=== PATIENT | male | born 1935 | race Caucasian/White ===

== ENCOUNTER 2020-04-15 11:34 | Outpatient (CLI) | payer MEDICARE, SELFPAY ==
--- NOTE | 2020-04-15 11:41 | USCV_ITS ---
Eugene Samayoa Age: 84 Gender: M : 1935 Exam Date: 04/15/2020 11:33 Ordering Phys: Sam hCaudhari MD Technologist: Exam Location: [facility] [place]_ Indication: POOR PULSES RIGHT LEFT Brachial 143.00 mmHg Brachial 146.00 mmHg Pressure (mmHg) Waveform Pressure (mmHg) Waveform 153.00 AEROPLANE PILOT 165.00 156.00 DPA 152.00 1.07 Ankle/Brachial Index 1.10 90.00 Pre-Exercise Toe Pressure 112.00 0.62 Pre-Exercise Toe/Brachial Index 0.77 FINDINGS Normal resting ABIs bilaterally Normal resting TBI on the left side Slightly diminished resting TBI on the right side CONCLUSIONS Features suggestive of mild peripheral artery disease on the right side No significant arterial obstruction on the left side Dr Bailee Newton MD [facility] (Electronically Signed) Final Date: 15 April 2020 18:05 S
== END 2020-04-15 11:35 | disposition home or self-care (01) ==
PROVIDERS: PCP Family Medicine; Visit Provider Family Medicine
DX: R07.9 Chest pain, unspecified (principal); I73.9 Peripheral vascular disease, unspecified
CPT/HCPCS: 93922

== ENCOUNTER 2020-07-08 08:44 | Outpatient (CLI) | payer MEDICARE, SELFPAY ==
--- NOTE | 2020-07-08 09:16 | NMCV_ITS ---
NM lola perf SPECT r/s* [id number] Eugene Samayoa Age: 84 Gender: M : 1935 Exam Date: 07/08/2020 09:16 Ordering Phys: Bailee Newton MD ([email or web address]) Technologist: ROEL Maldonado Exam Location: [facility] Indications: shortness of breath STRESS TEST Please see separate stress test report in Ephiphany for full findings IMAGE PROTOCOL Rest/Stress 1 Radiopharmaceutical Dose (mCi) Administration Site Administered by Rest: Tc-99m 10.6 IV ROEL Fragoso Sestamibi Stress:Tc-99m 32.9 IV ROEL Fragoso Sestamibi Rest: 08-Jul-2020 60 Discovery 630 Stress: 08-Jul-2020 30 Discovery 630 SPECT RESULTS Technical Quality: Excellent Raw Data Analysis: Normal Image Corrections: No attenuation or motion correction applied Summed Stress Score: 2 Summed Rest Score: 8 Summed Difference Score: 0 PERFUSION FINDINGS Small to moderate decreases uptake in the basal mid and apical inferior and apical lateral regions, with no significant reversibility. FUNCTIONAL RESULTS (calculated via Gated SPECT) Stress Image LV EF (%): 56 Stress EDV (mL):108 TID: 0.87 Stress ESV (mL):48 FUNCTIONAL FINDINGS: Segmental wall motion analysis revealing mild hypokinesia of the LV apex and diffuse hypokinesia of the septum. IMPRESSIONS 1. Myocardial perfusion may revealing small to moderate area of fixed defect in the inferior and apical regions, suggestive of myocardial scarring distribution of the right coronary artery/circumflex artery. 2. Normal LV ejection fraction 56%. 3. Wall motion normalities as mentioned above. 4. LV volume, upper limit of normal. No significant coronary ischemia, based on the above findings Dr Bailee Newton MD [facility] (Electronically Signed) Final Date: 08 July 2020 15:46 S
--- NOTE | 2020-07-08 09:16 | ECG_ITS ---
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 Interpretive Statements NAME OF STUDY: LEXISCAN SESTAMIBI STRESS TEST INDICATION: Chest Pain PROCEDURE: At the baseline, the EKG revealed atrial fibrillation with a controlled ventricular response rate. Poor R wave progression. Possible old anteroseptal HI. Left axis deviation. The baseline blood pressure was 145/106 mm Hg with a heart rate of 82 beats/min. Lexiscan was infused over a period of 20 seconds. A total of 0.4 milligrams of Lexiscan was infused. The stress phase was continued for a total of 5 minutes. Heart rate at the end of the stress phase was 105 with a blood pressure 139/92. The EKG at the peak infusion revealed no significant changes. Sestamibi was injected 20 seconds after the Lexiscan infusion. Blood pressure at the end of the recovery phase was 151/93 with a heart rate of 97 per minute. CONCLUSION: 1. No significant EKG changes with the LexiScan infusion 2. No LexiScan induced chest pain or cardiac arrhythmia 3. Normal blood pressure and heart rate response 4. Sestamibi/sestamibi perfusion scan pending; see separate report. Electronically Signed On 07-12-2020 17:29:24 CDT by Bailee Newton M.D. [id number]
[2020-07-08 09:17] VITALS: BMI 27.1
[2020-07-08 10:36] VITALS: BP 145/92; PULSE 89
[2020-07-08] MEDS: regadenoson 0.4 Mg/5 ml Syringe IVP (10:36)
== END 2020-07-08 08:45 | disposition home or self-care (01) ==
LOC: CDL 08:51
PROVIDERS: PCP Family Medicine; Visit Provider Internal Medicine Cardiovascular Disease
DX: R06.02 Shortness of breath (principal); R07.9 Chest pain, unspecified
CPT/HCPCS: 78452; 93017; A9500; J2785

== ENCOUNTER → 2020-08-09 10:06 | Outpatient (BNVA) | payer MEDICARE, SELFPAY | PROVIDERS: PCP Family Medicine; Visit Provider Surgery | DX: Z01.812 Encounter for preprocedural laboratory examination (principal); Z20.822 Contact with and (suspected) exposure to COVID-19 | CPT/HCPCS: 87635 ==

== ENCOUNTER 2020-08-15 05:56 | Day surgery (SDC) | payer MEDICARE, SELFPAY ==
[2020-08-13 09:43] VITALS: BMI 27.8
[2020-08-15 06:20] VITALS: BP 99/82; PULSE 74; RESP 18; TEMP 36.2; O2SAT 98
--- NOTE | 2020-08-15 06:32 | W.PM.OPSUD ---
Surgery/Procedure H&P Update DATE OF PROCEDURE: August 15, 2020 DATE H&P PERFORMED: 07/30/20 H&P UPDATE INFORMATION: No changes to prior documentation PLANNED PROCEDURE: Operation Date: 08/15/20 07:00 Proposed Procedures p Colonoscopy 38654 K92.1(Not Applicable) - Dustin Treadwell MD s EGD(Not Applicable) - Dustin Treadwell MD
[2020-08-15] MEDS: sodium chloride 0.9% 1,000 ML 30 ML IV (06:34)
--- NOTE | 2020-08-15 06:41 | ANES.PREANE2 ---
Pre-Anesthetic Assessment Pre-Anesthetic Assessment: Height/Weight: Height 1.83 m Weight 92.986 kg Temp Pulse Resp BP Pulse Ox 97.2 F L 74 18 99/82 98 08/15/20 06:20 08/15/20 06:20 08/15/20 06:20 08/15/20 06:20 08/15/20 06:20 Proposed Procedure: Operation Date: 08/15/20 07:00 Proposed Procedures p Colonoscopy 69102 K92.1(Not Applicable) - Dustin Treadwell MD s EGD(Not Applicable) - Dustin Treadwell MD Was Beta Ricardo taken within 24 hours: Yes Was Clonidine taken within 24 hours: N/A Last intake: Intake Last Liquid Date 08/14/20 Last Liquid Time 20:30 Last Solid Date 08/13/20 Last Solid Time 18:30 Social: Social History: No alcohol and No tobacco Exam: Pre-Anes Outpt Exam: alert, oriented x 3 and clear to auscultation bilaterally Additional Exam Findings (including area of procedure): Irr Airway: Submandibular: WNL Cervical ROM: WNL MP: 2 Dentition: Partials CV/HEM: CV/HEM: Afib, Arrythmia, CAD (CABG) and HTN Metabolic: Metabolic: Hyperlipidemia Neuropsych: Neuropsych: TIA Anesthetic Plan: ASA status: 3 Anesthesia: MAC Risk of > 500 ml blood loss (7ml/kg in children): No Meds/Allergies Current Medications: Current Medications Generic Name Dose Route Start Last Admin Trade Name Freq PRN Reason Stop Dose Admin Sodium Chloride 1,000 mls @ 30 ml s/hr 08/15/20 06:15 08/15/20 06:34 Sodium Chloride 0.9% IV 08/16/20 06:14 30 mls/hr .Q24H FRIEDA Administration PFSH Anesthesia PFSH: Medical History Atherosclerotic heart disease of [place] coronary artery without angina pectoris Atrial fibrillation Benign essential HTN BPH (benign prostatic hyperplasia) CAD (coronary artery disease) Dilated aortic root Mixed hyperlipidemia TIA (transient ischemic attack) Surgical History History of hernia repair Hx of CABG Family History Father CAD (coronary artery disease) Brother CAD (coronary artery disease) Sister CAD (coronary artery disease) Cancer Other Hyperlipidemia Denies family history of Diabetes Clotting disorder Dementia Chronic kidney disease (CKD) Suicide Anesthesia complication Bleeding disorder Lung disease Stroke Social History Smoking and tobacco status: former smoker Alcohol intake: never Data Anesthesia Cardiac Studies: No Data to Display
[2020-08-15 07:12] VITALS: BP 86/61; PULSE 75; RESP 16; TEMP 36.1; O2SAT 98
[2020-08-15 07:30] VITALS: BP 105/70; PULSE 73; RESP 16; O2SAT 96
--- NOTE | 2020-08-15 08:53 | ANE.PACU2 ---
Inpatient post-anesthesia follow up: Airway intact: Yes Vital signs: Temperature 97 F Pulse Rate 73 Respiratory Rate 16 Blood Pressure 105/70 Pulse Oximetry 96 Oxygen Delivery Me thod Room Air Oxygen Flow Rate Fraction of Inspir ed Oxygen Hydration adequate: Yes Nausea and vomiting: No Pain level: 1 Mental status: Baseline
== END 2020-08-15 07:45 | disposition home or self-care (01) ==
PROVIDERS: PCP Family Medicine; Visit Provider Surgery
PROC: 0DJD8ZZ Inspection of Lower Intestinal Tract, Via Natural or Artificial Opening Endoscopic (ICD-10-PCS; CPT 45378; principal; 2020-08-15 07:00)
PROC: 0DJ08ZZ Inspection of Upper Intestinal Tract, Via Natural or Artificial Opening Endoscopic (ICD-10-PCS; CPT 43235; 2020-08-15 07:00)
DX: K92.1 Melena (principal); I25.10 Atherosclerotic heart disease of native coronary artery without angina pectoris; I50.9 Heart failure, unspecified; I25.2 Old myocardial infarction; I48.91 Unspecified atrial fibrillation; Z79.01 Long term (current) use of anticoagulants; Z95.5 Presence of coronary angioplasty implant and graft; Z95.1 Presence of aortocoronary bypass graft; K64.8 Other hemorrhoids; K44.9 Diaphragmatic hernia without obstruction or gangrene; Z86.73 Personal history of transient ischemic attack (TIA), and cerebral infarction without residual deficits; E78.2 Mixed hyperlipidemia
CPT/HCPCS: 12345; 43235; 45378; 96360; J2704; J7030

== ENCOUNTER 2020-10-08 08:58 | Emergency (ER) | payer MEDICARE, SELFPAY ==
[2020-10-08] VITALS (7 sets, daily range): BP systolic 129–151; BP diastolic 70–90; PULSE 66–90; RESP 9–26; TEMP 36.5–36.7; O2SAT 93–98; BMI 26.4
--- NOTE | 2020-10-08 09:15 | ECG_ITS ---
[facility] Test Date: 2020-10-08 Pat Name: Eugene Samayoa Department: Room: Gender: Male [employer] Presser: : 1935 Requested By: Oleg Castro Order Number: [id number] Arely MD: Bailee Newton M.D. Measurements Intervals Sylvester Rate: 84 P: MS: QRS: -89 QRSD: 93 T: 7 QT: 368 QTc: 436 Interpretive Statements ATRIAL FIBRILLATION INDETERMINATE AXIS POSSIBLE INFERIOR MYOCARDIAL INFARCTION [30 ms Q WAVE IN II/aVF], PROBABLY OLD Compared to ECG 10/04/2018 05:59:06 Indeterminate axis now present Sinus rhythm no longer present Incomplete right bundle-branch block no longer present Myocardial infarct finding still present Electronically Signed On 10-09-2020 0:23:29 CDT by Bailee Newton M.D. [id number]
--- NOTE | 2020-10-08 09:16 | ED_ITS ---
HPI - Abdominal Pain General: Chief Complaint: Abdominal Pain Stated Complaint: abdominal pain Time Seen by Provider: 10/08/20 09:09 History of Present Illness: HPI narrative: 84-year-old male presents emergency room with abdominal pain for last 3 days denies nausea vomiting or diarrhea. He had been on Dexilant and was having diarrhea he thought that might have been a side effect so he stopped it. When he stopped the Dexilant the diarrhea stopped has been constipated for last 5 days so he took some laxatives last night he has had abdominal cramping. He has not had any fever sweats or chills. No dysuria urgency or frequency. Patient has significant reflux to the point where he gets chronic cough and hoarseness from it. MD elicited complaint: abdominal pain Pertinent past history: none Onset (ago): day(s) (3) Location: Diffuse Severity: moderate Quality: cramping Radiation: none Migration to: no migration Exacerbating factors: nothing Relieving factors: nothing Associated Symptoms: Reports bloating, change in bowel habits, GI cramping, dyspepsia and poor appetite; Denies anorexia, belching, change in stool character, chills, coffee ground emesis, constipation, diarrhea, dysuria, excessive flatus, fever(s), heartburn, hematochezia, hematuria, hematemesis, fecal incontinence, loose stools, melena, nausea, syncope and vomiting Review of Systems Const: Denies: fever(s) or chills ENMT: Denies: throat pain, ear or mastoid pain, nasal discharge or nasal congestion Card: Denies: syncope Resp: Denies: dyspnea, productive cough or non-productive cough GI: Reports: bloating, GI cramping and change in bowel habits; Denies: nausea, vomiting, hematemesis, coffee ground emesis, heartburn, diarrhea, constipation, belching, excessive flatus, fecal incontinence, change in stool character, hematochezia or melena : Denies: dysuria or hematuria Skin/Breast: Denies: rash or pruritus PFSH ED PFSH: Medical History (Updated 10/17/20 @ 18:30 by Saran Sherman MD) Atherosclerotic heart disease of [place] coronary artery without angina pectoris Atrial fibrillation Benign essential HTN BPH (benign prostatic hyperplasia) CAD (coronary artery disease) Mixed hyperlipidemia TIA (transient ischemic attack) Surgical History (Updated 10/17/20 @ 16:06 by Saran Sherman MD) H/O esophagogastroduodenoscopy History of coronary artery stent placement Hx of CABG Status post colonoscopy (10/17/20) Status post right inguinal hernia repair Family History Father CAD (coronary artery disease) Brother CAD (coronary artery disease) Sister CAD (coronary artery disease) Cancer Other Hyperlipidemia Denies family history of Diabetes Clotting disorder Dementia Chronic kidney disease (CKD) Suicide Anesthesia complication Bleeding disorder Lung disease Stroke Social History Smoking and tobacco status: former smoker Alcohol intake: never Physical Exam Const: COMMON NORMALS: no acute distress GENERAL APPEARANCE: cooperative and comfortable ORIENTATION/CONSCIOUSNESS: Yes awake, Yes oriented to person, Yes oriented to place and Yes oriented to time HENMT: COMMON NORMALS: normocephalic, atraumatic, hearing grossly normal bilaterally, external ears normal, EAC's normal, TM's normal bilaterally, Normal nasal mucous membranes and turbinates present, moist oral mucous membranes and oropharynx normal HEAD & SCALP: normocephalic and atraumatic NOSE: Normal nasal mucous membranes and turbinates present EXTERNAL EAR: Yes external ears normal EXTERNAL AUDITORY CANAL: EAC's normal TYMPANIC MEMBRANE: TM's normal bilaterally Eye: COMMON NORMALS: Equal, round and reactive pupils present, EOMs intact bilaterally, conjunctivae normal and no scleral icterus CONJUNCTIVA: Yes conjunctivae normal PUPIL: Yes Equal, round and reactive pupils present Neck/C-Spine: COMMON NORMALS: full ROM, no lymphadenopathy, supple and no JVD Lymph: LYMPHATIC: no lymphadenopathy noted and no lymphedema noted Resp: COMMON NORMALS: normal respiratory effort, No retractions, No use of accessory muscles and clear to auscultation bilaterally AUSCULTATION: clear to auscultation bilaterally Cardio: COMMON NORMALS: no JVD, regular rate, regular rhythm and No murmurs present (Cardio) RATE: regular rate RHYTHM: regular rhythm GI: COMMON NORMALS: Soft to palpation and No hepatosplenomegaly present AUSCULTATION: Yes normoactive bowel sounds PALPATION: Yes Soft to palpation, No Tenderness to palpation present (GI), No Guarding due to palpation present (GI) and Yes No hepatosplenomegaly present Extremity: COMMON NORMALS: normal to inspection, capillary refill normal, no clubbing, cyanosis or edema, no calf tenderness and no pedal edema Neuro: SENSORIUM/ORIENTATION: Yes oriented to person, Yes oriented to place and Yes oriented to time Skin: COMMON NORMALS: no rashes or lesions noted GENERAL SKIN EXAM: no rashes or lesions noted Course Vital Signs: Vital signs: Vital Signs Temperature 97.7 F 10/08/20 10:53 Pulse Rate 75 10/08/20 12:50 Respiratory Rate 19 H 10/08/20 12:50 Blood Pressure 150/90 10/08/20 12:50 Pulse Oximetry 97 10/08/20 12:50 MDM - Abdominal Pain MDM Narrative: Medical decision making narrative: Discharge home have him use mag citrate if her symptoms worsen return would recommend he continue on his Pepcid also recommended to do it twice a day. He also started on Inés-Colace and/or male MiraLAX prevention of for long-term constipation. Lab Data: Labs: Lab Results 10/08/20 10/08/20 10/08/20 Range/Units 09:44 09:44 11:19 WBC 9.7 (4.0-10.0) 10^3/ uL RBC 4.86 (4.1-5.3) 10^6/u L Hgb 15.5 (11.7-16.6) g/dL Hct 45.1 (42.0-52.0) % MCV 92.8 (80-94) fL MCH 31.9 (28.0-34.0) pg MCHC 34.4 (30.0-36.0) g/dL RDW 12.4 (12.1-15.1) % Plt Count 261 (130-400) 10^3/c mm MPV 8.5 (7.4-10.4) fL Neut % (Auto) 65.5 % Lymph % (Auto) 21.2 % [place] % (Auto) 12.1 % Eos % (Auto) 0.8 % Baso % (Auto) 0.1 % Neut # (Auto) 6.32 (1.8-7.7) 10^3/u L Lymph # (Auto) 2.1 (0.8-4.8) 10^3/u L [place] # (Auto) 1.2 H (0.2-0.9) 10^3/u L Eos # (Auto) 0.1 (0.0-0.8) 10^3/u L Baso # (Auto) 0.0 (0.0-0.1) 10^3/u L Nucleated RBC % (a uto) 0 % Nucleated RBCs # 0.0 /100WBC Sodium 126 L (136-145) mmol/L Potassium 4.7 (3.5-5.1) mmol/L Chloride 90 L (98-107) mmol/L Carbon Dioxide 26 (22-29) mmol/L Anion Gap 14.7 (5-19) BUN 17 (8-23) mg/dL Creatinine 1.2 (0.7-1.2) mg/dL GFR Calculation Not Reportable Glucose 109 (65-115) mg/dL Calculated Osmolal ity 264 L (285-295) mOsm/k g Calcium 9.3 (8.5-10.5) mg/dL Total Bilirubin 0.6 (0.15-1.2) mg/dL AST 23 (0-40) U/L ALT 14 (0-41) U/L Alkaline Phosphata se 98 (40-130) IU/L Total Protein 7.1 (6.6-8.7) g/dL Albumin 4.0 (3.5-5.2) g/dL Globulin 3.1 (1.3-4.6) g/dL Lipase 16 (13-60) U/L Urine Color Yellow (Yellow) Urine Appearance Clear (CLEAR) Urine pH 7 (5-7) Ur Specific Gravit y 1.010 (1.005-1.030) Urine Protein Neg (Negative) Urine Glucose (UA) Norm (Normal) Urine Ketones Negative (Negative) Urine Blood 2+ H (Negative) Urine Nitrate Negative (Negative) Urine Bilirubin Neg (Negative) Urine Urobilinogen Norm (Negative) mg/dL Ur Leukocyte Trudi ase Negative (Negative) Urine RBC 0-4 H (0-2) /hpf Urine WBC None (0-5) /hpf Ur Squamous Epith Cells None (0-5) /hpf Amorphous Sediment Not Reportable Urine Bacteria Trace (NONE) /hpf Discharge Plan Discharge Patient Disposition: Home Clinical Impression: Abdominal pain, Constipation, Drug side effects, Chronic GERD Condition: Stable Prescriptions: No Action tamsulosin 0.4 mg capsule 0.4 mg PO BEDTIME RF: 0 Xarelto 20 mg tablet 20 mg PO QPM RF: 0 Hold Instructions: Resume on 10/20/20. nitroglycerin [Nitrostat] 0.4 mg tablet, sublingual 0.4 mg SUBLINGUAL Q5M PRN (Reason: Chest Pain) RF: 0 metoprolol succinate 50 mg tablet extended release 24 hr 50 mg PO BEDTIME Qty: 90 RF: 3 Pepcid 20 mg Tablet 20 mg PO BID RF: 0 Colace 100 mg Capsule 100 mg PO PRN RF: 0 Miralax 17 gram/dose Powder 17 g PO DAILY PRN (Reason: Constipation) RF: 0 Vitamin D3 50 mcg (2,000 unit) Tablet 50 mcg PO DAILY RF: 0 Discharge Orders: Discharge ED (Routine); Ordered 10/08/20 Ordered By: Oleg Feng Referrals: Sam Chaudhari MD [Primary Care Provider] - Patient Instructions: Abdominal Pain (ED), Opioid Safety Activity Restrictions/Additional Instructions: Follow-up with your primary care doctor within the next 1 to 2 weeks Coding Level of Care Code ED Data Analytics Specialist for Chg Fwd Exam Comprehensive
--- NOTE | 2020-10-08 09:43 | XRR_ITS ---
PROCEDURE INFORMATION: Exam: XR Abdomen Exam date and time: 10/08/2020 9:43 AM Age: 84 years old Clinical indication: Abdominal pain; Generalized; Additional info: Abd pain TECHNIQUE: Imaging protocol: XR of the abdomen. Views: Frontal supine view of the abdomen. 1 View. COMPARISON: CR XR chest 2V* [id number] 09/18/2020 11:40 AM FINDINGS: Gastrointestinal tract: There is diffuse gaseous distention of the small bowel and colon. Gas is present in the rectum. These findings may be due to a diffuse reflex ileus. Bones/joints: Chronic degenerative changes are present in the spine with sclerosis and osteophytes. XR/XR KUB [id number] IMPRESSION: Diffuse gaseous distention of the small bowel and colon most likely due to a diffuse reflex ileus.
[2020-10-08 09:52] LABS: Basophils % 0.1 %; Eosinophils # 0.1 10^3/uL (0.0-0.8); Eosinophils % 0.8 %; Hematocrit 45.1 % (42.0-52.0); Hemoglobin 15.5 g/dL (11.7-16.6); Lymphocytes # 2.1 10^3/uL (0.8-4.8); Lymphocytes % 21.2 %; Mean Corpuscular HGB Conc 34.4 g/dL (30.0-36.0); Mean Corpuscular Hemoglobin 31.9 pg (28.0-34.0); Mean Corpuscular Volume 92.8 fL (80-94); Mean Platelet Volume 8.5 fL (7.4-10.4); Monocytes # 1.2 10^3/uL (0.2-0.9); Monocytes % 12.1 %; Neutrophils # 6.32 10^3/uL (1.8-7.7); Neutrophils % 65.5 %; Nucleated Red Blood Cells % 0 %; Platelet Count 261 10^3/cmm (130-400); Red Blood Count 4.86 10^6/uL (4.1-5.3); Red Cell Distribution Width 12.4 % (12.1-15.1); White Blood Count 9.7 10^3/uL (4.0-10.0)
[2020-10-08 10:12] LABS: Alanine Aminotransferase 14 U/L (0-41); Alkaline Phosphatase 98 IU/L (40-130); Anion Gap 14.7 (5-19); Aspartate Amino Transferase 23 U/L (0-40); Blood Urea Nitrogen 17 mg/dL (8-23); Calcium 9.3 mg/dL (8.5-10.5); Carbon Dioxide 26 mmol/L (22-29); Chloride 90 mmol/L (98-107); Globulin 3.1 g/dL (1.3-4.6); Glucose 109 mg/dL (65-115); Lipase 16 U/L (13-60); Osmolality Calculated 264 mOsm/kg (285-295); Potassium 4.7 mmol/L (3.5-5.1); Sodium 126 mmol/L (136-145); Total Bilirubin 0.6 mg/dL (0.15-1.2); Total Protein 7.1 g/dL (6.6-8.7)
[2020-10-08 11:35] LABS: Add Urine Microscopic? YES; Bilirubin Urine Neg (Negative); Blood Urine 2+ (Negative); Glucose Urine UA Norm (Normal); Ketones Urine Negative (Negative); Leukocyte Esterase Urine Negative (Negative); Nitrate Urine Negative (Negative); Protein Urine Neg (Negative); Urine Appearance Clear (CLEAR); Urine Color Yellow (Yellow); Urobilinogen Urine Norm (Negative); pH Urine 7 (5-7)
[2020-10-08 11:48] LABS: Bacteria Urine TRACE /hpf; RBC Urine 0-4 /hpf (0-2)
== END 2020-10-08 12:51 | disposition home or self-care (01) ==
PROVIDERS: Emergency Provider Family Medicine; PCP Family Medicine
DX: K59.00 Constipation, unspecified (principal); T88.7XXA Unspecified adverse effect of drug or medicament, initial encounter; T50.905A Adverse effect of unspecified drugs, medicaments and biological substances, initial encounter; K21.9 Gastro-esophageal reflux disease without esophagitis; I25.10 Atherosclerotic heart disease of native coronary artery without angina pectoris; I10 Essential (primary) hypertension; E78.2 Mixed hyperlipidemia; Z86.73 Personal history of transient ischemic attack (TIA), and cerebral infarction without residual deficits; Z95.1 Presence of aortocoronary bypass graft; Z87.891 Personal history of nicotine dependence
CPT/HCPCS: 74018; 80053; 81001; 83690; 85025; 93005; 99284

== ENCOUNTER 2020-10-15 06:00 | Outpatient (CLI) | payer MEDICARE, SELFPAY ==
[2020-10-15 11:56] LABS: Lipase 15 U/L (13-60)
== END 2020-10-15 06:01 | disposition home or self-care (01) ==
LOC: LAB 08-21 14:44
PROVIDERS: PCP Family Medicine; Visit Provider Family Medicine
DX: R10.9 Unspecified abdominal pain (principal)
CPT/HCPCS: 83690

== ENCOUNTER 2020-10-15 11:07 | Outpatient (CLI) | payer MEDICARE, SELFPAY ==
--- NOTE | 2020-10-15 11:13 | CT_ITS ---
WS: [id number] CT ABDOMEN PELVIS TECHNIQUE: Contrast-enhanced CT of the abdomen and pelvis with coronal and sagittal reformatted image s. CLINICAL INFORMATION: OBSTRUCTION, ILEUS COMPARISON: None. DLP: 957.[address] scans at [facility] use at least one of these dose optimization techniques: automat ed exposure control; mA and/or kV adjustment per patient size (includes targeted exams where dose is matched to clinical indication); or iterative reconstruction. FINDINGS: Colonic distention with right colon and cecal constipation. Tortuous hepatic and splenic fl exures with tortuous and decompressed distal sigmoid colon. Transition point in the left lower quadra nt image 42 series 2 image 46 series 2 suspicious for sigmoid volvulus. No evidence of pneumatosis or bowel ischemia. Small bowel is relatively decompressed. Fluid-filled small bowel loops in the pelvis . No free fluid in the abdomen or pelvis. Diffuse fatty infiltration liver. Multiple peripheral enhancing low-attenuation lesion suspicious for metastatic disease largest lesions in the right hepatic lobe measuring 2.7 x 2.1 CM. Liver lesions a re new since the prior CTA in 2014. Normal portal vein and splenic vein. Normal spleen. Adrenal gland s are normal. Normal renal parenchymal enhancement. No hydronephrosis. Right renal cyst measuring 2.1 CM. Small esophageal hiatal hernia. Fatty atrophy of the pancreas. Tiny right pleural effusion. Slight interstitial thickening in the right lower lobe. Cardiomegaly. Urine distended bladder. Heterogeneously enhancing enlarged prostate measuring 4.1 CCM. Normal caliber abdominal aorta. Aortic calcification. No free fluid in the pelvis. No inguinal lympha denopathy. No periaortic or retroperitoneal lymphadenopathy. CT/CT abdomen pelvis w con* [id number] IMPRESSION: 1. Several low-attenuation lesions in the liver with peripheral enhancement nguyen spicious for metastatic disease. Largest lesion right hepatic lobe measures 2.7 x 2.1 cm. This can be further evaluated with ultrasound. These are new since 2 015 2. Large bowel distention with swirling in the mid mesentery and tortuous tape ring sigmoid colon suspicious for sigmoid volvulus. Area of interest in the lef t lower quadrant indicated with markers. 3. Small bowel is relatively decompressed. Fluid-filled small bowel loops in t he pelvis. 4. Urine distended bladder. 5. Heterogeneously enhancing enlarged prostate measuring 4.1 cm. Recommend cor relation PSA. 6. Tiny right pleural effusion with slight interstitial thickening in the righ t lower lobe. 7. Small esophageal hiatal hernia. 8. No abdominal or pelvic lymphadenopathy. Notified Sam Chaudhari MD at 10/15/2020 1:09 PM.
--- NOTE | 2020-10-15 11:13 | XR_ITS ---
WS: [id number] PROCEDURE: XR chest 2V* [id number] CLINICAL INFORMATION: WHEEZING COMPARISON: September 18, 2020 FINDINGS: Heart: Cardiomegaly. Sternotomy. CABG. Lungs: Moderate chronic emphysematous changes. Patchy right perihilar and infrahilar infiltrates new from previous. Recommend correlation for pneumonitis. Mild interstitial thickening right lower lobe. Bones: Normal visualized bony structures. XR/XR chest 2V* [id number] IMPRESSION: 1. Patchy right hilar and infrahilar interstitial infiltrates new from previou s. Recommend correlation for pneumonitis. 2. Stable cardiomegaly. 3. Chronic emphysematous changes.
[2020-10-15] MEDS: iodixanol 320 mg/mL 100mL Btl IV (11:55)
== END 2020-10-15 11:08 | disposition home or self-care (01) ==
LOC: RADWPI 11:09
PROVIDERS: PCP Family Medicine; Visit Provider Family Medicine
DX: K59.00 Constipation, unspecified (principal); K56.7 Ileus, unspecified; K44.9 Diaphragmatic hernia without obstruction or gangrene; J90 Pleural effusion, not elsewhere classified; N32.89 Other specified disorders of bladder; R06.2 Wheezing; I51.7 Cardiomegaly; R91.8 Other nonspecific abnormal finding of lung field
CPT/HCPCS: 71046; 74177; Q9967

== ENCOUNTER 2020-10-15 15:47 | Inpatient (IN) | payer MEDICARE, SELFPAY ==
[2020-10-15] VITALS (8 sets, daily range): BP systolic 122–158; BP diastolic 62–103; PULSE 53–111; RESP 16–18; TEMP 36.1–36.5; O2SAT 94–99; BMI 26.4
--- NOTE | 2020-10-15 17:48 | PC.PHAR ---
PT STATES SHE TAKES CARE OF HIS OWN MEDICATIONS-PT STATES HE WAS TAKING DEXILANT 60MG BUT HASNT TAKEN FOR 2 WEEKS-RX WRITTEN IN 10/08/20 FOR PEPCID 40MG BID-PT STATES HE JUST BUYS OTC 20MG AND TAKES BID-METOPROLOL ER 50MG WAS PRESCRIBED 50MG IN THE MORNING/ 25 MG QPM EXT MED HISTORY SHOWS LAST FILLED ON 08/05/20 90D/S-PT STATES HE IS ONLY TAKING THE 50MG DAILY
--- NOTE | 2020-10-15 18:11 | XRR_ITS ---
PROCEDURE INFORMATION: Exam: XR Abdomen Exam date and time: 10/15/2020 6:11 PM Age: 84 years old Clinical indication: Abdominal pain; Generalized; Prior surgery; Additional info: Concern for volvulous, feeling better presently, no bm x 2d TECHNIQUE: Imaging protocol: XR of the abdomen. Views: Frontal supine view of the abdomen. 1 View. COMPARISON: CT abdomen pelvis w con* [id number] 10/15/2020 11:50 AM FINDINGS: Gastrointestinal tract: Distended air-filled loops throughout the majority of the colon with paucity of intraluminal air in the distal sigmoid colon and rectum. Stool within the right hemicolon again noted. The colon measures up to 9 cm in transverse dimension in the region of the sigmoid colon. No evidence of pneumoperitoneum. Organs: Contrast noted within the bladder. Bones/joints: Partially visualized sternotomy wires noted which are intact. DJD at L5-S1 noted. XR/XR KUB [id number] IMPRESSION: Persistent distended air-filled loops throughout the majority of the colon with paucity of air within the distal sigmoid and rectum again suspicious for sigmoid volvulus given imaging findings on same day CT abdomen/pelvis.
--- NOTE | 2020-10-15 18:12 | ED_ITS ---
HPI - Abdominal Pain General: Chief Complaint: Abdominal Pain Stated Complaint: SENT BY DR STEPHENS/SAVANNA BOWEL OBSTRUCTION Time Seen by Provider: 10/15/20 18:03 Source: patient History of Present Illness: HPI narrative: Patient is a well-appearing 84-year-old male from home seen for abdominal pain. He states that 2 nights ago he had a sudden onset of sharp abdominal pain, 8 of 10, with mild associated nausea, but no vomiting. Since onset of pain, he has had no bowel movement and no passage of flatus. He denies fever, chest pain, shortness of breath, dysuria, or antecedent fever. He has never had any abdominal surgeries. Jimmy ier in the day, CT abdomen pelvis was obtained showing possible volvulus. For this reason, he presents to the emergency department. At this time, he rates his pain as 4 of 10, and considers it an annoyance. He has a history of open heart surgery and paroxysmal atrial fibrillation and currently takes Xarelto for anticoagulation. He took Tylenol last night with some relief. He has no other acute complaints. Review of Systems General: Reports: 10 or more systems reviewed and unremarkable except in HPI and below PFSH ED PFSH: Medical History Atherosclerotic heart disease of [place] coronary artery without angina pectoris Atrial fibrillation Benign essential HTN BPH (benign prostatic hyperplasia) CAD (coronary artery disease) Mixed hyperlipidemia TIA (transient ischemic attack) Surgical History H/O esophagogastroduodenoscopy History of coronary artery stent placement Hx of CABG Status post colonoscopy Status post right inguinal hernia repair Family History Father CAD (coronary artery disease) Brother CAD (coronary artery disease) Sister CAD (coronary artery disease) Cancer Other Hyperlipidemia Denies family history of Diabetes Clotting disorder Dementia Chronic kidney disease (CKD) Suicide Anesthesia complication Bleeding disorder Lung disease Stroke Social History Smoking and tobacco status: former smoker Alcohol intake: never Physical Exam Const: COMMON NORMALS: no acute distress, patient oriented x3 and alert HENMT: COMMON NORMALS: normocephalic and atraumatic HEAD & SCALP: normocephalic and atraumatic Eye: COMMON NORMALS: Equal, round and reactive pupils present, EOMs intact bilaterally and no scleral icterus PUPIL: Yes Equal, round and reactive pupils present Resp: COMMON NORMALS: normal respiratory effort and No retractions Cardio: COMMON NORMALS: No murmurs present (Cardio) RATE: tachycardic R HYTHM: abnormal rhythm irregularly irregular GI: COMMON NORMALS: Normal to inspection, nondistended, normoactive bowel sounds present and Soft to palpation AUSCULTATION: Yes Hypoactive bowel sounds present PALPATION: Yes Soft to palpation and Yes Tenderness to palpation present (GI) Details: LLQ and other (Periumbilic) OTHER: Abdomen is soft and nondistended. He states that the belly was more distended last night. Here very faint bowel sounds and he has mild periumbilical and left-sided abdominal pain. Neuro: COMMON NORMALS: patient oriented x3 SENSORIUM/ORIENTATION: Yes alert Skin: COMMON NORMALS: no rashes or lesions noted GENERAL SKIN EXAM: no rashes or lesions noted Course Vital Signs: Vital signs: Vital Signs Temperature 97.5 F L 10/15/20 20:45 Pulse Rate 80 10/15/20 20:45 Respiratory Rate 18 10/15/20 20:45 Blood Pressure 158/79 10/15/20 20:45 Pulse Oximetry 99 10/15/20 20:45 MDM - Abdominal Pain MDM Narrative: Medical decision making narrative: Patient remained hemodynamically stable throughout ED course. Given the concerning nature of the CT earlier in the day, lactic acid was ordered to assess for bowel necrosis secondary to volvulus. Repeat imaging was performed with KUB to look for progression or possible spontaneous resolution of suspected volvulus. He is in no acute distress. Prior to labs resulting or x-ray being shot, the general surgeon came and evaluated the patient and deemed him fit for endoscopy. As such, he will be taken to the endoscopy suite and then admitted to the surgical service. Lab Data: Labs: Lab Results 10/15/20 10/15/20 10/15/20 Range/Units 18:15 18:15 18:15 WBC (4.0-10.0) 10^3/ uL RBC (4.1-5.3) 10^6/u L Hgb (11.7-16.6) g/dL Hct (42.0-52.0) % MCV (80-94) fL MCH (28.0-34.0) pg MCHC (30.0-36.0) g/dL RDW (12.1-15.1) % Plt Count (130-400) 10^3/c mm MPV (7.4-10.4) fL Neut % (Auto) % Lymph % (Auto) % [place] % (Auto) % Eos % (Auto) % Baso % (Auto) % Neut # (Auto) (1.8-7.7) 10^3/u L Lymph # (Auto) (0.8-4.8) 10^3/u L [place] # (Auto) (0.2-0.9) 10^3/u L Eos # (Auto) (0.0-0.8) 10^3/u L Baso # (Auto) (0.0-0.1) 10^3/u L Nucleated RBC % (a uto) % Nucleated RBCs # /100WBC PT (12.1-14.9) SECO NDS INR (0.8-1.2) APTT (23.9-36.7) SECO NDS Sodium 130 L (136-145) mmol/L Potassium 4.9 (3.5-5.1) mmol/L Chloride 93 L (98-107) mmol/L Carbon Dioxide 20 L (22-29) mmol/L Anion Gap 21.9 H (5-19) BUN 23 (8-23) mg/dL Creatinine 1.3 H (0.7-1.2) mg/dL GFR Calculation Not Reportable Glucose 124 H (65-115) mg/dL Calculated Osmolal ity 275 L (285-295) mOsm/k g Calcium 9.8 (8.5-10.5) mg/dL Total Bilirubin 0.6 (0.15-1.2) mg/dL AST 29 (0-40) U/L ALT 17 (0-41) U/L Alkaline Phosphata se 105 (40-130) IU/L Lactate Dehydrogen ase 255 H (135-225) U/L Total Protein 7.5 (6.6-8.7) g/dL Albumin 4.0 (3.5-5.2) g/dL Globulin 3.5 (1.3-4.6) g/dL Lipase 13 (13-60) U/L Carcinoembryonic A g (0.0-4.7) ng/mL CA 125 Antigen 14.7 (0-35) U/mL Urine Color Yellow (Yellow) Urine Appearance Clear (CLEAR) Urine pH 6.5 (5-7) Ur Specific Gravit y 1.010 (1.005-1.030) Urine Protein Trace (Negative) Urine Glucose (UA) Norm (Normal) Urine Ketones Negative (Negative) Urine Blood 2+ H (Negative) Urine Nitrate Negative (Negative) Urine Bilirubin Neg (Negative) Urine Urobilinogen Norm (Negative) mg/dL Ur Leukocyte Trudi ase Negative (Negative) Urine RBC 5-10 H (0-2) /hpf Urine WBC None (0-5) /hpf Ur Squamous Epith Cells None (0-5) /hpf Amorphous Sediment Not Reportable Urine Bacteria None (NONE) /hpf 10/15/20 10/15/20 10/15/20 Range/Units 18:59 18:59 18:59 WBC 7.9 (4.0-10.0) 10^3/ uL RBC 4.62 (4.1-5.3) 10^6/u L Hgb 14.7 (11.7-16.6) g/dL Hct 44.0 (42.0-52.0) % MCV 95.2 H (80-94) fL MCH 31.8 (28.0-34.0) pg MCHC 33.4 (30.0-36.0) g/dL RDW 12.7 (12.1-15.1) % Plt Count 274 (130-400) 10^3/c mm MPV 9.4 (7.4-10.4) fL Neut % (Auto) 85.3 % Lymph % (Auto) 9.5 % [place] % (Auto) 4.3 % Eos % (Auto) 0.0 % Baso % (Auto) 0.3 % Neut # (Auto) 6.74 (1.8-7.7) 10^3/u L Lymph # (Auto) 0.8 (0.8-4.8) 10^3/u L [place] # (Auto) 0.3 (0.2-0.9) 10^3/u L Eos # (Auto) 0.0 (0.0-0.8) 10^3/u L Baso # (Auto) 0.0 (0.0-0.1) 10^3/u L Nucleated RBC % (a uto) 0 % Nucleated RBCs # 0.0 /100WBC PT 20.40 H (12.1-14.9) SECO NDS INR 1.70 H (0.8-1.2) APTT 36.5 (23.9-36.7) SECO NDS Sodium (136-145) mmol/L Potassium (3.5-5.1) mmol/L Chloride (98-107) mmol/L Carbon Dioxide (22-29) mmol/L Anion Gap (5-19) BUN (8-23) mg/dL Creatinine (0.7-1.2) mg/dL GFR Calculation Glucose (65-115) mg/dL Calculated Osmolal ity (285-295) mOsm/k g Calcium (8.5-10.5) mg/dL Total Bilirubin (0.15-1.2) mg/dL AST (0-40) U/L ALT (0-41) U/L Alkaline Phosphata se (40-130) IU/L Lactate Dehydrogen ase (135-225) U/L Total Protein (6.6-8.7) g/dL Albumin (3.5-5.2) g/dL Globulin (1.3-4.6) g/dL Lipase (13-60) U/L Carcinoembryonic A g 87.0 H (0.0-4.7) ng/mL CA 125 Antigen (0-35) U/mL Urine Color (Yellow) Urine Appearance (CLEAR) Urine pH (5-7) Ur Specific Gravit y (1.005-1.030) Urine Protein (Negative) Urine Glucose (UA) (Normal) Urine Ketones (Negative) Urine Blood (Negative) Urine Nitrate (Negative) Urine Bilirubin (Negative) Urine Urobilinogen (Negative) mg/dL Ur Leukocyte Trudi ase (Negative) Urine RBC (0-2) /hpf Urine WBC (0-5) /hpf Ur Squamous Epith Cells (0-5) /hpf Amorphous Sediment Urine Bacteria (NONE) /hpf Discharge Plan Discharge Patient Disposition: Admitted As Inpatient Admit Provider: Saran Sherman Condition: Stable Coding Level of Care Code ED Singer Back Tender for Chg Fwd Exam Detailed
--- NOTE | 2020-10-15 18:39 | P.HP_ITS ---
Providers/Chief Complaint Primary Care Provider: Sam Stephens MD Chief Complaint: SENT BY DR STEPHENS/SAVANNA BOWEL OBSTRUCTION History of Present Illness Eugene Samayoa is a 84 year old male who presented to the ER from his PCPs office. Patient was seen in the ER on 10/08/2020 and at that point it was felt that the diarrhea was secondary to Protonix and he was transition to Pepcid. Since then his diarrhea stopped but he developed severe constipation. His last bowel movement was 2 days ago where he had small bowel movements and he is not sure when he last passed flatus. 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 At present he rates his pain 3-4, denies any nausea, vomiting. No bleeding per rectum. His EGD and colonoscopy was performed last month by Dr. Treadwell which showed a hiatal hernia. Review of Systems General: Reports: 10 or more systems reviewed and unremarkable except in HPI and below Medications/Allergies Home Medications Medication Instructions Recorded Confirmed Last Taken Type nitroglycerin 0.4 mg sublingual 0.4 mg SUBLINGUAL Q5M PRN 08/10/19 10/15/20 Unknown History tablet rivaroxaban 20 mg tablet 20 mg PO QPM 08/10/19 10/15/20 10/14/20 History tamsulosin 0.4 mg capsule 0.4 mg PO BEDTIME 08/10/19 10/15/20 10/14/20 History cholecalciferol (vitamin D3) 50 mcg PO DAILY 10/15/20 10/15/20 Unknown History [Vitamin D3] docusate sodium [Colace] 100 mg PO PRN 10/15/20 10/15/20 Unknown History famotidine [Pepcid] 20 mg PO BID 10/15/20 10/15/20 10/15/20 History metoprolol succinate 50 mg PO BEDTIME 10/15/20 10/15/20 10/14/20 History polyethylene glycol 3350 [Miralax] 17 g PO DAILY PRN 10/15/20 10/15/20 10/14/20 History Allergies Allergy/AdvReac Type Severity Reaction Status Date / Time atorvastatin [From Lipitor] Allergy Unknown unknown Verified 10/15/20 17:47 rosuvastatin Allergy Unknown unknown Verified 10/15/20 17:47 PFSH Acute PFSH: Medical History Atherosclerotic heart disease of [place] coronary artery without angina pectoris Atrial fibrillation Benign essential HTN BPH (benign prostatic hyperplasia) CAD (coronary artery disease) Mixed hyperlipidemia TIA (transient ischemic attack) Surgical History H/O esophagogastroduodenoscopy History of coronary artery stent placement Hx of CABG Status post colonoscopy Status post right inguinal hernia repair Family History Father CAD (coronary artery disease) Brother CAD (coronary artery disease) Sister CAD (coronary artery disease) Cancer Other Hyperlipidemia Denies family history of Diabetes Clotting disorder Dementia Chronic kidney disease (CKD) Suicide Anesthesia complication Bleeding disorder Lung disease Stroke Social History Smoking and tobacco status: former smoker Alcohol intake: never Vitals/I&O/Wt Last Vital Signs Temp 97.7 F 10/15/20 16:22 Pulse 111 H 10/15/20 17:29 Resp 18 10/15/20 17:29 BP 122/62 10/15/20 17:29 Pulse Ox 94 10/15/20 17:29 Weight last 48 hrs Weight 195 lb Physical Exam Narrative: EXAM NARRATIVE: HEENT: Normocephalic Eye: Sclera /conjunctiva normal Abdomen: Soft to palpation, non tender, non distended Neurological: Oriented to place person and time Skin: Intact, no lesions appreciated on gross exam A&P Assessment and plan (1) Chronic anticoagulation: Patient took Xarelto yesterday but has not taken it today. He takes it for atrial fibrillation. Status: Acute (2) Constipation: 84-year-old male who used to have loose stools but now has 1 week history of constipation associated severe abdominal pain and nausea. No evidence of peritonitis on physical exam. Labs pending. CT abdomen pelvis performed earlier today showed sigmoid volvulus with significant constipation of the right colon. No small bowel dilation was noted. No free air or pneumatosis. We will therefore plan for colonoscopy with goal of detorsion of the volvulus. I have explained to them the risk of bleeding and perforation with the procedure and the 50% chance of recurrent volvulus. Status: Acute Attestations Medical Necessity Statement*: Volvulus Coding Level of Care Code Acute Warp Tying Machine Knotter for Chg Fwd Diagnoses Chronic anticoagulation Z79.01 Constipation K59.00
--- NOTE | 2020-10-15 18:45 | PC.NURSE ---
patient is difficult stick. 2 other nurses attempted without success. I attempted and was successful on 2nd stick for IV access it only allowed for one tube blood draw and then IV being patient with NS flush however will not draw blood. surgical crew is here for patient. I attempted x 2 for labs without success and surgery crew is aware
[2020-10-15] MEDS: sodium chloride 0.9% 1,000 ML 30 ML IV (18:50)
[2020-10-15 18:57] LABS: Add Urine Microscopic? YES; Bilirubin Urine Neg (Negative); Blood Urine 2+ (Negative); Glucose Urine UA Norm (Normal); Ketones Urine Negative (Negative); Leukocyte Esterase Urine Negative (Negative); Nitrate Urine Negative (Negative); Protein Urine Trace (Negative); Urine Appearance Clear (CLEAR); Urine Color Yellow (Yellow); Urobilinogen Urine Norm (Negative); pH Urine 6.5 (5-7)
[2020-10-15 19:02] LABS: Add Urine Culture? No
--- NOTE | 2020-10-15 19:02 | P.ANESASSM_ITS ---
Pre-Anesthetic Assessment Pre-Anesthetic Assessment: Height/Weight: Height 1.83 m Weight 88.451 kg Temp Pulse Resp BP Pulse Ox 97.7 F 78 18 143/102 98 10/15/20 16:22 10/15/20 18:40 10/15/20 18:40 10/15/20 18:40 10/15/20 18:40 Preop Diagnosis: volvulus Proposed Procedure: Operation Date: 10/15/20 18:00 Proposed Procedures p Colonoscopy(Not Applicable) - Saran Sherman MD Was Beta Ricardo taken within 24 hours: N/A Was Clonidine taken within 24 hours: N/A Social: Social History: No alcohol and No tobacco Exam: Pre-Anes Outpt Exam: alert, oriented x 3 and clear to auscultation bilaterally Additional Exam Findings (including area of procedure): Irregular/rapid rate Airway: Submandibular: WNL Cervical ROM: WNL MP: 2 Pulmonary: Pulmonary: None reported CV/HEM: CV/HEM: Afib, CAD and HTN : Comments: Renal Calculus Hepatic: Hepatic: None reported GI: GI: GERD Musc/skel: Musc/skel: None reported Neuropsych: Neuropsych: None reported Anesthetic Plan: ASA status: 3E Anesthesia: MAC PFSH Anesthesia PFSH: Medical History Atherosclerotic heart disease of [place] coronary artery without angina pectoris Atrial fibrillation Benign essential HTN BPH (benign prostatic hyperplasia) CAD (coronary artery disease) Mixed hyperlipidemia TIA (transient ischemic attack) Surgical History H/O esophagogastroduodenoscopy History of coronary artery stent placement Hx of CABG Status post colonoscopy Status post right inguinal hernia repair Family History Father CAD (coronary artery disease) Brother CAD (coronary artery disease) Sister CAD (coronary artery disease) Cancer Other Hyperlipidemia Denies family history of Diabetes Clotting disorder Dementia Chronic kidney disease (CKD) Suicide Anesthesia complication Bleeding disorder Lung disease Stroke Social History Smoking and tobacco status: former smoker Alcohol intake: never Data Anesthesia Other Labs: Laboratory Results - last 48 hr 10/15/20 18:15 Urine Color Yellow Urine Appearance Clear Urine pH 6.5 Ur Specific [place] 1.010 Urine Protein Trace Urine Glucose (UA) Norm Urine Ketones Negative Urine Blood 2+ H Urine Nitrate Negative Urine Bilirubin Neg Urine Urobilinogen Norm Ur Leukocyte Esterase Negative Amorphous Sediment Not Reportable Cardiac Studies: No Data to Display
[2020-10-15 20:38] LABS: Basophils % 0.3 %; Hemoglobin 14.7 g/dL (11.7-16.6); Lymphocytes # 0.8 10^3/uL (0.8-4.8); Lymphocytes % 9.5 %; Mean Corpuscular HGB Conc 33.4 g/dL (30.0-36.0); Mean Corpuscular Hemoglobin 31.8 pg (28.0-34.0); Mean Corpuscular Volume 95.2 fL (80-94); Mean Platelet Volume 9.4 fL (7.4-10.4); Monocytes # 0.3 10^3/uL (0.2-0.9); Monocytes % 4.3 %; Neutrophils # 6.74 10^3/uL (1.8-7.7); Neutrophils % 85.3 %; Nucleated Red Blood Cells % 0 %; Platelet Count 274 10^3/cmm (130-400); Red Blood Count 4.62 10^6/uL (4.1-5.3); Red Cell Distribution Width 12.7 % (12.1-15.1); White Blood Count 7.9 10^3/uL (4.0-10.0)
[2020-10-15 20:42] LABS: Alanine Aminotransferase 17 U/L (0-41); Alkaline Phosphatase 105 IU/L (40-130); Anion Gap 21.9 (5-19); Aspartate Amino Transferase 29 U/L (0-40); Blood Urea Nitrogen 23 mg/dL (8-23); Calcium 9.8 mg/dL (8.5-10.5); Carbon Dioxide 20 mmol/L (22-29); Chloride 93 mmol/L (98-107); Globulin 3.5 g/dL (1.3-4.6); Glucose 124 mg/dL (65-115); Lactate Dehydrogenase 255 U/L (135-225); Lipase 13 U/L (13-60); Osmolality Calculated 275 mOsm/kg (285-295); Potassium 4.9 mmol/L (3.5-5.1); Sodium 130 mmol/L (136-145); Total Bilirubin 0.6 mg/dL (0.15-1.2); Total Protein 7.5 g/dL (6.6-8.7)
[2020-10-15 20:44] LABS: CA 125 14.7 U/mL (0-35)
[2020-10-15 20:58] LABS: Partial Thromboplastin Time 36.5 SECONDS (23.9-36.7)
--- NOTE | 2020-10-15 22:07 | XRR_ITS ---
PROCEDURE INFORMATION: Exam: XR Abdomen Exam date and time: 10/15/2020 10:07 PM Age: 84 years old Clinical indication: Abdominal pain; Generalized; Additional info: Sbo TECHNIQUE: Imaging protocol: XR of the abdomen. Views: 2 Views. Upright and supine views. COMPARISON: CR (ABDOMEN, ) 10/15/2020 6:09 PM FINDINGS: Gastrointestinal tract: Similar air-filled dilated loops of colon throughout the majority of the colon with relative paucity of air within the distal sigmoid and rectum, similar to recent same day radiographs. There appears to be interval progression of dilated loops of central small bowel which were not as apparent on previous examination measuring up to 2.9 cm in transverse dimension. Intraperitoneal space: Normal. No free air. Organs: Contrast noted within the bladder. Bones/joints: Similar to prior. XR/XR abdomen min 2V [id number] IMPRESSION: Persistent dilated air-filled loops of colon, similar to previous exam. Interval development of borderline dilated loops of central small bowel which again is suggestive of colonic obstruction and volvulus seen on same day CT.
[2020-10-15] MEDS: metoprolol succinate ER (24 HR) 50 mg Tablet PO (22:48)
[2020-10-15] MEDS: magnesium citrate Btl 296 mL PO (22:48)
[2020-10-15] MEDS: tamsulosin 0.4 mg Capsule PO (22:48)
[2020-10-15] MEDS: D5-NS 0.45% + KCL 20 mEq 20 MEQ/1,000 ML BAG 100 MEQ IV (22:48)
[2020-10-15] MEDS: famotidine 20 mg/2 mL INJ IVP (23:07)
[2020-10-16] VITALS (8 sets, daily range): BP systolic 116–144; BP diastolic 65–83; PULSE 71–83; RESP 16–20; TEMP 36.4–36.9; O2SAT 95–98
[2020-10-16] MEDS: magnesium citrate Btl 296 mL PO ×2 (02:16→21:44)
--- NOTE | 2020-10-16 06:00 | XR_ITS ---
WS: [id number] Abdomen series, Flat and upright 10/16/2020 Clinical Data: Volvulus Comparison: Flat and upright abdomen, 10/15/2020 Findings: There are dilated loops of colon unchanged. No free air is seen. There are clips and small wires in the left upper quadrant and midline sternotomy sutures. There are small bowel loops which co ntain air but they are not significantly dilated. There is contrast material in the bladder from a re cent CT abdomen and pelvis. XR/XR abdomen min 2V [id number] Impression: 1. Dilated loops of colon with air-fluid levels unchanged. 2. Air in the distal small bowel with modest dilatation.
[2020-10-16] MEDS: enoxaparin 40 mg/0.4 mL Syringe SUBCUT (06:22)
[2020-10-16 06:42] LABS: Basophils % 0.2 %; Hematocrit 44.1 % (42.0-52.0); Lymphocytes # 1.8 10^3/uL (0.8-4.8); Lymphocytes % 13.6 %; Mean Corpuscular Hemoglobin 31.9 pg (28.0-34.0); Mean Corpuscular Volume 93.8 fL (80-94); Monocytes % 7.3 %; Neutrophils # 10.38 10^3/uL (1.8-7.7); Neutrophils % 78.6 %; Nucleated Red Blood Cells % 0 %; Platelet Count 351 10^3/cmm (130-400); Red Cell Distribution Width 12.4 % (12.1-15.1); White Blood Count 13.2 10^3/uL (4.0-10.0)
[2020-10-16 07:20] LABS: Anion Gap 15.9 (5-19); Blood Urea Nitrogen 20 mg/dL (8-23); Carbon Dioxide 20 mmol/L (22-29); Chloride 99 mmol/L (98-107); Glucose 142 mg/dL (65-115); Osmolality Calculated 275 mOsm/kg (285-295); Potassium 4.9 mmol/L (3.5-5.1); Sodium 130 mmol/L (136-145)
[2020-10-16] MEDS: famotidine 20 mg/2 mL INJ IVP ×2 (08:47→22:11)
[2020-10-16] MEDS: D5-NS 0.45% + KCL 20 mEq 20 MEQ/1,000 ML BAG 100 MEQ IV (08:50)
--- NOTE | 2020-10-16 10:27 | FL_ITS ---
WS: [id number] Gastrografin enema, 10/16/2020 Clinical Data: volvulus, elevated CEA with liver mets Comparison: KUB, are described today. Fluoroscopy time: 4.1 minutes. Findings: The Gastrografin was introduced in a retrograde fashion to fill the entire colon. The cecum was well outlined. The appendix was visualized. There is no bowel obstruction. No bowel masses are seen. There were no polyps. The postevacuation film was not remarkable. Is still a large amount of dilated bowel in the central abdomen is probably in the small bowel. FL/FL enema w gastrografin [id number] Impression: 1. Negative Gastrografin enema. 2. Dilated small bowel in the central abdomen.
--- NOTE | 2020-10-16 10:44 | PC.CHAP ---
Pastoral Care Encounter/Spiritual Assessment Type of Contact [] Declined child care giver visit [] Patient/Family/Request visit [] Outpatient visit [] Follow-up visit [] Physician referral [] Code/Alert [x] Routine visit [] Staff referral [] Actively dying [] Patient sleeping [] Family support [] [] Out of room [] Palliative care [] [] Receiving care in room [] Pre-surgical visit [] Trauma [] Long length of stay [] ICU visit [] Other: Relational/Emotional Strength [x] Patient feels connected with others/family/visitors/staff [] Distress [] Loneliness/isolation [] Abandonment Spirituality of Patient [x] Person of Deepthi [x] Attends Sabianism of their Deepthi [x] Believes in Prayer [x] Reads Bible or Roman Catholic materials [] There are Spiritual issues to be addressed Machine Tack Puller Interventions [x] Prayer [x] Active listening [x] Non-anxious presence [x] Spiritual/emotional support [] Crisis/trauma care [] Spiritual counseling [] Bereavement support [] Provided bereavement packet [] Provided Bible/devotional materials [] Provided toy/stuffed animal, coloring book to patient or family member [] Provided Communion [] Anointing/[place]on [] Salvation [x] Completed spiritual assessment [] Other: Impact on Illness or Injury [] Angry [] Fearful [] Anxious [] Often cries [] Exhaustion [] Unable to work [] Unable to attend episcopalian [] Unable to walk/stand [] Unable to read [] Unable to drive [] Unable to eat/drink [] Unable to sleep [] Unable to be with family [] Patient intubated [] Other: Summary Time spent with patient 20 minj
[2020-10-16] MEDS: diatrizoate meglumine 120 mL Sol PR ×7 (12:25)
--- NOTE | 2020-10-16 14:51 | US_ITS ---
WS: [id number] Limited abdomen ultrasound. HISTORY: liver mass COMPARISON: CT 10/15/2020 Evaluation of the liver for possible biopsy. Hypoechoic masses are noted in the posterior RIGHT lobe of the liver. These liver lesions may not be accessible for biopsy due to their position. Patient was also unable to hold his breath. We will attempt to biopsy the liver lesions by ultrasound in the [facility]. US/US liver [id number] IMPRESSION: Hepatic liver lesions most consistent with metastatic disease. These lesions wi ll be very difficult to biopsy by ultrasound. We will attempt biopsy in the a.m .
--- NOTE | 2020-10-16 16:39 | PM.PN ---
Subjective Subjective: Interval history: Patient denies any abdominal pain, nausea, vomiting, had multiple bowel movements today after bowel prep overnight. Vitals/I&O/Wt Last Vital Signs Temp 97.6 F 10/16/20 15:48 Pulse 72 10/16/20 15:48 Resp 18 10/16/20 15:48 BP 122/71 10/16/20 15:48 Pulse Ox 96 10/16/20 15:48 10/16/20 10/16/20 10/16/20 06:59 14:59 22:59 Intake Total 1000 / 1000 Output Total 1100 / 1100 Balance -1100 / -700 1000 / 1000 Weight last 48 hrs Weight 195 lb Physical Exam Narrative: EXAM NARRATIVE: Abdomen: Soft, nontender, nondistended Data : 10/16/20 06:09 10/16/20 06:09 A&P Assessment and plan (1) Chronic anticoagulation: We will hold off on Xarelto for now Status: Acute (2) Constipation: Status post colonoscopy with decompression of partial volvulus. I reviewed the CT findings with Dr. Kowalski today who is not 100% convinced that patient has true volvulus that he could have partial volvulus or significant kink since he has severe abdominal pain the night before admission. His CEA is elevated and he has new liver mets. We will therefore plan to repeat the bowel prep today with the goal of performing a colonoscopy tomorrow to assess the right colon since yesterday's colonoscopy was incomplete due to significant amount of stool in the right colon I explained to the patient and his that I am currently not significantly concerned about the volvulus since I am not 100% sure if he had a true volvulus but we need to focus on the liver metastasis. We will therefore hold off on any surgical intervention to address this potential volvulus for now Status: Inactive (3) Liver mass: Patient has a new diagnosed liver mass concerning for metastasis with a CEA of 87. Discussed with Dr. Kowalski and will plan for ultrasound-guided biopsy of the liver mass tomorrow. Status: Acute Attestations Medical Necessity Statement*: Liver metastasis, abdominal pain with decompression of volvulus, requiring 1 more night of inpatient stay for follow-up colonoscopy and liver biopsy tomorrow Coding Level of Care Code Acute Progressive Care Nurse for Teagan Fwmarybeth Diagnoses Chronic anticoagulation Z79.01 Constipation K59.00 Liver mass R16.0
[2020-10-16] MEDS: bisacodyl 5 mg Tablet 40 MG PO (18:47)
[2020-10-16] MEDS: metoprolol succinate ER (24 HR) 50 mg Tablet PO (21:44)
[2020-10-16] MEDS: tamsulosin 0.4 mg Capsule PO (21:44)
[2020-10-17] VITALS (16 sets, daily range): BP systolic 103–167; BP diastolic 67–117; PULSE 73–145; RESP 11–28; TEMP 36.1–36.9; O2SAT 95–99
[2020-10-17 02:49] LABS: Basophils % 0.2 %; Hematocrit 44.6 % (42.0-52.0); Hemoglobin 14.7 g/dL (11.7-16.6); Lymphocytes % 12.4 %; Mean Corpuscular Hemoglobin 31.5 pg (28.0-34.0); Mean Corpuscular Volume 95.5 fL (80-94); Mean Platelet Volume 8.7 fL (7.4-10.4); Monocytes # 1.5 10^3/uL (0.2-0.9); Monocytes % 8.9 %; Neutrophils # 12.66 10^3/uL (1.8-7.7); Neutrophils % 78.1 %; Nucleated Red Blood Cells % 0 %; Platelet Count 346 10^3/cmm (130-400); Red Blood Count 4.67 10^6/uL (4.1-5.3); White Blood Count 16.2 10^3/uL (4.0-10.0)
[2020-10-17 03:13] LABS: Anion Gap 15.4 (5-19); Blood Urea Nitrogen 22 mg/dL (8-23); Calcium 9.6 mg/dL (8.5-10.5); Carbon Dioxide 21 mmol/L (22-29); Chloride 101 mmol/L (98-107); Glucose 121 mg/dL (65-115); Osmolality Calculated 281 mOsm/kg (285-295); Potassium 4.4 mmol/L (3.5-5.1); Sodium 133 mmol/L (136-145)
[2020-10-17] MEDS: famotidine 20 mg/2 mL INJ IVP (08:46)
[2020-10-17 10:00] LABS: INR 1.18 (0.8-1.2)
--- NOTE | 2020-10-17 10:47 | P.ANESUD_ITS ---
Pre-Anesthetic Update Pre-Anesthetic Assessment: Date of Surgery/Procedure: 10/17/20 Preop Odalis gnosis: volvulus Proposed Procedure: Operation Date: 10/15/20 18:00 Proposed Procedures p Colonoscopy(Not Applicable) - Saran Sherman MD Operation Date: 10/15/20 18:00 Proposed Procedures p Colonoscopy(Not Applicable) - Saran Sherman MD Operation Date: 10/17/20 12:00 Proposed Procedures p Ultrasound Biopsy liver(Not Applicable) - DO ana lilia Colón Colonoscopy(Not Applicable) - Saran Sherman MD Operation Date: 10/17/20 12:30 Proposed Procedures p Colonoscopy(Not Applicable) - Saran Sherman MD Labs Last 48hrs: Laboratory Results - last 48 hr 10/15/20 10/15/20 10/15/20 18:15 18:15 18:15 WBC RBC Hgb Hct MCV MCH MCHC RDW Plt Count MPV Neut % (Auto) Lymph % (Auto) [place] % (Auto) Eos % (Auto) Baso % (Auto) Neut # (Auto) Lymph # (Auto) [place] # (Auto) Eos # (Auto) Baso # (Auto) Nucleated RBC % (a uto) Nucleated RBCs # PT INR APTT Sodium 130 L Potassium 4.9 Chloride 93 L Carbon Dioxide 20 L Anion Gap 21.9 H BUN 23 Creatinine 1.3 H GFR Calculation Not Reportable Glucose 124 H Calculated Osmolal ity 275 L Calcium 9.8 Total Bilirubin 0.6 AST 29 ALT 17 Alkaline Phosphata se 105 Lactate Dehydrogen ase 255 H Total Protein 7.5 Albumin 4.0 Globulin 3.5 Lipase 13 Carcinoembryonic A g CA 125 Antigen 14.7 Urine Color Yellow Urine Appearance Clear Urine pH 6.5 Ur Specific Gravit y 1.010 Urine Protein Trace Urine Glucose (UA) Norm Urine Ketones Negative Urine Blood 2+ H Urine Nitrate Negative Urine Bilirubin Neg Urine Urobilinogen Norm Ur Leukocyte Trudi ase Negative Urine RBC 5-10 H Urine WBC None Ur Squamous Epith Cells None Amorphous Sediment Not Reportable Urine Bacteria None 10/15/20 10/15/20 10/15/20 18:59 18:59 18:59 WBC 7.9 RBC 4.62 Hgb 14.7 Hct 44.0 MCV 95.2 H MCH 31.8 MCHC 33.4 RDW 12.7 Plt Count 274 MPV 9.4 Neut % (Auto) 85.3 Lymph % (Auto) 9.5 [place] % (Auto) 4.3 Eos % (Auto) 0.0 Baso % (Auto) 0.3 Neut # (Auto) 6.74 Lymph # (Auto) 0.8 [place] # (Auto) 0.3 Eos # (Auto) 0.0 Baso # (Auto) 0.0 Nucleated RBC % (a uto) 0 Nucleated RBCs # 0.0 PT 20.40 H INR 1.70 H APTT 36.5 Sodium Potassium Chloride Carbon Dioxide Anion Gap BUN Creatinine GFR Calculation Glucose Calculated Osmolal ity Calcium Total Bilirubin AST ALT Alkaline Phosphata se Lactate Dehydrogen ase Total Protein Albumin Globulin Lipase Carcinoembryonic A g 87.0 H CA 125 Antigen Urine Color Urine Appearance Urine pH Ur Specific Gravit y Urine Protein Urine Glucose (UA) Urine Ketones Urine Blood Urine Nitrate Urine Bilirubin Urine Urobilinogen Ur Leukocyte Trudi ase Urine RBC Urine WBC Ur Squamous Epith Cells Amorphous Sediment Urine Bacteria 10/16/20 10/16/20 10/17/20 06:09 06:09 02:30 WBC 13.2 H 16.2 H RBC 4.70 4.67 Hgb 15.0 14.7 Hct 44.1 44.6 MCV 93.8 95.5 H MCH 31.9 31.5 MCHC 34.0 33.0 RDW 12.4 13.0 Plt Count 351 346 MPV 9.0 8.7 Neut % (Auto) 78.6 78.1 Lymph % (Auto) 13.6 12.4 [place] % (Auto) 7.3 8.9 Eos % (Auto) 0.0 0.0 Baso % (Auto) 0.2 0.2 Neut # (Auto) 10.38 H 12.66 H Lymph # (Auto) 1.8 2.0 [place] # (Auto) 1.0 H 1.5 H Eos # (Auto) 0.0 0.0 Baso # (Auto) 0.0 0.0 Nucleated RBC % (a uto) 0 0 Nucleated RBCs # 0.0 0.0 PT INR APTT Sodium 130 L Potassium 4.9 Chloride 99 Carbon Dioxide 20 L Anion Gap 15.9 BUN 20 Creatinine 1.1 GFR Calculation Not Reportable Glucose 142 H Calculated Osmolal ity 275 L Calcium 10.0 Total Bilirubin AST ALT Alkaline Phosphata se Lactate Dehydrogen ase Total Protein Albumin Globulin Lipase Carcinoembryonic A g CA 125 Antigen Urine Color Urine Appearance Urine pH Ur Specific Gravit y Urine Protein Urine Glucose (UA) Urine Ketones Urine Blood Urine Nitrate Urine Bilirubin Urine Urobilinogen Ur Leukocyte Trudi ase Urine RBC Urine WBC Ur Squamous Epith Cells Amorphous Sediment Urine Bacteria 10/17/20 10/17/20 02:30 09:26 WBC RBC Hgb Hct MCV MCH MCHC RDW Plt Count MPV Neut % (Auto) Lymph % (Auto) [place] % (Auto) Eos % (Auto) Baso % (Auto) Neut # (Auto) Lymph # (Auto) [place] # (Auto) Eos # (Auto) Baso # (Auto) Nucleated RBC % (a uto) Nucleated RBCs # PT 15.30 H INR 1.18 APTT Sodium 133 L Potassium 4.4 Chloride 101 Carbon Dioxide 21 L Anion Gap 15.4 BUN 22 Creatinine 1.3 H GFR Calculation Not Reportable Glucose 121 H Calculated Osmolal ity 281 L Calcium 9.6 Total Bilirubin AST ALT Alkaline Phosphata se Lactate Dehydrogen ase Total Protein Albumin Globulin Lipase Carcinoembryonic A g CA 125 Antigen Urine Color Urine Appearance Urine pH Ur Specific Gravit y Urine Protein Urine Glucose (UA) Urine Ketones Urine Blood Urine Nitrate Urine Bilirubin Urine Urobilinogen Ur Leukocyte Trudi ase Urine RBC Urine WBC Ur Squamous Epith Cells Amorphous Sediment Urine Bacteria Vitals: Temperature 98.0 F 10/17/20 07:56 Temperature Source Oral 10/17/20 03:25 Pulse Rate 77 10/17/20 07:56 Pulse Rhythm 10/16/20 20:00 Pulse Strength 3+ Normal 10/16/20 20:00 Respiratory Rate 18 10/17/20 07:56 Respiratory Effort Non-Labored 10/16/20 20:00 Respiratory Depth Normal 10/16/20 20:00 Respiratory Patter n 10/16/20 20:00 Blood Pressure 111/73 10/17/20 07:56 Blood Pressure Juany n 85 10/17/20 07:56 Blood Pressure Pos ition Semi Fowlers 10/17/20 03:25 Pulse Oximetry 95 10/17/20 07:56 Oxygen Delivery Me thod 10/17/20 03:25 Oxygen Flow Rate 3 10/15/20 20:10 Sepsis Recent Feve r Within 48 Hours No 10/15/20 16:22 Sepsis New/Unexpla ined Change in Men perez Status No 10/15/20 16:22 Exam: Pre-Anes Outpt Exam: alert, oriented x 3 and clear to auscultation bilaterally Additional Exam Findings (including area of procedure): Irregular heart rate Cardiac Studies: No Data to Display
--- NOTE | 2020-10-17 10:49 | US_ITS ---
WS: [id number] ULTRASOUND-GUIDED LIVER BIOPSY HISTORY: METS TO THE LIVER Procedure, risks, and complications have been explained to the patient. Consent is obtained. Explained to the patient then difficulty biopsying these lesions due to their position. Closed at the lung and also the colon. Taking into consideration the risk for pneumothorax or bowel perforation pa tient is requested to continue. Every effort is made to avoid the lung and colon. Skin is cleansed with ChloraPrep and then anesthetized with 1% buffered lidocaine. Core biopsy is per formed with a 20 gauge Achieve needle. Specimen is placed within formalin. No complications encounter ed. After several attempts we were able to biopsy lesion in the liver twice. US/US biopsy liver [id number] IMPRESSION: Biopsy performed of possible metastatic lesions in the RIGHT lobe of the liver. No complications were evident at this time. Patient will be watched closely af ter biopsy for any complications.
[2020-10-17] MEDS: sodium chloride 0.9% 1,000 ML 30 ML IV (11:57)
--- NOTE | 2020-10-17 14:48 | P.PN_ITS ---
Subjective Subjective: Interval history: patient had some pain, no nausea or vomiting Vitals/I&O/Wt Last Vital Signs Temp 97.2 F L 10/17/20 13:50 Pulse 87 10/17/20 13:50 Resp 20 H 10/17/20 13:50 BP 139/67 10/17/20 13:50 Pulse Ox 95 10/17/20 13:50 10/16/20 10/17/20 10/17/20 22:59 06:59 14:59 Intake Total 999 / 1999 Balance 1000 / 1999 Weight last 48 hrs Weight 195 lb Physical Exam Narrative: EXAM NARRATIVE: Abdomen: Soft Data : 10/17/20 02:30 10/17/20 02:30 A&P Assessment and plan (1) Chronic anticoagulation: We will hold off on Xarelto for now Status: Acute (2) Constipation: Patient had liver biopsy today, plan for colonoscopy under MAC today Status: Inactive (3) Liver mass: s/p liver biopsy Status: Acute Attestations Medical Necessity Statement*: volvulus Coding Level of Care Code Acute [place] Bleacher for Chg Fwd Diagnoses Chronic anticoagulation Z79.01 Constipation K59.00 Liver mass R16.0
--- NOTE | 2020-10-17 16:54 | ANE.PACU2 ---
Inpatient post-anesthesia follow up: Airway intact: Yes Vital signs: Temperature 97 F Pulse Rate [Right Radial] 101 Pulse Rate 73 Respiratory Rate 20 Blood Pressure [Le ft Arm] 127/74 Blood Pressure 123/78 Pulse Oximetry 95 Oxygen Delivery Me thod [ Room Air Current Rate & Del josé] Oxygen Delivery Me thod Room Air Oxygen Flow Rate 3 Fraction of Inspir ed Oxygen Hydration adequate: Yes Nausea and vomiting: No Pain level: 1 Mental status: Baseline
--- NOTE | 2020-10-17 18:30 | P.DS_ITS ---
Discharge Providers Date of Admission: 10/15/20 20:49 Date of Discharge: October 17, 2020 Attending Provider at Admission: Saran Sherman MD Attending Provider at Discharge: Saran Sherman MD Primary Care Provider: Sam Stephens MD Diagnoses at Discharge Discharge Diagnosis (1) Chronic anticoagulation: Status: Acute (2) Constipation: Status: Inactive (3) Liver mass: Status: Acute Reason for Visit Reason for Visit: SENT BY DR STEPHENS/[facility] [employer] Hospital Course Hospital Course Eugene Samayoa is a 84 year old male who presented to the ER from his PCPs office. Patient was seen in the ER on 10/08/2020 and at that point it was felt that the diarrhea was secondary to Protonix and he was transition to Pepcid. Since then his diarrhea stopped but he developed severe constipation. His last bowel movement was 2 days ago where he had small bowel movements and he is not sure when he last passed flatus. 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 At present he rates his pain 3-4, denies any nausea, vomiting. No bleeding per rectum. His EGD and colonoscopy was performed last month by Dr. Treadwell which showed a hiatal hernia. Patient underwent decompression of suspected volvulus on 10/15/2020. Patient underwent bowel prep that night and subsequently had a Gastrografin enema yesterday which was normal with no evidence of volvulus or obstruction. He underwent liver biopsy of the liver lesions by Dr. Kowalski today and I subsequently followed up with a completion colonoscopy. The colonoscopy was normal. His CEA was 87 and his CA 19-9 was normal. At this point I have updated the patient and his about the plan. We will discharge him today on a GI soft diet. Advised to maintain aggressive bowel regimen with MiraLAX twice daily. Start Xarelto after 3 days due to liver biops y. Patient will follow up with Dr. Munroe in 1 week when the biopsy results from the liver lesion should be back which would help decide on further course. Discharge Data Data Completed and Pending: Completed Studies During Hospitalization Category Date Time Status FL enema w gastro grafin [id number] Routi ne Exams 10/16/20 10:27 Completed XR KUB [id number] Stat Exams 10/15/20 18:11 Completed XR abdomen min 2V [id number] Routine Exams 10/15/20 22:07 Completed XR abdomen min 2V [id number] Routine Exams 10/16/20 06:00 Completed US biopsy liver 4 7000 Routine Ultrasound 10/17/20 10:49 Completed US liver [id number] Ro utine Ultrasound 10/16/20 14:51 Completed Pending at discharge Category Date Time Status Pathology: Surgic al [PTH] Routine Pth 10/17/20 13:44 Received Labs from last 24 hours 10/17/20 10/17/20 10/17/20 09:26 02:30 02:30 WBC 16.2 H RBC 4.67 Hgb 14.7 Hct 44.6 MCV 95.5 H MCH 31.5 MCHC 33.0 RDW 13.0 Plt Count 346 MPV 8.7 Neut % (Auto) 78.1 Lymph % (Auto) 12.4 [place] % (Auto) 8.9 Eos % (Auto) 0.0 Baso % (Auto) 0.2 Neut # (Auto) 12.66 H Lymph # (Auto) 2.0 [place] # (Auto) 1.5 H Eos # (Auto) 0.0 Baso # (Auto) 0.0 Nucleated RBC % (a uto) 0 Nucleated RBCs # 0.0 PT 15.30 H INR 1.18 Sodium 133 L Potassium 4.4 Chloride 101 Carbon Dioxide 21 L Anion Gap 15.4 BUN 22 Creatinine 1.3 H GFR Calculation Not Reportable Glucose 121 H Calculated Osmolal ity 281 L Calcium 9.6 Vitals: Last Vital Signs Temp 97 F L 10/17/20 15:44 Pulse 73 10/17/20 15:58 Resp 20 H 10/17/20 15:58 BP 123/78 10/17/20 15:58 Pulse Ox 95 10/17/20 15:58 Discharge Plan Discharge Patient Disposition: Home Condition: Stable Prescriptions: Continued tamsulosin 0.4 mg capsule 0.4 mg PO BEDTIME RF: 0 nitroglycerin [Nitrostat] 0.4 mg tablet, sublingual 0.4 mg SUBLINGUAL Q5M PRN (Reason: Chest Pain) RF: 0 Pepcid 20 mg Tablet 20 mg PO BID RF: 0 Colace 100 mg Capsule 100 mg PO PRN RF: 0 Miralax 17 gram/dose Powder 17 g PO DAILY PRN (Reason: Constipation) RF: 0 Vitamin D3 50 mcg (2,000 unit) Tablet 50 mcg PO DAILY RF: 0 metoprolol succinate 50 mg tablet extended release 24 hr 50 mg PO BEDTIME RF: 0 Held Xarelto 20 mg tablet 20 mg PO QPM RF: 0 Hold Instructions: Resume on 10/20/20. Discharge Orders: Discharge Order (Routine); Ordered 10/17/20 Ordered By: Saran Sherman Referrals: Saran Sherman MD [Physician] - 1 month Catalina Munroe MD [Staff Physician] - (Liver mass status post biopsy 10/17/2020. Normal EGD and colonoscopy, CEA of 87) Discharge Diet: Usual diet Discharge Activity: Resume usual activity Patient Instructions: GI Discharge Instructions Discharge Attestations Time Spent in Discharge Care*: less than 30 min Quality Metrics Clinical Quality Measures During this hospital stay, did patient experience: None Coding Level of Care Code Acute Chg FW DC note Diagnoses Chronic anticoagulation Z79.01 Constipation K59.00 Liver mass R16.0
[2020-11-27 08:34] LABS: EGFR Block Specimen ID See Report; EGFR Comment See Report; EGFR Result See Report; EGFR Specimen Source See Report; Lung Cancer ALK Client Access See Report; Lung Cancer ALK Client Phone # See Report; Lung Cancer ALK Clinical Indic See Report; Lung Cancer ALK Patient ID: See Report; Lung Cancer ALK Ref. Phy # See Report; Lung Cancer ALK Referring Phy See Report; Lung Cancer ALK Specimen Src See Report
[2020-11-27 08:35] LABS: BRAF Mutation Analysis See Report; BRAF Paraffin Block Number See Report; BRAF Source See Report; ROS1 Client Accession # See Report; ROS1 Client Phone # See Report; ROS1 Clinical Indication See Report; ROS1 Patient ID See Report; ROS1 Referring Physician See Report; ROS1 Referring Physician Phone See Report; ROS1 Specimen Type See Report
[2020-11-27 08:39] LABS: Miscellaneous Test See Scanned Lab Rpt
== END 2020-10-17 18:52 | disposition home or self-care (01) | DRG 346 ==
LOC: ER 18:03 → GILAB 18:27 → MEDSURG 21:00
PROVIDERS: Emergency Medicine; Radiology Diagnostic Radiology; Admitting Provider Surgery; Emergency Provider Student in an Organized Health Care Education/Training Program; PCP Family Medicine; Visit Provider Surgery
PROC: 0DJD8ZZ Inspection of Lower Intestinal Tract, Via Natural or Artificial Opening Endoscopic (ICD-10-PCS; CPT 45378; principal; 2020-10-15 18:00)
PROC: 0FB14ZX Excision of Right Lobe Liver, Percutaneous Endoscopic Approach, Diagnostic (ICD-10-PCS; principal; 2020-10-17 12:00)
DX: K56.2 Volvulus (principal); K59.00 Constipation, unspecified; K44.9 Diaphragmatic hernia without obstruction or gangrene; I25.10 Atherosclerotic heart disease of native coronary artery without angina pectoris; Z95.1 Presence of aortocoronary bypass graft; Z95.5 Presence of coronary angioplasty implant and graft; I48.91 Unspecified atrial fibrillation; I10 Essential (primary) hypertension; N40.0 Benign prostatic hyperplasia without lower urinary tract symptoms; E78.2 Mixed hyperlipidemia; Z86.73 Personal history of transient ischemic attack (TIA), and cerebral infarction without residual deficits; Z87.891 Personal history of nicotine dependence; Z79.01 Long term (current) use of anticoagulants; K76.9 Liver disease, unspecified; R97.0 Elevated carcinoembryonic antigen [CEA]
CPT/HCPCS: 36415; 45378; 45393; 47000; 71046; 74018; 74019; 74177; 74270; 76705; 76942; 80048; 80053; 81001; 81210; 82378; 83615; 83690; 85025; 85610; 85730; 86304; 88271; 88275; 88307; 88368; 94664; 96360; 96372; 99285; J1650; J2704; J3490; J7030; Q9963; Q9967

== ENCOUNTER 2020-10-28 05:31 | Emergency (ER) | payer MEDICARE, SELFPAY ==
[2020-10-28 05:37] VITALS: BP 105/64; PULSE 78; RESP 19; TEMP 36.7; O2SAT 96; BMI 25.4
[2020-10-28 05:44] VITALS: BP 106/70; PULSE 81; RESP 19; TEMP 36.7; O2SAT 96
--- NOTE | 2020-10-28 06:03 | CT_ITS ---
WS: [id number] CTA CHEST WITH CT ABDOMEN AND PELVIS. HISTORY: Abdominal pain. Prior liver biopsy. TECHNIQUE: CT angiogram is performed through the chest. Additional imaging is performed through the a bdomen and pelvis with IV contrast. Sagittal and coronal reformats have been submitted. MIP imaging also reviewed. All CT scans at [facility] use at least one of these dose optimization tech niques: automated exposure control; mA and/or kV adjustment per patient size (includes targeted exams where dose is matched to clinical indication); or iterative reconstruction. Contrast: Visipaque 95 cc IV. DLP: 1670.31 mGy.cm COMPARISON: 10/15/2020. Chest CTA: Opacification of the pulmonary arteries. No pulmonary embolism is identified. Comment artery size is normal. Moderate atherosclerotic plaque within the thoracic aorta with ectasia. Prior CABG. Extensive coronary artery calcifications. Heart is enlarged. No definite RIGHT heart strain although the RIGHT heart is enlarged. No pericardial or pleural effusion. There is significant paraseptal emphysematous changes. Long-term stability 6 mm slightly spiculated n odule RIGHT upper lobe. Bilateral peripheral septal reticulations. There are a few scattered granulom lynn. No definite mass or nodule. There is significant mediastinal and hilar lymphadenopathy. Confluent adenopathy noted beginning yazan g the RIGHT paratracheal region filling the RIGHT paratracheal fat. Increased lymph nodes at the AP w indow and extending subcarinal and perihilar. Large confluent cluster of lymph nodes centered at the RIGHT hilum extending into the subcarina measures 3.9 x 6.2 cm. There is encasement and narrowing of the RIGHT mainstem bronchus and the RIGHT lower lobe and bronchus intermedius. Only partial encasemen t without narrowing of the RIGHT upper lobe bronchus. There is partial encasement of the distal SVC. Encasement of the RIGHT lower lobe pulmonary artery. Abdomen CT: None metastatic disease to the liver. Numerous scattered hypodensities have progressed in size since 10/15/2020. The largest in the inferior RIGHT lobe of the liver measures 3.5 x 2.8 cm. Enlarging lymph nodes. Portal vein is patent. Gallbladder well distended. Spleen is negative. No adre nal mass. Pancreas is atrophied. No pancreatic mass appreciated. Mild cortical thinning. LEFT renal c yst measures 1.5 cm. There are additional cortical hypodensities which are too small to characterize. No renal obstruction. Moderate atherosclerotic plaque within the aorta and common iliac arteries. There is extensive fecal material and increased air within the colon. Moderate dilatation of the colo n but no focal area of obstruction is identified. Moderate size hiatal hernia. No mesenteric or retroperitoneal lymph nodes. There is a loop of small bowel or colon at the LEFT ing uinal canal with no obstruction. Inguinal canals are patent bilaterally containing fat only. Pelvic CT: No free fluid in the pelvis. Prostate gland is slightly enlarged and contains calcificatio ns. Bilateral SI joint narrowing. Mild increased density within the T11 vertebral body. There is also babak ency within the inferior endplate of T11. CT/CT angio chest w abd pel w con IMPRESSION: 1. No pulmonary embolism. 2. Extensive mediastinal and hilar lymphadenopathy. Confluent cluster of lymph nodes is causing moderate narrowing and encasement of the RIGHT hilar bronchov ascular structures although no complete occlusion at this time. 3. Enlarged heart. 4. Prior CABG. 5. Known metastatic lesions within the liver have increased in size and number since 10/15/2020. 6. Moderate diffuse constipation and increased air within the colon but no obs tructive pattern appreciated. 7. No abdominal or pelvic adenopathy or ascites. 8. Increased density within the T11 vertebral body and an associated lucency a long the inferior endplate. Bone scan imaging may be helpful. 9. Severe emphysema. No new nodules. Notified Dr. Feng at 10/28/2020 8:46 AM.
--- NOTE | 2020-10-28 06:24 | XRR_ITS ---
PROCEDURE INFORMATION: Exam: XR Chest Exam date and time: 10/28/2020 6:24 AM Age: 84 years old Clinical indication: Cough and shortness of breath; Prior surgery; Surgery date: 6+ months; Surgery type: Open heart; Patient HX: Cough for months; SOB; Abd pain since last week; Additional info: Dyspnea/cough/pneumonia TECHNIQUE: Imaging protocol: XR of the chest. Views: 1 view. COMPARISON: CR XR chest 2V* [id number] 10/15/2020 11:19 AM FINDINGS: Lungs: There is scattered interstitial fibrotic densities in the lungs. No acute pneumonia is seen. Pleural spaces: Unremarkable. No pleural effusion. No pneumothorax. Heart/Mediastinum: The patient has undergone coronary bypass surgery. The heart is not enlarged. There is calcification of the aortic arch. Bones/joints: Unremarkable. XR/XR chest 1V portable [id number] IMPRESSION: 1. No acute abnormality. 2. Interstitial pulmonary fibrosis.
[2020-10-28] MEDS: sodium chloride 0.9% 1,000 ML 999 ML IV (06:30)
[2020-10-28 06:39] LABS: Urine Appearance Clear (CLEAR); Urine Color Yellow (Yellow); pH Urine 6 (5-7)
[2020-10-28 06:40] LABS: Add Urine Microscopic? YES; Bilirubin Urine Neg (Negative); Blood Urine 2+ (Negative); Glucose Urine UA Norm (Normal); Ketones Urine Negative (Negative); Leukocyte Esterase Urine Negative (Negative); Nitrate Urine Negative (Negative); Protein Urine Neg (Negative); Specific Gravity, Urine 1.015 (1.005-1.030); Urobilinogen Urine Norm (Negative)
[2020-10-28 06:49] LABS: Add Urine Culture? No; Bacteria Urine TRACE /hpf; Squamous Epithelial Cell Urine 0-4 /hpf (0-5)
[2020-10-28 06:56] LABS: Basophils % 0.2 %; Eosinophils # 0.1 10^3/uL (0.0-0.8); Eosinophils % 0.5 %; Hematocrit 41.7 % (42.0-52.0); Hemoglobin 14.2 g/dL (11.7-16.6); Lymphocytes # 1.5 10^3/uL (0.8-4.8); Lymphocytes % 14.9 %; Mean Corpuscular HGB Conc 34.1 g/dL (30.0-36.0); Mean Corpuscular Hemoglobin 32.1 pg (28.0-34.0); Mean Corpuscular Volume 94.3 fL (80-94); Mean Platelet Volume 9.1 fL (7.4-10.4); Monocytes # 1.2 10^3/uL (0.2-0.9); Monocytes % 11.7 %; Neutrophils % 72.2 %; Nucleated Red Blood Cells % 0 %; Platelet Count 276 10^3/cmm (130-400); Red Blood Count 4.42 10^6/uL (4.1-5.3); Red Cell Distribution Width 12.8 % (12.1-15.1); White Blood Count 9.8 10^3/uL (4.0-10.0)
--- NOTE | 2020-10-28 07:15 | ED_ITS ---
HPI - Abdominal Pain General: Chief Complaint: Abdominal Pain Stated Complaint: Stomach Pain Time Seen by Provider: 10/28/20 06:11 History of Present Illness: HPI narrative: 84-year-old male complaining of abdominal pain radiating to his back. Seen a couple weeks ago had been on Protonix had diarrhea was switched to Pepcid then he had problems with constipation. Thought he had a sigmoid volvulus he was admitted had a colonoscopy and an EGD was found to have a liver lesion at that time. That was subsequently biopsied. He is not aware of the results yet. Colonoscopy according to the documentation of the chart was negative. The liver biopsy according to documentation in the lab section of the chart shows that the lesion is metastatic lesion most likely from lung. MD elicited complaint: abdominal pain Pertinent past history: other (Recent liver biopsy) Onset (ago): week(s) Pain Consistency: constant Location: RUQ and RLQ Quality: cramping Radiation: none Migration to: no migration Exacerbating factors: eating Relieving factors: rest Associated Symptoms: Reports bloating, GI cramping and poor appetite; Denies anorexia, belching, change in bowel habits, change in stool character, chills, coffee ground emesis, constipation, diarrhea, dyspepsia, dysuria, excessive flatus, fever(s), heartburn, hematochezia, hematuria, hematemesis, fecal incontinence, loose stools, melena, nausea, syncope and vomiting Review of Systems Const: Denies: fever(s) or chills ENMT: Denies: throat pain, ear or mastoid pain, nasal discharge or nasal congestion Card: Denies: syncope Resp: Denies: dyspnea, productive cough or non-productive cough GI: Reports: bloating and GI cramping; Denies: nausea, vomiting, hematemesis, coffee ground emesis, heartburn, diarrhea , constipation, belching, excessive flatus, fecal incontinence, change in bowel habits, change in stool character, hematochezia or melena : Denies: dysuria or hematuria Skin/Breast: Denies: rash or pruritus PFSH ED PFSH: Medical History Atherosclerotic heart disease of [place] coronary artery without angina pectoris Atrial fibrillation Benign essential HTN BPH (benign prostatic hyperplasia) CAD (coronary artery disease) Mixed hyperlipidemia TIA (transient ischemic attack) Surgical History H/O esophagogastroduodenoscopy History of coronary artery stent placement Hx of CABG Status post colonoscopy (10/17/20) Status post right inguinal hernia repair Family History Father CAD (coronary artery disease) Brother CAD (coronary artery disease) Sister CAD (coronary artery disease) Cancer Other Hyperlipidemia Denies family history of Diabetes Clotting disorder Dementia Chronic kidney disease (CKD) Suicide Anesthesia complication Bleeding disorder Lung disease Stroke Social History Smoking and tobacco status: former smoker Alcohol intake: never Physical Exam Const: COMMON NORMALS: no acute distress GENERAL APPEARANCE: cooperative and comfortable ORIENTATION/CONSCIOUSNESS: Yes awake, Yes oriented to person, Yes oriented to place and Yes oriented to time HENMT: COMMON NORMALS: normocephalic, atraumatic and hearing grossly normal bilaterally HEAD & SCALP: normocephalic and atraumatic Neck/C-Spine: COMMON NORMALS: no JVD Resp: COMMON NORMALS: normal respiratory effort, No retractions, No use of accessory muscles and clear to auscultation bilaterally AUSCULTATION: clear to auscultation bilaterally Cardio: COMMON NORMALS: no JVD, regular rate, regular rhythm and No murmurs present (Cardio) RATE: regular rate RHYTHM: regular rhythm GI: COMMON NORMALS: Soft to palpation and No hepatosplenomegaly present AUSCULTATION: Yes normoactive bowel sounds PALPATION: Yes Soft to palpation, No Tenderness to palpation present (GI), No Guarding due to palpation present (GI) and Yes No hepatosplenomegaly present Extremity: COMMON NORMALS: normal to inspection, capillary refill normal, no clubbing, cyanosis or edema, no calf tenderness and no pedal edema Neuro: SENSORIUM/ORIENTATION: Yes oriented to person, Yes oriented to place and Yes oriented to time Skin: COMMON NORMALS: no rashes or lesions noted GENERAL SKIN EXAM: no rashes or lesions noted Course Vital Signs: Vital signs: Vital Signs Temperature 98.0 F 10/28/20 05:44 Pulse Rate 77 10/28/20 08:38 Respiratory Rate 16 10/28/20 09:04 Blood Pressure 145/87 10/28/20 08:38 Pulse Oximetry 95 10/28/20 08:38 MDM - Abdominal Pain MDM Narrative: Medical decision making narrative: Reviewed CT findings on the chart and reviewed them with the patient as well the lesions in the liver seem to have already expanded and there is a finding of mediastinal lymphadenopathy and mass reviewed this with the patient. He does have a remote history of smoking quit some 30 years ago consistent with the pathology report on the liver he has a lung mass which is most likely the primary reviewed different options with the patient he would prefer to go home we will discharge home with pain medications and nausea meds will get him follow-up with oncology this week. Lab Data: Labs: Lab Results 10/28/20 10/28/20 10/28/20 Range/Units 06:21 06:50 06:50 WBC 9.8 (4.0-10.0) 10^3/ uL RBC 4.42 (4.1-5.3) 10^6/u L Hgb 14.2 (11.7-16.6) g/dL Hct 41.7 L (42.0-52.0) % MCV 94.3 H (80-94) fL MCH 32.1 (28.0-34.0) pg MCHC 34.1 (30.0-36.0) g/dL RDW 12.8 (12.1-15.1) % Plt Count 276 (130-400) 10^3/c mm MPV 9.1 (7.4-10.4) fL Neut % (Auto) 72.2 % Lymph % (Auto) 14.9 % [place] % (Auto) 11.7 % Eos % (Auto) 0.5 % Baso % (Auto) 0.2 % Neut # (Auto) 7.10 (1.8-7.7) 10^3/u L Lymph # (Auto) 1.5 (0.8-4.8) 10^3/u L [place] # (Auto) 1.2 H (0.2-0.9) 10^3/u L Eos # (Auto) 0.1 (0.0-0.8) 10^3/u L Baso # (Auto) 0.0 (0.0-0.1) 10^3/u L Nucleated RBC % (a uto) 0 % Nucleated RBCs # 0.0 /100WBC Sodium 132 L (136-145) mmol/L Potassium 4.6 (3.5-5.1) mmol/L Chloride 98 (98-107) mmol/L Carbon Dioxide 24 (22-29) mmol/L Anion Gap 14.6 (5-19) BUN 23 (8-23) mg/dL Creatinine 1.3 H (0.7-1.2) mg/dL GFR Calculation Not Reportable Glucose 105 (65-115) mg/dL Calculated Osmolal ity 278 L (285-295) mOsm/k g Lactate (0.5-2.2) mmol/L Calcium 9.3 (8.5-10.5) mg/dL Total Bilirubin 0.5 (0.15-1.2) mg/dL AST 24 (0-40) U/L ALT 17 (0-41) U/L Alkaline Phosphata se 95 (40-130) IU/L C-Reactive Protein 8.3 H (0.0-4.9) mg/L Total Protein 6.6 (6.6-8.7) g/dL Albumin 3.5 (3.5-5.2) g/dL Globulin 3.1 (1.3-4.6) g/dL Lipase 11 L (13-60) U/L Urine Color Yellow (Yellow) Urine Appearance Clear (CLEAR) Urine pH 6 (5-7) Ur Specific Gravit y 1.015 (1.005-1.030) Urine Protein Neg (Negative) Urine Glucose (UA) Norm (Normal) Urine Ketones Negative (Negative) Urine Blood 2+ H (Negative) Urine Nitrate Negative (Negative) Urine Bilirubin Neg (Negative) Urine Urobilinogen Norm (Negative) mg/dL Ur Leukocyte Trudi ase Negative (Negative) Urine RBC 5-10 H (0-2) /hpf Urine WBC None (0-5) /hpf Ur Squamous Epith Cells 0-4 H (0-5) /hpf Amorphous Sediment Not Reportable Urine Bacteria Trace (NONE) /hpf 10/28/20 Range/Units 07:00 WBC (4.0-10.0) 10^3/ uL RBC (4.1-5.3) 10^6/u L Hgb (11.7-16.6) g/dL Hct (42.0-52.0) % MCV (80-94) fL MCH (28.0-34.0) pg MCHC (30.0-36.0) g/dL RDW (12.1-15.1) % Plt Count (130-400) 10^3/c mm MPV (7.4-10.4) fL Neut % (Auto) % Lymph % (Auto) % [place] % (Auto) % Eos % (Auto) % Baso % (Auto) % Neut # (Auto) (1.8-7.7) 10^3/u L Lymph # (Auto) (0.8-4.8) 10^3/u L [place] # (Auto) (0.2-0.9) 10^3/u L Eos # (Auto) (0.0-0.8) 10^3/u L Baso # (Auto) (0.0-0.1) 10^3/u L Nucleated RBC % (a uto) % Nucleated RBCs # /100WBC Sodium (136-145) mmol/L Potassium (3.5-5.1) mmol/L Chloride (98-107) mmol/L Carbon Dioxide (22-29) mmol/L Anion Gap (5-19) BUN (8-23) mg/dL Creatinine (0.7-1.2) mg/dL GFR Calculation Glucose (65-115) mg/dL Calculated Osmolal ity (285-295) mOsm/k g Lactate 1.0 (0.5-2.2) mmol/L Calcium (8.5-10.5) mg/dL Total Bilirubin (0.15-1.2) mg/dL AST (0-40) U/L ALT (0-41) U/L Alkaline Phosphata se (40-130) IU/L C-Reactive Protein (0.0-4.9) mg/L Total Protein (6.6-8.7) g/dL Albumin (3.5-5.2) g/dL Globulin (1.3-4.6) g/dL Lipase (13-60) U/L Urine Color (Yellow) Urine Appearance (CLEAR) Urine pH (5-7) Ur Specific Gravit y (1.005-1.030) Urine Protein (Negative) Urine Glucose (UA) (Normal) Urine Ketones (Negative) Urine Blood (Negative) Urine Nitrate (Negative) Urine Bilirubin (Negative) Urine Urobilinogen (Negative) mg/dL Ur Leukocyte Trudi ase (Negative) Urine RBC (0-2) /hpf Urine WBC (0-5) /hpf Ur Squamous Epith Cells (0-5) /hpf Amorphous Sediment Urine Bacteria (NONE) /hpf Discharge Plan Discharge Patient Disposition: Home Clinical Impression: Metastatic lung carcinoma Condition: Stable Prescriptions: New hydrocodone-acetaminophen 5-325 mg tablet 1 tab PO Q6H PRN (Reason: pain) Qty: 30 RF: 0 Zofran 4 mg tablet 4 mg PO Q6H PRN (Reason: nausea and vomiting) Qty: 20 RF: 0 No Action tamsulosin 0.4 mg capsule 0.4 mg PO BEDTIME RF: 0 Xarelto 20 mg tablet 20 mg PO QPM RF: 0 Hold Instructions: Resume on 10/20/20. nitroglycerin [Nitrostat] 0.4 mg tablet, sublingual 0.4 mg SUBLINGUAL Q5M PRN (Reason: Chest Pain) RF: 0 metoprolol succinate 50 mg tablet extended release 24 hr 50 mg PO BEDTIME Qty: 90 RF: 3 Pepcid 20 mg Tablet 20 mg PO BID RF: 0 Colace 100 mg Capsule 100 mg PO PRN RF: 0 Miralax 17 gram/dose Powder 17 g PO DAILY PRN (Reason: Constipation) RF: 0 Vitamin D3 50 mcg (2,000 unit) Tablet 50 mcg PO DAILY RF: 0 Discharge Orders: Discharge ED (Routine); Ordered 10/28/20 Ordered By: Oleg Feng Referrals: Sam Chaudhari MD [Primary Care Provider] - Discharge Diet: Usual diet Discharge Activity: Increase activity as tolerated Patient Instructions: Opioid Safety Activity Restrictions/Additional Instructions: Case management will make an appointment with oncology. Coding Level of Care Code ED Print Shop Stenographer for Teagan Lubin
[2020-10-28 07:38] VITALS: BP 133/78; PULSE 73; RESP 15; O2SAT 96
[2020-10-28 07:39] LABS: Alanine Aminotransferase 17 U/L (0-41); Albumin Level 3.5 g/dL (3.5-5.2); Alkaline Phosphatase 95 IU/L (40-130); Anion Gap 14.6 (5-19); Aspartate Amino Transferase 24 U/L (0-40); Blood Urea Nitrogen 23 mg/dL (8-23); C Reactive Protein 8.3 mg/L (0.0-4.9); Calcium 9.3 mg/dL (8.5-10.5); Carbon Dioxide 24 mmol/L (22-29); Chloride 98 mmol/L (98-107); Globulin 3.1 g/dL (1.3-4.6); Glucose 105 mg/dL (65-115); Lipase 11 U/L (13-60); Osmolality Calculated 278 mOsm/kg (285-295); Potassium 4.6 mmol/L (3.5-5.1); Sodium 132 mmol/L (136-145); Total Bilirubin 0.5 mg/dL (0.15-1.2); Total Protein 6.6 g/dL (6.6-8.7)
[2020-10-28] MEDS: iodixanol 320 mg/mL 100mL Btl IV (08:19)
[2020-10-28 08:38] VITALS: BP 145/87; PULSE 77; RESP 16; O2SAT 95
[2020-10-28] MEDS: ondansetron 2 mg/ML SDV 2 mL 4 MG IVP (08:59)
[2020-10-28 09:04] VITALS: RESP 16
[2020-10-28] MEDS: morphine 4 mg/mL SDV 1 mL IVP (09:04)
--- NOTE | 2020-10-28 09:39 | DCPLANNER ---
manager in home was asked to schedule a follow up appointment for patient with the cancer treatment center. manager in home called the [facility], spoke with [place], gave clinic patients information. A follow up appointment was scheduled for Thursday, October 29, 2020 at 2:[address] Munroe. manager in home informed ER physician, and patient of the scheduled appointment.
[2020-10-28 09:46] VITALS: BP 138/82; PULSE 104; O2SAT 96
--- NOTE | 2020-11-07 08:38 | DCPLANNER ---
Patient had a follow up appointment scheduled with [facility] - patient did attend.
== END 2020-10-28 09:49 | disposition home or self-care (01) ==
PROVIDERS: Emergency Medicine; Emergency Provider Family Medicine; PCP Family Medicine
DX: C34.90 Malignant neoplasm of unspecified part of unspecified bronchus or lung (principal); I25.10 Atherosclerotic heart disease of native coronary artery without angina pectoris; I10 Essential (primary) hypertension; E78.2 Mixed hyperlipidemia; Z86.73 Personal history of transient ischemic attack (TIA), and cerebral infarction without residual deficits; Z95.1 Presence of aortocoronary bypass graft; Z87.891 Personal history of nicotine dependence
CPT/HCPCS: 71045; 71275; 74177; 80053; 81001; 83605; 83690; 85025; 86140; 96361; 96374; 96375; 99284; J2270; J2405; J7030; Q9967

== ENCOUNTER 2020-10-29 13:50 | Outpatient (CLI) | payer MEDICARE, SELFPAY ==
--- NOTE | 2020-10-29 16:50 | ONC CON_ITS ---
Dr. Munroe New Patient Note Patient: Eugene Samayoa Unit #: [id number]: 1935 Dicatated By: Catalina Munroe M.D.Date of Visit: Oct 29, 2020 Onc MED New Patient/Consult Referring Physician: Dr. Oleg Feng M.D. History of Present Illness: Mr. Eugene Samayoa, is a 84-year-old gentleman with history of acute abdominal pain for which he went to [facility] on October 15, [address] scan of abdomen pelvis on October 15, 2020 which showed large bowel distention with swirling in the mid mesentery and tortuous tapering sigmoid colon suspicious for sigmoid volvulus. Heterogeneously enhancing enlarged prostate. Tiny right pleural effusion with slight interstitial thickening in the right lower lobe. Several low attenuation lesions in the liver with peripheral enhancement suspicious for metastatic disease. Largest lesion right hepatic lobe measuring 2.7 x 2.1 cm compared to scan done in 2015 this was new ultrasound liver done on October 15, 2020 confirmed hepatic lesions varying. As per patient prior to his visit to [facility] he went to see his PMD with diarrhea and worsening of abdominal pain, subsequently developed severe constipation and for which he went to [facility] as mentioned above. Patient was referred to Dr. Sherman who did colonoscopy on October 17, 2020 and his impression was there was no abnormality seen but patient had tortuous colon raising possibility of volvulus seen on prior CT scan but not noted on colonoscopy. Because of extensive lesion seen in the liver, patient underwent sonogram guided liver biopsy on October 17, 2020 and as per pathology it was metastatic adenocarcinoma and immunohistochemistry was positive TTF-1, CK7, CK 8/18 but negative for CK20, as per pathology was suggestive of lung being primary with metastatic disease to the liver On October 28, 2020 patient went back to [facility] with progressive abdominal pain radiating to his back and patient underwent CTA chest on October 28, 2020 which showed significant mediastinal and hilar lymphadenopathy. Confluent adenopathy noted beginning along the right paratracheal region within the right paratracheal fat. Increased lymph nodes at AP window and extending into the subcarinal measuring 3.9 x 6.2 cm. There is encasement and narrowing of right main stem bronchus and the right lower lobe and bronchus intermedius. Only partial encasement without narrowing of right upper lobe bronchus. There is a partial encasement of distal SVC. Encasement of right lower lobe pulmonary artery.. Mild increased density within T11 vertebral body there is also lucency within the inferior endplate of T11 Metastatic disease to the liver have increased in size and number since October 15, 2020 Patient is a former smoker, smoked for 30 years prior to quit smoking about 30 years ago. Occasional alcohol use. Patient is complaining of progressive shortness of breath and wheezing especially on the right side occasionally blood mixed in this phlegm. He denies any fever chills denies any headaches or blurred vision or double vision denies any new bony pains except for chronic lower extremity pain. Past Medical History: Mr. Samayoa's medical history consists of atherosclerotic heart disease, atrial fibrillation, benign prostatic hyperplasia, coronary artery disease, hyperlipidemia, hypertension, and transient ischemic attack. Past Surgical History: Mr. Samayoa's surgical/procedural history consists of coronary artery stent placement, covid vaccine #2 moderna, hernia repair, covid vaccine #1 moderna in 2020, colonoscopy in 2020, and coronary artery bypass in 2019. Medications: Acid Control Maximum Strength (20 mg) Tablet Oral b.i.d., Cholecalciferol (50 mcg ) Tablet Oral daily, Colace (100 mg) Capsule Oral daily PRN, HYDROcodone-Acetaminophen Tablet Oral PRN, Metoprolol Succinate ER (50 mg) Tablet SR 24 HR Oral at bedtime, Nitroglycerin Tablet, sublingual Sublingual PRN, Ondansetron HCl Tablet Oral PRN, Polyethylene Glycol 3350 (17 ) Powder Oral daily PRN, Rivaroxaban (20 mg) Tablet Oral at bedtime, Tamsulosin HCl (0.4 mg) Capsule Oral at bedtime Allergies: Atorvastatin Calcium and Rosuvastatin Calcium. Social History: Mr. Samayoa is . Mr. Samayoa no longer smokes. He has no history of drinking. Family History: Mr. Samayoa's mother at age 92. Mr. Samayoa's father at age 65: coronary artery disease. Mr. Samayoa has 1 brother who is . He has 1 sister who is . Review Of Symptoms: Review of Systems is not available for this patient. Vital Signs: Performed on Oct 29, 2020 15:01: 9, 7, 25.99, 2.09 sq.m, 72 in, 97 %, 97 /min, 18 /min, 117/80 mm(hg), 98.4 F, and 191.6 lbs (HIGH). Performance Status: 0 - Fully active, able to carry on all predisease activities without restrictions. (ECOG) Physical Examination: ENMT - No mouth sores, no thrush, no jaundice, Respiratory - Poor air entry, mild wheezing on the right side otherwise clear, Cardiovascular - Irregular rate and rhythm, Abdomen - Soft, bowel sounds present, Extremities - No visible edema or rash. Lab/Imaging: Most recent lab results are not available for this patient. Impression: Metastatic adenocarcinoma to the liver per sonogram guided liver biopsy done on October 17, 2020 immunohistochemistry positive for TTF-1, CK7, CK 8/18 and negative for CK20, consistent with lung being primary CTA chest done on October 28, 2020 shows extensive mediastinal and hilar lymphadenopathy. Confluent cluster of lymph node is causing moderate narrowing and encasement of right hilar bronchoalveolar structures although no complete occlusion at this time. Metastatic lesion in the liver have increased in size and number since October 15, 2020. Increased density within T10-11 vertebral body and an associated lucency along the inferior endplate. History of coronary artery disease status post CABG Emphysema Recent history of acute abdominal pain due to sigmoid volvulus, diagnosed on October 15, 2020, colonoscopy done on October 17, 2020 shows resolution of volvulus on its own Plan: Discussed with patient regarding his disease status and further planning, at this point, will consider CT PET scan MRI scan of the head to complete staging work-up as CT scan of abdomen and CTA chest shows possible T11 involvement moreover CT PET scan will be used in future to assess disease response to the treatment., We will also request pathology to consider molecular profiling and PD-L1 on the liver biopsy sample and also consider guardant 360 to identify targetable therapeutic mutations Lab work-up done on October 28, 2020 shows CMP within normal limit except creatinine 1.3 and CBC shows white blood count 9.8 hemoglobin 14.2 hematocrit 41.7 platelets 276,000 We will also refer him to pulmonology for evaluation for impending right bronchial obstruction as patient is developing progressive cough and now wheezing and shortness of breath. Bronchoscopy may prove valuable to decide about need for palliative radiation therapy to keep right bronchus patent and to avoid postobstructive pneumonia. As far as abdominal pain is concerned, patient was advised to stay in touch with surgeon Dr. Sherman as patient has recent history of sigmoid volvulus and there is a possibility he may have recurrence Patient will return to clinic after MRI scan of the head and CT PET scan done for further discussion Signed By: Catalina Munroe M.D. <<Signature on File>>
== END 2020-10-29 13:51 | disposition home or self-care (01) ==
PROVIDERS: PCP Family Medicine; Visit Provider Internal Medicine Hematology & Oncology
DX: C34.90 Malignant neoplasm of unspecified part of unspecified bronchus or lung (principal); C78.7 Secondary malignant neoplasm of liver and intrahepatic bile duct; R59.1 Generalized enlarged lymph nodes; I25.810 Atherosclerosis of coronary artery bypass graft(s) without angina pectoris; J43.9 Emphysema, unspecified; Z87.891 Personal history of nicotine dependence
CPT/HCPCS: 99204

== ENCOUNTER 2020-10-30 12:40 | Outpatient (CLI) | payer MEDICARE, SELFPAY ==
--- NOTE | 2020-10-30 12:45 | CT_ITS ---
WS: [id number] CT scan of the abdomen and pelvis with Oral and IV contrast. Additional two-dimensional coronal and s agittal reconstruction was performed. 10/30/2020 Clinical Data: SIGMOID VOLVULUS, OBSTIPATION Comparison: CT chest, abdomen and pelvis, 10/28/2020. DLP: 1281.[address] scans at [facility] use at least one of these dose optimization techniques: automat ed exposure control; mA and/or kV adjustment per patient size (includes targeted exams where dose is matched to clinical indication); or iterative reconstruction. Findings: The lower lungs show a small right effusion. The heart is enlarged. There are coronary artery calcifi cations. There is a small hiatal hernia. Midline sternotomy sutures are present. The gallbladder, sp garth, adrenal glands and pancreas are normal. There are metastatic lesions throughout the liver uncha nged from 2 days ago. The kidneys show equal bilateral contrast excretion with several cysts especially on the right. No re nal mass, hydronephrosis or calculi are seen. The abdominal aorta is normal in size with calcification in the wall.. No appendicitis is seen. The proximal colon is dilated with a large amount of fecal material. The asc ending colon, transverse colon and proximal descending colon are dilated. This does not have the typi donn appearance of a sigmoid volvulus. The colon from the mid descending colon to the sigmoid colon is not dilated. No abscess, adenopathy, ascites, mass or free air is seen. The bladder is unremarkable. No inguinal hernia is seen. The bones of the lower thorax, lumbar spine, pelvis, and hips show osteoarthritis and slight sclerosi s of the T11 vertebral body. CT/CT abdomen pelvis w con* [id number] Impression: 1. Dilated proximal colon involving the descending colon, transverse colon and proximal descending colon but a typical sigmoid volvulus is not seen. 2. Metastatic lesions to the liver. 3. Small right pleural effusion.
[2020-10-30] MEDS: iodixanol 320 mg/mL 100mL Btl IV (13:12)
[2020-11-07 07:57] LABS: PD-L1 (Clone 22C3) by IHC BBPL See Report
== END 2020-10-30 12:41 | disposition home or self-care (01) ==
PROVIDERS: PCP Family Medicine; Visit Provider Family Medicine
DX: K56.2 Volvulus (principal); K59.00 Constipation, unspecified; J90 Pleural effusion, not elsewhere classified; K76.9 Liver disease, unspecified
CPT/HCPCS: 74177; 88342; Q9967

== ENCOUNTER 2020-11-03 06:57 | Emergency (ER) | payer MEDICARE, SELFPAY ==
[2020-11-03 07:04] VITALS: BP 146/66; PULSE 94; RESP 18; TEMP 36.7; O2SAT 94; BMI 25.4
--- NOTE | 2020-11-03 07:04 | CTR_ITS ---
PROCEDURE INFORMATION: Exam: CTA Chest With Contrast Exam date and time: 11/03/2020 7:04 AM Age: 84 years old Clinical indication: Other: Hemoptysis; Prior surgery; Additional info: Hemoptysis, cancer TECHNIQUE: Imaging protocol: Computed tomographic angiography of the chest with contrast. 3D rendering (Not supervised by radiologist): MIP and/or 3D reconstructed images were created by the technologist. Radiation optimization: All CT scans at this facility use at least one of these dose optimization techniques: automated exposure control; mA and/or kV adjustment per patient size (includes targeted exams where dose is matched to clinical indication); or iterative reconstruction. Contrast material: VISIPAQUE 320; Contrast volume: 78 ml; Contrast route: INTRAVENOUS (IV); COMPARISON: CT angio chest w abd pel w con 10/28/2020 8:07 AM RADIATION DOSE METRICS: Total DLP (mGy-cm): 615.07 FINDINGS: Pulmonary arteries: Malignancy narrows the pulmonary artery branches to the right upper, middle and lower lobes. No intraluminal filling defects to indicate acute pulmonary embolism. Aorta: The thoracic aorta is atherosclerotic. No thoracic aortic dissection. Lungs: There is bilateral paraseptal emphysema. Prior pulmonary granulomatous disease. Right lower lobe dependent atelectasis. Pleural spaces: Bilateral pleural effusions, larger on the right. No pneumothorax. Heart: The heart is borderline enlarged. No pericardial effusion. There is coronary artery disease. Prior CABG. Mediastinal space: There is confluent soft tissue mass involving the right hilum, azygoesophageal recess, subcarinal space, and paratracheal space compatible with malignancy. This encircles and narrows the distal right mainstem bronchus, right upper lobe bronchus, bronchus intermedius, and the proximal right middle and lower lobe bronchi. Lymph nodes: Enlarged separate lymph nodes in the aorticopulmonary window Liver: Hepatic metastatic disease is redemonstrated. Bones/joints: Prior median sternotomy. Sclerotic T11 vertebral body is redemonstrated. Metastatic disease is of concern. There is diffuse idiopathic skeletal hyperostosis. Soft tissues: No acute soft tissue abnormality. CT/CT angio chest PE protcl [id number] IMPRESSION: Malignancy involving the right hilum and mediastinum within narrowing of the bronchi and pulmonary arteries to the right lung. No sign of acute pulmonary embolism. Radiation Dose CTDIVOL = (mGy): DLP = 615.07 (mGy-cm)
--- NOTE | 2020-11-03 07:06 | ECG_ITS ---
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 Measurements Intervals [place] Rate: 102 P: MT: QRS: -3 QRSD: 83 T: 170 QT: 358 QTc: 468 Interpretive Statements ATRIAL FIBRILLATION WITH RAPID VENTRICULAR RESPONSE LOW QRS VOLTAGE IN EXTREMITY LEADS [QRS DEFLECTION < 0.5 mV IN LIMB LEADS] PROBABLE LATERAL MYOCARDIAL INFARCTION [35 ms Q WAVE IN I/aVL/V5/V6], OF INDETERMINATE AGE Compared to ECG 10/08/2020 10:12:34 Low QRS voltage now present Indeterminate axis no longer present Myocardial infarct finding still present Electronically Signed On 11-03-2020 18:13:15 CDT by Valentina Mock M.D. [id number]
[2020-11-03 07:11] VITALS: BP 146/66; PULSE 85; RESP 18; O2SAT 94
[2020-11-03 08:02] VITALS: BP 124/82; PULSE 82; RESP 18; O2SAT 95
[2020-11-03 08:14] LABS: Basophils % 0.1 %; Eosinophils % 0.3 %; Hematocrit 44.4 % (42.0-52.0); Hemoglobin 14.9 g/dL (11.7-16.6); Lymphocytes # 1.2 10^3/uL (0.8-4.8); Lymphocytes % 14.6 %; Mean Corpuscular HGB Conc 33.6 g/dL (30.0-36.0); Mean Corpuscular Hemoglobin 31.6 pg (28.0-34.0); Mean Corpuscular Volume 94.3 fL (80-94); Mean Platelet Volume 8.8 fL (7.4-10.4); Monocytes # 0.8 10^3/uL (0.2-0.9); Neutrophils # 5.89 10^3/uL (1.8-7.7); Neutrophils % 74.5 %; Nucleated Red Blood Cells % 0 %; Platelet Count 305 10^3/cmm (130-400); Red Blood Count 4.71 10^6/uL (4.1-5.3); Red Cell Distribution Width 12.6 % (12.1-15.1); White Blood Count 7.9 10^3/uL (4.0-10.0)
[2020-11-03] MEDS: iodixanol 320 mg/mL 100mL Btl IV (08:17)
[2020-11-03 08:31] LABS: Alanine Aminotransferase 17 U/L (0-41); Albumin Level 3.5 g/dL (3.5-5.2); Alkaline Phosphatase 126 IU/L (40-130); Anion Gap 16.3 (5-19); Aspartate Amino Transferase 30 U/L (0-40); Blood Urea Nitrogen 15 mg/dL (8-23); Calcium 9.2 mg/dL (8.5-10.5); Carbon Dioxide 25 mmol/L (22-29); Chloride 91 mmol/L (98-107); Globulin 3.3 g/dL (1.3-4.6); Glucose 96 mg/dL (65-115); Osmolality Calculated 267 mOsm/kg (285-295); Potassium 4.3 mmol/L (3.5-5.1); Sodium 128 mmol/L (136-145); Total Bilirubin 0.6 mg/dL (0.15-1.2); Total Protein 6.8 g/dL (6.6-8.7)
[2020-11-03 08:34] VITALS: BP 151/85; PULSE 96; RESP 18; O2SAT 93
[2020-11-03 08:37] LABS: INR 1.86 (0.8-1.2)
[2020-11-03 08:38] LABS: Partial Thromboplastin Time 34.6 SECONDS (23.9-36.7)
--- NOTE | 2020-11-03 08:52 | ED_ITS ---
HPI - General Adult General: Chief complaint: General Medical Stated complaint: COUGHING UP BLOOD, CANCER PT Time Seen by Provider: 11/03/20 07:02 Source: patient, family and old records reviewed Limitations: no limitations History of Present Illness: HPI narrative: 84 yo m recently found to have metastatic lung carcinoma, stage 4, who presents with low volume hemoptysis this morning x3. He has just been diagnosed with metastatic adenocarcinoma of the lung this October. He has cancer encasing the right primary bronchus. Patient has chronic afib and is on xarelto, last dose last night. He had mix of clear sputum and bright red blood amounting to a teaspoon three times this morning. He has no pain, no increase in cough/fever, no syncope, no fever. Associated symptoms: Deny chest pain, dyspnea, nausea, palpitations, syncope or vomiting Review of Systems General: Reports: 10 or more systems reviewed and unremarkable except in HPI and below Card: Denies: chest pain, palpitations, lightheadedness, syncope, pre-syncope or dyspnea on exertion (no change) Resp: Reports: wheezing and hemoptysis; Denies: dyspnea or stridor GI: Denies: abdominal pain, nausea, vomiting, hematemesis or hematochezia Kevin/Lymph: Reports: easy bruising and easy bleeding PFSH ED PFSH: Medical History Atherosclerotic heart disease of [place] coronary artery without angina pectoris Atrial fibrillation Benign essential HTN BPH (benign prostatic hyperplasia) CAD (coronary artery disease) Mixed hyperlipidemia TIA (transient ischemic attack) Surgical History H/O esophagogastroduodenoscopy History of coronary artery stent placement Hx of CABG Status post colonoscopy (10/17/20) Status post right inguinal hernia repair Family History Father CAD (coronary artery disease) Brother CAD (coronary artery disease) Sister CAD (coronary artery disease) Cancer Other Hyperlipidemia Denies family history of Diabetes Clotting disorder Dementia Chronic kidney disease (CKD) Suicide Anesthesia complication Bleeding disorder Lung disease Stroke Social History Smoking and tobacco status: former smoker Alcohol intake: never Physical Exam 2 Const: COMMON NORMALS: no limitations, alert and well nourished EXAM LIMITATIONS: no altered mental status GENERAL APPEARANCE: cooperative and well developed ORIENTATION/CONSCIOUSNESS: Yes awake; not confused HENMT: COMMON NORMALS: normocephalic, atraumatic, external ears normal and Normal external nose present HEAD & SCALP: normal to inspection, normocephalic and atraumatic FACE & SINUS: face symmetric NOSE: Normal external nose present EXTERNAL EAR: Yes external ears normal MOUTH: lip normal; no muffled voice Eye: COMMON NORMALS: EOMs intact bilaterally and conjunctivae normal GENERAL EYE: appearance normal, both eyes and all related structures CONJ UNCTIVA: Yes conjunctivae normal Neck/C-Spine: COMMON NORMALS: no JVD GENERAL: Yes normal visual inspection and Yes trachea midline Resp: COMMON NORMALS: normal respiratory effort and No use of accessory muscles EFFORT & INSPECTION: Yes able to speak in complete sentences, Yes symmetric chest movement, No tachypneic, No respiratory distress, No labored and No uses accessory muscles AUSCULTATION: wheezes Cardio: COMMON NORMALS: no JVD, regular rate and regular rhythm RATE: regular rate RHYTHM: regular rhythm PERIPHERAL PULSES: radial pulses present GI: COMMON NORMALS: Soft to palpation INSPECTION: Yes normal to inspection PALPATION: Yes Soft to palpation, No Tenderness to palpation present (GI) and No Guarding due to palpation present (GI) Back/Pelvis: COMMON NORMALS: thoraco-lumbar ROM normal Extremity: COMMON NORMALS: normal to inspection GENERAL: Yes normal exam except as noted Neuro: COMMON NORMALS: moves all extremities, no focal motor deficits and no sensory deficits noted SENSORIUM/ORIENTATION: Yes alert Psych: COMMON NORMALS: mental status grossly normal, Normal thought process present, cooperative, normal affect and speech normal SPEECH: Yes normal speech THOUGHT PROCESS: Normal thought process present Skin: COMMON NORMALS: turgor normal and no jaundice GENERAL SKIN EXAM: turgor normal OTHER: superficial dilated arterioles on cheeks; no pallor Course Vital Signs: Vital signs: Vital Signs Temperature 98.1 F 11/03/20 07:04 Pulse Rate 83 11/03/20 09:01 Respiratory Rate 16 11/03/20 09:01 Blood Pressure 146/79 11/03/20 09:01 Pulse Oximetry 94 11/03/20 09:01 MDM - General Adult MDM Narrative: Medical decision making narrative: CTA chest performed and there is no blush/ative extravasation or PE noted. There are b/l pleural effusions and the cancer as noted on previous imaging. The patient is hemodynamically stable. Give afib and xarelto use with minor hemoptysis, I consulted Dr Coleman, his oncologist. He recommended admission for bronchoscopy [facility] to evaluate for endobronchial lesions and to hold xarelto. Dr Jo was consulted and did not recommend hospital admission due to risk/benefit profile. Patient hemodynamically stable and can have outpatient bronchoscopy without being at unecessary risk in hospital due to COVID crisis. Dr Gordon is not transportation maintenance supervisor today, so the logistics of getting urgent outpatient bronchoscopy are difficult. I have discussed with patient/ who are in agreement with urgent outpatient bronchoscopy. He will hold Xarelto; but I've informed him of risks of DVT/PE and CVA stopping blood thinner. I placed consult to case management to help facilitate urgent bronchoscopy and given patient/ number for Dr Gordon and instructions to call tomorrow morning. Lab Data: Labs: Lab Results 11/03/20 11/03/20 11/03/20 Range/Units 07:58 07:58 07:58 WBC 7.9 (4.0-10.0) 10^3/ uL RBC 4.71 (4.1-5.3) 10^6/u L Hgb 14.9 (11.7-16.6) g/dL Hct 44.4 (42.0-52.0) % MCV 94.3 H (80-94) fL MCH 31.6 (28.0-34.0) pg MCHC 33.6 (30.0-36.0) g/dL RDW 12.6 (12.1-15.1) % Plt Count 305 (130-400) 10^3/c mm MPV 8.8 (7.4-10.4) fL Neut % (Auto) 74.5 % Lymph % (Auto) 14.6 % [place] % (Auto) 10.0 % Eos % (Auto) 0.3 % Baso % (Auto) 0.1 % Neut # (Auto) 5.89 (1.8-7.7) 10^3/u L Lymph # (Auto) 1.2 (0.8-4.8) 10^3/u L [place] # (Auto) 0.8 (0.2-0.9) 10^3/u L Eos # (Auto) 0.0 (0.0-0.8) 10^3/u L Baso # (Auto) 0.0 (0.0-0.1) 10^3/u L Nucleated RBC % (a uto) 0 % Nucleated RBCs # 0.0 /100WBC PT 21.80 H (12.1-14.9) SECO NDS INR 1.86 H (0.8-1.2) APTT 34.6 (23.9-36.7) SECO NDS Sodium 128 L (136-145) mmol/L Potassium 4.3 (3.5-5.1) mmol/L Chloride 91 L (98-107) mmol/L Carbon Dioxide 25 (22-29) mmol/L Anion Gap 16.3 (5-19) BUN 15 (8-23) mg/dL Creatinine 1.2 (0.7-1.2) mg/dL GFR Calculation Not Reportable Glucose 96 (65-115) mg/dL Calculated Osmolal ity 267 L (285-295) mOsm/k g Calcium 9.2 (8.5-10.5) mg/dL Total Bilirubin 0.6 (0.15-1.2) mg/dL AST 30 (0-40) U/L ALT 17 (0-41) U/L Alkaline Phosphata se 126 (40-130) IU/L Total Protein 6.8 (6.6-8.7) g/dL Albumin 3.5 (3.5-5.2) g/dL Globulin 3.3 (1.3-4.6) g/dL EKG Data^: EKG 1: Attestation: I personally reviewed and interpreted this EKG as follows: EKG interpretation date: 11/03/20 Interpretation: afib, ventricular rate 102 bpm, t wave inversion 1,2, aVL, few nonspecific st changes, qrs 83 bpm Computer generated interpretation: Chest CTA 11/03/20 07:04 IMPRESSION: Malignancy involving the right hilum and mediastinum within narrowing of the bronchi and pulmonary arteries to the right lung. No sign of acute pulmonary embolism. Radiation Dose CTDIVOL = (mGy): DLP = 615.07 (mGy-cm) Discharge Plan Discharge Patient Disposition: Home Clinical Impression: Cough with hemoptysis, Adenocarcinoma of lung, Anticoagulated, Atrial fibrillation Condition: Stable Prescriptions: New albuterol sulfate 90 mcg/actuation HFA aerosol inhaler 2 inh inhalation Q6H PRN (Reason: shortness of breath or wheezing) 30 Days Qty: 8.5 RF: 0 Held Xarelto 20 mg tablet 20 mg PO QPM RF: 0 Hold Instructions: Resume on 10/20/20. No Action tamsulosin 0.4 mg capsule 0.4 mg PO BEDTIME RF: 0 nitroglycerin [Nitrostat] 0.4 mg tablet, sublingual 0.4 mg SUBLINGUAL Q5M PRN (Reason: Chest Pain) RF: 0 metoprolol succinate 50 mg tablet extended release 24 hr 50 mg PO BEDTIME Qty: 90 RF: 3 Pepcid 20 mg Tablet 20 mg PO BID RF: 0 Colace 100 mg Capsule 100 mg PO PRN RF: 0 Miralax 17 gram/dose Powder 17 g PO DAILY PRN (Reason: Constipation) RF: 0 Vitamin D3 50 mcg (2,000 unit) Tablet 50 mcg PO DAILY RF: 0 hydrocodone-acetaminophen 5-325 mg tablet 1 tab PO Q6H PRN (Reason: pain) Qty: 30 RF: 0 Zofran 4 mg tablet 4 mg PO Q6H PRN (Reason: nausea and vomiting) Qty: 20 RF: 0 Discharge Orders: Discharge ED (Routine); Ordered 11/03/20 Ordered By: Pipe Sanchez Referrals: Shoshana Gordon MD [Physician] - 1-3 days (Need to have urgent outpatient bronchoscopy) Discharge Diet: Advance as tolerated Discharge Activity: Resume usual activity Patient Instructions: Acute Hemoptysis (ED) Activity Restrictions/Additional Instructions: Hold Xarelto until you have Bronchoscopy. Return to ER for increased blood in your sputum, dizziness, passing out, pale skin, low blood pressure, or worsening condition. Coding Level of Care Code ED Engine Buildup Mechanic for Teagan Lubin
[2020-11-03 09:01] VITALS: BP 146/79; PULSE 83; RESP 16; O2SAT 94
[2020-11-03 09:42] VITALS: BP 141/81; PULSE 89; RESP 18; O2SAT 94
--- NOTE | 2020-11-04 09:32 | DCPLANNER ---
welfare manager had message to schedule a follow up appointment for patient with Dr. Gordon at [facility]. Patients called case sealer asking about the referral. welfare manager informed patients that case sealer was working on it and that clinic would call patient with appointment information. welfare manager called [facility], patient has an appointment at the end of this week on 11.08.20, Italia sent an email to Dr. Gordon and his nurse to check to see if the appointment could be moved up due to patient being seen in the ER. When case sealer called [facility], and spoke with Riri, she was asked to check to check to see if patients appointment could be moved up.
--- NOTE | 2020-11-05 08:24 | DCPLANNER ---
Patient has an appointment scheduled for Thursday, November 05, 2020 at 1:[address] Gordon at [facility]. Clinic will call patient with appointment information.
--- NOTE | 2020-11-14 11:54 | DCPLANNER ---
Patient had a follow up appointment scheduled for 11.05.[address] Gordon at [facility] - patient did attend appointment.
== END 2020-11-03 09:42 | disposition home or self-care (01) ==
PROVIDERS: Emergency Provider Emergency Medicine; PCP Family Medicine
DX: R04.2 Hemoptysis (principal); C34.91 Malignant neoplasm of unspecified part of right bronchus or lung; I48.20 Chronic atrial fibrillation, unspecified; I25.10 Atherosclerotic heart disease of native coronary artery without angina pectoris; I10 Essential (primary) hypertension; E78.2 Mixed hyperlipidemia; Z79.01 Long term (current) use of anticoagulants; Z86.73 Personal history of transient ischemic attack (TIA), and cerebral infarction without residual deficits; Z87.891 Personal history of nicotine dependence; Z95.1 Presence of aortocoronary bypass graft; Z95.5 Presence of coronary angioplasty implant and graft
CPT/HCPCS: 71275; 80053; 85025; 85610; 85730; 93005; 99283; Q9967

== ENCOUNTER 2020-11-04 22:28 | Emergency (ER) | payer MEDICARE, SELFPAY ==
[2020-11-04 22:47] VITALS: BP 128/89; PULSE 73; RESP 18; TEMP 36.8; O2SAT 96; BMI 25.4
--- NOTE | 2020-11-04 23:47 | XRR_ITS ---
PROCEDURE INFORMATION: Exam: XR Chest Exam date and time: 11/04/2020 11:47 PM Age: 84 years old Clinical indication: Dyspnea; Prior surgery; Surgery date: 6+ months; Surgery type: Cabg; Additional info: Dyspnea/cough TECHNIQUE: Imaging protocol: XR of the chest. Views: 1 view. COMPARISON: CR XR chest 1V portable [id number] 10/28/2020 7:09 AM FINDINGS: Lungs: Unremarkable. No consolidation. Pleural spaces: Unremarkable. No pleural effusion. No pneumothorax. Heart/Mediastinum: Unremarkable. No cardiomegaly. Bones/joints: Stable sternotomy. XR/XR chest 1V portable [id number] IMPRESSION: No acute findings.
--- NOTE | 2020-11-04 23:51 | W.ED.SOB ---
HPI - SOB/Dyspnea General: Chief Complaint: Shortness of Breath/Dyspnea Stated Complaint: SOB Time Seen by Provider: 11/04/20 23:39 History of Present Illness: HPI Narrative: 84-year-old male presents emergency room with complaints of shortness of breath he has been having some hemoptysis. He is on Xarelto for A. fib. He was seen yesterday with some minor hemoptysis and discharged home after consultation with Dr. Munroe and Dr. Sherman is expected to get an outpatient bronchoscopy. He had recently been found of a mass in the chest bronchi highly suspicious for cancer but is not yet been biopsied or confirmed. He is not having any further hemoptysis but he is having more difficult time breathing. On arrival here his oxygen sats are normal on room air MD elicited complaint: shortness of breath and cough Pertinent past history: COPD and other (Lung mass) Onset (ago): week(s) Context: recent illness Timing: constant Severity: moderate Exacerbating factors: exertion and coughing Relieving factors: rest Known history of: other (Lung mass) Associated symptoms: Reports chest congestion, cough and hemoptysis; Deny abdominal pain, chest pain, diaphoresis, dizziness, extremity pain, fever(s), lightheadedness, myalgias, nausea, orthopnea, palpitations, paresthesias, polydipsia, polyuria, rash, sense of impending doom, syncope or vomiting Treatment prior to arrival: none Review of Systems Const: Denies: fever(s) or diaphoresis ENMT: Denies: throat pain, ear or mastoid pain, nasal discharge or nasal congestion Card: Denies: chest pain, palpitations, lightheadedness, syncope or orthopnea Resp: Reports: hemoptysis and chest congestion GI: Denies: abdominal pain, nausea or vomiting : Denies: flank pain, dysuria, urinary frequency or urinary urgency Musc: Denies: extremity pain Skin/Breast: Denies: rash or pruritus Neuro: Denies: dizziness Endo: Denies: polyuria or polydipsia PFSH ED PFSH: Medical History Atherosclerotic heart disease of [place] coronary artery without angina pectoris Atrial fibrillation Benign essential HTN BPH (benign prostatic hyperplasia) CAD (coronary artery disease) Mixed hyperlipidemia TIA (transient ischemic attack) Surgical History H/O esophagogastroduodenoscopy History of coronary artery stent placement Hx of CABG Status post colonoscopy (10/17/20) Status post right inguinal hernia repair Family History Father CAD (coronary artery disease) Brother CAD (coronary artery disease) Sister CAD (coronary artery disease) Cancer Other Hyperlipidemia Denies family history of Diabetes Clotting disorder Dementia Chronic kidney disease (CKD) Suicide Anesthesia complication Bleeding disorder Lung disease Stroke Social History Smoking and tobacco status: former smoker Quit status (tobacco): has quit using tobacco Year quit tobacco: 1989 Former quit date comment: Hx of 1 PPD x 30 Years Second hand smoke exposure: No Smoking risk assessment/counseling performed?: No Alcohol intake: never Counseling given: No Counseling given: No Lives independently: Yes Household members: spouse Marital status: Current occupational status: retired History of recent travel: No Current gender identity: Male Physical Exam Const: COMMON NORMALS: no acute distress GENERAL APPEARANCE: cooperative and comfortable ORIENTATION/CONSCIOUSNESS: Yes awake, Yes oriented to person, Yes oriented to place and Yes oriented to time HENMT: COMMON NORMALS: normocephalic, atraumatic and hearing grossly normal bilaterally HEAD & SCALP: normocephalic and atraumatic Neck/C-Spine: COMMON NORMALS: no JVD Resp: COMMON NORMALS: normal respiratory effort, No retractions, No use of accessory muscles and clear to auscultation bilaterally AUSCULTATION: clear to auscultation bilaterally Cardio: COMMON NORMALS: no JVD, regular rate, regular rhythm and No murmurs present (Cardio) RATE: regular rate RHYTHM: regular rhythm GI: COMMON NORMALS: Soft to palpation and No hepatosplenomegaly present AUSCULTATION: Yes normoactive bowel sounds PALPATION: Yes Soft to palpation, No Tenderness to palpation present (GI), No Guarding due to palpation present (GI) and Yes No hepatosplenomegaly present Extremity: COMMON NORMALS: normal to inspection, capillary refill normal, no clubbing, cyanosis or edema, no calf tenderness and no pedal edema Neuro: SENSORIUM/ORIENTATION: Yes oriented to person, Yes oriented to place and Yes oriented to time Skin: COMMON NORMALS: no rashes or lesions noted GENERAL SKIN EXAM: no rashes or lesions noted Course Vital Signs: Vital signs: Vital Signs Temperature 98.2 F 11/05/20 01:51 Pulse Rate 79 11/05/20 01:51 Respiratory Rate 17 11/05/20 01:51 Blood Pressure 121/78 11/05/20 01:51 Pulse Oximetry 96 11/05/20 01:51 MDM - SOB/Dyspnea MDM Narrative: Medical decision making narrative: Patient has a lung mass which is known to be seen for previously x-ray and the rest of his labs are otherwise unremarkable. His sats are good he does not need oxygen on evaluation. His hemoglobin is stable he is not having any hemoptysis here now. Continues to be off anticoagulant in preparation for bronchoscopy. Discharge Plan Discharge Patient Disposition: Home Clinical Impression: Lung mass Condition: Stable Prescriptions: No Action tamsulosin 0.4 mg capsule 0.4 mg PO BEDTIME RF: 0 Xarelto 20 mg tablet 20 mg PO QPM RF: 0 Hold Instructions: Resume on 10/20/20. nitroglycerin [Nitrostat] 0.4 mg tablet, sublingual 0.4 mg SUBLINGUAL Q5M PRN (Reason: Chest Pain) RF: 0 metoprolol succinate 50 mg tablet extended release 24 hr 50 mg PO BEDTIME Qty: 90 RF: 3 Pepcid 20 mg Tablet 20 mg PO BID RF: 0 Colace 100 mg Capsule 100 mg PO PRN RF: 0 Miralax 17 gram/dose Powder 17 g PO DAILY PRN (Reason: Constipation) RF: 0 Vitamin D3 50 mcg (2,000 unit) Tablet 50 mcg PO DAILY RF: 0 hydrocodone-acetaminophen 5-325 mg tablet 1 tab PO Q6H PRN (Reason: pain) Qty: 30 RF: 0 Zofran 4 mg tablet 4 mg PO Q6H PRN (Reason: nausea and vomiting) Qty: 20 RF: 0 albuterol sulfate 90 mcg/actuation HFA aerosol inhaler 2 inh inhalation Q6H PRN (Reason: shortness of breath or wheezing) 30 Days Qty: 8.5 RF: 0 Discharge Orders: Discharge ED (Routine); Ordered 11/05/20 Ordered By: Oleg Feng Referrals: Sam Chaudhari MD [Primary Care Provider] - Discharge Diet: Usual diet Discharge Activity: Limit activity as instructed Patient Instructions: Opioid Safety Coding Level of Care Code ED Kitchen Supervisor for Teagan Fwd Exam Comprehensive
[2020-11-05 00:26] VITALS: BP 146/93; PULSE 92; RESP 17; O2SAT 96
[2020-11-05 01:00] VITALS: BP 121/78; PULSE 93; RESP 16; O2SAT 98
[2020-11-05 01:20] VITALS: O2SAT 94; O2SAT 96
[2020-11-05 01:30] VITALS: BP 121/78; PULSE 77; RESP 17; O2SAT 98
[2020-11-05 01:51] VITALS: BP 121/78; PULSE 79; RESP 17; TEMP 36.8; O2SAT 96
== END 2020-11-05 01:53 | disposition home or self-care (01) ==
PROVIDERS: Emergency Provider Family Medicine; PCP Family Medicine
DX: R91.8 Other nonspecific abnormal finding of lung field (principal); I48.91 Unspecified atrial fibrillation; J44.9 Chronic obstructive pulmonary disease, unspecified; I25.10 Atherosclerotic heart disease of native coronary artery without angina pectoris; I10 Essential (primary) hypertension; E78.2 Mixed hyperlipidemia; Z79.01 Long term (current) use of anticoagulants; Z87.891 Personal history of nicotine dependence; Z86.73 Personal history of transient ischemic attack (TIA), and cerebral infarction without residual deficits
CPT/HCPCS: 71045; 99283

== ENCOUNTER 2020-11-05 14:37 | Outpatient (CLI) | payer MEDICARE, SELFPAY ==
--- NOTE | 2020-11-05 14:30 | MR_ITS ---
WS: [id number] MRI HEAD WITH CONTRAST TECHNIQUE: Sagittal T1, T2 axial, T2 axial FLAIR, axial susceptibility weighted imaging, axial diffus ion weighted images, and coronal T2 images were obtained. Pre and post-T1 axial and post T1 coronal i mages. ADC and FSPGR images. CLINICAL INFORMATION: LUNG ADENOCARCINOMA, INITIAL STAGING, HX OF CA COMPARISON: CT 2018 and MRI March 2014 FINDINGS: No evidence of restricted diffusion to suggest acute ischemia. Ventricular system and basal cisterns are patent. Moderate to advanced small vessel changes with moderate parenchymal volume loss. Small ve ssel changes in the chato. Small vessel changes slightly progressed compared to 2014. Progressed paren chymal volume loss. Small vessel changes in the chato. Tiny chronic lacunar infarct right cerebellum. Normal vascular flow voids at the skull base. No extra axial fluid collections. No evidence of mass o r mass effect. Mucosal thickening right mastoid air cells. Mild mucosal thickening in the paranasal s inuses. No hemosiderin on the susceptibility weighted images. Normal optic chiasm and pituitary infundibulum. Mild symmetric atrophy temporal lobes and hippocampal formations. No evidence of enhancing intracranial metastatic disease. Normal optic chiasm and pituitary infundibu lum. Normal cavernous sinuses and Meckel's cave. Normal dural venous sinuses. Incidental tiny pars in termedia cyst measuring 2 mm. MR/MR head wo/w con [id number] IMPRESSION: 1. No evidence of restricted diffusion to suggest acute ischemia. 2. Moderate to advanced small vessel changes moderate parenchymal volume loss. Small vessel changes in the chato. This has slightly progressed since 2013. 3. Tiny chronic lacunar infarct right cerebellum. 4. No evidence of enhancing intracranial metastatic disease. 5. No hemosiderin on susceptibly weighted images. 6. Mild mucosal thickening right mastoid air cells.
[2020-11-05] MEDS: gadobenate dimeglumine 20 mL vial IV (15:43)
== END 2020-11-05 14:38 | disposition home or self-care (01) ==
PROVIDERS: PCP Family Medicine; Visit Provider Internal Medicine Hematology & Oncology
DX: C78.7 Secondary malignant neoplasm of liver and intrahepatic bile duct (principal); I63.9 Cerebral infarction, unspecified
CPT/HCPCS: 70553; A9577

== ENCOUNTER 2020-11-07 06:01 | Outpatient (RCR) | payer MEDICARE, SELFPAY ==
--- NOTE | 2020-11-07 | CT_ITS ---
Radiation Therapy Planning CT images; total exam DLP: 459.11 mGy-cm MTDD
--- NOTE | 2020-11-07 12:01 | N.ONRAD NP_ITS ---
Radiation Oncology New Patient Visit Patient: Eugene Samayoa MR#: [id number] : 1935 Age: 84 Sex: Male> Dictated by: Dr. Nam Giron Date of Service: 11/07/2020 Referring Physician(s) : Catalina Munroe Diagnosis: C78.7 - secondary malignant neoplasm of liver and intrahepatic bile duct, Diagnosed 10/29/2020 (active). Radiotherapy to date: Summary > No prior radiation therapy. Chief Complaint / History of Present Illness: Mr. Omalley is an 84-year-old man who presented with abdominal pain and altered bowel habits. Imaging for this problem revealed multiple liver lesions consistent with metastatic disease. He underwent a liver biopsy 10/17/2020 which showed metastatic adenocarcinoma, probably of lung origin. Further imaging revealed a pulmonary right hilar mass with mediastinal lymphadenopathy. Significant narrowing of the right mainstem bronchus was noted. The patient has had recent worsening dyspnea with exertion, cough, a few episodes of hemoptysis, and audible wheezing. Mr. Samayoa was referred to Dr. Munroe. He is contemplating systemic therapy. Because of the patient's hemoptysis and airway obstruction, he referred him to Dr. Gordon for possible bronchoscopy and ablation of any sites of bleeding. Dr. Gordon decided against bronchoscopy and referred the patient, recommending the prompt initiation of treatment. Mr. Woodard comes in today for evaluation and possible simulation with treatment planning. His symptoms are stable. He indicates that he has had about a 20 pound weight loss over recent months, though some of the weight loss was intended due to a new diet he went on because of a hiatal hernia. Although he can still carry out most of his normal activities, his performance status has declined somewhat due to dyspnea with exertion and fatigue. He has maintained his appetite. His only other complaint is a few week history of left hip pain. Current Medications: Acid Control Maximum Strength, cholecalciferol, colace, hYDROcodone-Acetaminophen, metoprolol Succinate ER, nitroglycerin, ondansetron HCl, polyethylene Glycol 3350, rivaroxaban, tamsulosin HCl. Allergies: Atorvastatin Calcium and Rosuvastatin Calcium. Medical History: - Atherosclerotic heart disease, - atrial fibrillation, - benign prostatic hyperplasia, - coronary artery disease, - hyperlipidemia, - hypertension, - transient ischemic attack. No history of collagen vascular disease. No previous radiation therapy. Surgical History: Colonoscopy in 2020, coronary artery bypass in 2019, coronary artery stent placement, covid vaccine #1 moderna in 05/2020, covid vaccine #2 moderna and hernia repair. Family History: Father is at age 65 having experienced coronary artery disease. Mother is at age 92. Brother is at age 65. Sister is at age 72. Social History: Last screened on 10/29/2020 - Yes - but has quit. Last screened on 10/29/2020 - Never drank. Current Complaints / Review of Systems: . General: Increased fatigue, 20pound weight loss (some planned), stable appetite. Neurologic: No headaches, falls, instability of gait, or blackouts. Cardiac: no chest pain, chest pressure, palpitations. Pulmonary: He has had increased cough, episodes of hemoptysis, audible wheezing, and shortness of breath with exertion. Gastrointestinal: He has a hiatal hernia which seems to produce minimal symptoms. He altered his diet because of this problem. He has recently presented to the emergency room with abdominal pain. He underwent a negative colonoscopy. He was thought to possibly have a sigmoid volvulus. His bowel habits still remain altered. Genitourinary: No complaints regarding emptying the bladder, hematuria, dysuria, or pyuria. Musculoskeletal: He denies back pain or pelvic discomfort. He has noticed some pain in the left hip area and just below it. The pain has been present for a few weeks. He notices it when he stands. There is no radicular nature to the pain. Vital Signs: Performed on 11/07/2020 9:10 AM Height - 72.00 in, Weight - 185.4 lbs (low), BSA - 2.06 sq.m, BMI - 25.14, Temperature - 97.0 f (low), Pulse - 89 /min, Respiration - 18 /min, O2 Sat - 95 % (low), Pain - 2 and BP - 94/ 52 mm(hg)(/low). Physical Exam: Alert, oriented, no acute distress. He appears fit and well nourished for his age. He has no cervical or supraclavicular lymphadenopathy. Lungs: are clear to percussion. On auscultation he has harsh inspiratory and expiratory rhonchi bilaterally, greater on the right. No rales or wheezes heard. Heart: Rhythm regular. No murmur gallop or rub. Abdomen: : no distention. No organomegaly, mass, or tenderness. Musculoskeletal: normal gait. I could not produce any tenderness at any site in bone with aggressive percussion and palpation. I particularly gave attention to the lower lumbar spine and the left hip area. Both hips had a free range of motion without discomfort. Straight leg raise was negative. 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 Lab: Imaging: The patient's original CT of the abdomen showed multiple liver lesions consistent with metastatic disease. Subsequent imaging has revealed progression of the disease in the liver. CT of the chest revealed a right lower lobe mass invading the mediastinum with right hilar, subcarinal, and bilateral mediastinal lymphadenopathy. There is significant compression of the right mainstem bronchus, which is surrounded by tumor. PET performed 11/02/2020 showed the right lower lobe hilar mass to measure 3.9 x 6.1 cm with an SUV of 12.4. A small right pleural effusion was noted. PET positive nodes were present throughout the mediastinum. Osseous metastatic disease was noted bilaterally involving the posterior iliac crests and the left pedicle of L4. Some activity was noted at T11, probably a benign compression fracture but pathologic fracture not excluded. One right cervical level 4 lymph node had an SUV of 5.4 consistent with metastatic disease. Impression: Widely metastatic adenocarcinoma of the lung with significant right mainstem bronchus compression and associated symptoms. Mr. Samayoa is a candidate for palliative radiation to the thorax. I discussed that with him and his . I told him the goal of treatment would be to open the right mainstem bronchus, which should result in improvement in his dyspnea with exertion cough, wheezing, and hemoptysis. I discussed the goal of treatment is to relieve symptoms and not to control the cancer. and Mrs. Samayoa are aware that the cancer is metastatic. It is possible that the disease involving the left pedicle of L4 is producing the pain in Mr. Samayoa's left hip. He had a completely negative exam and therefore I did not recommend proceeding with palliative radiation to L4. However, I discussed this issue with the patient and his . I told him he should speak up promptly if the pain progresses or he develops a radicular component to the pain. I discussed a palliative course of radiation delivered over 2 weeks. I reviewed the acute side effects such as fatigue, esophagitis, temporarily worsening cough and hemoptysis, and mild skin reaction. Long-term problems from a 2-week course of radiation oare not anticipated. Plan: Simulation performed today with the intent to begin treatment early next week. I discussed the patient's left hip pain with the treatment staff and asked them to be alert to any change in that problem. I discussed Mr. Samayoa's case with Dr. Munroe. He will get the patient in to discuss systemic treatment options. Signed by: 11/07/2020 12:00:25 PM <<Signature on File>> Time spent with patient: CPT Code: CPT Code:
== END 2020-11-09 23:59 | disposition home or self-care (01) ==
LOC: ONCMED 06:01
PROVIDERS: PCP Family Medicine; Visit Provider Specialist
DX: Z51.0 Encounter for antineoplastic radiation therapy (principal); C78.7 Secondary malignant neoplasm of liver and intrahepatic bile duct; Z79.899 Other long term (current) drug therapy
CPT/HCPCS: 77295; 77300; 77332; 77334

== ENCOUNTER 2020-11-08 13:42 | Outpatient (CLI) | payer MEDICARE, SELFPAY ==
--- NOTE | 2020-11-08 | XR_ITS ---
WS: [id number] Left hip, AP and frog leg views, 11/08/2020. Clinical Data: LEFT HIP PAIN Comparison: None. Findings: No fractures or dislocations are seen. The hip joint is intact. The soft tissues are not remarkable. The adjacent pelvis is normal. There is a small acetabular lip. XR/XR hip LT 2-3V wo/w pel* [id number] Impression: Negative left hip. Tonnis classification: grade 1: sclerosis of femoral head and acetabulum or sli ght joint space narrowing or slight lipping at joint margins
== END 2020-11-08 13:43 | disposition home or self-care (01) ==
PROVIDERS: PCP Family Medicine; Visit Provider Family Medicine
DX: Z53.9 Procedure and treatment not carried out, unspecified reason (principal)

== ENCOUNTER 2020-11-25 05:37 | Outpatient (RCR) | payer MEDICARE, SELFPAY ==
--- NOTE | 2020-11-12 14:09 | ONCRAD TMN_ITS ---
Radiation Oncology Treatment Management Note Patient Name: Eugene Samayoa Date of : 1935 Date of Service: 11/12/2020 Attending Physician: Cameron Valverde M.D. Eugene Samayoa is an 85 year-old white male diagnosed with stage IV non-small cell lung cancer with an obstructing right bronchial mass. The patient has received 3 Gy of a prescribed 30 Gy with a 3D conformal radiotherapy plan utilizing a multi-field treatment technique. Upon review of systems, he described dyspnea. On physical examination, the patient weighed 184 lbs. His temperature was 97.3 ???F with a blood pressure of 111/66 mmHg. The pulse was 86 bpm and his respiratory rate was 20. Oxygen saturation while breathing room air was 98%. Auscultation of the posterior lung momin identified inspiratory and expiratory wheezes. Continue palliative thoracic radiotherapy as prescribed. Signed by: Dr. Cameron Valverde 11/12/2020 2:07:39 PM
--- NOTE | 2020-11-15 11:40 | ONC FU_ITS ---
Dr. Munroe follow up note Patient: Eugene Samayoa Unit #: [id number]: 1935 Dicatated By: Catalina Munroe M.D.Date of Visit:Nov 14, 2020 Onc Med Follow-up/Prog Note History of Present Illness: Mr. Eugene Samayoa, is a 84-year-old gentleman with history of acute abdominal pain for which he went to [facility] on October 15, [address] scan of abdomen pelvis on October 15, 2020 which showed large bowel distention with swirling in the mid mesentery and tortuous tapering sigmoid colon suspicious for sigmoid volvulus. Heterogeneously enhancing enlarged prostate. Tiny right pleural effusion with slight interstitial thickening in the right lower lobe. Several low attenuation lesions in the liver with peripheral enhancement suspicious for metastatic disease. Largest lesion right hepatic lobe measuring 2.7 x 2.1 cm compared to scan done in 2015 this was new ultrasound liver done on October 15, 2020 confirmed hepatic lesions varying. As per patient prior to his visit to [facility] he went to see his PMD with diarrhea and worsening of abdominal pain, subsequently developed severe constipation and for which he went to [facility] as mentioned above. Patient was referred to Dr. Sherman who did colonoscopy on October 17, 2020 and his impression was there was no abnormality seen but patient had tortuous colon raising possibility of volvulus seen on prior CT scan but not noted on colonoscopy. Because of extensive lesion seen in the liver, patient underwent sonogram guided liver biopsy on October 17, 2020 and as per pathology it was metastatic adenocarcinoma and immunohistochemistry was positive TTF-1, CK7, CK 8/18 but negative for CK20, as per pathology was suggestive of lung being primary with metastatic disease to the liver On October 28, 2020 patient went back to [facility] with progressive abdominal pain radiating to his back and patient underwent CTA chest on October 28, 2020 which showed significant mediastinal and hilar lymphadenopathy. Confluent adenopathy noted beginning along the right paratracheal region within the right paratracheal fat. Increased lymph nodes at AP window and extending into the subcarinal measuring 3.9 x 6.2 cm. There is encasement and narrowing of right main stem bronchus and the right lower lobe and bronchus intermedius. Only partial encasement without narrowing of right upper lobe bronchus. There is a partial encasement of distal SVC. Encasement of right lower lobe pulmonary artery.. Mild increased density within T11 vertebral body there is also lucency within the inferior endplate of T11 Metastatic disease to the liver have increased in size and number since October 15, 2020 CT PET scan done on November 02, 2020 shows a 3.9 x 6.1 cm right lower lobe mass invades into mediastinum with SUV of 12.4, consistent with described adenocarcinoma. A small right pleural effusion is present. Multiple FDG positive mediastinal lymph nodes in the right paratracheal, anterior mediastinal, subcarinal, left paratracheal territories. The index right paratracheal lymph node measured 2.3 cm with SUV of 10.6. A posterior right hepatic lobe mass measuring 4.1 x 5.0 cm with SUV of 8.8 consistent with biopsied lesion. No additional hepatic lesion present. Multifocal osseous metastatic disease is present in the bilateral posterior iliacs, and left pedicle of L4, activity at T11 is likely inflammatory from the compression fracture but pathological fracture from osseous metastatic disease is not excluded. Right cervical level 4 lymph node with SUV of 5.4 is metastatic. MRI scan of the head done on November 05, 2020 showed no evidence of brain mets. Patient is a former smoker, smoked for 30 years prior to quit smoking about 30 years ago. Occasional alcohol use. Patient is complaining of progressive shortness of breath and wheezing especially on the right side occasionally blood mixed in this phlegm. He denies any fever chills denies any headaches or blurred vision or double vision denies any new bony pains except for chronic lower extremity pain. Came for follow-up, since his last visit patient developed recurrent hemoptysis while on anticoagulation so patient went to [facility], patient was treated symptomatically, inpatient care was recommended but because hospital was full with patients with Covid infection, patient was referred to pulmonology as outpatient and was seen on November 05, 2020, as per patient by that time his hemoptysis improved so no bronchoscopy was recommended rather was referred to radiation oncology and, now being treated with radiation therapy to the right bronchial mass and he is tolerating well with no more episode of hemoptysis Medications: Acid Control Maximum Strength (20 mg) Tablet Oral b.i.d., Cholecalciferol (50 mcg ) Tablet Oral daily, Colace (100 mg) Capsule Oral daily PRN, HYDROcodone-Acetaminophen Tablet Oral PRN, Metoprolol Succinate ER (50 mg) Tablet SR 24 HR Oral at bedtime, Nitroglycerin Tablet, sublingual Sublingual PRN, Ondansetron HCl Tablet Oral PRN, Polyethylene Glycol 3350 (17 ) Powder Oral daily PRN, Rivaroxaban (20 mg) Tablet Oral at bedtime, Tamsulosin HCl (0.4 mg) Capsule Oral at bedtime Allergies: Atorvastatin Calcium and Rosuvastatin Calcium. Review of Systems: Review of Systems is not available for this patient. Vital Signs: Performed on Nov 14, 2020 08:38 Height - 72.00 in Weight - 183.8 lbs (LOW) BSA - 2.06 sq.m BMI - 24.93 Temperature - 97.3 F (LOW) Pulse - 109 /min (HIGH) Respiration - 18 /min BP - 110/64 mm(hg) O2 Sat - 98 % Pain - 1 Fatigue - 9 Performance Status: 0 - Fully active, able to carry on all predisease activities without restrictions. (ECOG) Physical Examination: ENMT - No mouth sores, no thrush, no jaundice, Respiratory - Mild wheezing on the right side otherwise clear, Cardiovascular - Irregular rhythm And rate Abdomen - Soft, bowel sounds present, Extremities - No visible edema. Lab/Imaging: Most recent lab results are not available for this patient. Impression: Metastatic adenocarcinoma to the liver per sonogram guided liver biopsy done on October 17, 2020 immunohistochemistry positive for TTF-1, CK7, CK 8/18 and negative for CK20, consistent with lung being primary CTA chest done on October 28, 2020 shows extensive mediastinal and hilar lymphadenopathy. Confluent cluster of lymph node is causing moderate narrowing and encasement of right hilar bronchoalveolar structures although no complete occlusion at this time. Metastatic lesion in the liver have increased in size and number since October 15, 2020. Increased density within T10-11 vertebral body and an associated lucency along the inferior endplate. CT PET scan done on November 02, 2020 showed FDG positive right lower lobe mass invading into mediastinum, malignant mediastinal lymph nodes and right cervical lymph node, hepatic metastatic disease. Multifocal osseous metastatic disease, T11 compression fracture with a possible inflammatory FDG uptake. Pathological fracture from osseous mass disease is not excluded. MRI scan of the head done on November 05, 2020 shows no brain mets PD-L1 less than 1% Guardant 360 showed TMB less than 10, MSI high, not detected, Atrial fibrillation, on anticoagulation History of coronary artery disease status post CABG Emphysema Recent history of acute abdominal pain due to sigmoid volvulus, diagnosed on October 15, 2020, colonoscopy done on October 17, 2020 shows resolution of volvulus on its own Plan: Discussed with patient regarding his CT PET scan finding/MRI scan head finding which shows no brain mets but PET scan shows extensive mediastinal lymph node involvement as well as bone mets, guardant 360 showed TMB less than 10, and MSI high not detected no other therapeutic mutation observed, his tumor tissue was sent for EGFR, ALK, ROS1, BRAF, ROS1, RET, MET, NTRK and report is pending. Currently patient is undergoing radiation therapy to right lung mass because of recurrent hemoptysis which is resolved and he is tolerating radiation therapy well. We are awaiting his molecular profiling on the tumor tissue and and make further recommendation on the other hand if it comes back negative then will consider palliative chemotherapy/immunotherapy with carboplatin/Alimta plus Keytruda or weekly carboplatin/Taxol/Keytruda or chemotherapy alone Patient return to clinic in 2 weeks with CBC CMP. Patient wanted to go to [facility] for second opinion, has already sent some of his information to the [facility], we will make formal referral to [facility] for evaluation and recommendation., In that case we will see him 1 week after his visit to [facility] for further discussion Signed By: Catalina Munroe M.D. <<Signature on File>>
--- NOTE | 2020-11-19 13:45 | ONCRAD TMN_ITS ---
Radiation Oncology Treatment Management Note Patient Name: Eugene Samayoa Date of : 1935 Date of Service: 11/19/2020 Attending Physician: Cameron Valverde M.D. Eugene Samayoa is an 85 year-old white male diagnosed with stage IV non-small cell lung cancer and an obstructing right bronchial mass. The patient has received 18 Gy of a prescribed 30 Gy with a 3D conformal radiotherapy plan utilizing a multi-field treatment technique. Upon review of systems, he reported improvement in his breathing. On physical examination, the patient weighed 184 lbs. His temperature was 97.4 ???F with a blood pressure of 106/63 mmHg. The pulse was 60 bpm and his respiratory rate was 20. Oxygen saturation while breathing room air was 97%. Auscultation of the posterior lung momin identified bronchial breath sounds. Continue palliative thoracic radiotherapy as planned. Signed by: Dr. Cameron Valverde 11/19/2020 1:44:44 PM
[2020-11-20] MEDS: cyanocobalamin 1,000 mcg/mL SDV 1000 MCG SUBCUT (13:14)
--- NOTE | 2020-11-25 13:11 | N.ONRD TS_ITS ---
Radiation OncologyTreatment Summary Patient Name: Eugene Samayoa Date of : 1935 Date of Service: 11/25/2020 Attending Physician: Cameron Valverde M.D. Eugene Samayoa has completed palliative radiotherapy for the management of a stage IV non-small cell lung cancer with an obstructing right bronchial mass. Daily radiotherapy was administered between the dates of November 12, 2020 through November 25, 2020. A prescribed dose of 30 Gy was delivered in 10 fractions encompassing 14 elapsed days. The right bronchial mass was treated utilizing a 3-dimensional conformal radiotherapy plan with an multiple portal momin. Gantry angles of 30???, 150???, 210???, 330???, and 340??? were designed with corresponding collimator angles 27???, 80???, 328???, 274???, and 270???. The field sizes were between 13.4 cm x 15.4 cm to 16.3 cm x 15.9 cm. The SSD measured a minimum of 84.9 cm to a maximum of 90 cm. The momin delivered 45 MU, 31 MU, 148 MU, 112 MU, and 28 MU, respectively. A table angle of 85??? was incorporated with the 340??? gantry angle. All treatments were performed with the [place] linear accelerator and an isocentric technique. The dose was calculated by Anisotropic Analytic Algorithm. A Photon energy of 15 MV was prescribed with the plan normalized to deliver 100% of the prescription dose to 95% of the planning target volume. The plan was approved by the [facility] physician. Signed by: Dr. Cameron Valverde 11/25/2020 1:10:40 PM
== END 2020-12-02 08:15 | disposition home or self-care (01) ==
LOC: ONCMED 05:37
PROVIDERS: Absent Provider Radiology Radiation Oncology; PCP Family Medicine; Visit Provider Radiology Radiation Oncology
DX: Z51.0 Encounter for antineoplastic radiation therapy (principal); C34.90 Malignant neoplasm of unspecified part of unspecified bronchus or lung; C78.7 Secondary malignant neoplasm of liver and intrahepatic bile duct; R73.9 Hyperglycemia, unspecified; I48.91 Unspecified atrial fibrillation; Z79.01 Long term (current) use of anticoagulants; I25.10 Atherosclerotic heart disease of native coronary artery without angina pectoris; Z95.5 Presence of coronary angioplasty implant and graft; J43.9 Emphysema, unspecified; Z79.899 Other long term (current) drug therapy
CPT/HCPCS: 77336; 77387; 77412; 96372; 99214; J3420

== ENCOUNTER 2020-12-05 09:30 | Outpatient (CLI) | payer MEDICARE, SELFPAY | END 2020-12-05 09:31 | disposition home or self-care (01) | LOC: SPT 01-10 13:25 | PROVIDERS: PCP Family Medicine; Visit Provider Family Medicine | DX: Z46.89 Encounter for fitting and adjustment of other specified devices (principal); S22.080D Wedge compression fracture of T11-T12 vertebra, subsequent encounter for fracture with routine healing; X58.XXXD Exposure to other specified factors, subsequent encounter | CPT/HCPCS: 97760; L0456 ==

== ENCOUNTER 2020-12-06 10:47 | Outpatient (CLI) | payer MEDICARE, SELFPAY ==
--- NOTE | 2020-12-06 10:59 | MR_ITS ---
WS: [id number] MRI LUMBAR SPINE WITH AND WITHOUT CONTRAST. HISTORY: LUMBAR RADICULOPATHY/METASTATIC LUNG CANCER COMPARISON: Head CT 11/02/2020. TECHNIQUE: Sagittal and axial multisequence imaging is submitted. Sagittal and axial T1 fat sat seque nces post-MultiHance 19 cc IV. Decreased T1 signal C5-T3, T4, T7, T8, T9, T10, T11 and T12. Mild straightening of the normal lumbar lordosis. Abnormal signal in L1, L2, L3, L4 and L5 and also w ithin several of the sacral vertebral bodies consistent with metastatic disease. Most significant inv olvement is at L4 and L5. There is enhancement noted from the inferior endplate of T10 through severa l of the sacral vertebral bodies. Mild disc desiccation throughout the lumbar spine, most significant at L5-S1. Conus terminates normally at L1-2 disc level. Metastatic lesion within the T11 vertebral body extends into the posterior elements bilaterally. Ther e is soft tissue tumor extension into the epidural space with soft tissue tumor encasing the thoracic cord and extending into the posterior elements. Abnormal enhancement into the foramina bilaterally w ith encasement of the T10 XI nerve roots. No cord compression. Additional enhancement throughout the L4 vertebral body extends into the anterior epidural space. There is soft tissue tumor enhancement al mary the ventral epidural space and extending greatest into the LEFT lateral recess. There is mild def ormity the ventral thecal sac. Metastatic disease extends over length of 2.6 cm along the posterior L 4 vertebral body enhancement extends into the LEFT foramen at L4-5. Enhancing metastatic lesions bilaterally within the iliac and also within the RIGHT sacrum in the far lateral LEFT ilium. There is an enhancing lesion measuring 4.7 cm in the inferior RIGHT lobe of the liver. MR/MR lumbar spine wo/w con [id number] IMPRESSION: 1. Patient has extensive metastatic disease throughout the thoracic and lumbar spines. 2. Most significant tumor encasement involves T11 and L4 and L5 as described a alyce. There is soft tissue tumor extension into the epidural space at T11 and L 4 with partial encasement of the thecal sac and extension into the foramen on t he LEFT. 3. No cord compression centrally. There has been a progression of the metastat ic bone disease since the PET/CT of 11/02/2020. 4. Extensive metastatic lesions also noted within the visualized pelvis and sa luigi.
[2020-12-06] MEDS: gadobenate dimeglumine 20 mL vial IV (11:45)
== END 2020-12-06 10:48 | disposition home or self-care (01) ==
LOC: RADWPI 10:55
PROVIDERS: PCP Family Medicine; Visit Provider Family Medicine
DX: M54.12 Radiculopathy, cervical region (principal); S22.080A Wedge compression fracture of T11-T12 vertebra, initial encounter for closed fracture; C34.90 Malignant neoplasm of unspecified part of unspecified bronchus or lung; X58.XXXA Exposure to other specified factors, initial encounter
CPT/HCPCS: 72158; A9577

== ENCOUNTER 2020-12-09 05:28 | Outpatient (RCR) | payer MEDICARE, SELFPAY ==
[2020-12-06 09:24] LABS: Eosinophils % 0.3 %; Hematocrit 40.8 % (42.0-52.0); Lymphocytes # 1.3 10^3/uL (0.8-4.8); Lymphocytes % 19.1 %; Mean Corpuscular HGB Conc 34.3 g/dL (30.0-36.0); Mean Corpuscular Hemoglobin 32.2 pg (28.0-34.0); Mean Corpuscular Volume 93.8 fl (80-94); Mean Platelet Volume 8.6 fL (7.4-10.4); Monocytes # 0.8 10^3/uL (0.2-0.9); Monocytes % 12.8 %; Neutrophils # 4.41 10^3/uL (1.8-7.7); Neutrophils % 67.5 %; Nucleated Red Blood Cells % 0 %; Platelet Count 209 10^3/cmm (130-400); Red Blood Count 4.35 10^6/uL (4.1-5.3); Red Cell Distribution Width 13.4 % (12.1-15.1); White Blood Count 6.5 10^3/uL (4.0-10.0)
[2020-12-06 09:53] LABS: Alanine Aminotransferase 38 U/L (0-41); Albumin Level 3.6 g/dL (3.5-5.2); Alkaline Phosphatase 154 IU/L (40-130); Anion Gap 15.5 (5-19); Aspartate Amino Transferase 52 U/L (0-40); Blood Urea Nitrogen 17 mg/dL (8-23); Calcium 8.9 mg/dL (8.5-10.5); Carbon Dioxide 23 mmol/L (22-29); Chloride 91 mmol/L (98-107); Glucose 167 mg/dL (65-115); Osmolality Calculated 265 mOsm/kg (285-295); Potassium 4.5 mmol/L (3.5-5.1); Sodium 125 mmol/L (136-145); Total Bilirubin 0.4 mg/dL (0.15-1.2); Total Protein 6.6 g/dL (6.6-8.7)
--- NOTE | 2020-12-09 | CT_ITS ---
Radiation Therapy Planning CT images; total exam DLP: 1426.95 mGy-cm MTDD
--- NOTE | 2020-12-09 13:27 | ONCRAD EPV_ITS ---
Radiation Oncology Established Patient Visit Patient: Danita Knight [id number] : 1935> Age: 85> Sex: Male> Dictated by: Dr. Nam Giron Date of Service: 12/09/2020 Referring Physician(s) : Catalina Munroe Diagnosis: C78.7 - Secondary malignant neoplasm of liver and intrahepatic bile duct, Diagnosed 10/29/2020 (Active) Metastatic adenocarcinoma per liver biopsy Mr. Eugene Samayoa, is a 84-year-old gentleman with history of acute abdominal pain for which he went to [facility] on October 15, [address] scan of abdomen pelvis on October 15, 2020 which showed large bowel distention with swirling in the mid mesentery and tortuous tapering sigmoid colon suspicious for sigmoid volvulus. Heterogeneously enhancing enlarged prostate. Tiny right pleural effusion with slight interstitial thickening in the right lower lobe. Several low attenuation lesions in the liver with peripheral enhancement suspicious for metastatic disease. Largest lesion right hepatic lobe measuring 2.7 x 2.1 cm compared to scan done in 2015 this was new ultrasound liver done on October 15, 2020 confirmed hepatic lesions varying. As per patient prior to his visit to [facility] he went to see his PMD with diarrhea and worsening of abdominal pain, subsequently developed severe constipation and for which he went to [facility] as mentioned above. Patient was referred to Dr. Sherman who did colonoscopy on October 17, 2020 and his impression was there was no abnormality seen but patient had tortuous colon raising possibility of volvulus seen on prior CT scan but not noted on colonoscopy. Because of extensive lesion seen in the liver, patient underwent sonogram guided liver biopsy on October 17, 2020 and as per pathology it was metastatic adenocarcinoma and immunohistochemistry was positive TTF-1, CK7, CK 8/18 but negative for CK20, as per pathology was suggestive of lung being primary with metastatic disease to the liver On October 28, 2020 patient went back to [facility] with progressive abdominal pain radiating to his back and patient underwent CTA chest on October 28, 2020 which showed significant mediastinal and hilar lymphadenopathy. Confluent adenopathy noted beginning along the right paratracheal region within the right paratracheal fat. Increased lymph nodes at AP window and extending into the subcarinal measuring 3.9 x 6.2 cm. There is encasement and narrowing of right main stem bronchus and the right lower lobe and bronchus intermedius. Only partial encasement without narrowing of right upper lobe bronchus. There is a partial encasement of distal SVC. Encasement of right lower lobe pulmonary artery.. Mild increased density within T11 vertebral body there is also lucency within the inferior endplate of T11 Metastatic disease to the liver have increased in size and number since October 15, 2020 CT PET scan done on November 02, 2020 shows a 3.9 x 6.1 cm right lower lobe mass invades into mediastinum with SUV of 12.4, consistent with described adenocarcinoma. A small right pleural effusion is present. Multiple FDG positive mediastinal lymph nodes in the right paratracheal, anterior mediastinal, subcarinal, left paratracheal territories. The index right paratracheal lymph node measured 2.3 cm with SUV of 10.6. A posterior right hepatic lobe mass measuring 4.1 x 5.0 cm with SUV of 8.8 consistent with biopsied lesion. No additional hepatic lesion present. Multifocal osseous metastatic disease is present in the bilateral posterior iliacs, and left pedicle of L4, activity at T11 is likely inflammatory from the compression fracture but pathological fracture from osseous metastatic disease is not excluded. Right cervical level 4 lymph node with SUV of 5.4 is metastatic. MRI scan of the head done on November 05, 2020 showed no evidence of brain mets. Patient is a former smoker, smoked for 30 years prior to quit smoking about 30 years ago. Occasional alcohol use. Patient is complaining of progressive shortness of breath and wheezing especially on the right side occasionally blood mixed in this phlegm. He denies any fever chills denies any headaches or blurred vision or double vision denies any new bony pains except for chronic lower extremity pain. Came for follow-up, since his last visit patient developed recurrent hemoptysis while on anticoagulation so patient went to [facility], patient was treated symptomatically, inpatient care was recommended but because hospital was full with patients with Covid infection, patient was referred to pulmonology as outpatient and was seen on November 05, 2020, as per patient by that time his hemoptysis improved so no bronchoscopy was recommended rather was referred to radiation oncology and, now being treated with radiation therapy to the right bronchial mass and he is tolerating well with no more episode of hemoptysis Radiotherapy to Date: Course: Lung 2020, Treatment Site: Lung 30Gy, Ref. ID: [id number], Energy: 15X, Dose/Fx (cGy): 300, #Fx: , Dose Correction (cGy): 0, Total Dose (cGy): 3,000, Start Date: 11/12/2020, End Date: 11/25/2020, Elapsed Days: 13 Current History: Mr. Samayoa is an 85-year-old man who presented in early October 2020 with abdominal complaints and was subsequently found to have locally advanced and widely metastatic lung cancer. Because of extensive mediastinal lymphadenopathy, bronchial obstruction, and hemoptysis he underwent a palliative course of radiation to the thorax. His hemoptysis resolved and his breathing improved. At the time he presented, he had left hip pain. On physical examination he had no bone tenderness, neurologic findings, or radicular symptoms to suggest that the pain was originating in the spine. On imaging, however, he was noted to have a compression fracture at T11 that was thought to be benign and evidence of a metastasis at L4. In the last few weeks, Mr. Samayoa has developed radicular pain extending from the lower lumbar spine area through the left buttock and down the left lower extremity. He underwent reimaging on 12/06/2020. An MRI of the lumbar spine shows a metastatic lesion in the T11 vertebral body that extends into the posterior elements bilaterally with associated soft tissue tumor extending into the epidural space encasing the thoracic cord. At L4 there is evidence of progression of the metastasis with extension into the anterior epidural space. Metastases are seen throughout the lower thoracic spine and the entire lumbar spine. is referred for palliative radiation Current Medications: Acid Control Maximum Strength, cholecalciferol, colace, cyanocobalamin, dexamethasone, folic Acid, hYDROcodone-Acetaminophen, metoprolol Succinate ER, nitroglycerin, novoLOG FlexPen, ondansetron HCl, polyethylene Glycol 3350, rivaroxaban, tamsulosin HCl. Allergies: Atorvastatin Calcium and Rosuvastatin Calcium. Current Complaints / Review of Systems: . Vital Signs: Performed on 12/09/2020 11:03 AM Height - 72.00 in, Weight - 181.4 lbs (low), BSA - 2.04 sq.m, BMI - 24.60, Temperature - 97.8 f (low), Pulse - 85 /min, Respiration - 18 /min, O2 Sat - 99 %, Pain - 8, Fatigue - 10 and BP - 125/ 73 mm(hg). Physical Exam: General: Alert and oriented x 3. No acute distress. He appears chronically ill. HEENT: Normocephalic, atraumatic. NECK: Supple without supraclavicular or jugular lymphadenopathy. LUNGS: Clear to percussion. On auscultation bilaterally lungs are clear without rales, rhonchi or wheeze. HEART: Regular rate and rhythm, normal S1 and S2 without murmur, gallop or rub. MUSCULOSKELETAL: No tenderness or percussion pain over the axial skeleton, scapulae or pelvis. There continues to be no tenderness of the spine with either palpation or percussion. ABDOMEN: Soft, nontender, nondistended without masses or organomegaly. EXTREMITIES: No peripheral edema is identified. Limited motor and sensory examination are grossly intact and symmetric bilaterally. No hip tenderness. Both hips have a free range of motion without pain. Straight leg raise negative. NEUROLOGIC: Cranial nerves II ???XII are grossly intact. Normal sensation, strength 5/5 in all extremities, normal gait, no ataxia. Performance Status: Karnofsky 60 Lab: None pending. Test performed on 11/19/2020 3:54 PM Cr Clearance (Est) - 55.97 ml/min (low). Pathology: Primary, c78.7 - secondary malignant neoplasm of liver and intrahepatic bile duct, Diagnosed 10/29/2020 (active). 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 There is tumor in the spinal canal at T11 and L4. There is compression of the thecal sac though no true cord compression. Steroids have been given. Mr. Samayoa is a candidate for the prompt initiation of radiation in an attempt to prevent loss of bowel, bladder, and lower extremity function.. I discussed the need for palliative radiation with him and his . I discussed side effects such as fatigue, decreased appetite, and nausea. He wishes to proceed. Simulation performed today. Signed by: 12/09/2020 1:26:36 PM <<Signature on File>> Time spent with patient: CPT Code: CPT Code:
--- NOTE | 2020-12-09 15:59 | ONC FU_ITS ---
Dr. Munroe follow up note Patient: Eugene Samayoa Unit #: [id number]: 1935 Dicatated By: Catalina Munroe M.D.Date of Visit:Dec 09, 2020 Onc Med Follow-up/Prog Note History of Present Illness: Mr. Eugene Samayoa, is a 85-year-old gentleman with history of acute abdominal pain for which he went to [facility] on October 15, [address] scan of abdomen pelvis on October 15, 2020 which showed large bowel distention with swirling in the mid mesentery and tortuous tapering sigmoid colon suspicious for sigmoid volvulus. Heterogeneously enhancing enlarged prostate. Tiny right pleural effusion with slight interstitial thickening in the right lower lobe. Several low attenuation lesions in the liver with peripheral enhancement suspicious for metastatic disease. Largest lesion right hepatic lobe measuring 2.7 x 2.1 cm compared to scan done in 2015 this was new ultrasound liver done on October 15, 2020 confirmed hepatic lesions varying. As per patient prior to his visit to [facility] he went to see his PMD with diarrhea and worsening of abdominal pain, subsequently developed severe constipation and for which he went to [facility] as mentioned above. Patient was referred to Dr. Sherman who did colonoscopy on October 17, 2020 and his impression was there was no abnormality seen but patient had tortuous colon raising possibility of volvulus seen on prior CT scan but not noted on colonoscopy. Because of extensive lesion seen in the liver, patient underwent sonogram guided liver biopsy on October 17, 2020 and as per pathology it was metastatic adenocarcinoma and immunohistochemistry was positive TTF-1, CK7, CK 8/18 but negative for CK20, as per pathology was suggestive of lung being primary with metastatic disease to the liver Molecular profiling on liver biopsy showed positive for ALK rearrangement but negative for c-Met bereket-oncogene amplification, ROS1, EGFR, On October 28, 2020 patient went back to [facility] with progressive abdominal pain radiating to his back and patient underwent CTA chest on October 28, 2020 which showed significant mediastinal and hilar lymphadenopathy. Confluent adenopathy noted beginning along the right paratracheal region within the right paratracheal fat. Increased lymph nodes at AP window and extending into the subcarinal measuring 3.9 x 6.2 cm. There is encasement and narrowing of right main stem bronchus and the right lower lobe and bronchus intermedius. Only partial encasement without narrowing of right upper lobe bronchus. There is a partial encasement of distal SVC. Encasement of right lower lobe pulmonary artery.. Mild increased density within T11 vertebral body there is also lucency within the inferior endplate of T11 Metastatic disease to the liver have increased in size and number since October 15, 2020 CT PET scan done on November 02, 2020 shows a 3.9 x 6.1 cm right lower lobe mass invades into mediastinum with SUV of 12.4, consistent with described adenocarcinoma. A small right pleural effusion is present. Multiple FDG positive mediastinal lymph nodes in the right paratracheal, anterior mediastinal, subcarinal, left paratracheal territories. The index right paratracheal lymph node measured 2.3 cm with SUV of 10.6. A posterior right hepatic lobe mass measuring 4.1 x 5.0 cm with SUV of 8.8 consistent with biopsied lesion. No additional hepatic lesion present. Multifocal osseous metastatic disease is present in the bilateral posterior iliacs, and left pedicle of L4, activity at T11 is likely inflammatory from the compression fracture but pathological fracture from osseous metastatic disease is not excluded. Right cervical level 4 lymph node with SUV of 5.4 is metastatic. MRI scan of the head done on November 05, 2020 showed no evidence of brain mets. Patient is a former smoker, smoked for 30 years prior to quit smoking about 30 years ago. Occasional alcohol use. Patient is complaining of progressive shortness of breath and wheezing especially on the right side occasionally blood mixed in this phlegm. He denies any fever chills denies any headaches or blurred vision or double vision denies any new bony pains except for chronic lower extremity pain.Follow-up MRI scan of the lumbar spine area done on December 06, 2020 showed extensive disease throughout the thoracic and lumbar spines, most significant tumor encasement involve T11 and L4 and L5. There is a soft tissue tumor extension into epidural space at T11 and L4 with partial encasement of the thecal sac and extension into 4 mm on the left. No cord compression centrally. There has been progression of metastatic bone disease since CT PET scan done on November 02, 2020. Extensive metastatic lesion also noted within visualized pelvis and sacrum Came for follow-up, patient is complaining of progressive mid/lower back pain now radiating to left leg, at a time pain can be 8 on the scale of 1-10 usually respond to excess and Tylenol, patient take hydrocodone at night only but recently is not helping him much, denies any urine or stool incontinence, denies any focal weakness denies any headaches or blurred vision or double vision denies any hemoptysis or hematemesis, earlier systemic chemotherapy with carboplatin/Alimta was under consideration but his molecular profiling confirmed ALK rearrangement thus it was decided not to consider chemo rather go with ALK inhibitor, the studies and patient is here to discuss. Medications: Acid Control Maximum Strength (20 mg) Tablet Oral b.i.d., Cholecalciferol (50 mcg ) Tablet Oral daily, Colace (100 mg) Capsule Oral daily PRN, HYDROcodone-Acetaminophen Tablet Oral PRN, Metoprolol Succinate ER (50 mg) Tablet SR 24 HR Oral at bedtime, Nitroglycerin Tablet, sublingual Sublingual PRN, Ondansetron HCl Tablet Oral PRN, Polyethylene Glycol 3350 (17 ) Powder Oral daily PRN, Rivaroxaban (20 mg) Tablet Oral at bedtime, Tamsulosin HCl (0.4 mg) Capsule Oral at bedtime Allergies: Atorvastatin Calcium and Rosuvastatin Calcium. Review of Systems: Review of Systems is not available for this patient. Vital Signs: Performed on Dec 09, 2020 11:58 Height - 72.00 in Weight - 181.4 lbs Temperature - 97.8 F Pulse - 85 /min Respiration - 18 /min BP - 125/73 mm(hg) O2 Sat - 99 % Pain - 8 Performed on Dec 09, 2020 11:58 BMI - 24.602 kg/m2 (HIGH) Performed on Dec 09, 2020 11:03 Height - 72.00 in Weight - 181.4 lbs (LOW) BSA - 2.04 sq.m BMI - 24.60 Temperature - 97.8 F (LOW) Pulse - 85 /min Respiration - 18 /min BP - 125/73 mm(hg) O2 Sat - 99 % Pain - 8 Fatigue - 10 Performance Status: 0 - Fully active, able to carry on all predisease activities without restrictions. (ECOG) Physical Examination: ENMT - No mouth sores, no thrush, no jaundice, Respiratory - Lungs are clear to auscultation, Cardiovascular - Regular rate and rhythm of heart, Abdomen - Soft, bowel sounds present, Extremities - No visible edema or focal weakness. 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 Confluent cluster of lymph node is causing moderate narrowing and encasement of right hilar bronchoalveolar structures although no complete occlusion at this time. Metastatic lesion in the liver have increased in size and number since October 15, 2020. Increased density within T10-11 vertebral body and an associated lucency along the inferior endplate. CT PET scan done on November 02, 2020 showed FDG positive right lower lobe mass invading into mediastinum, malignant mediastinal lymph nodes and right cervical lymph node, hepatic metastatic disease. Multifocal osseous metastatic disease, T11 compression fracture with a possible inflammatory FDG uptake. Pathological fracture from osseous mass disease is not excluded. MRI scan of the head done on November 05, 2020 shows no brain mets PD-L1 less than 1% Guardant 360 showed TMB less than 10, MSI high, not detected, History of coronary artery disease status post CABG Emphysema Recent history of acute abdominal pain due to sigmoid volvulus, diagnosed on October 15, 2020, colonoscopy done on October 17, 2020 shows resolution of volvulus on its own Follow-up MRI scan of thoracic and lumbar spine done on December 06, 2020 showed extensive metastatic disease throughout the thoracic and lumbar spine, most significant tumoral encasement involving T11 and L4 on L5, there is soft tissue tumor extension into epidural space at T11 and L4 with partial encasement of thecal sac and extension into forearm and on the left. No cord compression centrally. There has been progression of metastatic bone disease since CT PET scan done on November 02, 2020, extensive metastatic lesion also noted within visualized pelvis and sacrum, patient was started on crizotinib 250 mg p.o. twice a day on December 09, 2020 as his molecular profile showed ALK rearrangement Patient was referred to radiation oncology for palliative radiation therapy Plan: Discussed with patient regarding his labs white blood count 6.5 hemoglobin 14 hematocrit 40.8 platelets 209,000 CMP within normal limit except sodium 125 glucose 167 alk phos 154 and AST 52 and MRI scan of the thoracic lumbar spine which shows persistent rather progressive mets to the spine and pelvis Clinically, patient is doing reasonably well but in mild to moderate distress due to progressive mid/lower back pain and now radiating to left leg and MRI scan of the spine done recently confirmed disease progression with soft tissue tumor extension into epidural space at T11 and L4 with partial encasement of the thecal sac and extension into foramen on the left, because of progressive pain, we will start him on dexamethasone 10 mg IV loading dose then 4 mg every 6 hours for 48 hours then reduce dose to 4 mg every 8 hourly for another 2 days then taper off further and we will also refer him to radiation therapy as soon as possible, discussed with radiation oncology they will see him today. As far as metastatic non-small cell lung cancer is concerned, patient was approved for systemic therapy with carboplatin/Alimta as his molecular profile on liver biopsy was not available which came back positive for ALK rearrangement thus planning to do systemic chemotherapy was aborted and decided to proceed with ALK inhibitors like crizotinib 250 mg p.o. twice daily, all the side effect possible benefits associated with ALK inhibitor including but not limited to bone marrow suppression, nausea vomiting, bradycardia, increased QTc interval, increased risk for pneumonitis, jaundice, further teaching will be done by chemotherapy nurse, will obtain baseline EKG and patient is on metoprolol, will monitor his heart rate may consider dose reduction and beta-vanita in case there is evidence of progressive bradycardia. We will also consider monthly Xgeva to prevent skeletal related complication. His CMP shows mild hyperglycemia patient has no history of diabetes as patient will be taken steroid for progressive back pain due to metastatic disease and his risk of cord compression due to radiation therapy at least in the beginning so he will be covered with steroids which can cause worsening of hyperglycemia so we will consider sliding scale., Will also check hemoglobin A1c, Patient will return to clinic 1 week after initiation of ALK inhibitor crizotinib with CBC CMP. Patient was advised in case there is a worsening of his back pain or any evidence of urine or stool incontinence or any lower extremity focal weakness he need to go to hospital immediately otherwise return to clinic 1 week after starting crizotinib with CBC CMP. Signed By: Catalina Munroe M.D. <<Signature on File>>
== END 2020-12-10 23:59 | disposition home or self-care (01) ==
LOC: ONCMED 05:28
PROVIDERS: Absent Provider Radiology Radiation Oncology; PCP Family Medicine; Visit Provider Internal Medicine Hematology & Oncology
DX: Z51.0 Encounter for antineoplastic radiation therapy (principal); C34.01 Malignant neoplasm of right main bronchus; C78.7 Secondary malignant neoplasm of liver and intrahepatic bile duct; C79.51 Secondary malignant neoplasm of bone; Z79.899 Other long term (current) drug therapy
CPT/HCPCS: 36415; 77332; 77334; 80053; 85025; 96365; 99215; J1100

== ENCOUNTER 2021-01-09 06:25 | Outpatient (RCR) | payer MEDICARE, SELFPAY ==
--- NOTE | 2020-12-17 13:58 | ONCRAD TMN_ITS ---
Radiation Oncology Treatment Management Note Patient Name: Eugene Samayoa Date of : 1935 Date of Service: 12/17/2020 Attending Physician: Cameron Valverde M.D. 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 The patient has received 12 Gy of a prescribed 30 Gy with a 3D conformal radiotherapy plan utilizing a multi-field treatment technique. Upon review of systems, he reported left lower extremity weakness. On physical examination, the patient weighed 178 lbs. His temperature was 97.9 ???F with a blood pressure of 106/62 mmHg. The pulse was 60 bpm and his respiratory rate was 18. Continue palliative thoracic radiotherapy as prescribed. Signed by: Dr. Cameron Valverde 12/17/2020 1:56:43 PM
--- NOTE | 2020-12-24 14:14 | ONCRAD TMN_ITS ---
Radiation Oncology Treatment Management Note Patient Name: Eugene Samayoa Date of : 1935 Date of Service: 12/24/2020 Attending Physician: Cameron Valverde M.D. 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 The patient has received 27 Gy of a prescribed 30 Gy with a 3D conformal radiotherapy plan utilizing a multi-field treatment technique. Upon review of systems, he continues to describe left lower extremity pain and weakness. On physical examination, the patient weighed 184 lbs. His temperature was 96.8 ???F with a blood pressure of 106/66 mmHg. The pulse was 75 bpm and his respiratory rate was 18. Continue palliative thoracic radiotherapy as planned. Signed by: Dr. Cameron Valverde 12/24/2020 2:13:16 PM
[2020-12-25 14:05] LABS: Basophils % 0.3 %; Eosinophils % 0.3 %; Hematocrit 38.7 % (42.0-52.0); Lymphocytes # 0.6 10^3/uL (0.8-4.8); Lymphocytes % 15.6 %; Mean Corpuscular HGB Conc 33.6 g/dL (30.0-36.0); Mean Corpuscular Hemoglobin 32.5 pg (28.0-34.0); Mean Corpuscular Volume 96.8 fl (80-94); Mean Platelet Volume 8.9 fL (7.4-10.4); Monocytes # 0.5 10^3/uL (0.2-0.9); Monocytes % 13.1 %; Neutrophils # 2.74 10^3/uL (1.8-7.7); Neutrophils % 70.2 %; Nucleated Red Blood Cells % 0 %; Platelet Count 125 10^3/cmm (130-400); Red Cell Distribution Width 14.3 % (12.1-15.1); White Blood Count 3.9 10^3/uL (4.0-10.0)
[2020-12-25 14:48] LABS: Alanine Aminotransferase 19 U/L (0-41); Albumin Level 3.2 g/dL (3.5-5.2); Alkaline Phosphatase 148 IU/L (40-130); Aspartate Amino Transferase 31 U/L (0-40); Blood Urea Nitrogen 14 mg/dL (8-23); Calcium 8.5 mg/dL (8.5-10.5); Carbon Dioxide 20 mmol/L (22-29); Globulin 2.8 g/dL (1.3-4.6); Glucose 115 mg/dL (65-115); Total Bilirubin 0.6 mg/dL (0.15-1.2)
--- NOTE | 2020-12-25 14:49 | N.ONRD TS_ITS ---
Radiation OncologyTreatment Summary Patient Name: Eugene Samayoa Date of : 1935 Date of Service: 12/25/2020 Attending Physician: Cameron Valverde M.D. 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 Daily radiotherapy was administered between the dates of December 11, 2020 through December 25, 2020. A prescribed dose of 30 Gy was delivered in 10 fractions encompassing 15 elapsed days. T11 through L5 were treated utilizing a 3-dimensional conformal radiotherapy plan with an AP field and a LPO/RPO wedge pair. The AP field utilized a 0??? gantry angle with a collimator angle of 0???. The field size measured 6.3 cm x 5.6 cm within the X-direction and 14.2 cm x 15.2 cm within the Y-direction. The SSD measured 81 cm with the field delivering 44 monitor units. The LPO port employed a gantry angle of 145??? and a collimator angle of 90???. The field size was 14 cm x 15.8 cm within X-direction and 6.7 cm x 6.2 cm within the Y-direction. The SSD was 91.9 cm with the field allocating 214 monitor units. An enhanced dynamic wedge 60??? was employed. The RPO field was designed with a gantry angle of 215??? with a collimator angle of 90???. The measured field size was 14.1 cm x 15.7 cm within the X direction and 6.2 cm x 6.7 cm within the Y direction. The measured SSD was 91.9 cm with the field apportioning 207 monitor units. A 60??? enhanced dynamic wedge was incorporated. All treatments were performed with the Odilo linear accelerator and an isocentric technique. The dose was calculated by Anisotropic Analytic Algorithm. A photon energy of 15 MV was prescribed with the plan normalized to deliver 100% of the prescription dose to 95% of the planning target volume. The plan was approved by the [facility] physician. Signed by: Dr. Cameron Valverde 12/25/2020 2:48:38 PM
--- NOTE | 2020-12-25 15:02 | CT_ITS ---
WS: [id number] CT CERVICAL SPINE TECHNIQUE: Noncontrast CT of the cervical spine with coronal and sagittal reformatted images. CLINICAL INFORMATION: INCREASED MID TO UPPER BACK PAIN COMPARISON: PET/CT November 02, 2020 and prior MRI lumbar December 06, 2020 DLP: 1881.[address] scans at [facility] use at least one of these dose optimization techniques: automated e xposure control; mA and/or kV adjustment per patient size (includes targeted exams where dose is matc hed to clinical indication); or iterative reconstruction. FINDINGS: Mild spondylitic changes. Mild cervical curve. No evidence of bony metastatic disease in the cervical spine. No destructive lesions. C2-C3: No significant disc bulging. Mild facet arthropathy. Spinal canal and foramen are patent. C3-C4: Mild right bony foraminal narrowing. Spinal canal is patent. Mild facet arthropathy. Minimal d isc bulging. C4-C5: Mild left bony foraminal narrowing. Spinal canal is patent. Mild to moderate facet arthropathy . C5-C6: Disc osteophyte complex with endplate ridging. Mild central canal stenosis. Moderate left and mild right bony foraminal narrowing. Moderate facet arthropathy. C6-C7: Moderate left and no significant right bony foraminal narrowing. Disc osteophytic ridging with mild central canal stenosis. C7-T1: Spinal canal and foramen are patent. Emphysematous changes in the lung apices. Fibrosis in the lung apices. CT/CT cervical spin wo con* [id number] IMPRESSION: 1. No evidence of osseous metastatic disease in the cervical spine. No destruc tive lesions. 2. No high-grade central canal stenosis. 3. Mild to moderate bony foraminal narrowing described above worse at right C3 -C4, left C4-5, left C5-C6 and left C6-7. 4. Mild central canal stenosis C5-C6 and C6-C7.
--- NOTE | 2020-12-25 15:02 | CT_ITS ---
WS: [id number] CT THORACIC SPINE TECHNIQUE: Noncontrast CT of the thoracic spine with coronal and sagittal reformatted images. CLINICAL INFORMATION: INCREASED MID TO UPPER BACK PAIN COMPARISON: None. DLP: 1353.[address] scans at [facility] use at least one of these dose optimization techniques: automated e xposure control; mA and/or kV adjustment per patient size (includes targeted exams where dose is matc hed to clinical indication); or iterative reconstruction. FINDINGS: Mild thoracic curve. Mild thoracic kyphosis. Hypertrophic changes thoracic spine. Diffuse osseous met astatic disease throughout the visualized thoracic and upper lumbar spine. No acute appearing jorge shira fractures. No high-grade central canal stenosis. Thoracic metastatic disease similar to the chief deputy coroner imaging on the recent lumbar spine MRI. Metastatic l esions worse at T5-T7 and T10, T11. Mild disc space narrowing T11-T12 with vacuum disc phenomenon. Bi lateral involvement of the pedicles at T11 with sclerotic metastasis. Moderate chronic emphysematous changes in the partially visualized lungs. Bulla formation left upper lobe. Fibrosis lung apices. Small right pleural effusion. Adrenal glands are normal. Small esophageal hiatal hernia. Partially visualized large suspected metastatic lesion inferior right hepatic lobe measuring 5.1 cm p artially visualized.This appears progressed since the prior CT abdomen pelvis October 30, 2020 and prior PET/CT November 02, 2020. CT/CT thoracic spin wo con* [id number] IMPRESSION: 1. Diffuse osseous metastatic disease throughout the thoracic spine similar in appearance to the recent lumbar spine MRI, thoracic spine seen on chief deputy coroner imagin g. 2. No acute appearing compression fractures. 3. Sclerotic metastasis worse at T5-T7 and T10,T11. Involvement of the pedicle s bilaterally at T11. 4. Spinal canal appears patent. 5. Small right pleural effusion. 6. Thoracic spine can be further evaluated with MRI if persistent pain. 7. Partially visualized large metastatic lesion inferior right hepatic lobe me asuring 5.1 cm partially visualized. This can be further evaluated with contras t-enhanced CT abdomen pelvis. This appears progressed since the prior CT abdome n pelvis October 30, 2020 and prior PET/CT November 02, 2020.
[2020-12-25 16:38] LABS: Chloride 91 mmol/L (98-107); Osmolality Calculated 259 mOsm/kg (285-295); Sodium 124 mmol/L (136-145)
--- NOTE | 2020-12-26 15:07 | ONC FU_ITS ---
Dr. Munroe follow up note Patient: Eugene Samayoa Unit #: [id number]: 1935 Dicatated By: Catalina Munroe M.D.Date of Visit:Dec 26, 2020 Onc Med Follow-up/Prog Note History of Present Illness: Mr. Eugene Samayoa, is a 85-year-old gentleman with history of acute abdominal pain for which he went to [facility] on October 15, [address] scan of abdomen pelvis on October 15, 2020 which showed large bowel distention with swirling in the mid mesentery and tortuous tapering sigmoid colon suspicious for sigmoid volvulus. Heterogeneously enhancing enlarged prostate. Tiny right pleural effusion with slight interstitial thickening in the right lower lobe. Several low attenuation lesions in the liver with peripheral enhancement suspicious for metastatic disease. Largest lesion right hepatic lobe measuring 2.7 x 2.1 cm compared to scan done in 2015 this was new ultrasound liver done on October 15, 2020 confirmed hepatic lesions varying. As per patient prior to his visit to [facility] he went to see his PMD with diarrhea and worsening of abdominal pain, subsequently developed severe constipation and for which he went to [facility] as mentioned above. Patient was referred to Dr. Sherman who did colonoscopy on October 17, 2020 and his impression was there was no abnormality seen but patient had tortuous colon raising possibility of volvulus seen on prior CT scan but not noted on colonoscopy. Because of extensive lesion seen in the liver, patient underwent sonogram guided liver biopsy on October 17, 2020 and as per pathology it was metastatic adenocarcinoma and immunohistochemistry was positive TTF-1, CK7, CK 8/18 but negative for CK20, as per pathology was suggestive of lung being primary with metastatic disease to the liver Molecular profiling on liver biopsy showed positive for ALK rearrangement but negative for c-Met bereket-oncogene amplification, ROS1, EGFR, On October 28, 2020 patient went back to [facility] with progressive abdominal pain radiating to his back and patient underwent CTA chest on October 28, 2020 which showed significant mediastinal and hilar lymphadenopathy. Confluent adenopathy noted beginning along the right paratracheal region within the right paratracheal fat. Increased lymph nodes at AP window and extending into the subcarinal measuring 3.9 x 6.2 cm. There is encasement and narrowing of right main stem bronchus and the right lower lobe and bronchus intermedius. Only partial encasement without narrowing of right upper lobe bronchus. There is a partial encasement of distal SVC. Encasement of right lower lobe pulmonary artery.. Mild increased density within T11 vertebral body there is also lucency within the inferior endplate of T11 Metastatic disease to the liver have increased in size and number since October 15, 2020 CT PET scan done on November 02, 2020 shows a 3.9 x 6.1 cm right lower lobe mass invades into mediastinum with SUV of 12.4, consistent with described adenocarcinoma. A small right pleural effusion is present. Multiple FDG positive mediastinal lymph nodes in the right paratracheal, anterior mediastinal, subcarinal, left paratracheal territories. The index right paratracheal lymph node measured 2.3 cm with SUV of 10.6. A posterior right hepatic lobe mass measuring 4.1 x 5.0 cm with SUV of 8.8 consistent with biopsied lesion. No additional hepatic lesion present. Multifocal osseous metastatic disease is present in the bilateral posterior iliacs, and left pedicle of L4, activity at T11 is likely inflammatory from the compression fracture but pathological fracture from osseous metastatic disease is not excluded. Right cervical level 4 lymph node with SUV of 5.4 is metastatic. MRI scan of the head done on November 05, 2020 showed no evidence of brain mets. Patient is a former smoker, smoked for 30 years prior to quit smoking about 30 years ago. Occasional alcohol use. .Follow-up MRI scan of the lumbar spine area done on December 06, 2020 showed extensive disease throughout the thoracic and lumbar spines, most significant tumor encasement involve T11 and L4 and L5. There is a soft tissue tumor extension into epidural space at T11 and L4 with partial encasement of the thecal sac and extension into 4 mm on the left. No cord compression centrally. There has been progression of metastatic bone disease since CT PET scan done on November 02, 2020. Extensive metastatic lesion also noted within visualized pelvis and sacrum CT scan of C-spine done on 12/25/2020 shows no evidence of osseous metastatic disease in cervical spine. No high-grade central canal stenosis. Mild to moderate bony foraminal narrowing at right C3-4, left 4 5, left 5 6 and left 6 7. Mild central canal stenosis at C5-7. CT scan of thoracic spine done on 12/25/2020 shows diffuse osseous metastatic disease throughout the thoracic spine similar to appearance and recent lumbar spine MRI. No acute appearing compression fractures. Sclerotic metastatic worse at T5 and 7, T10-11 and involvement of the pedicles bilaterally at T11. Spinal canal appears patent. Came for follow-up, denies any specific complaint except persistent left leg pain radiating to left thigh, before it used to radiate all the way to ankle. Also complaining of numbness but with change to certain position., His MRI scan of lumbar spine was evaluated with Dr. Valverde, radiation oncologist which shows tumor involvement left of L3 and 4. Patient denies any fever chills denies any nausea or vomiting denies any diarrhea constipation patient has completed radiation therapy to his lumbar thoracic area. With significant pain control Medications: Acid Control Maximum Strength (20 mg) Tablet Oral b.i.d., Cholecalciferol (50 mcg ) Tablet Oral daily, Colace (100 mg) Capsule Oral daily PRN, Metoprolol Succinate ER (50 mg) Tablet SR 24 HR Oral at bedtime, Nitroglycerin Tablet, sublingual Sublingual PRN, Ondansetron 1 Tablet (of 8 mg) Tablet Dispersable Oral q 8 hours, Ondansetron HCl 1 (4 mg) Tablet Oral PRN, Polyethylene Glycol 3350 (17 ) Powder Oral daily PRN, Rivaroxaban (20 mg) Tablet Oral at bedtime, Tamsulosin HCl (0.4 mg) Capsule Oral at bedtime Allergies: Atorvastatin Calcium and Rosuvastatin Calcium. Review of Systems: Review of Systems is not available for this patient. Vital Signs: Performed on Dec 26, 2020 09:10 Height - 72.00 in Weight - 183.0 lbs (LOW) BSA - 2.05 sq.m BMI - 24.82 Temperature - 97.6 F (LOW) Pulse - 61 /min Respiration - 17 /min BP - 108/69 mm(hg) O2 Sat - 99 % Pain - 0 Performance Status: 0 - Fully active, able to carry on all predisease activities without restrictions. (ECOG) Physical Examination: ENMT - No mouth sores, no thrush, no jaundice, Respiratory - Lungs are clear to auscultation, Cardiovascular - Regular rate and rhythm of heart, Abdomen - Soft, bowel sounds present, Extremities - Soft, bowel sounds present. 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 Confluent cluster of lymph node is causing moderate narrowing and encasement of right hilar bronchoalveolar structures although no complete occlusion at this time. Metastatic lesion in the liver have increased in size and number since October 15, 2020. Increased density within T10-11 vertebral body and an associated lucency along the inferior endplate. CT PET scan done on November 02, 2020 showed FDG positive right lower lobe mass invading into mediastinum, malignant mediastinal lymph nodes and right cervical lymph node, hepatic metastatic disease. Multifocal osseous metastatic disease, T11 compression fracture with a possible inflammatory FDG uptake. Pathological fracture from osseous mass disease is not excluded. MRI scan of the head done on November 05, 2020 shows no brain mets PD-L1 less than 1% Guardant 360 showed TMB less than 10, MSI high, not detected, History of coronary artery disease status post CABG Emphysema Recent history of acute abdominal pain due to sigmoid volvulus, diagnosed on October 15, 2020, colonoscopy done on October 17, 2020 shows resolution of volvulus on its own Follow-up MRI scan of thoracic and lumbar spine done on December 06, 2020 showed extensive metastatic disease throughout the thoracic and lumbar spine, most significant tumoral encasement involving T11 and L4 on L5, there is soft tissue tumor extension into epidural space at T11 and L4 with partial encasement of thecal sac and extension into forearm and on the left. No cord compression centrally. There has been progression of metastatic bone disease since CT PET scan done on November 02, 2020, extensive metastatic lesion also noted within visualized pelvis and sacrum, patient was started on crizotinib 250 mg p.o. twice a day on December 09, 2020 as his molecular profile showed ALK rearrangement Patient was referred to radiation oncology for palliative radiation therapy Plan: Discussed with patient regarding labs white blood count 3.9 hemoglobin 13 hematocrit 38.7 platelets 125,000 partial CMP results shows normal liver function test and creatinine Clinically, patient is doing well with no new signs symptom except persistent left leg pain which is most likely due to left L3-L4 compression due to tumor involvement, no significant improvement due to radiation, may be is too early to observe on the scan, because of persistent symptoms, we will start him on dexamethasone in a tapering dose, 4 mg p.o. twice daily x3 days followed by 2 mg twice a day for 4 days followed by 1 mg p.o. twice daily for 1 week in the meantime we will refer him to Dr. dorsey, orthopedics for evaluation to see if laminectomy would be helpful although concern is recent radiation therapy. Moreover patient is also being started on crizotinib 250 mg p.o. 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 All the side effect possible benefits associated with ALK inhibitor including but not limited to bone marrow suppression, hepatic toxicity, diarrhea, cardiac event like bradycardia or prolonged QT interval were mentioned, patient has history of A. fib and on metoprolol 50 mg p.o. daily, will monitor his heart rate and if there is a significant drop in his heart rate, may consider decreasing metoprolol dose. Patient return to clinic in 1 week with CBC CMP Signed By: Catalina Munroe M.D. <<Signature on File>>
[2020-12-30 11:43] LABS: Basophils % 0.2 %; Hematocrit 38.4 % (42.0-52.0); Hemoglobin 13.5 g/dL (11.7-16.6); Lymphocytes # 0.3 10^3/uL (0.8-4.8); Lymphocytes % 3.5 %; Mean Corpuscular HGB Conc 35.2 g/dL (30.0-36.0); Mean Corpuscular Hemoglobin 33.3 pg (28.0-34.0); Mean Corpuscular Volume 94.8 fl (80-94); Mean Platelet Volume 8.8 fL (7.4-10.4); Monocytes % 10.4 %; Neutrophils % 85.1 %; Nucleated Red Blood Cells % 0 %; Platelet Count 152 10^3/cmm (130-400); Red Blood Count 4.05 10^6/uL (4.1-5.3); Red Cell Distribution Width 14.4 % (12.1-15.1); White Blood Count 9.8 10^3/uL (4.0-10.0)
[2020-12-30 12:10] LABS: Alanine Aminotransferase 47 U/L (0-41); Albumin Level 3.2 g/dL (3.5-5.2); Alkaline Phosphatase 157 IU/L (40-130); Anion Gap 12.3 (5-19); Aspartate Amino Transferase 37 U/L (0-40); Blood Urea Nitrogen 18 mg/dL (8-23); Calcium 9.2 mg/dL (8.5-10.5); Carbon Dioxide 23 mmol/L (22-29); Chloride 91 mmol/L (98-107); Globulin 2.7 g/dL (1.3-4.6); Glucose 117 mg/dL (65-115); Osmolality Calculated 257 mOsm/kg (285-295); Potassium 4.3 mmol/L (3.5-5.1); Sodium 122 mmol/L (136-145); Total Bilirubin 0.5 mg/dL (0.15-1.2); Total Protein 5.9 g/dL (6.6-8.7)
--- NOTE | 2020-12-31 13:47 | ONC FU_ITS ---
Dr. Munroe follow up note Patient: Eugene Samayoa Unit #: [id number]: 1935 Dicatated By: Catalina Munroe M.D.Date of Visit:Dec 31, 2020 Onc Med Follow-up/Prog Note History of Present Illness: Mr. Eugene Samayoa, is a 85-year-old gentleman with history of acute abdominal pain for which he went to [facility] on October 15, [address] scan of abdomen pelvis on October 15, 2020 which showed large bowel distention with swirling in the mid mesentery and tortuous tapering sigmoid colon suspicious for sigmoid volvulus. Heterogeneously enhancing enlarged prostate. Tiny right pleural effusion with slight interstitial thickening in the right lower lobe. Several low attenuation lesions in the liver with peripheral enhancement suspicious for metastatic disease. Largest lesion right hepatic lobe measuring 2.7 x 2.1 cm compared to scan done in 2015 this was new ultrasound liver done on October 15, 2020 confirmed hepatic lesions varying. As per patient prior to his visit to [facility] he went to see his PMD with diarrhea and worsening of abdominal pain, subsequently developed severe constipation and for which he went to [facility] as mentioned above. Patient was referred to Dr. Sherman who did colonoscopy on October 17, 2020 and his impression was there was no abnormality seen but patient had tortuous colon raising possibility of volvulus seen on prior CT scan but not noted on colonoscopy. Because of extensive lesion seen in the liver, patient underwent sonogram guided liver biopsy on October 17, 2020 and as per pathology it was metastatic adenocarcinoma and immunohistochemistry was positive TTF-1, CK7, CK 8/18 but negative for CK20, as per pathology was suggestive of lung being primary with metastatic disease to the liver Molecular profiling on liver biopsy showed positive for ALK rearrangement but negative for c-Met bereket-oncogene amplification, ROS1, EGFR, On October 28, 2020 patient went back to [facility] with progressive abdominal pain radiating to his back and patient underwent CTA chest on October 28, 2020 which showed significant mediastinal and hilar lymphadenopathy. Confluent adenopathy noted beginning along the right paratracheal region within the right paratracheal fat. Increased lymph nodes at AP window and extending into the subcarinal measuring 3.9 x 6.2 cm. There is encasement and narrowing of right main stem bronchus and the right lower lobe and bronchus intermedius. Only partial encasement without narrowing of right upper lobe bronchus. There is a partial encasement of distal SVC. Encasement of right lower lobe pulmonary artery.. Mild increased density within T11 vertebral body there is also lucency within the inferior endplate of T11 Metastatic disease to the liver have increased in size and number since October 15, 2020 CT PET scan done on November 02, 2020 shows a 3.9 x 6.1 cm right lower lobe mass invades into mediastinum with SUV of 12.4, consistent with described adenocarcinoma. A small right pleural effusion is present. Multiple FDG positive mediastinal lymph nodes in the right paratracheal, anterior mediastinal, subcarinal, left paratracheal territories. The index right paratracheal lymph node measured 2.3 cm with SUV of 10.6. A posterior right hepatic lobe mass measuring 4.1 x 5.0 cm with SUV of 8.8 consistent with biopsied lesion. No additional hepatic lesion present. Multifocal osseous metastatic disease is present in the bilateral posterior iliacs, and left pedicle of L4, activity at T11 is likely inflammatory from the compression fracture but pathological fracture from osseous metastatic disease is not excluded. Right cervical level 4 lymph node with SUV of 5.4 is metastatic. MRI scan of the head done on November 05, 2020 showed no evidence of brain mets. Patient is a former smoker, smoked for 30 years prior to quit smoking about 30 years ago. Occasional alcohol use. .Follow-up MRI scan of the lumbar spine area done on December 06, 2020 showed extensive disease throughout the thoracic and lumbar spines, most significant tumor encasement involve T11 and L4 and L5. There is a soft tissue tumor extension into epidural space at T11 and L4 with partial encasement of the thecal sac and extension into 4 mm on the left. No cord compression centrally. There has been progression of metastatic bone disease since CT PET scan done on November 02, 2020. Extensive metastatic lesion also noted within visualized pelvis and sacrum CT scan of C-spine done on 12/25/2020 shows no evidence of osseous metastatic disease in cervical spine. No high-grade central canal stenosis. Mild to moderate bony foraminal narrowing at right C3-4, left 4 5, left 5 6 and left 6 7. Mild central canal stenosis at C5-7. CT scan of thoracic spine done on 12/25/2020 shows diffuse osseous metastatic disease throughout the thoracic spine similar to appearance and recent lumbar spine MRI. No acute appearing compression fractures. Sclerotic metastatic worse at T5 and 7, T10-11 and involvement of the pedicles bilaterally at T11. Spinal canal appears patent. Started on crizotinib 250 mg p.o. twice daily on December 25, 2020 Came for follow-up, denies any specific complaints except persistent but improving left thigh pain/numbness since on tapering dose of dexamethasone now on 2 mg p.o. daily. Also complaining of generalized weakness and fatigue but no melena hematochezia, no hemoptysis hematemesis, patient is scheduled see Dr. devlin on March 16, 2021 as he is out of town. Patient denies any fever chills denies any nausea or vomiting but off and on 'wobbly head no blurred vision or double vision. Medications: Acid Control Maximum Strength (20 mg) Tablet Oral b.i.d., Cholecalciferol (50 mcg ) Tablet Oral daily, Colace (100 mg) Capsule Oral daily PRN, Metoprolol Succinate ER (50 mg) Tablet SR 24 HR Oral at bedtime, Nitroglycerin Tablet, sublingual Sublingual PRN, Ondansetron 1 Tablet (of 8 mg) Tablet Dispersable Oral q 8 hours, Ondansetron HCl 1 (4 mg) Tablet Oral PRN, Polyethylene Glycol 3350 (17 ) Powder Oral daily PRN, Rivaroxaban (20 mg) Tablet Oral at bedtime, Tamsulosin HCl (0.4 mg) Capsule Oral at bedtime Allergies: Atorvastatin Calcium and Rosuvastatin Calcium. Review of Systems: Review of Systems is not available for this patient. Vital Signs: Performed on Dec 31, 2020 08:25 Height - 72.00 in Weight - 179.8 lbs (LOW) BSA - 2.04 sq.m BMI - 24.39 Temperature - 97.3 F (LOW) Pulse - 81 /min Respiration - 18 /min BP - 94/59 mm(hg) O2 Sat - 98 % Pain - 0 Fatigue - 8 Performance Status: 1 - No physically strenuous activity, but ambulatory and able to carry out light or sedentary work (e.g. office work, light house work). (ECOG) Physical Examination: ENMT - No mouth sores, no thrush, no jaundice, Respiratory - Lungs are clear to auscultation, Cardiovascular - Regular rate and rhythm of heart, Abdomen - Soft, bowel sounds present, Extremities - No visible edema. 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 Confluent cluster of lymph node is causing moderate narrowing and encasement of right hilar bronchoalveolar structures although no complete occlusion at this time. Metastatic lesion in the liver have increased in size and number since October 15, 2020. Increased density within T10-11 vertebral body and an associated lucency along the inferior endplate. CT PET scan done on November 02, 2020 showed FDG positive right lower lobe mass invading into mediastinum, malignant mediastinal lymph nodes and right cervical lymph node, hepatic metastatic disease. Multifocal osseous metastatic disease, T11 compression fracture with a possible inflammatory FDG uptake. Pathological fracture from osseous mass disease is not excluded. MRI scan of the head done on November 05, 2020 shows no brain mets PD-L1 less than 1% Guardant 360 showed TMB less than 10, MSI high, not detected, History of coronary artery disease status post CABG Emphysema Recent history of acute abdominal pain due to sigmoid volvulus, diagnosed on October 15, 2020, colonoscopy done on October 17, 2020 shows resolution of volvulus on its own Follow-up MRI scan of thoracic and lumbar spine done on December 06, 2020 showed extensive metastatic disease throughout the thoracic and lumbar spine, most significant tumoral encasement involving T11 and L4 on L5, there is soft tissue tumor extension into epidural space at T11 and L4 with partial encasement of thecal sac and extension into forearm and on the left. No cord compression centrally. There has been progression of metastatic bone disease since CT PET scan done on November 02, 2020, extensive metastatic lesion also noted within visualized pelvis and sacrum, patient was started on crizotinib 250 mg p.o. twice a day on December 25, 2020, 2020 as his molecular profile showed ALK rearrangement Patient was referred to radiation oncology for palliative radiation therapy, Which he completed with significant improvement in his mid back and lower back Plan: Discussed with patient regarding his labs white blood count 9.8 hemoglobin 13.5 medical 38.4 platelets 152,000 CMP within normal limit except sodium 122 and ALT 47 Clinically, patient is doing reasonably well, now tolerating crizotinib 250 mg p.o. twice daily well, his follow-up lab work-up, CBC is within normal range but CMP shows hyponatremia, patient was advised to use Gatorade and minimize free water intake, will monitor his sodium level, mildly elevated ALT, etiology unclear we will monitor Left thigh pain/numbness, due to L3/L4 radiculopathy due to nerve compression due to either metastatic disease or bone damage lumbar MRI scan was reviewed with radiation oncology. Patient has recently undergone radiation therapy to lumbar spine area and T11 vertebra. With improvement in symptoms with tapering dose of dexamethasone is an encouraging sign, as if disease is causing it then with crizotinib it might improve or if due to bone damage and then surgical intervention to decompress L3-L4 area might improve his symptoms, patient is awaiting evaluation. As per patient his symptoms in left thigh did improve with steroids but now is on tapering dose he can feel somewhat worsening of left leg pain/numbness, patient was also advised to take pain medication on as-needed basis, if there is a further worsening of symptom, may continue with the dexamethasone till spine evaluation. Patient was also advised in case there is a worsening of 'wobbly head' feeling, may consider MRI scan of the brain to rule out brain mets other possibility could be due to hyponatremia, he was advised to minimize free water intake and rely on Gatorade. Or cardiac etiology, patient is on beta-vanita and crizotinib can also cause bradycardia so he was advised to check pulse twice a day or if and when symptomatic., He will return to clinic in 1 week with CBC CMP and continue with crizotinib as prescribed. Signed By: Catalina Munroe M.D. <<Signature on File>>
[2021-01-07] MEDS: sodium chloride 0.9% 500 ML 999 ML IV (15:15)
[2021-01-07 15:21] LABS: Basophils % 0.1 %; Eosinophils % 0.1 %; Hematocrit 41.7 % (42.0-52.0); Hemoglobin 14.2 g/dL (11.7-16.6); Lymphocytes # 0.3 10^3/uL (0.8-4.8); Lymphocytes % 3.6 %; Mean Corpuscular HGB Conc 34.1 g/dL (30.0-36.0); Mean Corpuscular Hemoglobin 32.9 pg (28.0-34.0); Mean Corpuscular Volume 96.5 fl (80-94); Mean Platelet Volume 9.1 fL (7.4-10.4); Monocytes # 0.7 10^3/uL (0.2-0.9); Monocytes % 8.2 %; Neutrophils # 7.55 10^3/uL (1.8-7.7); Neutrophils % 87.1 %; Nucleated Red Blood Cells % 0 %; Platelet Count 173 10^3/cmm (130-400); Red Blood Count 4.32 10^6/uL (4.1-5.3); Red Cell Distribution Width 15.6 % (12.1-15.1); White Blood Count 8.7 10^3/uL (4.0-10.0)
[2021-01-07 15:52] LABS: Alanine Aminotransferase 63 U/L (0-41); Alkaline Phosphatase 128 IU/L (40-130); Anion Gap 14.1 (5-19); Aspartate Amino Transferase 65 U/L (0-40); Blood Urea Nitrogen 42 mg/dL (8-23); Calcium 8.7 mg/dL (8.5-10.5); Carbon Dioxide 25 mmol/L (22-29); Chloride 95 mmol/L (98-107); Globulin 2.5 g/dL (1.3-4.6); Glucose 138 mg/dL (65-115); Osmolality Calculated 281 mOsm/kg (285-295); Potassium 5.1 mmol/L (3.5-5.1); Sodium 129 mmol/L (136-145); Total Bilirubin 0.3 mg/dL (0.15-1.2); Total Protein 5.5 g/dL (6.6-8.7)
--- NOTE | 2021-01-08 13:35 | ONC FU_ITS ---
Dr. Munroe follow up note Patient: Eugene Samayoa Unit #: [id number]: [id number] Dicatated By: Catalina Munroe M.D.Date of Visit:Jan 08, 2021 Onc Med Follow-up/Prog Note History of Present Illness: Mr. Eugene Samayoa, is a 85-year-old gentleman with history of acute abdominal pain for which he went to [facility] on October 15, [address] scan of abdomen pelvis on October 15, 2020 which showed large bowel distention with swirling in the mid mesentery and tortuous tapering sigmoid colon suspicious for sigmoid volvulus. Heterogeneously enhancing enlarged prostate. Tiny right pleural effusion with slight interstitial thickening in the right lower lobe. Several low attenuation lesions in the liver with peripheral enhancement suspicious for metastatic disease. Largest lesion right hepatic lobe measuring 2.7 x 2.1 cm compared to scan done in 2015 this was new ultrasound liver done on October 15, 2020 confirmed hepatic lesions varying. As per patient prior to his visit to [facility] he went to see his PMD with diarrhea and worsening of abdominal pain, subsequently developed severe constipation and for which he went to [facility] as mentioned above. Patient was referred to Dr. Sherman who did colonoscopy on October 17, 2020 and his impression was there was no abnormality seen but patient had tortuous colon raising possibility of volvulus seen on prior CT scan but not noted on colonoscopy. Because of extensive lesion seen in the liver, patient underwent sonogram guided liver biopsy on October 17, 2020 and as per pathology it was metastatic adenocarcinoma and immunohistochemistry was positive TTF-1, CK7, CK 8/18 but negative for CK20, as per pathology was suggestive of lung being primary with metastatic disease to the liver Molecular profiling on liver biopsy showed positive for ALK rearrangement but negative for c-Met bereket-oncogene amplification, ROS1, EGFR, On October 28, 2020 patient went back to [facility] with progressive abdominal pain radiating to his back and patient underwent CTA chest on October 28, 2020 which showed significant mediastinal and hilar lymphadenopathy. Confluent adenopathy noted beginning along the right paratracheal region within the right paratracheal fat. Increased lymph nodes at AP window and extending into the subcarinal measuring 3.9 x 6.2 cm. There is encasement and narrowing of right main stem bronchus and the right lower lobe and bronchus intermedius. Only partial encasement without narrowing of right upper lobe bronchus. There is a partial encasement of distal SVC. Encasement of right lower lobe pulmonary artery.. Mild increased density within T11 vertebral body there is also lucency within the inferior endplate of T11 Metastatic disease to the liver have increased in size and number since October 15, 2020 CT PET scan done on November 02, 2020 shows a 3.9 x 6.1 cm right lower lobe mass invades into mediastinum with SUV of 12.4, consistent with described adenocarcinoma. A small right pleural effusion is present. Multiple FDG positive mediastinal lymph nodes in the right paratracheal, anterior mediastinal, subcarinal, left paratracheal territories. The index right paratracheal lymph node measured 2.3 cm with SUV of 10.6. A posterior right hepatic lobe mass measuring 4.1 x 5.0 cm with SUV of 8.8 consistent with biopsied lesion. No additional hepatic lesion present. Multifocal osseous metastatic disease is present in the bilateral posterior iliacs, and left pedicle of L4, activity at T11 is likely inflammatory from the compression fracture but pathological fracture from osseous metastatic disease is not excluded. Right cervical level 4 lymph node with SUV of 5.4 is metastatic. MRI scan of the head done on November 05, 2020 showed no evidence of brain mets. Patient is a former smoker, smoked for 30 years prior to quit smoking about 30 years ago. Occasional alcohol use. .Follow-up MRI scan of the lumbar spine area done on December 06, 2020 showed extensive disease throughout the thoracic and lumbar spines, most significant tumor encasement involve T11 and L4 and L5. There is a soft tissue tumor extension into epidural space at T11 and L4 with partial encasement of the thecal sac and extension into 4 mm on the left. No cord compression centrally. There has been progression of metastatic bone disease since CT PET scan done on November 02, 2020. Extensive metastatic lesion also noted within visualized pelvis and sacrum CT scan of C-spine done on 12/25/2020 shows no evidence of osseous metastatic disease in cervical spine. No high-grade central canal stenosis. Mild to moderate bony foraminal narrowing at right C3-4, left 4 5, left 5 6 and left 6 7. Mild central canal stenosis at C5-7. CT scan of thoracic spine done on 12/25/2020 shows diffuse osseous metastatic disease throughout the thoracic spine similar to appearance and recent lumbar spine MRI. No acute appearing compression fractures. Sclerotic metastatic worse at T5 and 7, T10-11 and involvement of the pedicles bilaterally at T11. Spinal canal appears patent. Started on crizotinib 250 mg p.o. twice daily on December 25, 2020 Came for follow-up, complaining of epigastric pain/indigestion/heartburn with certain foods, including water, no feeling weak and tired due to dehydration denies any vomiting but nausea not responding well to Zofran. Denies any hemoptysis or hematemesis denies any melena or hematochezia denies any jaundice denies any headaches blurred vision or double vision, complaining of persistent pain/discomfort and numbness in the left leg, now awaiting orthopedic evaluation which is scheduled for January 14, 2021 denies any mouth sores denies any fever or chills. Denies any palpitation. Tolerating crizotinib well otherwise Medications: Acid Control Maximum Strength (20 mg) Tablet Oral b.i.d., Cholecalciferol (50 mcg ) Tablet Oral daily, Colace (100 mg) Capsule Oral daily PRN, Metoprolol Succinate ER (50 mg) Tablet SR 24 HR Oral at bedtime, Nitroglycerin Tablet, sublingual Sublingual PRN, Ondansetron 1 Tablet (of 8 mg) Tablet Dispersable Oral q 8 hours, Ondansetron HCl 1 (4 mg) Tablet Oral PRN, Polyethylene Glycol 3350 (17 ) Powder Oral daily PRN, Rivaroxaban (20 mg) Tablet Oral at bedtime, Tamsulosin HCl (0.4 mg) Capsule Oral at bedtime Allergies: Atorvastatin Calcium and Rosuvastatin Calcium. Review of Systems: Review of Systems is not available for this patient. Vital Signs: Vitals are not available for this patient. Performance Status: 2 - Ambulatory/capable of all self-care, unable to perform any work activities. Up and about more than 50% of waking hours. (ECOG) Physical Examination: ENMT - No mouth sores but dry oral mucosa no thrush, no jaundice, Respiratory - Lungs are clear to auscultation, Cardiovascular - Regular rate and rhythm of heart, Abdomen - Soft, bowel sounds present, Extremities - No visible edema. 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 Confluent cluster of lymph node is causing moderate narrowing and encasement of right hilar bronchoalveolar structures although no complete occlusion at this time. Metastatic lesion in the liver have increased in size and number since October 15, 2020. Increased density within T10-11 vertebral body and an associated lucency along the inferior endplate. CT PET scan done on November 02, 2020 showed FDG positive right lower lobe mass invading into mediastinum, malignant mediastinal lymph nodes and right cervical lymph node, hepatic metastatic disease. Multifocal osseous metastatic disease, T11 compression fracture with a possible inflammatory FDG uptake. Pathological fracture from osseous mass disease is not excluded. MRI scan of the head done on November 05, 2020 shows no brain mets PD-L1 less than 1% Guardant 360 showed TMB less than 10, MSI high, not detected, History of coronary artery disease status post CABG Emphysema Recent history of acute abdominal pain due to sigmoid volvulus, diagnosed on October 15, 2020, colonoscopy done on October 17, 2020 shows resolution of volvulus on its own Follow-up MRI scan of thoracic and lumbar spine done on December 06, 2020 showed extensive metastatic disease throughout the thoracic and lumbar spine, most significant tumoral encasement involving T11 and L4 on L5, there is soft tissue tumor extension into epidural space at T11 and L4 with partial encasement of thecal sac and extension into forearm and on the left. No cord compression centrally. There has been progression of metastatic bone disease since CT PET scan done on November 02, 2020, extensive metastatic lesion also noted within visualized pelvis and sacrum, patient was started on crizotinib 250 mg p.o. twice a day on December 25, 2020, 2020 as his molecular profile showed ALK rearrangement Patient was referred to radiation oncology for palliative radiation therapy, Which he completed with significant improvement in his mid back and lower back Plan: Discussed with patient regarding his labs white blood count 8.7 hemoglobin 14.2 hematocrit 41.7 platelets 173,000 ANC 7550 CMP within normal limit except sodium 129, compared to 222 on January 07, 2021, ALT/AST 63/65 compared to 47/37 on January 07, 2021 on December 25, 2020 when he was started on crizotinib Clinically, patient is in mild to moderate distress due to dehydration due to upper GI symptoms like indigestion heartburn and epigastric pain to certain food even with water, etiology unclear could be peptic ulcer disease or reflux esophagitis or radiation-induced esophagitis or gastritis may have superimposed fungal infection. We will consider hydration with normal saline 500 cc and patient was advised to maintain hydration if cannot then will consider intravenous hydration on as-needed basis and also start him on Diflucan 150 mg p.o. daily for 3 days, if there is no improvement in his symptoms, will refer him to Dr. Sherman for EGD, case was discussed with Dr. Sherman today and he agreed. As far as abnormal transaminases is concerned, probably due to crizotinib as on December 25, 2020 when crizotinib was started his transaminases were within normal range but since then they are progressive so we will hold his crizotinib till his next visit on Wednesday with CBC CMP if his transaminases improve then we will start him on crizotinib 250 mg daily and start up twice a day while monitoring his transaminases level. As far as left leg pain/discomfort/numbness is concerned probably due to lumbar radiculopathy and is awaiting orthopedic evaluation. As far as hyponatremia is concerned, his sodium is improving probably due to dehydration but will monitor Return to clinic on Wednesday with CBC CMP. Patient was advised in case there is a worsening of symptoms he need to call us or go to hospital for evaluation Signed By: Catalina Munroe M.D. <<Signature on File>>
[2021-01-09] MEDS: sodium chloride 0.9% 500 ML 999 ML IV ×3 (10:00→13:45)
== END 2021-01-09 23:59 | disposition home or self-care (01) ==
LOC: ONCMED 06:25
PROVIDERS: Absent Provider Radiology Radiation Oncology; PCP Family Medicine; Visit Provider Internal Medicine Hematology & Oncology
DX: Z51.0 Encounter for antineoplastic radiation therapy (principal); C34.31 Malignant neoplasm of lower lobe, right bronchus or lung; C78.7 Secondary malignant neoplasm of liver and intrahepatic bile duct; C77.8 Secondary and unspecified malignant neoplasm of lymph nodes of multiple regions; C79.51 Secondary malignant neoplasm of bone; I25.10 Atherosclerotic heart disease of native coronary artery without angina pectoris; Z95.5 Presence of coronary angioplasty implant and graft; J43.9 Emphysema, unspecified; Z92.21 Personal history of antineoplastic chemotherapy; Z79.899 Other long term (current) drug therapy
CPT/HCPCS: 36415; 72125; 72128; 77014; 77295; 77300; 77334; 77336; 77387; 77412; 80053; 85025; 96360; 99214; G6002; J7040

== ENCOUNTER 2021-01-12 00:29 | Inpatient (IN) | payer MEDICARE, SELFPAY ==
[2021-01-12] VITALS (11 sets, daily range): BP systolic 79–110; BP diastolic 51–69; PULSE 64–105; RESP 16–18; TEMP 36.4–38.8; O2SAT 90–95; BMI 25.0; BMI 25.9
--- NOTE | 2021-01-12 00:53 | XRR_ITS ---
PROCEDURE INFORMATION: Exam: XR Chest Exam date and time: 01/12/2021 12:53 AM Age: 85 years old Clinical indication: Fever TECHNIQUE: Imaging protocol: XR of the chest. Views: 1 view. COMPARISON: CR (CHEST, ) 11/05/2020 12:12 AM FINDINGS: Lungs: Poorly defined infiltrates at the left lung base consistent with pneumonia. The right lung is clear. Pleural spaces: Unremarkable. No pleural effusion. No pneumothorax. Heart/Mediastinum: Stable surgical changes throughout the mediastinum. Bones/joints: Unremarkable. XR/XR chest 1V portable [id number] IMPRESSION: Left lung base pneumonia infiltrates.
[2021-01-12 01:18] LABS: Basophils % 0.3 %; Eosinophils % 0.2 %; Hematocrit 39.1 % (42.0-52.0); Hemoglobin 13.5 g/dL (11.7-16.6); Lymphocytes # 0.4 10^3/uL (0.8-4.8); Lymphocytes % 5.6 %; Mean Corpuscular HGB Conc 34.5 g/dL (30.0-36.0); Mean Corpuscular Hemoglobin 32.8 pg (28.0-34.0); Mean Corpuscular Volume 95.1 fl (80-94); Mean Platelet Volume 9.4 fL (7.4-10.4); Monocytes # 0.3 10^3/uL (0.2-0.9); Monocytes % 5.5 %; Neutrophils # 5.46 10^3/uL (1.8-7.7); Neutrophils % 87.6 %; Nucleated Red Blood Cells % 0 %; Platelet Count 150 10^3/cmm (130-400); Red Blood Count 4.11 10^6/uL (4.1-5.3); Red Cell Distribution Width 15.5 % (12.1-15.1); White Blood Count 6.2 10^3/uL (4.0-10.0)
[2021-01-12] MEDS: sodium chloride 0.9% 1,000 ML 999 ML IV (01:30)
[2021-01-12 01:33] LABS: Alanine Aminotransferase 64 U/L (0-41); Albumin Level 2.7 g/dL (3.5-5.2); Alkaline Phosphatase 133 IU/L (40-130); Anion Gap 12.7 (5-19); Aspartate Amino Transferase 67 U/L (0-40); Blood Urea Nitrogen 26 mg/dL (8-23); C Reactive Protein 62.3 mg/L (0.0-4.9); Carbon Dioxide 24 mmol/L (22-29); Chloride 95 mmol/L (98-107); Creatinine Clr Calc Pharmacy 70.4812; Globulin 2.6 g/dL (1.3-4.6); Glucose 118 mg/dL (65-115); Osmolality Calculated 270 mOsm/kg (285-295); Potassium 4.7 mmol/L (3.5-5.1); Sodium 127 mmol/L (136-145); Total Bilirubin 0.6 mg/dL (0.15-1.2); Total Protein 5.3 g/dL (6.6-8.7)
[2021-01-12 01:34] LABS: Lactate (Lactic Acid level) 1.2 mmol/L (0.5-2.2)
[2021-01-12 01:40] LABS: Procalcitonin 4.17 ng/mL (0-0.5)
[2021-01-12 01:56] LABS: SARS Covid-2 Antigen Negative (Negative)
[2021-01-12 02:32] LABS: Urine Color Yellow (Yellow)
[2021-01-12 02:33] LABS: Add Urine Microscopic? YES; Bilirubin Urine Neg (Negative); Blood Urine 2+ (Negative); Glucose Urine UA Norm (Normal); Ketones Urine Negative (Negative); Leukocyte Esterase Urine Negative (Negative); Nitrate Urine Negative (Negative); Protein Urine Neg (Negative); Urobilinogen Urine Norm (Negative); pH Urine 8 (5-7)
[2021-01-12 02:34] LABS: Add Urine Culture? No; Amorphous Sediment Urine 2+ /hpf; Bacteria Urine TRACE /hpf; RBC Urine 0-4 /hpf (0-2); Squamous Epithelial Cell Urine 0-4 /hpf (0-5); WBC Urine 0-4 /hpf (0-5)
--- NOTE | 2021-01-12 03:10 | W.ED.FEVER ---
HPI - Fever General: Chief Complaint: Fever Stated Complaint: FEVER,WEAKNESS Time Seen by Provider: 01/12/21 00:40 History of Present Illness: HPI Narrative: 85-year-old gentleman undergoing oral chemotherapy treatment for lung cancer. He presents with a significant temperature this started last night. He states that he took Tylenol and slept well, but his fever today has come back, especially tonight. It was 102 at home. He had not had any Tylenol tonight. He denies significant shortness of breath or cough. He has diarrhea, but has this chronically. No vomiting. No exposure to COVID-19 that he knows of. Nobody else is ill around him. MD elicited complaint: fever Exacerbating factors: nothing Relieving factors: acetaminophen Associated symptoms: Reports chills and diarrhea (Chronic); Deny abdominal pain, flank pain, chest pain, cough, headache(s), nasal congestion, nausea, rhinorrhea or sore throat Treatments prior to arrival fever: acetaminophen (Yesterday) Review of Systems Const: Reports: fever(s), chills and body aches Eyes: Denies: change in vision ENMT: Denies: throat pain, odynophagia or nasal congestion Card: Denies: chest pain GI: Reports: diarrhea (Chronic); Denies: abdominal pain or nausea : Denies: flank pain Neuro: Denies: headache(s) PFS ED PFSH: Medical History Atherosclerotic heart disease of [place] coronary artery without angina pectoris Atrial fibrillation Benign essential HTN BPH (benign prostatic hyperplasia) CAD (coronary artery disease) Mixed hyperlipidemia TIA (transient ischemic attack) Surgical History H/O esophagogastroduodenoscopy History of coronary artery stent placement Hx of CABG Status post colonoscopy (10/17/20) Status post right inguinal hernia repair Family History Father CAD (coronary artery disease) Brother CAD (coronary artery disease) Sister CAD (coronary artery disease) Cancer Other Hyperlipidemia Denies family history of Diabetes Clotting disorder Dementia Chronic kidney disease (CKD) Suicide Anesthesia complication Bleeding disorder Lung disease Stroke Social History Smoking and tobacco status: former smoker Quit status (tobacco): has quit using tobacco Year quit tobacco: 1989 Former quit date comment: Hx of 1 PPD x 30 Years Second hand smoke exposure: No Smoking risk assessment/counseling performed?: No Alcohol intake: never Counseling given: No Counseling given: No Lives independently: Yes Household members: spouse Marital status: Current occupational status: retired History of recent travel: No Current gender identity: Male Physical Exam Const: GENERAL APPEARANCE: well developed ORIENTATION/CONSCIOUSNESS: Yes oriented to person, Yes oriented to place and Yes oriented to time HENMT: COMMON NORMALS: normocephalic, external ears normal and Normal external nose present HEAD & SCALP: normocephalic FACE & SINUS: normal facial exam NOSE: Normal external nose present and No nasal discharge present EXTERNAL EAR: Yes external ears normal MOUTH: tongue normal TEETH & GINGIVA: no abnormal tooth and associated gingiva THROAT: posterior oropharynx normal; no peritonsillar mass Eye: COMMON NORMALS: Equal, round and reactive pupils present, EOMs intact bilaterally and conjunctivae normal EYELID: eyelids normal CONJUNCTIVA: Yes conjunctivae normal PUPIL: Yes Equal, round and reactive pupils present Neck/C-Spine: GENERAL: No tracheal deviation Chest: COMMONS NORMALS: normal inspection of the chest CHEST: No tenderness Resp: COMMON NORMALS: clear to auscultation bilaterally EFFORT & INSPECTION: No tachypneic, No respiratory distress, No retractions, No uses accessory muscles and No tracheal deviation AUSCULTATION: clear to auscultation bilaterally, no rhonchi, no wheezes and lung sounds not diminished Cardio: COMMON NORMALS: regular rhythm RATE: tachycardic RHYTHM: regular rhythm HEART SOUNDS: no murmurs PERIPHERAL PULSES: radial pulses present GI: COMMON NORMALS: Soft to palpation INSPECTION: No abdominal distension AUSCULTATION: No Hyperactive bowel sounds present and No Hypoactive bowel sounds present PALPATION: Yes Soft to palpation, Yes Tenderness to palpation present (GI) (Minimal diffuse), No Guarding due to palpation present (GI) and No Rigid due to palpation PERCUSSION: no dullness to percussion and no tympanic to percussion Neuro: SENSORIUM/ORIENTATION: Yes oriented to person, Yes oriented to place and Yes oriented to time Psych: COMMON NORMALS: mental status grossly normal Skin: COMMON NORMALS: no rashes or lesions noted GENERAL SKIN EXAM: no rashes or lesions noted Course Consultations: Consultation #1: dayanna Vital Signs: Vital signs: Vital Signs Temperature 98.1 F 01/12/21 03:06 Pulse Rate 92 01/12/21 03:06 Respiratory Rate 18 01/12/21 03:06 Blood Pressure 110/65 01/12/21 03:06 Pulse Oximetry 91 01/12/21 03:06 MDM - Fever MDM Narrative: Medical decision making narrative: 85-year-old gentleman with a fever. Unknown origin at this point. White blood cell count is 6.2. He is not neutropenic. His sodium is 127, which is near baseline. He has gotten a liter of fluid here. He is feeling better. Temperature down to 98 1. His heart rate is down below 100. Blood pressure has been around 100 systolic. He feels improved. Rapid Covid is negative. PCR is pending. With no definite source of fever, and a chemotherapy patient, he will be covered with Levaquin as an outpatient. He has a follow-up in 2 days with his oncologist. Lab Data: Labs: Lab Results 01/12/21 01/12/21 01/12/21 00:55 00:55 00:55 WBC 6.2 10^3/uL 10^3/ uL (4.0-10.0) RBC 4.11 10^6/uL 10^6 /uL (4.1-5.3) Hgb 13.5 g/dL g/dL (11.7-16.6) Hct 39.1 % L % (42.0-52.0) MCV 95.1 fl H fl (80-94) MCH 32.8 pg pg (28.0-34.0) MCHC 34.5 g/dL g/dL (30.0-36.0) RDW 15.5 % H % (12.1-15.1) Plt Count 150 10^3/cmm 10^3 /cmm (130-400) MPV 9.4 fL fL (7.4-10.4) Neut % (Auto) 87.6 % % Lymph % (Auto) 5.6 % % [place] % (Auto) 5.5 % % Eos % (Auto) 0.2 % % Baso % (Auto) 0.3 % % Neut # (Auto) 5.46 10^3/uL 10^3 /uL (1.8-7.7) Lymph # (Auto) 0.4 10^3/uL L 10^ 3/uL (0.8-4.8) [place] # (Auto) 0.3 10^3/uL 10^3/ uL (0.2-0.9) Eos # (Auto) 0.0 10^3/uL 10^3/ uL (0.0-0.8) Baso # (Auto) 0.0 10^3/uL 10^3/ uL (0.0-0.1) Nucleated RBC % (a uto) 0 % % Nucleated RBCs # 0.0 /100WBC /100W BC Sodium 127 mmol/L L mmol /L (136-145) Potassium 4.7 mmol/L mmol/L (3.5-5.1) Chloride 95 mmol/L L mmol/ L (98-107) Carbon Dioxide 24 mmol/L mmol/L (22-29) Anion Gap 12.7 (5-19) BUN 26 mg/dL H mg/dL (8-23) Creatinine 0.9 mg/dL mg/dL (0.7-1.2) GFR Calculation Not Reportable Glucose 118 mg/dL H mg/dL (65-115) Calculated Osmolal ity 270 mOsm/kg L mOs m/kg (285-295) Lactate 1.2 mmol/L mmol/L (0.5-2.2) Calcium 8.0 mg/dL L mg/dL (8.5-10.5) Total Bilirubin 0.6 mg/dL mg/dL (0.15-1.2) AST 67 U/L H U/L (0-40) ALT 64 U/L H U/L (0-41) Alkaline Phosphata se 133 IU/L H IU/L (40-130) C-Reactive Protein 62.3 mg/L H mg/L (0.0-4.9) Total Protein 5.3 g/dL L g/dL (6.6-8.7) Albumin 2.7 g/dL L g/dL (3.5-5.2) Globulin 2.6 g/dL g/dL (1.3-4.6) Procalcitonin 4.17 ng/mL H ng/m L (0-0.5) Urine Color Urine Appearance Urine pH Ur Specific Gravit y Urine Protein Urine Glucose (UA) Urine Ketones Urine Blood Urine Nitrate Urine Bilirubin Urine Urobilinogen Ur Leukocyte Trudi ase Urine RBC Urine WBC Ur Squamous Epith Cells Amorphous Sediment Urine Bacteria SARS-CoV-2 Ag (Rap id) 01/12/21 01/12/21 01:20 01:58 WBC RBC Hgb Hct MCV MCH MCHC RDW Plt Count MPV Neut % (Auto) Lymph % (Auto) [place] % (Auto) Eos % (Auto) Baso % (Auto) Neut # (Auto) Lymph # (Auto) [place] # (Auto) Eos # (Auto) Baso # (Auto) Nucleated RBC % (a uto) Nucleated RBCs # Sodium Potassium Chloride Carbon Dioxide Anion Gap BUN Creatinine GFR Calculation Glucose Calculated Osmolal ity Lactate Calcium Total Bilirubin AST ALT Alkaline Phosphata se C-Reactive Protein Total Protein Albumin Globulin Procalcitonin Urine Color Yellow (Yellow) Urine Appearance Sl cloudy A (CLEAR) Urine pH 8 H (5-7) Ur Specific Gravit y 1.010 (1.005-1.030) Urine Protein Neg (Negative) Urine Glucose (UA) Norm (Normal) Urine Ketones Negative (Negative) Urine Blood 2+ H (Negative) Urine Nitrate Negative (Negative) Urine Bilirubin Neg (Negative) Urine Urobilinogen Norm mg/dL mg/dL (Negative) Ur Leukocyte Trudi ase Negative (Negative) Urine RBC 0-4 /hpf H /hpf (0-2) Urine WBC 0-4 /hpf H /hpf (0-5) Ur Squamous Epith Cells 0-4 /hpf H /hpf (0-5) Amorphous Sediment 2+ /hpf /hpf Urine Bacteria Trace /hpf /hpf (NONE) SARS-CoV-2 Ag (Rap id) Negative (Negative) Discharge Plan Discharge Patient Disposition: Home Clinical Impression: Fever of unknown origin Condition: Stable Prescriptions: New levofloxacin 500 mg tablet 500 mg PO DAILY 7 Days Qty: 7 RF: 0 fluconazole 100 mg tablet 100 mg PO BID Qty: 6 RF: 0 No Action tamsulosin 0.4 mg capsule 0.4 mg PO BEDTIME RF: 0 Xarelto 20 mg tablet 20 mg PO QPM RF: 0 Hold Instructions: Resume on 11/05/20. Hold until you are told to resume by Dr Coleman or Pulmonology nitroglycerin [Nitrostat] 0.4 mg tablet, sublingual 0.4 mg SUBLINGUAL Q5M PRN (Reason: Chest Pain) RF: 0 metoprolol succinate 50 mg tablet extended release 24 hr 50 mg PO BEDTIME Qty: 90 RF: 3 Pepcid 20 mg Tablet 20 mg PO BID RF: 0 Colace 100 mg Capsule 100 mg PO PRN RF: 0 Miralax 17 gram/dose Powder 17 g PO DAILY PRN (Reason: Constipation) RF: 0 Vitamin D3 50 mcg (2,000 unit) Tablet 50 mcg PO DAILY RF: 0 hydrocodone-acetaminophen 5-325 mg tablet 1 tab PO Q6H PRN (Reason: pain) Qty: 30 RF: 0 Zofran 4 mg tablet 4 mg PO Q6H PRN (Reason: nausea and vomiting) Qty: 20 RF: 0 Discharge Orders: Discharge ED (Routine); Ordered 01/12/21 Ordered By: Tez Mayer Referrals: Sam Chaudhari MD [Primary Care Provider] - Catalina Munroe MD [Staff Physician] - 1-3 days Discharge Diet: Advance as tolerated Patient Instructions: Fever in Adults (ED) Activity Restrictions/Additional Instructions: Antibiotics as directed. Return for fever greater than 100 despite 2-3 doses of antibiotics at home, worsening mental status, worsening lethargy or weakness, shortness of breath, any other concerning symptoms. Follow-up with your oncologist on Wednesday as scheduled Coding Level of Care Code ED Stamper Blocker for Chg Fwd Exam Comprehensive
[2021-01-12] MEDS: levoFLOXacin 500 mg Tablet PO (04:50)
--- NOTE | 2021-01-12 07:50 | PM.HP ---
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 Patient is currently on oral chemo.Noted have a temperature of a 102 last evening. Denies any respiratory distress. No productive cough. No nausea or vomiting. Denied abdominal pain however did note diarrhea. This is however chronic complaint.Laboratory workup on arrival showed a WBC of 6.2, hemoglobin 13.5, hematocrit 39.1 and platelet count of 150. Sodium 127, potassium 4.7, chloride 95, bicarb 24, BUN 26 and creatinine of 0.9. AST of 67, ALT of 64 and alkaline phosphatase 133. CRP of 62.3. Procalcitonin of 4.17. COVID-19 antigen negative however PCR was drawn and sent.Chest x-ray showed left lung base pneumonia. Patient was started on Levaquin 750 mg daily. Review of Systems General: Reports: 10 or more systems reviewed and unremarkable except in HPI and below Medications/Allergies Home Medications Medication Instructions Recorded Confirmed Last Taken Type nitroglycerin 0.4 mg sublingual 0.4 mg SUBLINGUAL Q5M PRN 08/10/19 01/12/21 Unknown History tablet rivaroxaban 20 mg tablet 20 mg PO QPM 08/10/19 01/12/21 01/11/21 18:30 History tamsulosin 0.4 mg capsule 0.4 mg PO BEDTIME 08/10/19 01/12/21 01/11/21 18:30 History cholecalciferol (vitamin D3) 50 mcg PO DAILY 10/15/20 01/12/21 Unknown History [Vitamin D3] famotidine [Pepcid] 20 mg PO BID 10/15/20 01/12/21 10/15/20 History polyethylene glycol 3350 [Miralax] 17 g PO DAILY PRN 10/15/20 01/12/21 10/14/20 History ondansetron HCl [Zofran] 4 mg PO Q6H PRN #20 tab 10/28/20 01/12/21 Unknown Rx folic acid 1 mg PO DAILY 01/12/21 01/12/21 01/11/21 08:00 History levofloxacin 500 mg PO DAILY 7 Days #7 tab 01/12/21 Unknown Rx metoprolol succinate 25 mg PO BEDTIME 01/12/21 01/12/21 01/11/21 18:30 History Allergies Allergy/AdvReac Type Severity Reaction Status Date / Time atorvastatin [From Lipitor] AdvReac Unknown muscle Verified 01/12/21 06:12 aches and pain rosuvastatin AdvReac Unknown muscle Verified 01/12/21 06:12 aches and pains PFSH Acute PFSH: Medical History Atherosclerotic heart disease of [place] coronary artery without angina pectoris Atrial fibrillation Benign essential HTN BPH (benign prostatic hyperplasia) CAD (coronary artery disease) Mixed hyperlipidemia TIA (transient ischemic attack) Surgical History H/O esophagogastroduodenoscopy History of coronary artery stent placement Hx of CABG Status post colonoscopy (10/17/20) Status post right inguinal hernia repair Family History Father CAD (coronary artery disease) Brother CAD (coronary artery disease) Sister CAD (coronary artery disease) Cancer Other Hyperlipidemia Denies family history of Diabetes Clotting disorder Dementia Chronic kidney disease (CKD) Suicide Anesthesia complication Bleeding disorder Lung disease Stroke Social History Smoking and tobacco status: former smoker Quit status (tobacco): has quit using tobacco Year quit tobacco: 1989 Former quit date comment: Hx of 1 PPD x 30 Years Second hand smoke exposure: No Smoking risk assessment/counseling performed?: No Alcohol intake: never Counseling given: No Counseling given: No Lives independently: Yes Household members: spouse Marital status: Current occupational status: retired History of recent travel: No Current gender identity: Male Vitals/I&O/Wt Last Vital Signs Temp 97.6 F 01/12/21 07:07 Pulse 64 01/12/21 07:07 Resp 16 01/12/21 07:07 BP 97/69 01/12/21 07:07 Pulse Ox 95 01/12/21 07:07 01/11/21 01/12/2101/12/21 22:59 06:59 14:59 Intake Total 1000 / 1000 Balance 1000 / 1000 Weight last 48 hrs Weight 86.999 kg Weight 83.915 kg Physical Exam Narrative: EXAM NARRATIVE: General-Alert awake and oriented x3 HEENT-Grossly unremarkable Chest- nonlabored respiration decreased breath sounds in left base CVS-regular rate rhythm Abdomen-soft nontender nondistended Extremities-no edema Data : 01/12/21 00:55 01/12/21 00:55 Micro: Microbiology 01/12/21 01:10 Blood Culture - Preliminary Blood SPECIMEN COLLECTED 01/12/21 00:55 Blood Culture - Preliminary Blood SPECIMEN COLLECTED A&P Assessment and plan (1) Pneumonia: Status: Acute Additional A&P Information Fever due to suspected Left lower lobe pneumonia Blood culture x 2 Sputum culture if able to obtain Levaquin 750 mg IV daily Tylenol PRN for fever Supplemental o2 as needed Pro-calcitonin repeat in am May need to broaden coverage if persistent fever Additional Medical Problems Primary lung ca with mets to liver/bone Radiation esophagitis with superimposed fungal infection Coronary artery disease hx of CABG Hypertension Dyslipiemia 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 Coding Level of Care Code Acute Ore Crushing Dust Collector for Teagan Lubin Diagnoses Pneumonia J18.9
[2021-01-12] MEDS: sodium chloride 0.9% 1,000 ML 75 ML IV ×2 (08:15→22:13)
[2021-01-12] MEDS: pantoprazole DR 40 mg Tablet PO (08:15)
[2021-01-12] MEDS: heparin 5,000 unit/mL INJ 1 mL 5000 UNIT SUBCUT ×3 (08:16→23:58)
[2021-01-12] MEDS: piperacillin-tazobactam 3.375 GM in sodium chloride 0.9% (plus) 50 ML IV ×2 (09:54→15:56)
[2021-01-12] MEDS: ondansetron 2 mg/ML SDV 2 mL 4 MG IVP (11:44)
[2021-01-12] MEDS: vancomycin 1,250 MG/250 ML PIGGYBACK 250 MG IV (13:56)
--- NOTE | 2021-01-12 16:20 | PC.NURSE ---
updated patient's on patient.
[2021-01-13] VITALS (10 sets, daily range): BP systolic 92–118; BP diastolic 57–87; PULSE 83–105; RESP 16–22; TEMP 36.7–37.7; O2SAT 90–92
[2021-01-13] MEDS: piperacillin-tazobactam 3.375 GM in sodium chloride 0.9% (plus) 50 ML IV ×3 (01:08→17:37)
[2021-01-13 06:04] LABS: Basophils % 0.2 %; Eosinophils % 0.8 %; Hematocrit 34.3 % (42.0-52.0); Hemoglobin 11.4 g/dL (11.7-16.6); Lymphocytes # 0.5 10^3/uL (0.8-4.8); Lymphocytes % 11.3 %; Mean Corpuscular HGB Conc 33.2 g/dL (30.0-36.0); Mean Corpuscular Hemoglobin 32.8 pg (28.0-34.0); Mean Corpuscular Volume 98.6 fl (80-94); Mean Platelet Volume 9.8 fL (7.4-10.4); Monocytes # 0.4 10^3/uL (0.2-0.9); Monocytes % 7.4 %; Neutrophils # 3.78 10^3/uL (1.8-7.7); Neutrophils % 79.5 %; Nucleated Red Blood Cells % 0 %; Platelet Count 119 10^3/cmm (130-400); Red Blood Count 3.48 10^6/uL (4.1-5.3); Red Cell Distribution Width 15.9 % (12.1-15.1); White Blood Count 4.8 10^3/uL (4.0-10.0)
[2021-01-13] MEDS: heparin 5,000 unit/mL INJ 1 mL 5000 UNIT SUBCUT ×2 (08:51→17:37)
[2021-01-13] MEDS: pantoprazole DR 40 mg Tablet PO (08:51)
[2021-01-13 08:57] LABS: Alanine Aminotransferase 45 U/L (0-41); Albumin Level 2.3 g/dL (3.5-5.2); Alkaline Phosphatase 113 IU/L (40-130); Blood Urea Nitrogen 16 mg/dL (8-23); Calcium 7.5 mg/dL (8.5-10.5); Carbon Dioxide 21 mmol/L (22-29); Chloride 100 mmol/L (98-107); Globulin 2.2 g/dL (1.3-4.6); Glucose 78 mg/dL (65-115); Osmolality Calculated 266 mOsm/kg (285-295); Sodium 128 mmol/L (136-145); Total Bilirubin 0.8 mg/dL (0.15-1.2); Total Protein 4.5 g/dL (6.6-8.7)
[2021-01-13 08:58] LABS: Anion Gap 11.2 (5-19); Aspartate Amino Transferase 53 U/L (0-40); Potassium 4.2 mmol/L (3.5-5.1)
--- NOTE | 2021-01-13 11:10 | PC.NURSE ---
During rounding, patient reported that he was feeling very lonely and was really missing his . I spoke with Dr. Justin and he states that he would be fine if the patient's spouse wanted to come in and visit with him for a while, but to please discuss the risks of being potentially exposed to COVID-19 d/t his PCR test not being resulted yet. I called and spoke with patient's spouse, Margaret, and informed her of the above information. She verbalizes understanding and states she is in agreement with following PPE guidelines. I informed Savanna Christopher RN Charge Nurse and Magi Thayer RN primary care nurse.
[2021-01-13 13:47] LABS: Coronavirus Test Green County Not Detected
[2021-01-13] MEDS: vancomycin 1,250 MG/250 ML PIGGYBACK 250 MG IV ×2 (14:14)
--- NOTE | 2021-01-13 17:20 | P.PN_ITS ---
Subjective Subjective: Interval history: Patient was seen and examined this morning, patient seen and examined this morning, temperature 100.0, no leukocytosis, no tachycardia, blood pressure stable, patient is endorsing feeling better on the time of admission chronic hyponatremia sodium 128 Procalcitonin 4.1 Cloudy urine Covid PCR negative Patient is vaccinated Vitals/I&O/Wt Last Vital Signs Temp 99.8 F H 01/13/21 15:31 Pulse 97 01/13/21 15:31 Resp 16 01/13/21 15:31 BP 102/57 01/13/21 15:31 Pulse Ox 92 01/13/21 15:31 01/13/21 01/13/21 01/13/21 06:59 14:59 22:59 Intake Total 300 / 1910 1050 / 1050 250 / 1300 Output Total 500 / 500 Balance 300 / 1085 550 / 550 250 / 800 Weight last 48 hrs Weight 86.999 kg Weight 83.915 kg Physical Exam Narrative: EXAM NARRATIVE: Patient was laying comfortably in his bed Surgery S1, S2 No audible stridor or wheezing however crackles at the bases noted Abdomen soft EOMI, PERRLA No edema of legs Appropriate mood and affect Looks euvolemic Data : 01/13/21 05:30 01/13/21 07:43 Micro: Microbiology 01/12/21 11:50 Gram Stain - Final Sputum - Expectorated Sputum 01/12/21 19:24 Legionella Urinary Antigen - Final Urine,Voided Bacterial Antigens - Final 01/12/21 01:10 Blood Culture - Preliminary Blood NEGATIVE TO DATE 01/12/21 00:55 Blood Culture - Preliminary Blood NEGATIVE TO DATE 01/12/21 11:11 MRSA Culture - Final Nose A&P Assessment and plan (1) Pneumonia: Status: Acute (2) Emphysema lung: Status: Acute (3) Metastatic primary lung cancer: Status: Acute (4) Liver mass: Status: Acute (5) Chronic anticoagulation: Status: Acute Additional A&P Information Community-acquired pneumonia We will follow up urine antigens blood culture and sputum culture Low-grade fever on broad-spectrum antibiotics, discontinue MRSA coverage MRSA nares PCR negative DuoNeb every 4 as needed Change to inpatient Currently saturating well on room air Repeat procalcitonin with inflammatory markers in the morning Covid PCR negative No active signs of sepsis Chronic hyponatremia: No active symptoms Metastatic lung cancer with mets to bone and liver DVT prophylaxis Heparin Full code Cardiac diet Attestations Medical Necessity Statement*: Anticipating discharge once clinically stable, will change to inpatient Time Spent in Patient Care: 16 - 35 minutes Coding Level of Care Code Acute Dressmaker Or Tailor for Teagan Fwd Diagnoses Pneumonia J18.9 Emphysema lung J43.9 Metastatic primary lung cancer C34.90 Liver mass R16.0 Chronic anticoagulation Z79.01
[2021-01-13] MEDS: lactulose oral liq 20 gm/30 mL UDC 10 GM PO (17:40)
[2021-01-13] MEDS: sennosides-docusate Tablet 1 TAB PO (17:40)
[2021-01-13 18:27] LABS: Procalcitonin 2.91 ng/mL (0-0.5)
--- NOTE | 2021-01-13 19:49 | P.CONIM_ITS ---
Providers/Reason For Consult Consulting Physician/Specialty*: Orthopedic Spine Reason for Consult*: Left Leg pain Attending Physician: Javier Justin MD Primary Care Provider: Sam Chaudhari MD History of Present Illness History of Present Illness Eugene Samayoa is a 85 year old male with history of lung cancer as well as lesions in his thoracic and lumbar spine He has developed a 4-week history of left leg numbness that is caused him some increased discomfort when he is walking. He denies any injuries denies any falls. Has been to radiation. He reports no back pain. Reports hand numbness leg numbness with pain intermittently down the left leg into the foot diffusely. He denies any loss of bowel or bladder control. Describes it more as numbness. Is not so much other than rest to make it better. He had initially some pain in his medial thigh on the left leg but had radiation and that was resolved. His family is present during the exam and MedSurg 2. Review of Systems General: Reports: 10 or more systems reviewed and unremarkable except in HPI and below Meds/Allergies Home Medications and Allergies Home Medications Medication Instructions Recorded Confirmed Last Taken Type nitroglycerin 0.4 mg sublingual 0.4 mg SUBLINGUAL Q5M PRN 08/10/19 01/12/21 Unknown History tablet rivaroxaban 20 mg tablet 20 mg PO QPM 08/10/19 01/12/21 01/11/21 18:30 History tamsulosin 0.4 mg capsule 0.4 mg PO BEDTIME 08/10/19 01/12/21 01/11/21 18:30 History cholecalciferol (vitamin D3) 50 mcg PO DAILY 10/15/20 01/12/21 Unknown History [Vitamin D3] famotidine [Pepcid] 20 mg PO BID 10/15/20 01/12/21 10/15/20 History polyethylene glycol 3350 [Miralax] 17 g PO DAILY PRN 10/15/20 01/12/21 10/14/20 History ondansetron HCl [Zofran] 4 mg PO Q6H PRN #20 tab 10/28/20 01/12/21 Unknown Rx folic acid 1 mg PO DAILY 01/12/21 01/12/21 01/11/21 08:00 History levofloxacin 500 mg PO DAILY 7 Days #7 tab 01/12/21 Unknown Rx metoprolol succinate 25 mg PO BEDTIME 01/12/21 01/12/21 01/11/21 18:30 History Allergies Allergy/AdvReac Type Severity Reaction Status Date / Time atorvastatin [From Lipitor] AdvReac Unknown muscle Verified 01/12/21 06:12 aches and pain rosuvastatin AdvReac Unknown muscle Verified 01/12/21 06:12 aches and pains Current Medications Current Medications Generic Name Dose Route Start Last Admin Trade Name Freq PRN Reason Stop Dose Admin Heparin Sodium (Beef Lung) 5,000 unit 01/12/21 08:00 01/13/21 17:37 Heparin 5,000 Unit/Ml Inj 1 Ml SUBCUT 5,000 unit Q8H FRIEDA Administration Piperacillin Sod/Tazobactam 50 mls @ 12.5 mls/hr 01/12/21 09:00 01/13/21 17:37 Sod 3.375 gm/ Sodium Chloride IV 12.5 mls/hr Q8H FRIEDA Administration Vancomycin/PEG/NADA/Lysine/Water 1,250 mg in 250 mls @ 250 mls/hr 01/12/21 13:00 01/13/21 15:14 Vancocin IV Infused Q12H FRIEDA Infusion Lactulose 10 gm 01/13/21 17:30 01/13/21 17:40 Lactulose Oral Liq 20 Gm/30 Ml Udc PO 10 gm DAILY FRIEDA Administration Methylprednisolone Sodium Succinate 40 mg 01/13/21 17:30 01/13/21 17:40 Methylprednisolone Sod Succ 40 Mg/Ml Inj IVP 40 mg Q12H FRIEDA Administration Ondansetron HCl 4 mg 01/12/21 07:39 01/12/21 11:44 Ondansetron 2 Mg/Ml Sdv 2 Ml IVP 4 mg Q8H PRN Administration vomiting, or N/V if npo Pantoprazole Sodium 40 mg 01/12/21 09:00 01/13/21 08:[address] 40 Mg Tablet PO 40 mg DAILY FRIEDA Administration Senna/Docusate Sodium 1 tab 01/13/21 18:00 01/13/21 17:40 Sennosides-Docusate Tablet PO 1 tab BID FRIEDA Administration PFSH Acute PFSH: Medical History Atherosclerotic heart disease of [place] coronary artery without angina pectoris Atrial fibrillation Benign essential HTN BPH (benign prostatic hyperplasia) CAD (coronary artery disease) Mixed hyperlipidemia TIA (transient ischemic attack) Surgical History H/O esophagogastroduodenoscopy History of coronary artery stent placement Hx of CABG Status post colonoscopy (10/17/20) Status post right inguinal hernia repair Family History Father CAD (coronary artery disease) Brother CAD (coronary artery disease) Sister CAD (coronary artery disease) Cancer Other Hyperlipidemia Denies family history of Diabetes Clotting disorder Dementia Chronic kidney disease (CKD) Suicide Anesthesia complication Bleeding disorder Lung disease Stroke Social History Smoking and tobacco status: former smoker Quit status (tobacco): has quit using tobacco Year quit tobacco: 1989 Former quit date comment: Hx of 1 PPD x 30 Years Second hand smoke exposure: No Smoking risk assessment/counseling performed?: No Alcohol intake: never Counseling given: No Counseling given: No Lives independently: Yes Household members: spouse Marital status: Current occupational status: retired History of recent travel: No Current gender identity: Male Vitals/I&O/Wt Last Vital Signs Temp 99.8 F H 01/13/21 15:31 Pulse 97 01/13/21 15:31 Resp 16 01/13/21 15:31 BP 102/57 01/13/21 15:31 Pulse Ox 92 01/13/21 15:31 01/13/21 01/13/21 01/13/21 06:59 14:59 22:59 Intake Total 300 / 1910 1050 / 1050 370 / 1420 Output Total 500 / 500 Balance 300 / 1085 550 / 550 370 / 920 Weight last 48 hrs Weight 191 lb 12.8 oz Weight 185 lb Physical Exam Narrative: EXAM NARRATIVE: He is alert on x3 has good general he has no palpable pain in his thoracic or lumbar spine. Has a negative logroll bilaterally in both lower extremities. Skin is clear warm fair with good cap refill calfs are supple no medial thigh tenderness. Has diffuse numbness down the left leg from the knee to the foot. He has 5/5 motor strength in both lower extremities good dorsiflexion and plantar flexion bilaterally. Dorsalis pedis posterior tibial pulses are palpable. Good cap refill all digits. Resp: COMMON NORMALS: normal respiratory effort Cardio: COMMON NORMALS: regular rate and regular rhythm RATE: regular rate RHYTHM: regular rhythm GI: COMMON NORMALS: Soft to palpation and non-tender PALPATION: Yes Soft to palpation : COMMON NORMALS: Yes no CVA tenderness BLADDER/KIDNEY EXAM: Yes no CVA tenderness Back/Pelvis: COMMON NORMALS: no CVA tenderness and no thoracic nor lumbar tenderness Psych: COMMON NORMALS: cooperative Skin: COMMON NORMALS: no wounds Data Micro: Micro: Microbiology 01/12/21 11:50 Gram Stain - Final Sputum - Expector ated Sputum 01/12/21 19:24 Legionella Urinary Antigen - Final Urine,Voided Bacterial Antigens - Final 01/12/21 01:10 Blood Culture - Pr eliminary Blood NEGATIVE TO TANIKA E 01/12/21 00:55 Blood Culture - Pr eliminary Blood NEGATIVE TO TANIKA E 01/12/21 11:11 MRSA Culture - Fin al Nose A&P Assessment and plan (1) Lesion of bone of thoracic spine: Status: Acute (2) Lesion of bone of lumbosacral spine: Status: Acute (3) Numbness in left leg: Status: Acute Additional A&P Information There is approximately 10% anterior compression of T11 but certainly the bigger issue would be the mets in the thoracic 5-7, T11 and lumbar 4 and 5vertebral body which is likely metastasized from his lung cancer. There is also evidence of lesions in the sacrum. In regards to the left leg numbness the lesion at L4 seems to be contributory but operating for numbness offers no guarantees of resolution of his symptoms. I will discuss with Dr. Lay for further recommendations. I agree with above. possibly radiation treatment at L4 level to tx radicular symptoms Consult Attestations Medical Necessity Statement: per primary service Coding Level of Care Code Acute Community Relations Rep for g Fwd Exam Detailed Diagnoses Lesion of bone of thoracic spine M89.9 Lesion of bone of lumbosacral spine M89.9 Numbness in left leg R20.0
[2021-01-13] MEDS: tamsulosin 0.4 mg Capsule PO (20:33)
[2021-01-14] VITALS (7 sets, daily range): BP systolic 101–116; BP diastolic 58–72; PULSE 85–90; RESP 16–20; TEMP 36.3–36.8; O2SAT 91–93
[2021-01-14] MEDS: vancomycin 1,250 MG/250 ML PIGGYBACK 250 MG IV (00:24)
[2021-01-14] MEDS: heparin 5,000 unit/mL INJ 1 mL 5000 UNIT SUBCUT ×2 (00:32→07:51)
[2021-01-14 01:02] LABS: Basophils % 0.2 %; Hematocrit 35.8 % (42.0-52.0); Hemoglobin 11.8 g/dL (11.7-16.6); Lymphocytes # 0.4 10^3/uL (0.8-4.8); Lymphocytes % 9.2 %; Mean Corpuscular Hemoglobin 32.6 pg (28.0-34.0); Mean Corpuscular Volume 98.9 fl (80-94); Mean Platelet Volume 9.4 fL (7.4-10.4); Monocytes # 0.2 10^3/uL (0.2-0.9); Monocytes % 4.1 %; Neutrophils % 85.4 %; Nucleated Red Blood Cells % 0 %; Platelet Count 126 10^3/cmm (130-400); Red Blood Count 3.62 10^6/uL (4.1-5.3); Red Cell Distribution Width 15.8 % (12.1-15.1); White Blood Count 4.7 10^3/uL (4.0-10.0)
[2021-01-14 01:23] LABS: Anion Gap 12.1 (5-19); Blood Urea Nitrogen 19 mg/dL (8-23); Calcium 7.9 mg/dL (8.5-10.5); Carbon Dioxide 19 mmol/L (22-29); Chloride 100 mmol/L (98-107); Glucose 167 mg/dL (65-115); Osmolality Calculated 270 mOsm/kg (285-295); Potassium 4.1 mmol/L (3.5-5.1); Sodium 127 mmol/L (136-145)
[2021-01-14 01:27] LABS: Procalcitonin 3.83 ng/mL (0-0.5)
[2021-01-14] MEDS: piperacillin-tazobactam 3.375 GM in sodium chloride 0.9% (plus) 50 ML IV (02:06)
[2021-01-14] MEDS: sennosides-docusate Tablet 1 TAB PO (08:31)
[2021-01-14] MEDS: pantoprazole DR 40 mg Tablet PO (08:31)
[2021-01-14] MEDS: lactulose oral liq 20 gm/30 mL UDC 10 GM PO (08:32)
[2021-01-14] MEDS: levoFLOXacin 750 mg Tablet PO (09:59)
[2021-01-14] MEDS: metoprolol succinate ER (24 HR) 25 mg Tablet PO (09:59)
--- NOTE | 2021-01-14 10:26 | PC.CHAP ---
Pastoral Care Encounter/Spiritual Assessment Type of Contact [] Declined front desk agent visit [] Patient/Family/Request visit [] Outpatient visit [] Follow-up visit [] Physician referral [] Code/Alert [x] Routine visit [] Staff referral [] Actively dying [] Patient sleeping [] Family support [] [] Out of room [] Palliative care [] [] Receiving care in room [] Pre-surgical visit [] Trauma [] Long length of stay [] ICU visit [] Other: Relational/Emotional Strength [x] Patient feels connected with others/family/visitors/staff [] Distress [] Loneliness/isolation [] Abandonment Spirituality of Patient [] Person of Deepthi [] Attends Zoroastrianism of their Deepthi [] Believes in Prayer [] Reads Bible or Orthodoxy materials [] There are Spiritual issues to be addressed Strawhat Blocking Operator Interventions [] Prayer [] Active listening [] Non-anxious presence [] Spiritual/emotional support [] Crisis/trauma care [] Spiritual counseling [] Bereavement support [] Provided bereavement packet [] Provided Bible/devotional materials [] Provided toy/stuffed animal, coloring book to patient or family member [] Provided Communion [] Anointing/[place] [] Salvation [] Completed spiritual assessment [] Other: Impact on Illness or Injury [] Angry [] Fearful [] Anxious [] Often cries [] Exhaustion [] Unable to work [] Unable to attend alevism [] Unable to walk/stand [] Unable to read [] Unable to drive [] Unable to eat/drink [] Unable to sleep [] Unable to be with family [] Patient intubated [] Other: Summary Pt's present and appeared to be dressing pt. Pt was sitting up in a chair and indicated he was going home today. Strawhat Blocking Operator cut visit short since it did not seem like either Pt or SO wanted to talk but didn't want to be rude and tell front desk agent to go away. Time spent with patient 3 m
--- NOTE | 2021-01-14 11:03 | P.DS_ITS ---
Discharge Providers Date of Admission: 01/13/21 18:00 Date of Discharge: January 14, 2021 Attending Provider at Admission: Jadiel Felton Attending Provider at Discharge: Javier Justin MD Primary Care Provider: Sam Chaudhari MD Diagnoses at Discharge Discharge Diagnosis (1) Lesion of bone of thoracic spine: Status: Acute (2) Lesion of bone of lumbosacral spine: Status: Acute (3) Numbness in left leg: Status: Acute Reason for Visit Reason for Visit: FEVER,WEAKNESS Hospital Course Hospital Course 85-year-old male with a past medical history significant for atrial fibrillati on, hypertension, BPH, hyperlipidemia, coronary disease with history of CABG, metastatic lung cancer 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 Temperature 102 was noticed at home. He did not experience any worsening of shortness of breath, productive cough nausea, vomiting or diarrhea. He has history of chronic hyponatremia sodium 127 at the time of admission. Procalcitonin 4.17 Covid antigen negative. Urine antigens, sputum culture, MRSA nares negative blood cultures sterile. Chest x-ray consistent with left lung base pneumonia. He was discharged home with Levaquin. He remained afebrile after an isolated event of fever 100.0 He was due to see orthopedics on 01/13 outpatient, hence Dr. Lay was consulted. He recommended radiotherapy for spine metastases with radiculopathy. At the time of discharge he was given Decadron, gabapentin and opioids for neuropathic pain. He will follow up with Dr. Munroe. Patient does not exhibit any signs of spinal cord compression, he does have lower extremity numbness and weakness which is due to radiculopathy, he did not exhibit any signs of urinary incontinence or sensory deficit of legs. We did discuss high risk of falls in future and risk of bleeding with use of rivaroxaban. and Mrs. Samayoa were present in the room during this conversation and they both agreed to continue rivaroxaban for now and in case of further worsening of his gait he might stop taking rivaroxaban. Physical Exam Narrative: EXAM NARRATIVE: Patient was sitting comfortably in his chair Saturating well on room air No audible stridor or wheezing Abdomen soft Lower extremity weakness, proximal muscle weakness No active focal deficit Abdomen soft Awake alert 20x3 GCS 15 at the bedside Discharge Data Data Completed and Pending: Completed Studies During Hospitalization Category Date Time Status XR chest 1V omer ble 23235 Urgent Exams 01/12/21 00:53 Completed Pending at discharge Category Date Time Status Bacterial Antigen Stat Lab 01/12/21 19:24 Results Blood Culture Sta t Lab 01/12/21 01:10 Results Legionella Antige n STAT Stat Lab 01/12/21 19:24 Results Sputum Culture an d Gram Stain Stat Lab 01/12/21 11:50 Results Urine Culture Sta t Lab 01/12/21 19:24 Results Vancomycin Trough Timed Lab 01/14/21 12:00 Ordered Labs from last 24 hours 01/14/21 01/14/21 01/14/21 00:37 00:37 00:37 WBC 4.7 RBC 3.62 L Hgb 11.8 Hct 35.8 L MCV 98.9 H MCH 32.6 MCHC 33.0 RDW 15.8 H Plt Count 126 L MPV 9.4 Neut % (Auto) 85.4 Lymph % (Auto) 9.2 Ramsey % (Auto) 4.1 Eos % (Auto) 0.0 Baso % (Auto) 0.2 Neut # (Auto) 4.00 Lymph # (Auto) 0.4 L Ramsey # (Auto) 0.2 Eos # (Auto) 0.0 Baso # (Auto) 0.0 Nucleated RBC % (a uto) 0 Nucleated RBCs # 0.0 Sodium 127 L Potassium 4.1 Chloride 100 Carbon Dioxide 19 L Anion Gap 12.1 BUN 19 Creatinine 0.8 GFR Calculation Not Reportable Glucose 167 H Calculated Osmolal ity 270 L Calcium 7.9 L Procalcitonin 3.83 H Vancomycin Trough Cancelled Nasal/Oral COVID-1 9 PCR 01/13/21 01/12/21 07:43 01:20 WBC RBC Hgb Hct MCV MCH MCHC RDW Plt Count MPV Neut % (Auto) Lymph % (Auto) Ramsey % (Auto) Eos % (Auto) Baso % (Auto) Neut # (Auto) Lymph # (Auto) Ramsey # (Auto) Eos # (Auto) Baso # (Auto) Nucleated RBC % (a uto) Nucleated RBCs # Sodium Potassium Chloride Carbon Dioxide Anion Gap BUN Creatinine GFR Calculation Glucose Calculated Osmolal ity Calcium Procalcitonin 2.91 H Vancomycin Trough Nasal/Oral COVID-1 9 PCR Not detected Vitals: Last Vital Signs Temp 97.6 F 01/14/21 07:35 Pulse 85 01/14/21 08:22 Resp 20 H 01/14/21 08:22 BP 114/72 01/14/21 07:35 Pulse Ox 91 01/14/21 08:22 Discharge Plan Discharge Patient Disposition: Home Condition: Stable Prescriptions: New levofloxacin 750 mg tablet 750 mg PO DAILY 7 Days Qty: 7 RF: 0 albuterol sulfate 90 mcg/actuation HFA aerosol inhaler 2 inh inhalation Q6H PRN (Reason: shortness of breath or wheezing) Qty: 6.7 RF: 0 Senna Laxative 8.6 mg tablet 8.6 mg PO DAILY Qty: 10 RF: 0 Decadron 4 mg tablet 2 mg PO DAILY Qty: 10 RF: 0 gabapentin 100 mg capsule 100 mg PO Q8H Qty: 30 RF: 0 Continued tamsulosin 0.4 mg capsule 0.4 mg PO BEDTIME RF: 0 Xarelto 20 mg tablet 20 mg PO QPM RF: 0 Hold Instructions: Resume on 10/20/20. nitroglycerin [Nitrostat] 0.4 mg tablet, sublingual 0.4 mg SUBLINGUAL Q5M PRN (Reason: Chest Pain) RF: 0 famotidine [Pepcid] 20 mg Tablet 20 mg PO BID RF: 0 polyethylene glycol 3350 [Miralax] 17 gram/dose Powder 17 g PO DAILY PRN (Reason: Constipation) RF: 0 cholecalciferol (vitamin D3) [Vitamin D3] 50 mcg (2,000 unit) Tablet 50 mcg PO DAILY RF: 0 ondansetron HCl [Zofran] 4 mg tablet 4 mg PO Q6H PRN (Reason: nausea and vomiting) Qty: 20 RF: 0 folic acid 1 mg tablet 1 mg PO DAILY RF: 0 metoprolol succinate 50 mg tablet extended release 24 hr 25 mg PO BEDTIME RF: 0 Discharge Orders: Discharge Order (Routine); Ordered 01/14/21 Ordered By: Javier Justin Referrals: Sam Chaudhari MD [Primary Care Provider] - 01/22/21 10:00 am Catalina Munroe MD [Staff Physician] - 01/16/21 8:30 am Discharge Diet: Advance as tolerated Discharge Activity: Increase activity as tolerated, Use walker/crutches as instructed and As per PT/OT instructions Patient Instructions: Albuterol (By breathing), Laxative, Stool Softeners (By mouth), Gabapentin (By mouth), Levofloxacin (By mouth), Dexamethasone (By mouth), Fever in Adults (ED), Pneumonia (GEN), Opioid Safety, Pneumonia Stoplight Activity Restrictions/Additional Instructions: Antibiotics as directed. Please take steroids for your spine metastases and back pain I am also adding gabapentin for nerve pain management, steroids would help decrease the swelling, adding senna laxative for constipation finish 7 days of antibiotic Discharge Attestations Time Spent in Discharge Care*: less than 30 min Quality Metrics Clinical Quality Measures During this hospital stay, did patient experience: None Coding Level of Care Code Acute [facility] note Diagnoses Lesion of bone of thoracic spine M89.9 Lesion of bone of lumbosacral spine M89.9 Numbness in left leg R20.0
--- NOTE | 2021-01-14 12:42 | PC.NURSE ---
PT HAS DONE WELL FOR ME TODAY. NO COMPLAINTS OF PAIN. PT WILL DISCHARGE TODAY PER HOSPITALIST. PT IS READY TO GO HOME. DISCHARGE PAPERWORK WAS GONE OVER WITH PT AND HIS . ALL QUESTIONS ANSWERED. PRESCRIPTIONS SENT TO PHARMACY OF PTS CHOICE. IV WAS REMOVED. PT TOLERATED WELL. CATHETER TIP INTACT. PT WANTS TO STAY THROUGH LUNCH. AFTER LUNCH IS FINISHED PT WILL GO HOME WITH .
--- NOTE | 2021-01-14 13:05 | PC.NURSE ---
PT SAFELY WHEELED OUT BY THIS NURSE.
--- NOTE | 2021-01-15 11:35 | PC.SOCIAL ---
discharge follow up call made. spoke with patient and pts . patient reports he is feeling better since he is home but still not feeling great. continues to have numbness in leg and hand and this seems to keep him awake and bother him. spoke with pts regarding medications. new medications received from the pharmacy, patient is taking as directed. questions if its ok to give oxycodone for pain, nurse advised pt to take oxycodone. per patient is having a hard time sleeping, she is going to discuss with Dr. Munroe today about a sleeping pill. is aware of follow up appointment dates and times. denies any other questions or concerns.
--- NOTE | 2021-01-17 15:20 | PC.RESP ---
PULMONARY REHAB INFORMATION SENT TO PATIENT.
== END 2021-01-14 13:06 | disposition home or self-care (01) | DRG 194 ==
LOC: ER 05:47 → MEDSURG 08:31
PROVIDERS: Internal Medicine; Absent Provider Internal Medicine Hematology & Oncology; Admitting Provider Hospitalist; Emergency Provider Emergency Medicine; PCP Family Medicine; Visit Provider Internal Medicine
DX: J18.9 Pneumonia, unspecified organism (principal); C34.90 Malignant neoplasm of unspecified part of unspecified bronchus or lung; C78.7 Secondary malignant neoplasm of liver and intrahepatic bile duct; C79.51 Secondary malignant neoplasm of bone; E22.2 Syndrome of inappropriate secretion of antidiuretic hormone; G89.3 Neoplasm related pain (acute) (chronic); Z79.899 Other long term (current) drug therapy; I25.10 Atherosclerotic heart disease of native coronary artery without angina pectoris; Z95.1 Presence of aortocoronary bypass graft; I48.91 Unspecified atrial fibrillation; I10 Essential (primary) hypertension; N40.0 Benign prostatic hyperplasia without lower urinary tract symptoms; E78.2 Mixed hyperlipidemia; Z86.73 Personal history of transient ischemic attack (TIA), and cerebral infarction without residual deficits; Z87.891 Personal history of nicotine dependence; Z79.01 Long term (current) use of anticoagulants; Z79.891 Long term (current) use of opiate analgesic; Z92.3 Personal history of irradiation
CPT/HCPCS: 36415; 71045; 80048; 80053; 81001; 83605; 84145; 85025; 86140; 86403; 87040; 87070; 87086; 87205; 87426; 87449; 87635; 87641; 96360; 96372; 99285; G0378; J1644; J2405; J2543; J2920; J3370; J7030

== ENCOUNTER 2021-01-16 08:26 | Outpatient (RCR) | payer MEDICARE, SELFPAY ==
[2021-01-16] MEDS: sodium chloride 0.9% 500 ML 999 ML IV (09:00)
[2021-01-16 09:17] LABS: Basophils % 0.2 %; Eosinophils % 0.9 %; Hematocrit 35.2 % (42.0-52.0); Hemoglobin 11.5 g/dL (11.7-16.6); Lymphocytes # 0.3 10^3/uL (0.8-4.8); Lymphocytes % 6.6 %; Mean Corpuscular HGB Conc 32.7 g/dL (30.0-36.0); Mean Corpuscular Hemoglobin 32.9 pg (28.0-34.0); Mean Corpuscular Volume 100.6 fl (80-94); Mean Platelet Volume 9.2 fL (7.4-10.4); Monocytes # 0.2 10^3/uL (0.2-0.9); Monocytes % 3.9 %; Neutrophils # 3.87 10^3/uL (1.8-7.7); Neutrophils % 87.7 %; Nucleated Red Blood Cells % 0 %; Platelet Count 148 10^3/cmm (130-400); Red Cell Distribution Width 16.5 % (12.1-15.1); White Blood Count 4.4 10^3/uL (4.0-10.0)
[2021-01-16 09:43] LABS: Alanine Aminotransferase 36 U/L (0-41); Albumin Level 2.2 g/dL (3.5-5.2); Alkaline Phosphatase 114 IU/L (40-130); Aspartate Amino Transferase 34 U/L (0-40); Blood Urea Nitrogen 18 mg/dL (8-23); Calcium 8.3 mg/dL (8.5-10.5); Carbon Dioxide 21 mmol/L (22-29); Chloride 97 mmol/L (98-107); Globulin 2.8 g/dL (1.3-4.6); Glucose 102 mg/dL (65-115); Osmolality Calculated 266 mOsm/kg (285-295); Sodium 127 mmol/L (136-145); Total Bilirubin 0.5 mg/dL (0.15-1.2)
[2021-01-16 09:44] LABS: Anion Gap 13.4 (5-19); Potassium 4.4 mmol/L (3.5-5.1)
--- NOTE | 2021-01-16 17:29 | ONC FU_ITS ---
Dr. Munroe follow up note Patient: Eugene Samayoa Unit #: [id number]: 1935 Dicatated By: Catalina Munroe M.D.Date of Visit:Jan 16, 2021 Onc Med Follow-up/Prog Note History of Present Illness: Mr. Eugene Samayoa, is a 85-year-old gentleman with history of acute abdominal pain for which he went to [facility] on October 15, [address] scan of abdomen pelvis on October 15, 2020 which showed large bowel distention with swirling in the mid mesentery and tortuous tapering sigmoid colon suspicious for sigmoid volvulus. Heterogeneously enhancing enlarged prostate. Tiny right pleural effusion with slight interstitial thickening in the right lower lobe. Several low attenuation lesions in the liver with peripheral enhancement suspicious for metastatic disease. Largest lesion right hepatic lobe measuring 2.7 x 2.1 cm compared to scan done in 2015 this was new ultrasound liver done on October 15, 2020 confirmed hepatic lesions varying. As per patient prior to his visit to [facility] he went to see his PMD with diarrhea and worsening of abdominal pain, subsequently developed severe constipation and for which he went to [facility] as mentioned above. Patient was referred to Dr. Sherman who did colonoscopy on October 17, 2020 and his impression was there was no abnormality seen but patient had tortuous colon raising possibility of volvulus seen on prior CT scan but not noted on colonoscopy. Because of extensive lesion seen in the liver, patient underwent sonogram guided liver biopsy on October 17, 2020 and as per pathology it was metastatic adenocarcinoma and immunohistochemistry was positive TTF-1, CK7, CK 8/18 but negative for CK20, as per pathology was suggestive of lung being primary with metastatic disease to the liver Molecular profiling on liver biopsy showed positive for ALK rearrangement but negative for c-Met bereket-oncogene amplification, ROS1, EGFR, On October 28, 2020 patient went back to [facility] with progressive abdominal pain radiating to his back and patient underwent CTA chest on October 28, 2020 which showed significant mediastinal and hilar lymphadenopathy. Confluent adenopathy noted beginning along the right paratracheal region within the right paratracheal fat. Increased lymph nodes at AP window and extending into the subcarinal measuring 3.9 x 6.2 cm. There is encasement and narrowing of right main stem bronchus and the right lower lobe and bronchus intermedius. Only partial encasement without narrowing of right upper lobe bronchus. There is a partial encasement of distal SVC. Encasement of right lower lobe pulmonary artery.. Mild increased density within T11 vertebral body there is also lucency within the inferior endplate of T11 Metastatic disease to the liver have increased in size and number since October 15, 2020 CT PET scan done on November 02, 2020 shows a 3.9 x 6.1 cm right lower lobe mass invades into mediastinum with SUV of 12.4, consistent with described adenocarcinoma. A small right pleural effusion is present. Multiple FDG positive mediastinal lymph nodes in the right paratracheal, anterior mediastinal, subcarinal, left paratracheal territories. The index right paratracheal lymph node measured 2.3 cm with SUV of 10.6. A posterior right hepatic lobe mass measuring 4.1 x 5.0 cm with SUV of 8.8 consistent with biopsied lesion. No additional hepatic lesion present. Multifocal osseous metastatic disease is present in the bilateral posterior iliacs, and left pedicle of L4, activity at T11 is likely inflammatory from the compression fracture but pathological fracture from osseous metastatic disease is not excluded. Right cervical level 4 lymph node with SUV of 5.4 is metastatic. MRI scan of the head done on November 05, 2020 showed no evidence of brain mets. Patient is a former smoker, smoked for 30 years prior to quit smoking about 30 years ago. Occasional alcohol use. .Follow-up MRI scan of the lumbar spine area done on December 06, 2020 showed extensive disease throughout the thoracic and lumbar spines, most significant tumor encasement involve T11 and L4 and L5. There is a soft tissue tumor extension into epidural space at T11 and L4 with partial encasement of the thecal sac and extension into 4 mm on the left. No cord compression centrally. There has been progression of metastatic bone disease since CT PET scan done on November 02, 2020. Extensive metastatic lesion also noted within visualized pelvis and sacrum CT scan of C-spine done on 12/25/2020 shows no evidence of osseous metastatic disease in cervical spine. No high-grade central canal stenosis. Mild to moderate bony foraminal narrowing at right C3-4, left 4 5, left 5 6 and left 6 7. Mild central canal stenosis at C5-7. CT scan of thoracic spine done on 12/25/2020 shows diffuse osseous metastatic disease throughout the thoracic spine similar to appearance and recent lumbar spine MRI. No acute appearing compression fractures. Sclerotic metastatic worse at T5 and 7, T10-11 and involvement of the pedicles bilaterally at T11. Spinal canal appears patent. Started on crizotinib 250 mg p.o. twice daily on December 25, 2020 And put on hold January 07, 2021 because of progressive transaminases Came for follow-up, complaining of generalized weakness and fatigue but no more chills, no nausea or vomiting, no diarrhea constipation, persistent left leg numbness but no lower back pain, patient is on tapering dose of steroids which was started in the hospital during recent hospitalization for persistent left leg pain/numbness, patient was seen by orthopedics, as per patient he was told there is not much hope. Denies any mouth sores, denies any abdominal pain, denies any jaundice, denies any headaches blurred vision or double vision Medications: Acid Control Maximum Strength (20 mg) Tablet Oral b.i.d., Cholecalciferol (50 mcg ) Tablet Oral daily, Colace (100 mg) Capsule Oral daily PRN, Gabapentin 1 Tablet (of 100 mg) Capsule Oral t.i.d., levoFLOXacin 1 Tablet (of 750 mg) Oral daily, Metoprolol Succinate ER (50 mg) Tablet SR 24 HR Oral at bedtime, Nitroglycerin Tablet, sublingual Sublingual PRN, Ondansetron 1 Tablet (of 8 mg) Tablet Dispersable Oral q 8 hours, Ondansetron HCl 1 (4 mg) Tablet Oral PRN, Polyethylene Glycol 3350 (17 ) Powder Oral daily PRN, Rivaroxaban (20 mg) Tablet Oral at bedtime, Tamsulosin HCl (0.4 mg) Capsule Oral at bedtime Allergies: Atorvastatin Calcium and Rosuvastatin Calcium. Review of Systems: Review of Systems is not available for this patient. Vital Signs: Performed on Jan 16, 2021 10:17 Height - 72.00 in Temperature - 97.9 F (LOW) Pulse - 96 /min Respiration - 18 /min BP - 154/88 mm(hg) (HIGH) O2 Sat - 97 % Pain - 0 Fatigue - 10 Performance Status: 2 - Ambulatory/capable of all self-care, unable to perform any work activities. Up and about more than 50% of waking hours. (ECOG) Physical Examination: ENMT - No mouth sores, no thrush, no jaundice, Respiratory - Lungs are clear to auscultation, Cardiovascular - Regular rate and rhythm of heart, Abdomen - Soft, bowel sounds present, Extremities - 1+ edema bilaterally, No focal weakness. 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 Confluent cluster of lymph node is causing moderate narrowing and encasement of right hilar bronchoalveolar structures although no complete occlusion at this time. Metastatic lesion in the liver have increased in size and number since October 15, 2020. Increased density within T10-11 vertebral body and an associated lucency along the inferior endplate. CT PET scan done on November 02, 2020 showed FDG positive right lower lobe mass invading into mediastinum, malignant mediastinal lymph nodes and right cervical lymph node, hepatic metastatic disease. Multifocal osseous metastatic disease, T11 compression fracture with a possible inflammatory FDG uptake. Pathological fracture from osseous mass disease is not excluded. MRI scan of the head done on November 05, 2020 shows no brain mets PD-L1 less than 1% Guardant 360 showed TMB less than 10, MSI high, not detected, History of coronary artery disease status post CABG Emphysema Recent history of acute abdominal pain due to sigmoid volvulus, diagnosed on October 15, 2020, colonoscopy done on October 17, 2020 shows resolution of volvulus on its own Follow-up MRI scan of thoracic and lumbar spine done on December 06, 2020 showed extensive metastatic disease throughout the thoracic and lumbar spine, most significant tumoral encasement involving T11 and L4 on L5, there is soft tissue tumor extension into epidural space at T11 and L4 with partial encasement of thecal sac and extension into forearm and on the left. No cord compression centrally. There has been progression of metastatic bone disease since CT PET scan done on November 02, 2020, extensive metastatic lesion also noted within visualized pelvis and sacrum, patient was started on crizotinib 250 mg p.o. twice a day on December 25, 2020, 2020 as his molecular profile showed ALK rearrangement Patient was referred to radiation oncology for palliative radiation therapy, Which he completed with significant improvement in his mid back and lower back Plan: Discussed with patient regarding his labs white blood count 4.4 hemoglobin 11.5 hematocrit 35.2 platelets 148,000 CMP within normal limit except sodium 127 and albumin 2.2 and resolution of mild elevated transaminases Clinically, patient is doing reasonably well, in mild to moderate distress due to generalized weakness and fatigue and left leg numbness which is due to lumbar radiculopathy, patient was recently evaluated by orthopedics during his recent hospitalization with pneumonia and at that time as per patient he was told there is not much hope as far as left lumbar radiculopathy is concerned. Patient is on oral antibiotic Levaquin for pneumonia and yesterday he was having chills and shakes but no fever, at that time he was advised to go to hospital, there was a concern about persistent infection but there was no bed available in the hospital so patient was treated as outpatient and came back today feeling somewhat better, has chills and shakes have resolved but complaining of generalized weakness and fatigue which could be multifactorial due to poor oral intake and he is also on gabapentin could be due to steroid-induced., At this point we will continue supportive care and patient return to clinic on Wednesday with CBC CMP if lab work-up looks reasonable, and patient feels better, will restart him on crizotinib 250 mg once a day and if tolerated then titrate up to twice a day while monitoring his liver function test. As far as left leg numbness is concerned most likely due to lumbar radiculopathy patient recently underwent radiation therapy to the lumbar area but with some improvement, no more pain, case was discussed with Dr. Valverde radiation oncologist and his MRI scan of lumbar area was reviewed which shows possible compression of the nerve in the left lumbar vertebral area. He was referred to local orthopedics, as mentioned above patient was evaluated during recent hospitalization. So at this point will refer him to [place] orthopedics department for evaluation. Patient was advised in case there is a fever chills or mental status changes, he need to go to hospital immediately otherwise we will see him back on Wednesday with CBC CMP Signed By: Catalina Munroe M.D. <<Signature on File>>
== END 2021-01-16 16:30 | disposition home or self-care (01) ==
LOC: ONCMED 08:26
PROVIDERS: PCP Family Medicine; Visit Provider Internal Medicine Hematology & Oncology
DX: C34.01 Malignant neoplasm of right main bronchus (principal); C78.7 Secondary malignant neoplasm of liver and intrahepatic bile duct; C77.8 Secondary and unspecified malignant neoplasm of lymph nodes of multiple regions; I25.10 Atherosclerotic heart disease of native coronary artery without angina pectoris; Z95.5 Presence of coronary angioplasty implant and graft; J43.9 Emphysema, unspecified; Z79.899 Other long term (current) drug therapy; Z92.21 Personal history of antineoplastic chemotherapy; Z92.3 Personal history of irradiation
CPT/HCPCS: 80053; 85025; 96360; 99214; J7040

== ENCOUNTER 2021-01-16 16:36 | Inpatient (IN) | payer MEDICARE, SELFPAY ==
[2021-01-16] VITALS (15 sets, daily range): BP systolic 101–139; BP diastolic 65–93; PULSE 91–170; RESP 16–29; TEMP 37.8; O2SAT 94–96; BMI 24.4
--- NOTE | 2021-01-16 17:31 | ECG_ITS ---
[facility] Test Date: 2021-01-16 Pat Name: Eugene Samayoa Department: Room: Gender: Male [place]: : 1935 Requested By: Heath Nunez Order Number: [id number] Arley MD: Valentina Mock M.D. Measurements Intervals [place] Rate: 136 P: TX: QRS: 204 QRSD: 76 T: 45 QT: 275 QTc: 414 Interpretive Statements ATRIAL FIBRILLTION WITH RAPID VENTRICULAR RESPONSE INDETERMINATE AXIS POSSIBLE RIGHT VENTRICULAR CONDUCTION DELAY [RSR (QR) IN V1/V2] MINIMAL ST DEPRESSION [0.025+ mV ST DEPRESSION] Compared to ECG 11/03/2020 07:22:53 Indeterminate axis now present ST (T wave) deviation now present Atrial fibrillation no longer present Myocardial infarct finding no longer present Electronically Signed On 01-17-2021 9:35:45 CDT by Valentina Mock M.D. [id number]
--- NOTE | 2021-01-16 17:31 | XRR_ITS ---
PROCEDURE INFORMATION: Exam: XR Chest Exam date and time: 01/16/2021 5:31 PM Age: 85 years old Clinical indication: Cough and shortness of breath; Additional info: Covid pna TECHNIQUE: Imaging protocol: XR of the chest. Views: 1 view. COMPARISON: CR (CHEST, ) 01/12/2021 1:06 AM FINDINGS: Lungs: Multifocal patchy airspace disease right lung predominant new since comparison. Background emphysema. Pleural spaces: Unremarkable. No pleural effusion. No pneumothorax. Heart/Mediastinum: CABG. Cardiac silhouette is unremarkable. Bones/joints: Unremarkable. XR/XR chest 1V portable [id number] IMPRESSION: Worsening multifocal pneumonia. Radiation Dose CTDIVOL = (mGy): DLP = (mGy-cm)
--- NOTE | 2021-01-16 17:32 | CTR_ITS ---
PROCEDURE INFORMATION: Exam: CTA Chest With Contrast Exam date and time: 01/16/2021 5:32 PM Age: 85 years old Clinical indication: Shortness of breath; Additional info: Dyspnea, lung cancer TECHNIQUE: Imaging protocol: Computed tomographic angiography of the chest with contrast. 3D rendering (Not supervised by radiologist): MIP and/or 3D reconstructed images were created by the technologist. Radiation optimization: All CT scans at this facility use at least one of these dose optimization techniques: automated exposure control; mA and/or kV adjustment per patient size (includes targeted exams where dose is matched to clinical indication); or iterative reconstruction. Contrast material: OMNI 350; Contrast volume: 69 ml; Contrast route: INTRAVENOUS (IV); COMPARISON: CT angio chest 11/03/2020 8:06 AM RADIATION DOSE METRICS: Total DLP (mGy-cm): 571.08 FINDINGS: Pulmonary arteries: Normal. No pulmonary emboli. Aorta: Unremarkable. No aortic aneurysm. No aortic dissection. Lungs: Scattered ground-glass lesions throughout both lungs most significant in the right upper lobe. Negative for endobronchial obstruction. Pleural spaces: Moderate volume right pleural effusion. Small volume left pleural effusion. Heart: Mild degree of multichamber cardiac enlargement. Negative for pericardial effusion. Previous CABG. Mediastinal space: No thoracic esophageal wall thickening identified. Lymph nodes: Mildly prominent subcarinal lymph node. Liver: Multiple large low-attenuation liver lesions are present. Bones/joints: No acute thoracic fractures are identified. Multifocal patchy, somewhat hazy sclerotic mineralization changes involving multiple thoracic vertebral bodies which have become more prominent than comparison imaging. Soft tissues: Unremarkable. Other findings: Mild increase in right hilar soft tissue density. Background emphysema. CT/CT angio chest PE protcl [id number] IMPRESSION: 1. Fluid overload changes in the chest. 2. Multifocal ground-glass opacities in the lungs may represent pneumonia or pulmonary edema. 3. Significant regression of mediastinal lymphadenopathy and right perihilar soft tissue mass compared to the prior imaging. 4. Multiple liver masses are redemonstrated, however difficult to characterize secondary to the phase of contrast. The lesions are probably larger than comparison 11/03/2020. A restaging exam with dedicated CT abdomen and pelvis recommended when clinically indicated. 5. Multifocal sclerotic bone lesions in the thoracic spine are more prominent than prior imaging consistent with osseous metastatic disease. Radiation Dose CTDIVOL = (mGy): DLP = 571.08 (mGy-cm)
[2021-01-16 17:59] LABS: ABG PCO2 27.5 mmHg (35-45); ABG PH Result 7.52 (7.35-7.45); Arterial Blood Gas Hematocrit 41.2 % (42-52); Base Excess ABG 0.7 mmol/L (-2.0-2.0); Blood Gas Operator Identificat glc; Blood Gas Sample Site Brachial, right; Blood Gas Sample Type Arterial; HCO3 ABG 22.5 mmol/L (22-26); Oxygen Device ROOM AIR; PO2 ABG 54.7 mmHg (80.0-100.0)
--- NOTE | 2021-01-16 18:19 | ED_ITS ---
HPI - General Adult General: Chief complaint: Fever Stated complaint: FEVER Time Seen by Provider: 01/16/21 17:31 History of Present Illness: HPI narrative: Patient is an 85-year-old male with history of stage IV lung cancer with mets to the bones presenting to emergency room for evaluation of acute dyspnea in the setting of recent hospitalization for pneumonia. Patient was admitted to the hospital on 01/12/2021 and discharged home on 01/14/2021 for treatment of pneumonia. Patient was discharged with Levaquin. However despite taking his antibiotics, patient has noticed increasing shortness of breath, leg swelling, fever at home. Patient was then told by Dr. Munroe to come to the emergency room for possible nonimprovement pneumonia symptoms. Patient denies any diarrhea, cough, sore throat, abdominal complaints or complaints. Patient's last chemotherapy and radiation treatment was over 2 weeks ago. Onset: 3 days ago Duration:3 days Location:home Severity:moderate Review of Systems Narrative: Constitutional: +fever, +chills. HEENT: No vision changes CV: No chest pain, no palpitations PULM: +cough, +dyspnea. GI: No abdominal pain, no N/V/D. : No dysuria MSKEL: No muscle pain SKIN: No new rashes, no lesions. NEURO: No headache, no focal weakness. HEME: No visible bruises PSYCH: Normal mood PFSH ED PFSH: Medical History Atherosclerotic heart disease of [place] coronary artery without angina pectoris Atrial fibrillation Benign essential HTN BPH (benign prostatic hyperplasia) CAD (coronary artery disease) Emphysema lung Mixed hyperlipidemia TIA (transient ischemic attack) Surgical History H/O esophagogastroduodenoscopy History of coronary artery stent placement Hx of CABG Status post colonoscopy (10/17/20) Status post right inguinal hernia repair Family History Father CAD (coronary artery disease) Brother CAD (coronary artery disease) Sister CAD (coronary artery disease) Cancer Other Hyperlipidemia Denies family history of Diabetes Clotting disorder Dementia Chronic kidney disease (CKD) Suicide Anesthesia complication Bleeding disorder Lung disease Stroke Social History Smoking and tobacco status: former smoker Quit status (tobacco): has quit using tobacco Year quit tobacco: 1989 Former quit date comment: Hx of 1 PPD x 30 Years Second hand smoke exposure: No Smoking risk assessment/counseling performed?: No Alcohol intake: never Counseling given: No Counseling given: No Lives independently: Yes Household members: spouse Marital status: Current occupational status: retired History of recent travel: No Current gender identity: Male Physical Exam Narrative: EXAM NARRATIVE: Head: Atraumatic Eyes: PERRL, conjunctiva without injection ENT: Mucous membrane moist NECK: Supple, ROM intact LUNGS: Coarse breath sounds bilaterally CV: Irregularly irregular rhythm ABDOMEN: Soft, nontender in all quadrants EXTREMITY: Normal ROM, 2+ pitting edema b/l SKIN: No rash or erythema NEURO: Awake and alert, no focal motor deficits PSYCH: Normal mood and affect Course Vital Signs: Vital signs: Vital Signs Temperature 97.8 F 01/17/21 11:37 Pulse Rate 91 01/17/21 19:00 Respiratory Rate 23 H 01/17/21 19:00 Blood Pressure 97/48 01/17/21 19:00 Pulse Oximetry 93 01/17/21 19:00 MDM - General Adult MDM Narrative: Medical decision making narrative: 85-year-old male with a history of stage IV lung cancer presenting to the emergency room for acute dyspnea in the setting of recent position for pneumonia. On exam, patient is febrile to 100 degrees, in atrial fibrillation with RVR to the 120s. Patient on exam appears to be dry and has coarse breath sounds bilaterally. 2+ lower extremity noted. Hx and presentation concerning for worsening pneumonia in the setting of immunocompromise and lung cancer. Workup: sepsis, PNA Intervention: 500c of IVF, tylenol, vancomycin and cefepime Chest x-ray is concerning for worsening multifocal pneumonia. Patient will be admitted to the hospital for further evaluation of sepsis and pneumonia. Disposition: Admission Lab Data: Labs: Lab Results 01/16/21 01/16/21 01/16/21 17:30 17:30 17:30 WBC 3.9 10^3/uL L 10^ 3/uL (4.0-10.0) RBC 3.33 10^6/uL L 10 ^6/uL (4.1-5.3) Hgb 10.8 g/dL L g/dL (11.7-16.6) Hct 31.4 % L % (42.0-52.0) MCV 94.3 fl H D fl (80-94) MCH 32.4 pg pg (28.0-34.0) MCHC 34.4 g/dL D g/dL (30.0-36.0) RDW 16.1 % H % (12.1-15.1) Plt Count 118 10^3/cmm L 10 ^3/cmm (130-400) MPV 9.1 fL fL (7.4-10.4) Neut % (Auto) 89.7 % % Lymph % (Auto) 4.6 % % [place] % (Auto) 4.1 % % Eos % (Auto) 0.5 % % Baso % (Auto) 0.3 % % Neut # (Auto) 3.48 10^3/uL 10^3 /uL (1.8-7.7) Lymph # (Auto) 0.2 10^3/uL L 10^ 3/uL (0.8-4.8) [place] # (Auto) 0.2 10^3/uL 10^3/ uL (0.2-0.9) Eos # (Auto) 0.0 10^3/uL 10^3/ uL (0.0-0.8) Baso # (Auto) 0.0 10^3/uL 10^3/ uL (0.0-0.1) Nucleated RBC % (a uto) 0 % % Nucleated RBCs # 0.0 /100WBC /100W BC Specimen Type Sample Site ABG pH ABG pCO2 ABG pO2 ABG HCO3 ABG Base Excess Joey Test Hematocrit O2 Delivery Device FiO2 Adobe Layer Helper ID Sodium 126 mmol/L L mmol /L (136-145) Potassium 4.4 mmol/L mmol/L (3.5-5.1) Chloride 98 mmol/L mmol/L (98-107) Carbon Dioxide 20 mmol/L L mmol/ L (22-29) Anion Gap 12.4 (5-19) BUN 16 mg/dL mg/dL (8-23) Creatinine 0.8 mg/dL mg/dL (0.7-1.2) GFR Calculation Not Reportable Glucose 149 mg/dL H mg/dL (65-115) Calculated Osmolal ity 266 mOsm/kg L mOs m/kg (285-295) Lactic Acid 2.1 mmol/L mmol/L (0.5-2.2) Lactic Acid (Sepsi s) Calcium 7.4 mg/dL L mg/dL (8.5-10.5) Total Bilirubin 0.5 mg/dL mg/dL (0.15-1.2) AST 32 U/L U/L (0-40) ALT 33 U/L U/L (0-41) Alkaline Phosphata se 109 IU/L IU/L (40-130) Lactate Dehydrogen ase 370 U/L H U/L (135-225) Creatine Kinase 31 U/L L U/L (39-308) Troponin T Gen 5 n g/L C-Reactive Protein 103.6 mg/L H mg/L (0.0-4.9) NT-Pro-B Natriuret Pep 1074 pg/mL H pg/m L (0-450) Total Protein 3.9 g/dL L D g/dL (6.6-8.7) Albumin 2.3 g/dL L g/dL (3.5-5.2) Globulin 1.6 g/dL g/dL (1.3-4.6) Lipase 8 U/L L U/L (13-60) Procalcitonin 3.30 ng/mL H ng/m L (0-0.5) 01/16/21 01/16/21 01/16/21 17:30 17:50 21:28 WBC RBC Hgb Hct MCV MCH MCHC RDW Plt Count MPV Neut % (Auto) Lymph % (Auto) [place] % (Auto) Eos % (Auto) Baso % (Auto) Neut # (Auto) Lymph # (Auto) [place] # (Auto) Eos # (Auto) Baso # (Auto) Nucleated RBC % (a uto) Nucleated RBCs # Specimen Type Arterial Sample Site Brachial, right ABG pH 7.52 H (7.35-7.45) ABG pCO2 27.5 mmHg L mmHg (35-45) ABG pO2 54.7 mmHg L mmHg (80.0-100.0) ABG HCO3 22.5 mmol/L mmol/ L (22-26) ABG Base Excess 0.7 mmol/L mmol/L (-2.0-2.0) Joey Test N/a Hematocrit 41.2 % L % (42-52) O2 Delivery Device Room air FiO2 21.0 % % Adobe Layer Helper ID glc Sodium Potassium Chloride Carbon Dioxide Anion Gap BUN Creatinine GFR Calculation Glucose Calculated Osmolal ity Lactic Acid Lactic Acid (Sepsi s) 1.3 mmol/L mmol/L (0.5-2.2) Calcium Total Bilirubin AST ALT Alkaline Phosphata se Lactate Dehydrogen ase Creatine Kinase Troponin T Gen 5 n g/L 14 ng/L ng/L (0-15) C-Reactive Protein NT-Pro-B Natriuret Pep Total Protein Albumin Globulin Lipase Procalcitonin Imaging Data^: Other Imaging: Radiologist's impression: [employer] [place], [place] [address]PFxv ReportSigned Patient: Eugene Samayoa #: [id number]: [id number]#:[id number]/Sex: 85 / MADM Date: 01/16/21Loc: ERRoom/Bed:Attending Dr: Ordering Provider/Ordering MD: Heath Nunez MD Date of Service: 01/16/21 Procedure(s): XR chest 1V portable [id number] Accession Number(s): [id number] Report Number: [id number] PROCEDURE INFORMATION: Exam: XR Chest Exam date and time: 01/16/2021 5:31 PM Age: 85 years old Clinical indication: Cough and shortness of breath; Additional info: Covid pna TECHNIQUE: Imaging protocol: XR of the chest. Views: 1 view. COMPARISON: CR (CHEST, ) 01/12/2021 1:06 AM FINDINGS: Lungs: Multifocal patchy airspace disease right lung predominant new since comparison. Background emphysema. Pleural spaces: Unremarkable. No pleural effusion. No pneumothorax. Heart/Mediastinum: CABG. Cardiac silhouette is unremarkable. Bones/joints: Unremarkable. XR/XR chest 1V portable [id number] IMPRESSION: Worsening multifocal pneumonia. Radiation Dose CTDIVOL = (mGy): DLP = (mGy-cm) Dictated By:Ramiro FrancoisinSgibran By:Ramiro FrancoisinSgibran Date/Time:01/16/21 1825DD/ [address] [employer] [place], [place] [address]CQ Scan ReportSigned Patient: Eugene Samayoa #: [id number]: [id number]#:[id number]/Sex: 85 / MADM Date: 01/16/21Loc: ERRoom/Bed:Attending Dr: Ordering Provider/Ordering MD: Heath Nunez MD Date of Service: 01/16/21 Procedure(s): CT angio chest PE protcl [id number] Accession Number(s): [id number] Report Number: [id number] PROCEDURE INFORMATION: Exam: CTA Chest With Contrast Exam date and time: 01/16/2021 5:32 PM Age: 85 years old Clinical indication: Shortness of breath; Additional info: Dyspnea, lung cancer TECHNIQUE: Imaging protocol: Computed tomographic angiography of the chest with contrast. 3D rendering (Not supervised by radiologist): MIP and/or 3D reconstructed images were created by the technologist. Radiation optimization: All CT scans at this facility use at least one of these dose optimization techniques: automated exposure control; mA and/or kV adjustment per patient size (includes targeted exams where dose is matched to clinical indication); or iterative reconstruction. Contrast material: OMNI 350; Contrast volume: 69 ml; Contrast route: INTRAVENOUS (IV); COMPARISON: CT angio chest 11/03/2020 8:06 AM RADIATION DOSE METRICS: Total DLP (mGy-cm): 571.08 FINDINGS: Pulmonary arteries: Normal. No pulmonary emboli. Aorta: Unremarkable. No aortic aneurysm. No aortic dissection. Lungs: Scattered ground-glass lesions throughout both lungs most significant in the right upper lobe. Negative for endobronchial obstruction. Pleural spaces: Moderate volume right pleural effusion. Small volume left pleural effusion. Heart: Mild degree of multichamber cardiac enlargement. Negative for pericardial effusion. Previous CABG. Mediastinal space: No thoracic esophageal wall thickening identified. Lymph nodes: Mildly prominent subcarinal lymph node. Liver: Multiple large low-attenuation liver lesions are present. Bones/joints: No acute thoracic fractures are identified. Multifocal patchy, somewhat hazy sclerotic mineralization changes involving multiple thoracic vertebral bodies which have become more prominent than comparison imaging. Soft tissues: Unremarkable. Other findings: Mild increase in right hilar soft tissue density. Background emphysema. CT/CT angio chest PE protcl [id number] IMPRESSION: 1. Fluid overload changes in the chest. 2. Multifocal ground-glass opacities in the lungs may represent pneumonia or pulmonary edema. 3. Significant regression of mediastinal lymphadenopathy and right perihilar soft tissue mass compared to the prior imaging. 4. Multiple liver masses are redemonstrated, however difficult to characterize secondary to the phase of contrast. The lesions are probably larger than comparison 11/03/2020. A restaging exam with dedicated CT abdomen and pelvis recommended when clinically indicated. 5. Multifocal sclerotic bone lesions in the thoracic spine are more prominent than prior imaging consistent with osseous metastatic disease. Radiation Dose CTDIVOL = (mGy): DLP = 571.08 (mGy-cm) Dictated By:Glo Francois By:Glo Francois Date/Time:01/16/211937DD/ 31 Discharge Plan Discharge Patient Disposition: Admitted As Inpatient Admit Provider: Romana Garay Clinical Impression: Pneumonia, Sepsis, Acute dyspnea, Atrial fibrillation with RVR Condition: Stable Coding Level of Care Code ED Life Agent for Teagan Lubin
[2021-01-16] MEDS: dexamethasone 4 mg/mL INJ 6 MG IVP (18:36)
[2021-01-16] MEDS: sodium chloride 0.9% 500 ML IV (18:40)
[2021-01-16] MEDS: azithromycin 250 mg Tablet 500 MG PO (18:44)
[2021-01-16] MEDS: acetaminophen 500 mg Tablet 1000 MG PO (18:44)
[2021-01-16] MEDS: cefepime 1,000 MG in sodium chloride 0.9% (plus) 50 ML 100 MG IV (18:54)
--- NOTE | 2021-01-16 19:08 | PC.NURSE ---
cardiac monitoring initiated upon patient's arrival into room
[2021-01-16] MEDS: iohexol 350 mg/mL 100 mL Btl IV (19:16)
[2021-01-16] MEDS: metoprolol tartrate 1 mg/1 mL SDV 5 mL 5 MG IVP (19:26)
[2021-01-16 19:43] LABS: Basophils % 0.3 %; Eosinophils % 0.5 %; Hematocrit 31.4 % (42.0-52.0); Hemoglobin 10.8 g/dL (11.7-16.6); Lymphocytes # 0.2 10^3/uL (0.8-4.8); Lymphocytes % 4.6 %; Mean Corpuscular HGB Conc 34.4 g/dL (30.0-36.0); Mean Corpuscular Hemoglobin 32.4 pg (28.0-34.0); Mean Platelet Volume 9.1 fL (7.4-10.4); Monocytes # 0.2 10^3/uL (0.2-0.9); Monocytes % 4.1 %; Neutrophils # 3.48 10^3/uL (1.8-7.7); Neutrophils % 89.7 %; Nucleated Red Blood Cells % 0 %; Platelet Count 118 10^3/cmm (130-400); Red Blood Count 3.33 10^6/uL (4.1-5.3); Red Cell Distribution Width 16.1 % (12.1-15.1); White Blood Count 3.9 10^3/uL (4.0-10.0)
[2021-01-16 19:57] LABS: Mean Corpuscular Volume 94.3 fl (80-94)
[2021-01-16] MEDS: vancomycin 1,000 MG in sodium chloride 0.9% 250 ML 250 MG IV (20:02)
[2021-01-16 20:04] LABS: Troponin T (5th) Once 14 ng/L (0-15)
[2021-01-16 20:06] LABS: Lactic Sepsis W/Reflex 2.1 mmol/L (0.5-2.2)
[2021-01-16 20:14] LABS: NT Pro B Type Natriuretic Pept 1074 pg/mL (0-450)
[2021-01-16 20:46] LABS: Alanine Aminotransferase 33 U/L (0-41); Albumin Level 2.3 g/dL (3.5-5.2); Alkaline Phosphatase 109 IU/L (40-130); Anion Gap 12.4 (5-19); Aspartate Amino Transferase 32 U/L (0-40); Blood Urea Nitrogen 16 mg/dL (8-23); C Reactive Protein 103.6 mg/L (0.0-4.9); Calcium 7.4 mg/dL (8.5-10.5); Carbon Dioxide 20 mmol/L (22-29); Chloride 98 mmol/L (98-107); Creatine Phosphokinase 31 U/L (39-308); Globulin 1.6 g/dL (1.3-4.6); Glucose 149 mg/dL (65-115); Lactate Dehydrogenase 370 U/L (135-225); Lipase 8 U/L (13-60); Osmolality Calculated 266 mOsm/kg (285-295); Potassium 4.4 mmol/L (3.5-5.1); Sodium 126 mmol/L (136-145); Total Bilirubin 0.5 mg/dL (0.15-1.2); Total Protein 3.9 g/dL (6.6-8.7)
[2021-01-16 21:19] LABS: Reflex Lactate Order REFLEX LACTIC ORDERD
[2021-01-16 21:50] LABS: Lactic Acid level (Lactate) 1.3 mmol/L (0.5-2.2)
[2021-01-17] VITALS (48 sets, daily range): BP systolic 90–133; BP diastolic 48–78; PULSE 72–121; RESP 13–32; TEMP 36.4–36.8; O2SAT 88–95
[2021-01-17] MEDS: gabapentin 100 mg Capsule PO ×4 (00:24→22:06)
[2021-01-17] MEDS: metoprolol succinate ER (24 HR) 50 mg Tablet 25 MG PO (00:24)
[2021-01-17] MEDS: FUROsemide 10 mg/mL SDV 2mL 20 MG IVP (00:24)
--- NOTE | 2021-01-17 02:01 | P.HP_ITS ---
Providers/Chief Complaint Admitting Physician: Romana Garay MD Primary Care Provider: Sam Chaudhari MD Chief Complaint: FEVER History of Present Illness Eugene Samayoa is a 85 year old male ith a past medical history significant for atrial fibrillation, hypertension, BPH, hyperlipidemia, coronary disease with history of CABG, metastatic lung cancer with extensive mets to liver/bone, on crizotinib 12/25-01/07 then placed on hold due to transaminitis, chronic hyponatermia, radiation included esophagitis recently discharged here on 01/14 after being treated for pneumonia, discharged with levaquin. Symptoms include fever x 1 week, no cough, expectoration, followed with oncology today where continued to report low grade fever 100F, generalized malaise and fatigue. Sent for admission to evaluate for infections priro to being placed back on chemotherapy. no abdominal pain, NVD, or dysuria. Recent sputum cx, MRSA PCR screen, UA, urine cx, blood cx were negative. He has no port or other indwelling iv access. Ct chest today with multifocal GGOs - pneumonia vs pulmonary edema. improvement in mediastinal LAD. Liver mets appear to be larger. Review of Systems General: Reports: 10 or more systems reviewed and unremarkable except in HPI and below Const: Denies: fever(s), chills or body aches Eyes: Denies: change in vision, blurry vision or photophobia ENMT: Reports: hoarseness; Denies: throat pain, enlarged tonsils, odynophagia or nasal congestion Card: Denies: chest pain, palpitations, irregular heart rhythm, edema, sw elling of feet/ankles, lightheadedness, pre-syncope, dyspnea on exertion or orthopnea Resp: Denies: dyspnea, productive cough, non-productive cough, wheezing, stridor, pain on inspiration, change in phlegm color, hemoptysis or chest congestion GI: Denies: abdominal pain, nausea, vomiting, hematemesis, coffee ground emesis, dysphagia, heartburn, diarrhea, constipation, GI cramping, change in stool character, hematochezia or melena : Denies: flank pain, dysuria, urinary frequency, urinary urgency, urinary hesitancy or hematuria Musc: Denies: neck pain, back pain, extremity pain, joint swelling, joint warmth or deformity Neuro: Denies: headache(s), numbness in extremities, weakness in extremities, sensory changes, difficulty walking, frequent falls, dizziness, vertigo, behavioral changes, Slurred speech present or seizure-like activity Psych: Denies: anxiety, depression, suicidal ideation or homicidal ideation Endo: Denies: polyuria, polydipsia, tired all the time, cold intolerance or hot flashes Kevin/Lymph: Denies: easy bruising or easy bleeding Medications/Allergies Home Medications Medication Instructions Recorded Confirmed Last Taken Type nitroglycerin 0.4 mg sublingual 0.4 mg SUBLINGUAL Q5M PRN 08/10/19 01/12/21 Unknown History tablet rivaroxaban 20 mg tablet 20 mg PO QPM 08/10/19 01/12/21 01/11/21 18:30 History tamsulosin 0.4 mg capsule 0.4 mg PO BEDTIME 08/10/19 01/12/21 01/11/21 18:30 History cholecalciferol (vitamin D3) 50 mcg PO DAILY 10/15/20 01/12/21 Unknown History [Vitamin D3] famotidine [Pepcid] 20 mg PO BID 10/15/20 01/12/21 10/15/20 History polyethylene glycol 3350 [Miralax] 17 g PO DAILY PRN 10/15/20 01/12/21 10/14/20 History ondansetron HCl [Zofran] 4 mg PO Q6H PRN #20 tab 10/28/20 01/12/21 Unknown Rx folic acid 1 mg PO DAILY 01/12/21 01/12/21 01/11/21 08:00 History metoprolol succinate 25 mg PO BEDTIME 01/12/21 01/12/21 01/11/21 18:30 History albuterol sulfate 2 inh INHALATION Q6H PRN #6.7 g 01/14/21 Unknown Rx dexamethasone [Decadron] 2 mg PO DAILY #10 tab 01/14/21 Unknown Rx gabapentin 100 mg PO Q8H #30 cap 01/14/21 Unknown Rx levofloxacin 750 mg PO DAILY 7 Days #7 tab 01/14/21 Unknown Rx sennosides [Senna Laxative] 8.6 mg PO DAILY #10 tab 01/14/21 Unknown Rx Allergies Allergy/AdvReac Type Severity Reaction Status Date / Time atorvastatin [From Lipitor] AdvReac Unknown muscle Verified 01/12/21 06:12 aches and pain rosuvastatin AdvReac Unknown muscle Verified 01/12/21 06:12 aches and pains PFSH Acute PFSH: Medical History Atherosclerotic heart disease of [place] coronary artery without angina pectoris Atrial fibrillation Benign essential HTN BPH (benign prostatic hyperplasia) CAD (coronary artery disease) Emphysema lung Mixed hyperlipidemia TIA (transient ischemic attack) Surgical History H/O esophagogastroduodenoscopy History of coronary artery stent placement Hx of CABG Status post colonoscopy (10/17/20) Status post right inguinal hernia repair Family History Father CAD (coronary artery disease) Brother CAD (coronary artery disease) Sister CAD (coronary artery disease) Cancer Other Hyperlipidemia Denies family history of Diabetes Clotting disorder Dementia Chronic kidney disease (CKD) Suicide Anesthesia complication Bleeding disorder Lung disease Stroke Social History Smoking and tobacco status: former smoker Quit status (tobacco): has quit using tobacco Year quit tobacco: 1989 Former quit date comment: Hx of 1 PPD x 30 Years Second hand smoke exposure: No Smoking risk assessment/counseling performed?: No Alcohol intake: never Counseling given: No Counseling given: No Lives independently: Yes Household members: spouse Marital status: Current occupational status: retired History of recent travel: No Current gender identity: Male Vitals/I&O/Wt Last Vital Signs Temp 100.0 F H 01/16/21 17:21 Pulse 99 01/17/21 00:41 Resp 20 H 01/17/21 00:41 BP 103/62 01/17/21 00:41 Pulse Ox 93 01/17/21 00:41 01/16/21 01/16/21 01/17/21 14:59 22:59 06:59 Output Total 500 / 500 Balance -500 / -500 Weight last 48 hrs Weight 81.647 kg Physical Exam Narrative: EXAM NARRATIVE: General: No acute distress, AO x3 HEENT: PERRLA, pupils bilaterally equal and reactive, pallors not present Chest: Normal vesicular breath sounds, no added sounds, equal good air entry bilaterally CVS: S1-S2 regular, no murmurs, no tachycardia, no gallops, no rubs Abdomen: Soft, nontender, no organomegaly, bowel sounds present Neuro: No focal deficits, no facial deformity, AO x3, power 5/5 in all limbs Data : 01/17/21 04:25 01/17/21 04:25 Micro: Microbiology 01/16/21 17:30 Blood Culture - Preliminary Blood SPECIMEN COLLECTED 01/16/21 19:05 Blood Culture - Preliminary Blood SPECIMEN COLLECTED Attestation for Other Data: I personally reviewed and interpreted the following: Other data: Laboratory Results WBC 4.6 10^3/uL (4.0-10.0) 01/17/21 04:25 RBC 3.46 10^6/uL (4.1-5.3) L 01/17/21 04:25 Hgb 11.1 g/dL (11.7-16.6) L 01/17/21 04:25 Hct 32.6 % (42.0-52.0) L 01/17/21 04:25 MCV 94.2 fl (80-94) H 01/17/21 04:25 MCH 32.1 pg (28.0-34.0) 01/17/21 04:25 MCHC 34.0 g/dL (30.0-36.0) 01/17/21 04:25 RDW 16.1 % (12.1-15.1) H 01/17/21 04:25 Plt Count 138 10^3/cmm (130-400) 01/17/21 04:25 MPV 9.3 fL (7.4-10.4) 01/17/21 04:25 Neut % (Auto) 87.5 % 01/17/21 04:25 Lymph % (Auto) 6.6 % 01/17/21 04:25 [place] % (Auto) 4.6 % 01/17/21 04:25 Eos % (Auto) 0.2 % 01/17/21 04:25 Baso % (Auto) 0.2 % 01/17/21 04:25 Neut # (Auto) 4.00 10^3/uL (1.8-7.7) 01/17/21 04:25 Lymph # (Auto) 0.3 10^3/uL (0.8-4.8) L 01/17/21 04:25 [place] # (Auto) 0.2 10^3/uL (0.2-0.9) 01/17/21 04:25 Eos # (Auto) 0.0 10^3/uL (0.0-0.8) 01/17/21 04:25 Baso # (Auto) 0.0 10^3/uL (0.0-0.1) 01/17/21 04:25 Nucleated RBC % (auto) 0 % 01/17/21 04:25 Nucleated RBCs # 0.0 /100WBC 01/17/21 04:25 Specimen Type Arterial 01/16/21 17:50 Sample Site Brachial, right 01/16/21 17:50 ABG pH 7.52 (7.35-7.45) H 01/16/21 17:50 ABG pCO2 27.5 mmHg (35-45) L 01/16/21 17:50 ABG pO2 54.7 mmHg (80.0-100.0) L 01/16/21 17:50 ABG HCO3 22.5 mmol/L (22-26) 01/16/21 17:50 ABG Base Excess 0.7 mmol/L (-2.0-2.0) 01/16/21 17:50 Joey Test N/a 01/16/21 17:50 Hematocrit 41.2 % (42-52) L 01/16/21 17:50 O2 Delivery Device Room air 01/16/21 17:50 FiO2 21.0 % 01/16/21 17:50 Procurement Clerk ID glc 01/16/21 17:50 Sodium 133 mmol/L (136-145) L 01/17/21 04:25 Potassium 3.8 mmol/L (3.5-5.1) 01/17/21 04:25 Chloride 101 mmol/L (98-107) 01/17/21 04:25 Carbon Dioxide 23 mmol/L (22-29) 01/17/21 04:25 Anion Gap 12.8 (5-19) 01/17/21 04:25 BUN 16 mg/dL (8-23) 01/17/21 04:25 Creatinine 0.9 mg/dL (0.7-1.2) 01/17/21 04:25 GFR Calculation Not Reportable 01/17/21 04:25 Glucose 123 mg/dL (65-115) H 01/17/21 04:25 Calculated Osmolality 279 mOsm/kg (285-295) L 01/17/21 04:25 Lactic Acid 2.1 mmol/L (0.5-2.2) 01/16/21 17:30 Lactic Acid (Sepsis) 1.3 mmol/L (0.5-2.2) 01/16/21 21:28 Calcium 8.2 mg/dL (8.5-10.5) L 01/17/21 04:25 Total Bilirubin 0.4 mg/dL (0.15-1.2) 01/17/21 04:25 AST 31 U/L (0-40) 01/17/21 04:25 ALT 34 U/L (0-41) 01/17/21 04:25 Alkaline Phosphatase 112 IU/L (40-130) 01/17/21 04:25 Lactate Dehydrogenase 370 U/L (135-225) H 01/16/21 17:30 Creatine Kinase 31 U/L (39-308) L 01/16/21 17:30 Troponin T Gen 5 ng/L 14 ng/L (0-15) 01/16/21 17:30 C-Reactive Protein 103.6 mg/L (0.0-4.9) H 01/16/21 17:30 NT-Pro-B Natriuret Pep 1074 pg/mL (0-450) H 01/16/21 17:30 Total Protein 4.7 g/dL (6.6-8.7) L D 01/17/21 04:25 Albumin 2.2 g/dL (3.5-5.2) L 01/17/21 04:25 Globulin 2.5 g/dL (1.3-4.6) 01/17/21 04:25 Lipase 8 U/L (13-60) L 01/16/21 17:30 Procalcitonin 3.30 ng/mL (0-0.5) H 01/16/21 17:30 Influenza Type A Ag Negative (Negative) 01/16/21 23:20 Influenza Type B Ag Negative (Negative) 01/16/21 23:20 SARS-CoV-2 Ag (Rapid) Negative (Negative) 01/16/21 23:20 Impressions Chest X-Ray 01/16/21 17:31 IMPRESSION: Worsening multifocal pneumonia. Radiation Dose CTDIVOL = (mGy): DLP = (mGy-cm) Chest CTA 01/16/21 17:32 IMPRESSION: 1. Fluid overload changes in the chest. 2. Multifocal ground-glass opacities in the lungs may represent pneumonia or pulmonary edema. 3. Significant regression of mediastinal lymphadenopathy and right perihilar soft tissue mass compared to the prior imaging. 4. Multiple liver masses are redemonstrated, however difficult to characterize secondary to the phase of contrast. The lesions are probably larger than comparison 11/03/2020. A restaging exam with dedicated CT abdomen and pelvis recommended when clinically indicated. 5. Multifocal sclerotic bone lesions in the thoracic spine are more prominent than prior imaging consistent with osseous metastatic disease. Radiation Dose CTDIVOL = (mGy): DLP = 571.08 (mGy-cm) A&P Assessment and plan (1) Pneumonia: B/L multifocal GGOs may be pulm edema vs pneumonitis Recent sputum cx, bacterial Ag and legioenlla AG, MRSA PCR screen negative saturating well on RA ongoing low grade temperature- check COVID ag (recent PCR negative 01/12, refused another PCR, vaccinated), influenza Ag, respiratory viral panel to evalute other causes of viral pneumonitis , check rpeat blood cx, UA Uncertain how long he has been on steroids- will check PJP PCR , though lower suspicion since saturating well on RA Unlikely CMV pneumonitis given lack of profound immunocompromise, no diarrhea, can check serum CMV PCR for high grade reactivation if persisting concern procal not reliable indicator in presence of solid organ tumors Non infectious differentials include pulm edema (elevated BNP, pitting LE edema), low gr fever from tumor burden &/or tumor necrosis empiric zosyn while undergoing above w/up Status: Acute (2) Atrial fibrillation with RVR: received 5mg IVP metoprolol, restart home dose of metoprolol now lasix 20 mg IVP now , monitor output Elevated BNP, GGOs and 2+ pitting edema point to CHF with pEF From stress test 06/2020, EF 65% Status: Acute (3) CHF (congestive heart failure): Status: Acute (4) Fatigue: Status: Acute Attestations Medical Necessity Statement*: >2midnight admission antcipated to evalute for infectious etiology in cancer patient prior to resuming chemotherapy Coding Level of Care Code Acute Manager [employer] for Chg Fwd Diagnoses Pneumonia J18.9 Atrial fibrillation with RVR I48.91 CHF (congestive heart failure) I50.9 Fatigue R53.83
[2021-01-17 03:43] LABS: Influenza A by IFA Negative (Negative); Influenza B by IFA Negative (Negative); SARS Covid-2 Antigen Negative (Negative)
[2021-01-17 05:18] LABS: Basophils % 0.2 %; Eosinophils % 0.2 %; Hematocrit 32.6 % (42.0-52.0); Hemoglobin 11.1 g/dL (11.7-16.6); Lymphocytes # 0.3 10^3/uL (0.8-4.8); Lymphocytes % 6.6 %; Mean Corpuscular Hemoglobin 32.1 pg (28.0-34.0); Mean Corpuscular Volume 94.2 fl (80-94); Mean Platelet Volume 9.3 fL (7.4-10.4); Monocytes # 0.2 10^3/uL (0.2-0.9); Monocytes % 4.6 %; Neutrophils % 87.5 %; Nucleated Red Blood Cells % 0 %; Platelet Count 138 10^3/cmm (130-400); Red Blood Count 3.46 10^6/uL (4.1-5.3); Red Cell Distribution Width 16.1 % (12.1-15.1); White Blood Count 4.6 10^3/uL (4.0-10.0)
[2021-01-17 05:42] LABS: Alanine Aminotransferase 34 U/L (0-41); Albumin Level 2.2 g/dL (3.5-5.2); Alkaline Phosphatase 112 IU/L (40-130); Anion Gap 12.8 (5-19); Aspartate Amino Transferase 31 U/L (0-40); Blood Urea Nitrogen 16 mg/dL (8-23); Calcium 8.2 mg/dL (8.5-10.5); Carbon Dioxide 23 mmol/L (22-29); Chloride 101 mmol/L (98-107); Creatinine Clr Calc Pharmacy 69.6832; Globulin 2.5 g/dL (1.3-4.6); Glucose 123 mg/dL (65-115); Osmolality Calculated 279 mOsm/kg (285-295); Potassium 3.8 mmol/L (3.5-5.1); Sodium 133 mmol/L (136-145); Total Bilirubin 0.4 mg/dL (0.15-1.2); Total Protein 4.7 g/dL (6.6-8.7)
[2021-01-17] MEDS: piperacillin-tazobactam 3.375 GM in sodium chloride 0.9% (plus) 50 ML IV ×3 (05:58→22:06)
--- NOTE | 2021-01-17 08:00 | PC.NURSE ---
Pt lying in bed resting with eyes open talking to staff. Pt resp even and non-labored no distress noted. Pt had no c/o pain or discomfort at the present time. No needs voiced. Call light in reach.
[2021-01-17] MEDS: famotidine 20 mg Tablet PO ×2 (09:55→18:53)
[2021-01-17] MEDS: dexamethasone 4 mg Tablet 2 MG PO (09:55)
--- NOTE | 2021-01-17 10:00 | PC.NURSE ---
Visitor Dr. uJstin allowed pt's to come in early. Instructed to wear mask per policy. she verbalizes understanding.
--- NOTE | 2021-01-17 11:09 | PC.PHAR ---
pts char verified pts medications-pts states the pt got a rx for lexapro 10mg daily filled on 01-16-21 30d/s pts states they arent wanting to start this medication because of the side effects-pts states the pt doesnt use humalog last filled on 12/09/20 46d/s states the pt doesnt need it-pts states the pt takes metoprolol succinate er 25mg hs rx filled for 50mg daily on 10/24/20 90d/s-pts states the pt takes gabapentin 100mg bid rx filled on 01/14/21 for 100mg po [id number] are made in the pharmacy comments
[2021-01-17] MEDS: ketorolac 30 mg/mL INJ 15 MG IVP (15:02)
[2021-01-17] MEDS: FUROsemide 10 mg/mL SDV 4mL 40 MG IVP (15:05)
[2021-01-17] MEDS: rivaroxaban 10 mg Tablet 20 MG PO (18:52)
[2021-01-17] MEDS: acetaminophen 325 mg Tablet 650 MG PO (19:05)
[2021-01-17] MEDS: budesonide 0.5 mg/2 mL Neb 0.25 MG INHALATION (20:41)
[2021-01-17] MEDS: tamsulosin 0.4 mg Capsule PO (22:07)
--- NOTE | 2021-01-17 22:51 | USCV_ITS ---
Eugene Samayoa Age: 85 Gender: M : 1935 Exam Date: 01/17/2021 06:46 Ordering Phys: Romana Garay MD Technologist: Bernadette Campos Exam Location: [facility] [place] Indication: BLE SWELLING HISTORY: Lower extremity swelling. PROCEDURES: Venous duplex imaging was performed in bilateral lower extremities. The following venous structures were evaluated: common femoral vein, profunda vein, proximal portion of the greater saphenous vein, superficial femoral vein, and the popliteal vein. In addition, the posterior tibial and peroneal trunk were evaluated. FINDINGS: Normal 2-D Doppler and augmentation and compressibility throughout the lower extremity venous structures. Additional imaging through the proximal calf veins also reveals no thrombus. Limited evaluation of the greater saphenous vein is patent with no thrombus.. CONCLUSIONS No evidence of right lower extremity DVT. No evidence of left lower extremity DVT. Reji Bueno MD (Electronically Signed) Final Date: 17 January 2021 09:45 S
[2021-01-18] VITALS (74 sets, daily range): BP systolic 90–125; BP diastolic 51–76; PULSE 78–135; RESP 14–31; TEMP 37.1; O2SAT 80–94
[2021-01-18] MEDS: acetaminophen 325 mg Tablet 650 MG PO (01:47)
[2021-01-18 04:05] LABS: Basophils % 0.2 %; Eosinophils # 0.1 10^3/uL (0.0-0.8); Hematocrit 32.3 % (42.0-52.0); Hemoglobin 11.1 g/dL (11.7-16.6); Lymphocytes # 0.2 10^3/uL (0.8-4.8); Mean Corpuscular HGB Conc 34.4 g/dL (30.0-36.0); Mean Corpuscular Hemoglobin 32.5 pg (28.0-34.0); Mean Corpuscular Volume 94.4 fl (80-94); Mean Platelet Volume 9.3 fL (7.4-10.4); Monocytes # 0.1 10^3/uL (0.2-0.9); Monocytes % 2.7 %; Neutrophils # 3.91 10^3/uL (1.8-7.7); Nucleated Red Blood Cells % 0 %; Platelet Count 139 10^3/cmm (130-400); Red Blood Count 3.42 10^6/uL (4.1-5.3); Red Cell Distribution Width 16.3 % (12.1-15.1); White Blood Count 4.4 10^3/uL (4.0-10.0)
[2021-01-18] MEDS: HYDROcodone-acetaminophen 5-325 mg Tablet 1 TAB PO (04:08)
[2021-01-18 04:32] LABS: Alanine Aminotransferase 37 U/L (0-41); Albumin Level 2.2 g/dL (3.5-5.2); Alkaline Phosphatase 112 IU/L (40-130); Anion Gap 9.7 (5-19); Aspartate Amino Transferase 34 U/L (0-40); Blood Urea Nitrogen 19 mg/dL (8-23); Calcium 8.3 mg/dL (8.5-10.5); Carbon Dioxide 25 mmol/L (22-29); Chloride 95 mmol/L (98-107); Globulin 2.5 g/dL (1.3-4.6); Glucose 89 mg/dL (65-115); Osmolality Calculated 264 mOsm/kg (285-295); Potassium 3.7 mmol/L (3.5-5.1); Sodium 126 mmol/L (136-145); Total Bilirubin 0.5 mg/dL (0.15-1.2); Total Protein 4.7 g/dL (6.6-8.7)
[2021-01-18 04:35] LABS: Lactate Dehydrogenase 417 U/L (135-225)
[2021-01-18] MEDS: piperacillin-tazobactam 3.375 GM in sodium chloride 0.9% (plus) 50 ML IV (06:49)
[2021-01-18] MEDS: gabapentin 100 mg Capsule PO ×3 (06:49→23:10)
[2021-01-18] MEDS: budesonide 0.5 mg/2 mL Neb 0.25 MG INHALATION ×2 (07:38→19:30)
--- NOTE | 2021-01-18 08:21 | ECG_ITS ---
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 Measurements Intervals [place] Rate: 97 P: FL: QRS: -72 QRSD: 72 T: 24 QT: 330 QTc: 420 Interpretive Statements ATRIAL FIBRILLATION LEFT AXIS DEVIATION [QRS AXIS < -30] LOW QRS VOLTAGE IN PRECORDIAL LEADS [QRS DEFLECTION < 1.0 mV IN CHEST LEADS] PATTERN CONSISTENT WITH PULMONARY DISEASE POSSIBLE RIGHT VENTRICULAR CONDUCTION DELAY [RSR (QR) IN V1/V2] POSSIBLE INFERIOR MYOCARDIAL INFARCTION , PROBABLY OLD [30 ms Q WAVE IN II/aVF] Compared to ECG 01/16/2021 17:43:51 Left-axis deviation now present Low QRS voltage now present Myocardial infarct finding now present Indeterminate axis no longer present ST (T wave) deviation no longer present Electronically Signed On 01-18-2021 21:29:25 CDT by Topher Rios M.D. [email or web address].[id number]
[2021-01-18] MEDS: dexamethasone 4 mg Tablet 2 MG PO (08:51)
[2021-01-18] MEDS: famotidine 20 mg Tablet PO ×2 (08:52→17:42)
[2021-01-18] MEDS: HYDROmorphone 1 mg/mL INJ 1 mL 0.4 MG IVP (08:52)
[2021-01-18 09:35] LABS: D Dimer 2.46 ug/mIFEU (0-0.59)
[2021-01-18 09:49] LABS: Troponin T (5th) Once 15 ng/L (0-15)
--- NOTE | 2021-01-18 11:50 | PM.PN ---
Subjective Subjective: Interval history: Patient was seen and examined this morning, patient is stating that since last night he has been stressing back pain which he is endorsing in between his shoulder blades, previous CTA did not show any PE no radial radial delay hemodynamically stable he is saturating well on room air No temperature overnight He is describing his pain as dull radiating from back towards the front No nausea, vomiting worsening shortness of breath He has tenderness in thoracic spine on palpation This morning I requested troponin, EKG, D-dimer and thoracic spine CT Vitals/I&O/Wt Last Vital Signs Temp 98.2 F 01/17/21 20:00 Pulse 101 H 01/18/21 07:40 Resp 18 01/18/21 08:52 BP 120/76 01/18/21 05:00 Pulse Ox 94 01/18/21 08:52 01/17/21 01/18/21 01/18/21 22:59 06:59 14:59 Intake Total 50 / 100 50 / 150 Output Total 950 / 1450 300 / 300 Balance -900 / -1350 50 / -1300 -300 / -300 Weight last 48 hrs Weight 81.647 kg Weight 81.647 kg Physical Exam Narrative: EXAM NARRATIVE: Patient was at the bedside Seems a bit in low mood and energy A. fib RVR heart rate 140 S1, S2 variable Abdomen soft Bilateral breath sounds with mild rhonchi at the bases Tenderness on palpation upper thoracic region in between shoulder blades He did not make eye contact today he kept looking at the floor during my evaluation No focal deficits No audible stridor or wheezing Nonfocal neuro exam Mild weakness of lower extremities with paresthesia Data : 01/18/21 03:37 01/18/21 03:37 Micro: Microbiology 01/16/21 17:30 Blood Culture - Preliminary Blood NEGATIVE TO DATE 01/16/21 19:05 Blood Culture - Preliminary Blood NEGATIVE TO DATE A&P Assessment and plan (1) Fatigue: Status: Acute (2) CHF (congestive heart failure): Status: Acute (3) Pneumonia: Status: Acute (4) Sepsis: Status: Acute (5) Acute dyspnea: Status: Acute (6) Atrial fibrillation with RVR: Status: Acute Additional A&P Information Excruciating back pain High D-dimer CHF exacerbation A. fib RVR Plan For A. fib RVR he was given Cardizem IV push 10 mg today, EKG consistent with A. fib RVR without any ischemic or infarct changes troponin 15 Back pain: Patient has tenderness around thoracic region and lower back, consistent with sclerotic metastatic lesions, does not have any signs of PE aneurysm or active ACS or aortic aneurysm High D-dimer most likely is related to cancer no PE as per the CTA, venous Doppler without DVT Acute CHF exacerbation: Continue Lasix adequate urine output preserved EF HF Chemotherapeutic agent discontinued literature does support drug-induced congestive heart failure Lung cancer with liver metastases and spine mets Recently was evaluated by orthopedics who recommended radiotherapy no intervention recommended by them Dr. Munroe recommended following up with orthopedic surgeon at [facility]. fib RVR given Cardizem IV push today continue metoprolol and anticoagulating agent High D-dimer related to cancer no signs of PE no signs of DVT Suspicion for pneumonia: Cultures have been negative, he has been afebrile, his fever most likely related to underlying cancer We will de-escalate antibiotics tomorrow Full code Guarded prognosis Cardiac diet updated Attestations Medical Necessity Statement*: Continue medical management Time Spent in Patient Care: 16 - 35 minutes Coding Level of Care Code Acute Rn Dermatology for Chg Fwd Diagnoses Fatigue R53.83 CHF (congestive heart failure) I50.9 Pneumonia J18.9 Sepsis A41.9 Acute dyspnea R06.00 Atrial fibrillation with RVR I48.91
--- NOTE | 2021-01-18 12:09 | USCV_ITS ---
Eugene Samayoa Age: 85 Gender: M : 1935 Exam Date: 01/18/2021 12:51 Ordering Phys: Javier Justin MD Technologist: Caterina Diaz Exam Location: [facility] [place] Indication: Assess for EF only BP: 118 / 66 HR: 112 Rhythm: Sinus tachycardia Technical Quality: Suboptimal MEASUREMENTS (Male / Female) Normal Values 2D ECHO LV Diastolic Diameter PLAX 4.0 cm 4.2 - 5.9 / 3.9 - 5.3 cm LV Systolic Diameter PLAX 2.9 cm IVS Diastolic Thickness 1.6 cm 0.6 - 1.0 / 0.6 - 0.9 cm IVS Systolic Thickness 2.0 cm LVPW Diastolic Thickness 1.3 cm 0.6 - 1.0 / 0.6 - 0.9 cm LVPW Systolic Thickness 1.1 cm LV Ejection Fraction 2D Teich 52.3 % LV Ejection Fraction MOD 2C 52.1 % LV Ejection Fraction 2C AL 53.2 % M-MODE LV Diastolic Diameter MM 6.5 cm 4.2 - 5.9 / 3.9 - 5.3 cm LV Systolic Diameter MM 4.4 cm LV Ejection Fraction MM Teich 59.5 % IVS Diastolic Thickness MM 1.6 cm 0.6 - 1.0 / 0.6 - 0.9 cm IVS Systolic Thickness MM 1.6 cm LVPW Diastolic Thickness MM 1.6 cm 0.6 - 1.0 / 0.6 - 0.9 cm LVPW Systolic Thickness MM 1.5 cm FINDINGS Left Ventricle LV systolic function is difficult to assess because of significant tachycardia. Grossly LV systolic function appears to be normal. Recommend repeating echo once heart rate is controlled. Right Ventricle Right Atrium Left Atrium Mitral Valve Aortic Valve Tricuspid Valve Pulmonic Valve Pericardium Aorta CONCLUSIONS LV systolic function is difficult to assess because of significant tachycardia. Grossly LV systolic function appears to be normal. Recommend repeating echo once heart rate is controlled. Topher Rios MD (Electronically Signed) Final Date: 19 January 2021 22:39 S
[2021-01-18] MEDS: dilTIAZem 30 mg Tablet PO ×2 (13:01→17:43)
[2021-01-18 14:52] LABS: Blood Urine Trace (Negative); Glucose Urine UA Norm (Normal); Ketones Urine Negative (Negative); Protein Urine Trace (Negative); Urine Appearance Clear (CLEAR); Urine Color Yellow (Yellow); pH Urine 7 (5-7)
[2021-01-18 14:53] LABS: Add Urine Culture? No; Add Urine Microscopic? YES; Bacteria Urine TRACE /hpf; Bilirubin Urine Neg (Negative); Leukocyte Esterase Urine Negative (Negative); Nitrate Urine Negative (Negative); RBC Urine RARE /hpf (0-2); Squamous Epithelial Cell Urine RARE /hpf (0-5); Urobilinogen Urine Norm (Negative); WBC Urine 0-4 /hpf (0-5)
[2021-01-18] MEDS: amoxicillin-clav 875-125 mg Tablet 1 TAB PO (17:42)
[2021-01-18] MEDS: rivaroxaban 10 mg Tablet 20 MG PO (17:43)
[2021-01-18] MEDS: morphine ER (12 HR) 30 mg tablet PO (17:43)
[2021-01-18] MEDS: doxycycline 100 mg Tablet PO (17:43)
--- NOTE | 2021-01-18 18:53 | PC.NURSE ---
Shift Note Frequent safety and comfort rounds continue. Orders and/or nursing care completed as indicated. Patient monitored for response to intervention and treatment(s). Education provided includes[medication education]. Patient and/or paper sales representative verb understanding of instruction]. Will continue to monitor.
[2021-01-18] MEDS: tamsulosin 0.4 mg Capsule PO (23:10)
[2021-01-19] VITALS (66 sets, daily range): BP systolic 86–141; BP diastolic 50–78; PULSE 63–137; RESP 9–29; TEMP 36.4–36.9; O2SAT 82–97
[2021-01-19] MEDS: dilTIAZem 30 mg Tablet PO ×4 (00:01→19:02)
[2021-01-19 04:01] LABS: Basophils % 0.4 %; Eosinophils # 0.1 10^3/uL (0.0-0.8); Eosinophils % 1.3 %; Hematocrit 34.6 % (42.0-52.0); Hemoglobin 11.8 g/dL (11.7-16.6); Lymphocytes # 0.5 10^3/uL (0.8-4.8); Lymphocytes % 11.8 %; Mean Corpuscular HGB Conc 34.1 g/dL (30.0-36.0); Mean Corpuscular Volume 96.6 fl (80-94); Mean Platelet Volume 9.6 fL (7.4-10.4); Monocytes # 0.2 10^3/uL (0.2-0.9); Monocytes % 3.8 %; Neutrophils # 3.68 10^3/uL (1.8-7.7); Neutrophils % 81.6 %; Nucleated Red Blood Cells % 0 %; Platelet Count 151 10^3/cmm (130-400); Red Blood Count 3.58 10^6/uL (4.1-5.3); Red Cell Distribution Width 16.5 % (12.1-15.1); White Blood Count 4.5 10^3/uL (4.0-10.0)
[2021-01-19 04:58] LABS: Blood Urea Nitrogen 19 mg/dL (8-23); Calcium 8.1 mg/dL (8.5-10.5); Carbon Dioxide 21 mmol/L (22-29); Chloride 91 mmol/L (98-107); Creatinine Clr Calc Pharmacy 69.6832; Glucose 95 mg/dL (65-115); Osmolality Calculated 260 mOsm/kg (285-295); Sodium 124 mmol/L (136-145)
[2021-01-19 05:05] LABS: Anion Gap 16.6 (5-19); Potassium 4.6 mmol/L (3.5-5.1)
[2021-01-19] MEDS: gabapentin 100 mg Capsule PO ×2 (06:40→22:24)
[2021-01-19] MEDS: morphine ER (12 HR) 30 mg tablet PO ×2 (06:40→19:03)
--- NOTE | 2021-01-19 07:27 | XRR_ITS ---
PROCEDURE INFORMATION: Exam: XR Chest Exam date and time: 01/19/2021 7:27 AM Age: 85 years old Clinical indication: Other: Low o2 sat TECHNIQUE: Imaging protocol: XR of the chest. Views: 1 view. COMPARISON: CR (CHEST, ) 01/16/2021 5:40 PM FINDINGS: Lungs: There are prominent extensive diffuse bilateral pulmonary infiltrates. They have become more prominent in the left lung since previous study. Pleural spaces: Unremarkable. No pleural effusion. No pneumothorax. Heart/Mediastinum: Unremarkable. No cardiomegaly. Bones/joints: Unremarkable. XR/XR chest 1V portable [id number] IMPRESSION: Prominent diffuse bilateral pulmonary infiltrates. They have worsened in the left lung when compared to previous study. Radiation Dose CTDIVOL = (mGy): DLP = (mGy-cm)
--- NOTE | 2021-01-19 07:38 | ECG_ITS ---
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 Measurements Intervals [place] Rate: 125 P: OR: QRS: 50 QRSD: 82 T: -2 QT: 287 QTc: 414 Interpretive Statements ATRIAL FLUTTER/TACHYCARDIA WITH RAPID VENTRICULAR RESPONSE INDETERMINATE AXIS LOW QRS VOLTAGE IN PRECORDIAL LEADS [QRS DEFLECTION < 1.0 mV IN CHEST LEADS] PATTERN CONSISTENT WITH PULMONARY DISEASE SEPTAL MYOCARDIAL INFARCTION , OF INDETERMINATE AGE [40+ ms Q WAVE IN V1/V2] Compared to ECG 01/18/2021 09:52:15 Indeterminate axis now present Atrial fibrillation no longer present Left-axis deviation no longer present Myocardial infarct finding still present Electronically Signed On 01-19-2021 23:24:01 CDT by Topher Rios M.D. [email or web address]/store/[id number] f
[2021-01-19 07:50] LABS: ABG PCO2 31.5 mmHg (35-45); ABG PH Result 7.51 (7.35-7.45); Arterial Blood Gas Hematocrit 39.4 % (42-52); Base Excess ABG 2.9 mmol/L (-2.0-2.0); Blood Gas Operator Identificat AMH; Blood Gas Sample Site Brachial, left; Blood Gas Sample Type Arterial; HCO3 ABG 25.3 mmol/L (22-26); Oxygen Device OXY MASK; PO2 ABG 50.4 mmHg (80.0-100.0)
[2021-01-19] MEDS: phenylephrine inj 25 MG in sodium chloride 0.9% 250 ML 24.24 MG IV ×2 (09:19→19:00)
[2021-01-19] MEDS: amoxicillin-clav 875-125 mg Tablet 1 TAB PO (09:27)
[2021-01-19] MEDS: dexamethasone 4 mg Tablet 2 MG PO (09:36)
[2021-01-19] MEDS: famotidine 20 mg Tablet PO ×2 (09:37→19:03)
[2021-01-19] MEDS: doxycycline 100 mg Tablet PO ×2 (09:37→19:02)
[2021-01-19] MEDS: budesonide 0.5 mg/2 mL Neb 0.25 MG INHALATION ×2 (09:52→19:28)
--- NOTE | 2021-01-19 10:49 | PC.SOCIAL ---
IMM updated with patient's . She verbalized an understanding. Copy Pg 2 provided. Initialled, dated, timed, and placed in chart.
--- NOTE | 2021-01-19 11:59 | PM.PN ---
Subjective Subjective: Interval history: This morning patient went into A. fib RVR, became hypotensive, no overnight events, and family at the bedside Yesterday morning amnio drip after bolus and started phenylephrine, patient stated that he does not want chest compressions or mechanical ventilator in change of cardiac arrest or respiratory distress. He does not want to be transferred to [facility] for further orthopedic evaluation. Patient is stating that his pain is under control I started morphine extended release every 12 hours yesterday This morning chest x-ray shows bilateral pulmonary infiltrates, clinically he does look euvolemic He is hypertensive I decrease his Lasix yesterday and discontinued today Concern for ARDS currently on 15Loxygen mask Vitals/I&O/Wt Last Vital Signs Temp 98.0 F 01/19/21 11:26 Pulse 100 01/19/21 11:26 Resp 22 H 01/19/21 11:26 BP 113/65 01/19/21 11:26 Pulse Ox 92 01/19/21 11:26 01/18/21 01/19/21 01/19/21 22:59 06:59 14:59 Output Total 150 / 450 150 / 600 Balance -150 / -400 -150 / -550 Physical Exam Narrative: EXAM NARRATIVE: Patient is not endorsing any pain Looks comfortable however hypertensive and tachycardia A. fib RVR S1, S2 variable Clinically does not look fluid overloaded Bilateral breath sounds with mild crepitation and rhonchi, crackles at the bases Tender spine and thoracic and lumbar area Lower extremity decreased and, sensations intact Abdomen soft No neurological/focal deficit On oxygen mask Phenylephrine in a.m. drip at the bedside Data : 01/19/21 03:16 01/19/21 03:16 A&P Assessment and plan (1) Lesion of bone of lumbosacral spine: Status: Acute (2) Lesion of bone of thoracic spine: Status: Acute (3) Metastatic primary lung cancer: Status: Acute (4) Liver mass: Status: Acute (5) Dilated aortic root: Status: Acute (6) CHF (congestive heart failure): Status: Acute (7) Fatigue: Status: Acute (8) Atrial fibrillation with RVR: Status: Acute (9) Numbness in left leg: Status: Acute (10) Hyponatremia: Status: Acute Additional A&P Information Acute preserved ejection fraction heart failure exacerbation Limited echo taken however report is pending, Lasix on hold secondary to hypotension Clinically does not look volume overloaded BNP on admission 10,000 PE ruled out I would keep drug-induced heart failure exacerbation in the differentials Acute hypoxic resp failure Concern for ARDS, clinically looks euvolemic, EF is preserved No active signs of sepsis Covid PCR negative PE on recent CTA ruled out High D-dimer, patient has been on anticoagulating agent, repeat CTA today Concern for worsening of cancerous lesions On 15 L oxygen mask PO2 50, switch to heated high flow Patient states that he wants to stay DNR/DNI, does not want to be transferred to [facility] for spine orthopedic evaluation Family and at the bedside I will broaden his antibiotic coverage with Zosyn, I would not add MRSA coverage because his MRSA PCR has been negative, please note he has stayed afebrile since admission, no leukocytosis, suspect low-grade fever secondary to inflammatory changes of cancer No signs of spinal cord compression or epidural abscess, multiple mets of thoracic and lumbar area, hold Decadron for now and add methylprednisolone for worsening bilateral infiltrate evident on x-ray A. 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 patient does endorse weakness and lethargy Guarded prognosis Cardiac diet DVT prophylaxis currently on anticoagulating agent DNR/DNI will allow family members to come in Attestations Medical Necessity Statement*: Guarded prognosis continue medical management Time Spent in Patient Care: Greater than 35 minutes Coding Level of Care Code Acute Director Public Policy for Chg Fwd Diagnoses Lesion of bone of lumbosacral spine M89.9 Lesion of bone of thoracic spine M89.9 Metastatic primary lung cancer C34.90 Liver mass R16.0 Dilated aortic root I77.810 CHF (congestive heart failure) I50.9 Fatigue R53.83 Atrial fibrillation with RVR I48.91 Numbness in left leg R20.0 Hyponatremia E87.1
--- NOTE | 2021-01-19 12:02 | CTR_ITS ---
PROCEDURE INFORMATION: Exam: CTA Chest With Contrast Exam date and time: 01/19/2021 12:02 PM Age: 85 years old Clinical indication: Shortness of breath; Patient HX: Worsening hypoxia; Additional info: , Worsening hypoxia, worsening a. Fib TECHNIQUE: Imaging protocol: Computed tomographic angiography of the chest with contrast. 3D rendering (Not supervised by radiologist): MIP and/or 3D reconstructed images were created by the technologist. Radiation optimization: All CT scans at this facility use at least one of these dose optimization techniques: automated exposure control; mA and/or kV adjustment per patient size (includes targeted exams where dose is matched to clinical indication); or iterative reconstruction. Contrast material: OMNI 350; Contrast volume: 75 ml; Contrast route: INTRAVENOUS (IV); COMPARISON: CT angio chest PE protcl [id number] 01/16/2021 7:12 PM RADIATION DOSE METRICS: Total DLP (mGy-cm): 583.17 FINDINGS: Limitations: The study is limited due to patient respiratory motion. Pulmonary arteries: Pulmonary arteries are well opacified. No filling defects are demonstrated. No evidence of pulmonary embolism, within the technical limits of the examination. Mild enlargement of the main pulmonary artery, consistent with pulmonary hypertension. Aorta: Atherosclerosis of the thoracic aorta. No aortic aneurysm. No aortic dissection. Lungs: Changes of centrilobular emphysema demonstrated. Severe diffuse airspace infiltrates noted throughout both lungs. Pleural spaces: Small bilateral pleural effusions. Heart: Mild cardiomegaly. No pericardial effusion. Lymph nodes: Nonspecific mediastinal nodes, measuring up to 11 mm short axis. Bones/joints: Median sternotomy noted. No acute osseous abnormality. Soft tissues: Unremarkable. CT/CT angio chest PE protcl [id number] IMPRESSION: 1. The study is limited due to patient respiratory motion. 2. No evidence of pulmonary embolism, within the technical limits of the examination. 3. Mild enlargement of the main pulmonary artery, consistent with pulmonary hypertension. 4. Severe diffuse airspace infiltrates noted throughout both lungs. This has worsened when compared to 01/16/2021. 5. Small bilateral pleural effusions. The effusions appear slightly larger when compared to 01/16/2021. Radiation Dose CTDIVOL = (mGy): DLP = 583.17 (mGy-cm)
[2021-01-19] MEDS: acetaminophen 325 mg Tablet 650 MG PO (12:32)
[2021-01-19 12:53] LABS: Glucose Point of Care 106 mg/dL (70-110)
[2021-01-19] MEDS: piperacillin-tazobactam 3.375 GM in sodium chloride 0.9% (plus) 50 ML IV ×2 (13:00→22:22)
--- NOTE | 2021-01-19 13:46 | ECG_ITS ---
[facility] Test Date: 2021-01-19 Pat Name: Eugene Samayoa Department: Room: 111 Gender: Male [employer] Supervisor: : 1935 Requested By: Javier Justin Order Number: [id number] Arely MD: Topher Rios M.D. Measurements Intervals [place] Rate: 84 P: ID: QRS: -50 QRSD: 104 T: 1 QT: 359 QTc: 427 Interpretive Statements ATRIAL FIBRILLATION WITH ABERRANT CONDUCTION OR VENTRICULAR PREMATURE COMPLEXES LOW QRS VOLTAGE [QRS DEFLECTION < 0.5/1.0 mV IN LIMB/CHEST LEADS] PATTERN CONSISTENT WITH PULMONARY DISEASE INFERIOR MYOCARDIAL INFARCTION , PROBABLY OLD [40+ ms Q WAVE AND/OR ST/T ABNORMALITY IN II/aVF] Compared to ECG 01/19/2021 07:34:53 Ventricular premature complex(es) now present Aberrant conduction of supraventricular beat(s) now present Atrial flutter no longer present Indeterminate axis no longer present Myocardial infarct finding still present Electronically Signed On 01-19-2021 23:23:26 CDT by Topher Rios M.D. [id number]
[2021-01-19] MEDS: iohexol 350 mg/mL 100 mL Btl IV (16:38)
[2021-01-19] MEDS: rivaroxaban 10 mg Tablet 20 MG PO (19:03)
[2021-01-19] MEDS: sulfamethoxazole-trimeth DS 160-800 mg Tablet 1 TAB PO (19:03)
--- NOTE | 2021-01-19 21:09 | PC.NURSE ---
at change of shift,pt's heart rate noted to be gradually increasing (afib).cardizem po had been given by landscape engineer toward end of their shift..so cont to observe.by 0740 hr sustained 140-160's .dr becker notified.he ordered amioderone bolus and stated he was on the way to assess pt. bp began dropping, and o2 sat dropped to 70's.abg obtained.pt placed on 15 l oxymask by r.t.pcxr obtained.dr becker arrived and ordered amioderone drip and sarah-synephrine drip.code status discussed with pt and and dr becker .changed to and...hr and bp gradually improved.at 1220 pt noted to be diaphoretic.temp 99.9 axillary.tylenol given.ekg obtained and dr becker notified.pt had been trying to void several times during morning ..received order for ramires cath insertion.1000 cc clear chris urine obtained.antibiotics changed up by dr pablo.diaphoresis resolved.hr decreased to 80's and bp cont to improve.sarah synephrine titrated down.placed on heated high flow o2 by rt late afternoon.o2 sats maintaining in low 90's.
[2021-01-19] MEDS: tamsulosin 0.4 mg Capsule PO (22:24)
[2021-01-20] VITALS (31 sets, daily range): BP systolic 81–141; BP diastolic 51–78; PULSE 63–150; RESP 10–24; TEMP 36.4–36.6; O2SAT 85–94
[2021-01-20 04:38] LABS: ABG PCO2 35.9 mmHg (35-45); ABG PH Result 7.48 (7.35-7.45); Arterial Blood Gas Hematocrit 17.7 % (42-52); Blood Gas Sample Site Brachial, left; Blood Gas Sample Type Arterial; HCO3 ABG 26.8 mmol/L (22-26); Oxygen Device HAG; PO2 ABG 52.4 mmHg (80.0-100.0)
[2021-01-20] MEDS: piperacillin-tazobactam 3.375 GM in sodium chloride 0.9% (plus) 50 ML IV ×3 (04:44→21:07)
[2021-01-20 05:43] LABS: Basophils % 0.3 %; Eosinophils % 0.1 %; Hematocrit 31.4 % (42.0-52.0); Hemoglobin 10.9 g/dL (11.7-16.6); Lymphocytes # 0.3 10^3/uL (0.8-4.8); Lymphocytes % 4.3 %; Mean Corpuscular HGB Conc 34.7 g/dL (30.0-36.0); Mean Corpuscular Hemoglobin 32.5 pg (28.0-34.0); Mean Corpuscular Volume 93.7 fl (80-94); Mean Platelet Volume 9.3 fL (7.4-10.4); Monocytes # 0.2 10^3/uL (0.2-0.9); Monocytes % 2.8 %; Neutrophils % 91.8 %; Nucleated Red Blood Cells % 0 %; Platelet Count 159 10^3/cmm (130-400); Red Blood Count 3.35 10^6/uL (4.1-5.3); Red Cell Distribution Width 16.4 % (12.1-15.1); White Blood Count 7.2 10^3/uL (4.0-10.0)
[2021-01-20 06:05] LABS: Lactate (Lactic Acid level) 1.3 mmol/L (0.5-2.2)
[2021-01-20 06:35] LABS: Anion Gap 12.8 (5-19); Blood Urea Nitrogen 18 mg/dL (8-23); C Reactive Protein 252.9 mg/L (0.0-4.9); Calcium 8.7 mg/dL (8.5-10.5); Carbon Dioxide 23 mmol/L (22-29); Chloride 99 mmol/L (98-107); Glucose 136 mg/dL (65-115); Osmolality Calculated 274 mOsm/kg (285-295); Potassium 4.8 mmol/L (3.5-5.1); Sodium 130 mmol/L (136-145)
[2021-01-20 06:37] LABS: Procalcitonin 3.08 ng/mL (0-0.5)
[2021-01-20] MEDS: morphine ER (12 HR) 30 mg tablet PO ×2 (06:53→18:54)
[2021-01-20] MEDS: dilTIAZem 30 mg Tablet PO ×3 (06:54→18:54)
[2021-01-20] MEDS: gabapentin 100 mg Capsule PO ×2 (06:55→15:19)
--- NOTE | 2021-01-20 08:00 | PC.NURSE ---
Pt presents lying in bed resting with eyes open talking to staff. Pt resp even and non-labored no distress noted. Pt on Air vo/ Heated hi lisa at 40 Lpm at 75%. O@ sat 90%. Pt had no c/o pain or discomfort at the present time. No Needs voiced. Call light in reach. Will cont to monitor.
[2021-01-20] MEDS: ipratropium-albuterol 3 mL Neb INHALATION (08:26)
[2021-01-20] MEDS: budesonide 0.5 mg/2 mL Neb 0.25 MG INHALATION ×2 (08:26→19:31)
--- NOTE | 2021-01-20 09:38 | PC.CHAP ---
Pastoral Care Encounter/Spiritual Assessment Type of Contact [] Declined candle wicker visit [] Patient/Family/Request visit [] Outpatient visit [] Follow-up visit [] Physician referral [] Code/Alert [x] Routine visit [] Staff referral [] Actively dying [] Patient sleeping [x] Family support [] [] Out of room [] Palliative care [] [] Receiving care in room [] Pre-surgical visit [] Trauma [] Long length of stay [] ICU visit [] Other: Relational/Emotional Strength [] Patient feels connected with others/family/visitors/staff [] Distress [] Loneliness/isolation [] Abandonment Spirituality of Patient [] Person of Deepthi [] Attends Yazidi of their Deepthi [] Believes in Prayer [] Reads Bible or Scientologist materials [] There are Spiritual issues to be addressed Manager Chemistry Interventions [x] Prayer [] Active listening [] Non-anxious presence [] Spiritual/emotional support [] Crisis/trauma care [] Spiritual counseling [] Bereavement support [] Provided bereavement packet [] Provided Bible/devotional materials [] Provided toy/stuffed animal, coloring book to patient or family member [] Provided Communion [] Anointing/[place] [] Salvation [x] Completed spiritual assessment [] Other: Impact on Illness or Injury [] Angry [] Fearful [] Anxious [] Often cries [] Exhaustion [] Unable to work [] Unable to attend confucianist [] Unable to walk/stand [] Unable to read [] Unable to drive [] Unable to eat/drink [] Unable to sleep [] Unable to be with family [] Patient intubated [] Other: Summary standing outside room... got her a chair, and some juice and a muffin... states she and reese have had covid vaccine... but needed to wait on doctor to enter room... because of fever... states patient runs a fever often, having to do with other medical issues..... Time spent with patient 10 min
[2021-01-20] MEDS: famotidine 20 mg Tablet PO ×2 (09:52→18:54)
[2021-01-20] MEDS: doxycycline 100 mg Tablet PO ×2 (09:52→18:54)
[2021-01-20] MEDS: sulfamethoxazole-trimeth DS 160-800 mg Tablet 1 TAB PO ×2 (09:52→18:54)
[2021-01-20] MEDS: FUROsemide 10 mg/mL SDV 4mL 40 MG IVP (09:53)
[2021-01-20] MEDS: dexamethasone 4 mg Tablet 6 MG PO (10:39)
--- NOTE | 2021-01-20 13:02 | PM.PN ---
Subjective Subjective: Interval history: Seen and examined this morning with his present at bedside. I also called the earlier before he physically seen the patient as she had concerns of why we ordered a Covid test. Patient states he has not had a bowel movement since last Wednesday. But is passing gas. He does have lower extremity weakness and is aware that he has metastatic lesions to his spine. Patient and are wondering if any of the test results are back. did tell me on the phone that she believes that they are on the darker side and she is not expecting good news overall with patient's prognosis. Vitals/I&O/Wt Last Vital Signs Temp 97.8 F 01/20/21 04:00 Pulse 94 01/20/21 11:34 Resp 20 H 01/20/21 11:34 BP 107/64 01/20/21 08:00 Pulse Ox 92 01/20/21 11:34 01/19/21 01/20/21 01/20/21 22:59 06:59 14:59 Intake Total 1049.591 / 1049.591 150 / 1199.591 50 / 50 Output Total 500 / 500 1100 / 1600 Balance 549.591 / 549.591 -950 / -400.409 50 / 50 Physical Exam Urinary Catheter Management^: Major: Cath Placed During This Visit: yes Reason for Continuing Indwelling Catheter: Acute Urinary Retention or Obstruction Urinary Catheter Date of Insertion: 01/19/21 Urinary Catheter Time of Insertion: 12:00 Data : 01/20/21 05:10 01/20/21 05:10 Micro: Microbiology 01/18/21 17:50 Sputum Culture - Preliminary Sputum - Expectorated Sputum A&P Assessment and plan (1) Lesion of bone of lumbosacral spine: Status: Acute (2) Lesion of bone of thoracic spine: Status: Acute (3) Metastatic primary lung cancer: Status: Acute (4) Liver mass: Status: Acute (5) Dilated aortic root: Status: Acute (6) CHF (congestive heart failure): Status: Acute (7) Fatigue: Status: Acute (8) Atrial fibrillation with RVR: Status: Acute (9) Numbness in left leg: Status: Acute (10) Hyponatremia: Status: Acute Additional A&P Information Acute preserved ejection fraction heart failure exacerbation Limited echo taken however report is pending, Clinically does not look volume overloaded BNP on admission 10,000 PE ruled out Patient did have pleural effusion on CT done yesterday. I will give Lasix 40 IV x1 today. Will be cautious due to patient's history of hypotension. Acute hypoxic resp failure Concern for ARDS, clinically looks euvolemic, EF is preserved No active signs of sepsis Covid PCR negative PE on recent CTA ruled out High D-dimer, patient has been on anticoagulating agent, Concern for worsening of cancerous lesions On 15 L heated high flow. Patient states that he wants to stay DNR/DNI, does not want to be transferred to [facility] for spine orthopedic evaluation Family and at the bedside PCP PCR, resp viral panel, pending. COVID test pending. We will continue patient on Zosyn, doxycycline for now. I would not add MRSA coverage because his MRSA PCR has been negative, please note he has stayed afebrile since admission, no leukocytosis, suspect low-grade fever secondary to inflammatory changes of cancer No signs of spinal cord compression or epidural abscess, multiple mets of thoracic and lumbar area, Will consult pulmonology. Will place patient on prednisone 40 daily as per recommendations. A. fib RVR and hypotensive Started amiodarone and phenylephrine but now they have stopped. Patient is no longer hypotensive. We will continue patient on Cardizem 30 every 6 hours. No active chest pain Continue anticoagulation Metastatic lung cancer with mets to bone and liver: No sign of spinal cord compression, currently on gabapentin, opioids, continue patient on Decadron 6 mg daily. Patient has been on and off on 4 mg of dexamethasone outpatient with Dr. Munroe. 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 Time Spent in Patient Care: Greater than 35 minutes (>than 50% of time spent in counselling and/or direct pt care on unit). Coding Level of Care Code Acute Tar Distributor Operator for Teagan Lubin Diagnoses Lesion of bone of lumbosacral spine M89.9 Lesion of bone of thoracic spine M89.9 Metastatic primary lung cancer C34.90 Liver mass R16.0 Dilated aortic root I77.810 CHF (congestive heart failure) I50.9 Fatigue R53.83 Atrial fibrillation with RVR I48.91 Numbness in left leg R20.0 Hyponatremia E87.1
[2021-01-20] MEDS: lactulose oral liq 20 gm/30 mL UDC 15 GM PO (13:10)
[2021-01-20] MEDS: polyethylene glycol 3350 Pkt 17 gm PO (13:10)
[2021-01-20] MEDS: sennosides-docusate Tablet 1 TAB PO ×2 (13:10→18:54)
[2021-01-20] MEDS: rivaroxaban 10 mg Tablet 20 MG PO (18:54)
--- NOTE | 2021-01-20 20:25 | PM.CONSULT ---
Providers/Reason For Consult Consulting Physician/Specialty*: Miki Pierce MD/ Pulmonary Critical Care Reason for Consult*: Acute hypoxic respiratory failure in patient with metastatic lung cancer Requesting Physician: Maggie Barney MD Attending Physician: Maggie Barney MD Primary Care Provider: Sam Chaudhari MD History of Present Illness History of Present Illness Eugene Samayoa is a 85 year old male with PMH atrial fibrillation, hypertension, BPH, hyperlipidemia, coronary disease with history of CABG, metastatic lung cancer with extensive mets to liver/bone, on crizotinib 12/25-01/07 then placed on hold due to transaminitis, chronic hyponatermia, radiation included esophagitis recently discharged here on 01/14 after being treated for pneumonia, discharged with levaquin. Upon chart review patient went to the oncology clinic on 01/16/2021 and continues to report low-grade fever 100F, generalized malaise and fatigue evaluate for infection as patient is being placed back on chemotherapy. This is a MRSA PCR screen negative, UA urine culture, blood cultures, sputum cultures are negative most recent admission. Chest CT scan showed multifocal GGO suspicious for pneumonia versus pulmonary edema and liver mets appeared larger. Also patient seen in A. fib RVR and received metoprolol 5 mg IV push, [id number] MG IV push and later briefly on amiodarone drip and phenylephrine. He also received Received Lasix, LV systolic function on limited echo at that time was difficult to assess because of significant Tachycardia. Labs revealed elevated BNP and 2+ pitting edema suggestive of CHF with pEF. Stress test 06/2020, EF 65%. check COVID ag (recent PCR negative 01/12, refused another PCR, vaccinated), influenza Ag, respiratory viral panel to evalute other causes of viral pneumonitis , check rpeat blood cx, UA. As patient was on dexamethasone 4 mg for possible spinal compression due to meds-sent for PJP PCR. Patient oxygen requirements gradually increased and required 40 L 75% high flow nasal cannula. Pulmonary consult requested for increasing oxygen requirements and metastatic lung cancer patient with possible infection versus fluid overload -Patient seen at bedside -Saturating 91% on high flow nasal cannula 40 L 25% -Able to continue conversation -States that his breathing is much better than yesterday morning -His at bedside had several questions regarding current clinical condition and long-term all the best of my knowledge -Labs and imaging reviewed Review of Systems General: Reports: 10 or more systems reviewed and unremarkable except in HPI and below Meds/Allergies Home Medications and Allergies Home Medications Medication Instructions Recorded Confirmed Last Taken Type nitroglycerin 0.4 mg sublingual 0.4 mg SUBLINGUAL Q5M PRN 08/10/19 01/17/21 Unknown History tablet rivaroxaban 20 mg tablet 20 mg PO QPM 08/10/19 01/17/21 01/11/21 18:30 History tamsulosin 0.4 mg capsule 0.4 mg PO BEDTIME 08/10/19 01/17/21 01/11/21 18:30 History cholecalciferol (vitamin D3) 50 mcg PO DAILY 10/15/20 01/17/21 Unknown History [Vitamin D3] famotidine [Pepcid] 20 mg PO BID 10/15/20 01/17/21 10/15/20 History polyethylene glycol 3350 [Miralax] 17 g PO DAILY PRN 10/15/20 01/17/21 10/14/20 History folic acid 1 mg PO QAM 01/12/21 01/17/21 01/11/21 08:00 History metoprolol succinate 25 mg PO BEDTIME 01/12/21 01/17/21 01/11/21 18:30 History albuterol sulfate 2 inh INHALATION Q6H PRN #6.7 g 01/14/21 01/17/21 Unknown Rx dexamethasone [Decadron] 2 mg PO DAILY #10 tab 01/14/21 01/17/21 01/15/21 Rx levofloxacin 750 mg PO DAILY 7 Days #7 tab 01/14/21 01/17/21 01/16/21 Rx sennosides [Senna Laxative] 8.6 mg PO DAILY #10 tab 01/14/21 01/17/21 01/16/21 Rx gabapentin 100 mg PO Q8H 01/17/21 01/17/21 Unknown History ondansetron HCl 4 mg PO Q6H PRN 01/17/21 01/17/21 Unknown History Allergies Allergy/AdvReac Type Severity Reaction Status Date / Time atorvastatin [From Lipitor] AdvReac Unknown muscle Verified 01/17/21 10:57 aches and pain rosuvastatin AdvReac Unknown muscle Verified 01/17/21 10:57 aches and pains Current Medications Current Medications Generic Name Dose Route Start Last Admin Trade Name Carmineq PRN Reason Stop Dose Admin Acetaminophen 650 mg 01/17/21 01:58 01/19/21 12:32 Acetaminophen 325 Mg Tablet PO 650 mg Q6H PRN Administration Mild/Mod Pain Or Temp >/= 101 Hydrocodone Bitart/Acetaminophen 1 tab 01/18/21 03:59 01/18/21 04:08 Hydrocodone-Acetaminophen 5-325 Mg Tablet PO 1 tab Q6H PRN Administration MODERATE PAIN Albuterol/Ipratropium 3 ml 01/17/21 14:42 01/20/21 08:26 Ipratropium-Albuterol 3 Ml Neb INHALATION 3 ml Q6H PRN Administration SHORTNESS OF BREATH Budesonide 0.25 mg 01/17/21 20:00 01/20/21 19:31 Budesonide 0.5 Mg/2 Ml Neb INHALATION 0.25 mg BID.RESPIRATORY FRIEDA Administration Dexamethasone 2 mg 01/17/21 09:00 01/19/21 09:36 Dexamethasone 4 Mg Tablet PO 2 mg DAILY FRIEDA Administration Diltiazem HCl 30 mg 01/18/21 12:15 01/20/21 18:54 Diltiazem 30 Mg Tablet PO 30 mg Q6H FRIEDA Administration Doxycycline Monohydrate 100 mg 01/18/21 18:00 01/20/21 18:54 Doxycycline 100 Mg Tablet PO 100 mg BID FRIEDA Administration Protocol Famotidine 20 mg 01/17/21 09:00 01/20/21 18:54 Famotidine 20 Mg Tablet PO 20 mg BID FRIEDA Administration Furosemide 40 mg 01/20/21 10:00 01/20/21 09:53 Furosemide 10 Mg/Ml Sdv 4ml IVP 40 mg Q24H FRIEDA Administration Gabapentin 100 mg 01/16/21 22:51 01/20/21 15:19 Gabapentin 100 Mg Capsule PO 100 mg Q8H FRIEDA Administration Piperacillin Sod/Tazobactam 50 mls @ 12.5 mls/hr 01/19/21 12:30 01/20/21 16:30 Sod 3.375 gm/ Sodium Chloride IV Infused Q8H FRIEDA Infusion Protocol Morphine Sulfate 30 mg 01/18/21 18:00 01/20/21 18:54 Morphine Er (12 Hr) 30 Mg Tablet PO 30 mg Q12H FRIEDA Administration Polyethylene Glycol 17 gm 01/16/21 23:09 01/20/21 13:10 Polyethylene Glycol 3350 Pkt 17 Gm PO 17 gm DAILY PRN Administration Constipation Rivaroxaban 20 mg 01/17/21 18:00 01/20/21 18:54 Rivaroxaban 10 Mg Tablet PO 20 mg QPM FRIEDA Administration Senna/Docusate Sodium 1 tab 01/20/21 12:55 01/20/21 18:54 Sennosides-Docusate Tablet PO 1 tab BID FRIEDA Administration Tamsulosin HCl 0.4 mg 01/17/21 21:00 01/19/21 22:24 Tamsulosin 0.4 Mg Capsule PO 0.4 mg BEDTIME FRIEDA Administration Trimethoprim/Sulfamethoxazole 1 tab 01/19/21 18:00 01/20/21 18:54 Sulfamethoxazole-Trimeth Ds 160-800 Mg Tablet PO 1 tab BID FRIEDA Administration Protocol PFSH Acute PFSH: Medical History (Updated 01/20/21 @ 21:11 by Miki Pierce MD) Atherosclerotic heart disease of [place] coronary artery without angina pectoris Atrial fibrillation Benign essential HTN BPH (benign prostatic hyperplasia) CAD (coronary artery disease) Emphysema lung Mixed hyperlipidemia TIA (transient ischemic attack) Surgical History (Updated 01/20/21 @ 20:46 by Miki Pierce MD) H/O esophagogastroduodenoscopy History of coronary artery stent placement Hx of CABG Status post colonoscopy (10/17/20) Status post right inguinal hernia repair Family History Father CAD (coronary artery disease) Brother CAD (coronary artery disease) Sister CAD (coronary artery disease) Cancer Other Hyperlipidemia Denies family history of Diabetes Clotting disorder Dementia Chronic kidney disease (CKD) Suicide Anesthesia complication Bleeding disorder Lung disease Stroke Social History Smoking and tobacco status: former smoker Quit status (tobacco): has quit using tobacco Year quit tobacco: 1989 Former quit date comment: Hx of 1 PPD x 30 Years Second hand smoke exposure: No Smoking risk assessment/counseling performed?: No Alcohol intake: never Counseling given: No Counseling given: No Lives independently: Yes Household members: spouse Marital status: Current occupational status: retired History of recent travel: No Current gender identity: Male Vitals/I&O/Wt Last Vital Signs Temp 97.6 F 01/20/21 20:00 Pulse 83 01/20/21 20:00 Resp 22 H 01/20/21 20:00 BP 112/60 01/20/21 20:00 Pulse Ox 91 01/20/21 20:00 01/20/21 01/20/21 01/20/21 06:59 14:59 22:59 Intake Total 150 / 1199.591 50 / 50 50 / 100 Output Total 1100 / 1600 2250 / 2250 Balance -950 / -400.409 50 / 50 -2200 / -2150 Physical Exam Narrative: EXAM NARRATIVE: General: alert, NAD HEENT: conj clear, EOMI, PERRL, mmm, Neck: supple, no meningismus Heme: no cervical LAP Pulmonary: Diffuse bilateral crackles Cardiovascular: rrr, nl s1s2, no mrg Abdomen: soft, nt, nd, no r/g, bs+ Extremities: pulses +, 2+ pitting pedal edema, no c/c : no CVA tenderness Skin: intact, no rash MSK: no back or neck pain Neurologic: grossly intact Urinary Catheter Management^: Major: Cath Placed During This Visit: yes Reason for Continuing Indwelling Catheter: Acute Urinary Retention or Obstruction Urinary Catheter Date of Insertion: 01/19/21 Urinary Catheter Time of Insertion: 12:00 Data Labs: Other Labs: Laboratory Results WBC 7.2 10^3/uL (4.0- 10.0) 01/20/21 05:10 RBC 3.35 10^6/uL (4.1 -5.3) L 01/20/21 05:10 Hgb 10.9 g/dL (11.7-1 6.6) L 01/20/21 05:10 Hct 31.4 % (42.0-52.0 ) L 01/20/21 05:10 MCV 93.7 fl (80-94) 01/20/21 05:10 MCH 32.5 pg (28.0-34. 0) 01/20/21 05:10 MCHC 34.7 g/dL (30.0-3 6.0) 01/20/21 05:10 RDW 16.4 % (12.1-15.1 ) H 01/20/21 05:10 Plt Count 159 10^3/cmm (130 -400) 01/20/21 05:10 MPV 9.3 fL (7.4-10.4) 01/20/21 05:10 Neut % (Auto) 91.8 % 01/20/21 05:10 Lymph % (Auto) 4.3 % 01/20/21 05:10 Door % (Auto) 2.8 % 01/20/21 05:10 Eos % (Auto) 0.1 % 01/20/21 05:10 Baso % (Auto) 0.3 % 01/20/21 05:10 Neut # (Auto) 6.60 10^3/uL (1.8 -7.7) 01/20/21 05:10 Lymph # (Auto) 0.3 10^3/uL (0.8- 4.8) L 01/20/21 05:10 Door # (Auto) 0.2 10^3/uL (0.2- 0.9) 01/20/21 05:10 Eos # (Auto) 0.0 10^3/uL (0.0- 0.8) 01/20/21 05:10 Baso # (Auto) 0.0 10^3/uL (0.0- 0.1) 01/20/21 05:10 Nucleated RBC % (a uto) 0 % 01/20/21 05:10 Nucleated RBCs # 0.0 /100WBC 01/20/21 05:10 D-Dimer 2.46 ug/mIFEU (0- 0.59) H 01/18/21 03:37 Specimen Type Arterial 01/20/21 04:27 Sample Site Brachial, left 01/20/21 04:27 ABG pH 7.48 (7.35-7.45) H 01/20/21 04:27 ABG pCO2 35.9 mmHg (35-45) 01/20/21 04:27 ABG pO2 52.4 mmHg (80.0-1 00.0) L 01/20/21 04:27 ABG HCO3 26.8 mmol/L (22-2 6) H 01/20/21 04:27 ABG Base Excess 3.0 mmol/L (-2.0- 2.0) H 01/20/21 04:27 Joey Test N/a 01/20/21 04:27 Hematocrit 17.7 % (42-52) L 01/20/21 04:27 O2 Delivery Device Hag 01/20/21 04:27 O2 Liters/Min 35.0 % 01/20/21 04:27 FiO2 65.0 % 01/20/21 04:27 Player Services Representative ID Yu 01/20/21 04:27 Sodium 130 mmol/L (136-1 45) L 01/20/21 05:10 Potassium 4.8 mmol/L (3.5-5 .1) 01/20/21 05:10 Chloride 99 mmol/L (98-107 ) 01/20/21 05:10 Carbon Dioxide 23 mmol/L (22-29) 01/20/21 05:10 Anion Gap 12.8 (5-19) 01/20/21 05:10 BUN 18 mg/dL (8-23) 01/20/21 05:10 Creatinine 0.8 mg/dL (0.7-1. 2) 01/20/21 05:10 GFR Calculation Not Reportable 01/20/21 05:10 Glucose 136 mg/dL (65-115 ) H 01/20/21 05:10 POC Glucose 106 mg/dL (70-110 ) 01/19/21 12:41 Calculated Osmolal ity 274 mOsm/kg (285- 295) L 01/20/21 05:10 Lactic Acid 2.1 mmol/L (0.5-2 .2) 01/16/21 17:30 Lactic Acid (Sepsi s) 1.3 mmol/L (0.5-2 .2) 01/16/21 21:28 Lactate 1.3 mmol/L (0.5-2 .2) 01/20/21 05:10 Calcium 8.7 mg/dL (8.5-10 .5) 01/20/21 05:10 Total Bilirubin 0.5 mg/dL (0.15-1 .2) 01/18/21 03:37 AST 34 U/L (0-40) 01/18/21 03:37 ALT 37 U/L (0-41) 01/18/21 03:37 Alkaline Phosphata se 112 IU/L (40-130) 01/18/21 03:37 Lactate Dehydrogen ase 417 U/L (135-225) H 01/18/21 03:37 Creatine Kinase 31 U/L (39-308) L 01/16/21 17:30 Troponin T Gen 5 n g/L 15 ng/L (0-15) 01/18/21 03:37 C-Reactive Protein 252.9 mg/L (0.0-4 .9) H 01/20/21 05:10 NT-Pro-B Natriuret Pep 1074 pg/mL (0-450 ) H 01/16/21 17:30 Total Protein 4.7 g/dL (6.6-8.7 ) L 01/18/21 03:37 Albumin 2.2 g/dL (3.5-5.2 ) L 01/18/21 03:37 Globulin 2.5 g/dL (1.3-4.6 ) 01/18/21 03:37 Lipase 8 U/L (13-60) L 01/16/21 17:30 Procalcitonin 3.08 ng/mL (0-0.5 ) H 01/20/21 05:10 Urine Color Yellow (Yellow) 01/18/21 14:00 Urine Appearance Clear (CLEAR) 01/18/21 14:00 Urine pH 7 (5-7) 01/18/21 14:00 Ur Specific Gravit y 1.010 (1.005-1.0 30) 01/18/21 14:00 Urine Protein Trace (Negative) 01/18/21 14:00 Urine Glucose (UA) Norm (Normal) 01/18/21 14:00 Urine Ketones Negative (Negati ve) 01/18/21 14:00 Urine Blood Trace (Negative) H 01/18/21 14:00 Urine Nitrate Negative (Negati ve) 01/18/21 14:00 Urine Bilirubin Neg (Negative) 01/18/21 14:00 Urine Urobilinogen Norm mg/dL (Negat allison) 01/18/21 14:00 Ur Leukocyte Trudi ase Negative (Negati ve) 01/18/21 14:00 Urine RBC Rare /hpf (0-2) 01/18/21 14:00 Urine WBC 0-4 /hpf (0-5) H 01/18/21 14:00 Ur Squamous Epith Cells Rare /hpf (0-5) 01/18/21 14:00 Calcium Oxalate Cr ystal 5-10 /hpf H 01/18/21 14:00 Amorphous Sediment Not Reportable 01/18/21 14:00 Urine Bacteria Trace /hpf (NONE) 01/18/21 14:00 Coarse Granular Ca sts 5-10 /lpf H 01/18/21 14:00 Influenza Type A A g Negative (Negati ve) 01/16/21 23:20 Influenza Type B A g Negative (Negati ve) 01/16/21 23:20 SARS-CoV-2 Ag (Rap id) Negative (Negati ve) 01/16/21 23:20 Impressions Chest X-Ray 01/19/21 07:27 IMPRESSION: Prominent diffuse bilateral pulmonary infiltrates. They have worsened in the left lung when compared to previous study. Radiation Dose CTDIVOL = (mGy): DLP = (mGy-cm) Chest CTA 01/19/21 12:02 IMPRESSION: 1. The study is limited due to patient respiratory motion. 2. No evidence of pulmonary embolism, within the technical limits of the examination. 3. Mild enlargement of the main pulmonary artery, consistent with pulmonary hypertension. 4. Severe diffuse airspace infiltrates noted throughout both lungs. This has worsened when compared to 01/16/2021. 5. Small bilateral pleural effusions. The effusions appear slightly larger when compared to 01/16/2021. Radiation Dose CTDIVOL = (mGy): DLP = 583.17 (mGy-cm) Micro: Micro: Microbiology 01/18/21 17:50 Sputum Culture - P reliminary Sputum - Expector ated Sputum A&P Assessment and plan (1) Acute respiratory failure with hypoxia: Status: Acute (2) Metastatic primary lung cancer: Status: Acute Qualifiers: Laterality: right Qualified Code(s): C34.91 - Malignant neoplasm of unspecified part of right bronchus or lung (3) Lesion of bone of thoracic spine: Status: Acute (4) Atrial fibrillation with RVR: Status: Acute (5) CAD (coronary artery disease): Status: Acute Qualifiers: Coronary Disease-Associated Artery/Lesion type: [place] artery [place] vs. transplanted heart: [place] heart Associated angina: without angina Qualified Code(s): I25.10 - Atherosclerotic heart disease of [place] coronary artery without angina pectoris (6) Hx of CABG: Status: Acute (7) Smoker: Status: Acute (8) Radiation pneumonitis: Status: Acute #Acute hypoxic respiratory failure secondary to fluid overload due to CHF probably exacerbated by A. fib RVR in patient with underlying CAD s/P CABG in 2019 #Patient had a metastatic adenocarcinoma primary lung cancer to liver, colon, spine s/p crizotinib and 12 25 2020-01 07 2021 #Suspected superimposed bacterial or PCP pneumonia/radiation pneumonitis -Currently requiring high flow nasal cannula 45 L 70% -ABG 7.4 // on 35 L 65%; AA gradient 367 -CT with diffuse GGO's-BNP >5000, likely fluid overload from A. fib RVR bilateral pleural thickening edema-patient on Lasix 40 mg daily -Since morning patient is -2.1 L and reported subjective improvement in his breathing; monitor electrolytes and renal functions. -Limited echo during A. fib RVR-could not get good LV function due to tachycardia now that heart rate is controlled please obtain another echocardiogram -MRSA nares, sputum cultures, Legionella urine antigen, urine culture, bacterial antigens from 01/12/2021 - -Covid PCR negative on 02/08/2021: Resent on 01/19/2021; also respiratory viral panel, PCP PCR pending -Currently on Zosyn, doxycycline and Bactrim 1 tab p.o. twice daily -If patient FiO2 requirements continue to worsen despite adequate diuresis-I will recommend to change to IV Bactrim given his highly AA gradient and low PaO2. There is severe PCP pneumonia -sputum culture, blood cultures on this admission are still pending -During this admission patient was in A. fib RVR requiring amiodarone drip -Currently rate controlled with Cardizem 30 mg p.o. every 6 hour, on Xarelto 20 mg p.o. daily -Other differentials include radiation pneumonitis as patient had palliative thoracic radiation therapy in November 2020-started on prednisone 40 mg daily -DuoNeb every 6 as needed given smoking history -Patient is DNR/DNI -Patient and understand limited prognosis given his metastatic lung cancer and discussed in detail about possible reversible conditions like superimposing pneumonia including PCP given his immunosuppressive condition, fluid overload due to A. fib RVR and borderline CAD all of which have been being treated with broad-spectrum antibiotics, diuretics while awaiting for studies. They both verbalized understanding and agree with plan of care. I made sure all their questions were answered at bedside and informed that they can reach me anytime through the him taking care of the patient if they have any further questions. -Rest of the comorbidities managed by hospitalist taking care of the patient -Recommendations conveyed to the hospitalist taking care of the patient Consult Attestations Medical Necessity Statement: Acute hypoxic respiratory failure in patient with metastatic lung adenocarcinoma-with possible superimposed bacterial or PCP pneumonia worsened by fluid overload secondary to A. fib RVR in patient with underlying CAD s/p CABG Time Spent in Patient Care: Greater than 35 minutes (>than 50% of time spent in counselling and/or direct pt care on unit). Critical Care Time: Critical Care Time (min): 45 Coding Level of Care Code Acute Pony Worker for Chg Fwd Diagnoses Acute respiratory failure with hypoxia J96.01 Metastatic primary lung cancer C34.91 Laterality: right Lesion of bone of thoracic spine M89.9 Atrial fibrillation with RVR I48.91 CAD (coronary artery disease) I25.10 Coronary Disease-Associated Artery/Lesion type: [place] artery [place] vs. transplanted heart: [place] heart Associated angina: without angina Hx of CABG Z95.1 Smoker F17.200 Radiation pneumonitis J70.0
[2021-01-20] MEDS: tamsulosin 0.4 mg Capsule PO (21:08)
--- NOTE | 2021-01-20 23:56 | PC.NURSE ---
Per report from day shift charge nurse, patient's has been granted permission to come see patient with use of proper PPE.
[2021-01-21] VITALS (32 sets, daily range): BP systolic 83–122; BP diastolic 51–82; PULSE 70–127; RESP 10–30; TEMP 36.6–36.8; O2SAT 82–93
[2021-01-21] MEDS: gabapentin 100 mg Capsule PO ×4 (00:15→21:35)
[2021-01-21] MEDS: dilTIAZem 30 mg Tablet PO ×5 (00:16→23:11)
[2021-01-21 05:02] LABS: Basophils % 0.1 %; Hematocrit 32.2 % (42.0-52.0); Hemoglobin 10.9 g/dL (11.7-16.6); Lymphocytes # 0.3 10^3/uL (0.8-4.8); Lymphocytes % 3.2 %; Mean Corpuscular HGB Conc 33.9 g/dL (30.0-36.0); Mean Corpuscular Hemoglobin 32.7 pg (28.0-34.0); Mean Corpuscular Volume 96.7 fl (80-94); Mean Platelet Volume 9.1 fL (7.4-10.4); Monocytes # 0.3 10^3/uL (0.2-0.9); Monocytes % 3.2 %; Neutrophils # 8.64 10^3/uL (1.8-7.7); Neutrophils % 92.5 %; Nucleated Red Blood Cells % 0 %; Platelet Count 147 10^3/cmm (130-400); Red Blood Count 3.33 10^6/uL (4.1-5.3); Red Cell Distribution Width 16.6 % (12.1-15.1); White Blood Count 9.3 10^3/uL (4.0-10.0)
[2021-01-21] MEDS: piperacillin-tazobactam 3.375 GM in sodium chloride 0.9% (plus) 50 ML IV ×3 (05:04→20:19)
[2021-01-21] MEDS: morphine ER (12 HR) 30 mg tablet PO ×2 (05:05→19:20)
[2021-01-21 05:31] LABS: Anion Gap 10.1 (5-19); Blood Urea Nitrogen 28 mg/dL (8-23); Calcium 8.8 mg/dL (8.5-10.5); Carbon Dioxide 25 mmol/L (22-29); Chloride 98 mmol/L (98-107); Glucose 127 mg/dL (65-115); Osmolality Calculated 273 mOsm/kg (285-295); Potassium 5.1 mmol/L (3.5-5.1); Sodium 128 mmol/L (136-145)
--- NOTE | 2021-01-21 09:00 | PC.NURSE ---
Pt lying in bed awake and talking to staff. at bedside. Pt resp even and non-labored no distress noted. Pt on air vo-heated hi lisa O2 at 40Lpm at 100%. Pt O2 sat 90%. Pts ramires patent and draining yellow colored urine. Pts IV patent no redness or swelling noted. Pt had no c/o pain or discomfort at the present time. No needs voiced. Call light in reach. Will cont to monitor.
[2021-01-21] MEDS: doxycycline 100 mg Tablet PO ×2 (09:36→19:21)
[2021-01-21] MEDS: sennosides-docusate Tablet 1 TAB PO ×2 (09:36→19:23)
[2021-01-21] MEDS: famotidine 20 mg Tablet PO ×2 (09:36→19:29)
[2021-01-21] MEDS: FUROsemide 10 mg/mL SDV 4mL 40 MG IVP (09:37)
[2021-01-21] MEDS: sulfamethoxazole-trimeth DS 160-800 mg Tablet 1 TAB PO (09:37)
[2021-01-21] MEDS: predniSONE 20 mg Tablet 40 MG PO (09:37)
--- NOTE | 2021-01-21 09:44 | PC.SOCIAL ---
IMM Update Pg. 2 of IMM updated and reviewed with patient and his , who verbalized understanding. Copy provided.
--- NOTE | 2021-01-21 11:39 | XR_ITS ---
WS: [id number] XR abdomen 1V* [id number] REASON FOR EXAM: severe consitpation, not passing flatus FINDINGS: No free air or retroperitoneal air identified. Large amount of stool in the right and transverse colons. Moderate gaseous distention of the stomach and loops of small bowel. Gas in the rectum and rectosigmoid colon. XR/XR abdomen 1V* [id number] IMPRESSION: Bowel gas pattern as above. No acute abnormality.
[2021-01-21] MEDS: lactulose oral liq 20 gm/30 mL UDC PO ×2 (15:25→23:11)
[2021-01-21] MEDS: polyethylene glycol 3350 Pkt 17 gm PO ×2 (15:26→19:20)
--- NOTE | 2021-01-21 16:02 | PM.PN ---
Subjective Subjective: Interval history: Seen and examined this morning. Patient continues to require high flow nasal cannula 15 L. However he does state he was unable to have a bowel movement after lactulose yesterday. His current management and issues were discussed at length with him and his . Also discussed his case with Dr. Pierce. Patient does state that since yesterday he is unable to pass gas. also stated that they had a bowel obstruction or Dr. Sherman at operate. Records were reviewed from past hospital admissions. Vitals/I&O/Wt Last Vital Signs Temp 98.1 F 01/21/21 04:00 Pulse 89 01/21/21 09:32 Resp 20 H 01/21/21 09:32 BP 110/61 01/21/21 04:00 Pulse Ox 90 01/21/21 09:32 01/21/21 01/21/21 01/21/21 06:59 14:59 22:59 Intake Total 150 / 250 50 / 50 Output Total 3350 / 5600 Balance -3200 / -5350 50 / 50 Physical Exam Narrative: EXAM NARRATIVE: General: Alert oriented x3, patient seen sitting up in bed on high flow NC. present at bedside HEENT: Normocephalic, atraumatic, EOMI, Cardio: Regular rate rhythm, normal S1-S2, no murmurs rubs gallops, Respiratory: Diminished bilateral air entry, mild crepitation and ronchi at bases. Exam has not changed much since yesterday. GI: Abdomen soft, nontender, bowel sounds + Behavior: Appropriate and cooperative Extremities: no edema, no cyanosis, warm extremities Major in place Urinary Catheter Management^: Major: Cath Placed During This Visit: yes Reason for Continuing Indwelling Catheter: Acute Urinary Retention or Obstruction Urinary Catheter Date of Insertion: 01/19/21 Urinary Catheter Time of Insertion: 12:00 Data : 01/21/21 04:42 01/21/21 04:42 Micro: Microbiology 01/18/21 17:50 Sputum Culture - Final Sputum - Expectorated Sputum A&P Assessment and plan (1) Lesion of bone of lumbosacral spine: Status: Acute (2) Lesion of bone of thoracic spine: Status: Acute (3) Metastatic primary lung cancer: Status: Acute Qualifiers: Laterality: right Qualified Code(s): C34.91 - Malignant neoplasm of unspecified part of right bronchus or lung (4) Liver mass: Status: Acute (5) Dilated aortic root: Status: Acute (6) CHF (congestive heart failure): Status: Acute (7) Fatigue: Status: Acute (8) Atrial fibrillation with RVR: Status: Acute (9) Numbness in left leg: Status: Acute (10) Hyponatremia: Status: Acute Additional A&P Information Acute preserved ejection fraction heart failure exacerbation Limited echo taken however report is pending, Clinically does not look volume overloaded BNP on admission 10,000 PE ruled out Patient did have pleural effusion on CT done 01/19. He was given extra dose of Lasix but oxygenation not improved. Continue Lasix 40 IV daily for now. Acute hypoxic resp failure Concern for ARDS, clinically looks euvolemic, EF is preserved No active signs of sepsis Covid PCR negative PE on recent CTA ruled out High D-dimer, patient has been on anticoagulating agent, Concern for worsening of cancerous lesions On 15 L heated high flow. Patient states that he wants to stay DNR/DNI, does not want to be transferred to [facility] for spine orthopedic evaluation Family and at the bedside PCP PCR, resp viral panel, pending. COVID test pending. We will continue patient on Zosyn, doxycycline for now. No signs of spinal cord compression or epidural abscess, multiple mets of thoracic and lumbar area, Will consult pulmonology. Will place patient on prednisone 40 daily as per recommendations. Discussed with Dr. Medina at length today. At this point his hypoxia could be related to cancer progression versus PCP pneumonia. PCP PCR has been sent but result is pending. We will treat him empirically in the meantime. We will start IV Bactrim for now. We will keep an eye on hyponatremia and hyperkalemia. Will de-escalate once test is negative. 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 He was recommended to be on aggressive stool softeners regimen. Abdominal x-ray was done today which showed large amount of stool in right colon with gas present in rectum. Patient has bowel sounds at this time. I will start him on aggressive regimen today. We will do MiraLAX twice daily, lactulose twice daily. If bowel sounds become absent will get evaluation from surgery. Tapwater enema was also discussed but will do softeners first and then enema if needed as well. A. fib RVR -resolved Started amiodarone and phenylephrine but now they have stopped. Patient is no longer hypotensive. We will continue patient on Cardizem 30 every 6 hours. No active chest pain Continue anticoagulation Metastatic lung cancer with mets to bone and liver: No sign of spinal cord compression, currently on gabapentin, opioids, continue patient on Decadron 6 mg daily. Patient has been on and off on 4 mg of dexamethasone outpatient with Dr. Munroe. 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 Coding Level of Care Code Acute Branch Coordinator for Chg Fwd Diagnoses Lesion of bone of lumbosacral spine M89.9 Lesion of bone of thoracic spine M89.9 Metastatic primary lung cancer C34.91 Laterality: right Liver mass R16.0 Dilated aortic root I77.810 CHF (congestive heart failure) I50.9 Fatigue R53.83 Atrial fibrillation with RVR I48.91 Numbness in left leg R20.0 Hyponatremia E87.1
[2021-01-21 16:24] LABS: Coronavirus Test Green County Not Detected
[2021-01-21] MEDS: rivaroxaban 10 mg Tablet 20 MG PO (19:23)
[2021-01-21] MEDS: tamsulosin 0.4 mg Capsule PO (20:18)
[2021-01-21] MEDS: budesonide 0.5 mg/2 mL Neb 0.25 MG INHALATION (20:40)
[2021-01-21] MEDS: sulfamethoxazole-trimeth inj 480 MG in dextrose 5 % 500 ML 500 MG IV (21:35)
[2021-01-21] MEDS: ondansetron 2 mg/ML SDV 2 mL 4 MG IVP (21:43)
--- NOTE | 2021-01-21 22:47 | PC.NURSE ---
Dr. Felton notified of patient having nausea/vomiting. Zofran did not help. Reglan x1 ordered. Patient currently has bowel sounds.
[2021-01-21] MEDS: metoclopramide 5 mg/mL SDV 2 mL 10 MG IVP (22:51)
[2021-01-22] VITALS (31 sets, daily range): BP systolic 85–109; BP diastolic 53–61; PULSE 74–160; RESP 11–30; TEMP 36.5–36.6; O2SAT 81–94
[2021-01-22] MEDS: piperacillin-tazobactam 3.375 GM in sodium chloride 0.9% (plus) 50 ML IV (03:21)
[2021-01-22 03:43] LABS: Basophils % 0.1 %; Hematocrit 33.6 % (42.0-52.0); Hemoglobin 11.6 g/dL (11.7-16.6); Lymphocytes # 0.4 10^3/uL (0.8-4.8); Lymphocytes % 4.4 %; Mean Corpuscular HGB Conc 34.5 g/dL (30.0-36.0); Mean Corpuscular Hemoglobin 33.4 pg (28.0-34.0); Mean Corpuscular Volume 96.8 fl (80-94); Mean Platelet Volume 9.4 fL (7.4-10.4); Monocytes # 0.3 10^3/uL (0.2-0.9); Monocytes % 2.9 %; Neutrophils # 8.15 10^3/uL (1.8-7.7); Neutrophils % 91.1 %; Nucleated Red Blood Cells % 0 %; Platelet Count 195 10^3/cmm (130-400); Red Blood Count 3.47 10^6/uL (4.1-5.3); Red Cell Distribution Width 16.5 % (12.1-15.1); White Blood Count 8.9 10^3/uL (4.0-10.0)
[2021-01-22] MEDS: sulfamethoxazole-trimeth inj 480 MG in dextrose 5 % 500 ML 500 MG IV ×2 (04:10→14:26)
[2021-01-22 04:14] LABS: Anion Gap 13.2 (5-19); Blood Urea Nitrogen 36 mg/dL (8-23); Calcium 9.2 mg/dL (8.5-10.5); Carbon Dioxide 24 mmol/L (22-29); Chloride 95 mmol/L (98-107); Glucose 106 mg/dL (65-115); Osmolality Calculated 273 mOsm/kg (285-295); Potassium 5.2 mmol/L (3.5-5.1); Sodium 127 mmol/L (136-145)
[2021-01-22] MEDS: gabapentin 100 mg Capsule PO ×2 (05:43→14:03)
[2021-01-22] MEDS: dilTIAZem 30 mg Tablet PO ×2 (05:43→12:07)
[2021-01-22] MEDS: morphine ER (12 HR) 30 mg tablet PO (05:43)
--- NOTE | 2021-01-22 06:31 | PC.NURSE ---
Shift Note Frequent safety and comfort rounds continue. Orders and/or nursing care completed as indicated. Patient monitored for response to intervention and treatment(s). Will continue to monitor.
--- NOTE | 2021-01-22 08:07 | PC.NURSE ---
Pt sitting up in bed eating breakfast. Pt resp even and non-labored no distress note. Pt on heated hi float 40 Lpm at 70 %. Pt had no c/o pain or discomfort at the present time. No needs voiced. Call light in reach. Will cont to monitor.
--- NOTE | 2021-01-22 09:13 | PC.CHAP ---
Pastoral Care Encounter/Spiritual Assessment Type of Contact [] Declined meat counter clerk visit [] Patient/Family/Request visit [] Outpatient visit [] Follow-up visit [] Physician referral [] Code/Alert [x] Routine visit [] Staff referral [] Actively dying [] Patient sleeping [x] Family support [] [] Out of room [] Palliative care [] [] Receiving care in room [] Pre-surgical visit [] Trauma [] Long length of stay [] ICU visit [] Other: Relational/Emotional Strength [] Patient feels connected with others/family/visitors/staff [] Distress [] Loneliness/isolation [] Abandonment Spirituality of Patient [] Person of Deepthi [] Attends Bahai of their Deepthi [] Believes in Prayer [] Reads Bible or Gnosticism materials [] There are Spiritual issues to be addressed Technologies Division Chair Interventions [x] Prayer [x] Active listening [x] Non-anxious presence [x] Spiritual/emotional support [] Crisis/trauma care [] Spiritual counseling [] Bereavement support [] Provided bereavement packet [] Provided Bible/devotional materials [] Provided toy/stuffed animal, coloring book to patient or family member [] Provided Communion [] Anointing/Orchard [] Salvation [x] Completed spiritual assessment [] Other: Impact on Illness or Injury [] Angry [] Fearful [] Anxious [] Often cries [] Exhaustion [] Unable to work [] Unable to attend taoist [] Unable to walk/stand [] Unable to read [] Unable to drive [] Unable to eat/drink [] Unable to sleep [] Unable to be with family [] Patient intubated [] Other: Summary very strong family support... resting well. lilly patient Time spent with patient 5 min
[2021-01-22] MEDS: budesonide 0.5 mg/2 mL Neb 0.25 MG INHALATION (09:31)
[2021-01-22] MEDS: famotidine 20 mg Tablet PO (09:40)
[2021-01-22] MEDS: doxycycline 100 mg Tablet PO (09:40)
[2021-01-22] MEDS: FUROsemide 10 mg/mL SDV 4mL 40 MG IVP (09:40)
[2021-01-22] MEDS: polyethylene glycol 3350 Pkt 17 gm PO (09:40)
[2021-01-22] MEDS: predniSONE 20 mg Tablet 40 MG PO (09:40)
[2021-01-22] MEDS: sennosides-docusate Tablet 1 TAB PO (09:40)
[2021-01-22] MEDS: metoprolol tartrate 1 mg/1 mL SDV 5 mL 5 MG IVP (10:08)
--- NOTE | 2021-01-22 11:12 | XR_ITS ---
WS: [id number] XR chest 1V portable [id number] REASON FOR EXAM: hypoxia FINDINGS: Diffuse bilateral pulmonary infiltrates becoming more confluent/dense. There is an appearance of lucency in both lung apices however with windowing of the image there appea rs to be lung markings contiguous with the parietal pleura. No other new abnormality or interval change. XR/XR chest 1V portable [id number] IMPRESSION: Increasing confluence/density of the infiltrates
--- NOTE | 2021-01-22 11:14 | XR_ITS ---
WS: [id number] XR abdomen 1V* [id number] REASON FOR EXAM: follow up FINDINGS: Increased amount of fecal material in the left colon compared to the previous examination of 01/22/20 21. Less identifiable small bowel. Large amount of right and transverse colon fecal material and moderate gaseous distention of the stom ach. XR/XR abdomen 1V* [id number] IMPRESSION: Interval change in bowel gas pattern as above.
--- NOTE | 2021-01-22 11:58 | PM.PN ---
Subjective Subjective: Interval history: Patient seen this morning with at bedside. He did have an episode of nausea vomiting last night. His did have bowel sounds at the time as well. He tells me that his belly feels better and he is passing gas now. He still has not had a bowel movement though. He did have hypoxia down to 8485. Nurse placed him on nonrebreather on top of the high flow nasal cannula. We discussed patient's overall condition and plan. Patient also had an episode of A. fib with RVR this morning where heart rate was 150. Blood pressure 109/68. Patient was given 5 mg of IV metoprolol and heart rate came down to 90?100. Vitals/I&O/Wt Last Vital Signs Temp 97.7 F 01/22/21 08:00 Pulse 140 H 01/22/21 09:42 Resp 24 H 01/22/21 09:36 BP 109/61 01/22/21 08:00 Pulse Ox 91 01/22/21 09:36 01/21/21 01/22/21 01/22/21 22:59 06:59 14:59 Intake Total 580 / 630 780 / 1410 290 / 290 Output Total 1500 / 1500 350 / 1850 Balance -920 / -870 430 / -440 290 / 290 Physical Exam Narrative: EXAM NARRATIVE: General: Alert oriented x3, patient seen sitting up in bed on high flow NC and nonrebreather on top. present at bedside. Patient does desaturate upon movement. HEENT: Normocephalic, atraumatic, EOMI, Cardio: Regular rate rhythm, normal S1-S2, no murmurs rubs gallops, Respiratory: Diminished bilateral air entry, mild crepitation and ronchi at bases. Exam has not changed much since yesterday. GI: Abdomen soft, nontender, mild distention , and good bowel sounds + Behavior: Appropriate and cooperative Extremities: no edema, no cyanosis, warm extremities Major in place Urinary Catheter Management^: Major: Cath Placed During This Visit: yes Reason for Continuing Indwelling Catheter: Acute Urinary Retention or Obstruction Urinary Catheter Date of Insertion: 01/19/21 Urinary Catheter Time of Insertion: 12:00 Data : 01/22/21 03:14 01/22/21 03:14 Micro: Microbiology 01/16/21 17:30 Blood Culture - Final Blood NO GROWTH AFTER 5 DAYS 01/16/21 19:05 Blood Culture - Final Blood NO GROWTH AFTER 5 DAYS 01/18/21 17:50 Sputum Culture - Final Sputum - Expectorated Sputum A&P Assessment and plan (1) Lesion of bone of lumbosacral spine: Status: Acute (2) Lesion of bone of thoracic spine: Status: Acute (3) Metastatic primary lung cancer: Status: Acute Qualifiers: Laterality: right Qualified Code(s): C34.91 - Malignant neoplasm of unspecified part of right bronchus or lung (4) Liver mass: Status: Acute (5) Dilated aortic root: Status: Acute (6) CHF (congestive heart failure): Status: Acute (7) Fatigue: Status: Acute (8) Atrial fibrillation with RVR: Status: Acute (9) Numbness in left leg: Status: Acute (10) Hyponatremia: Status: Acute Additional A&P Information #Acute preserved ejection fraction heart failure exacerbation Limited echo showed LVEF function difficult to assess because of significant tachycardia. Grossly LV systolic function appears to be normal. Clinically does not look volume overloaded BNP on admission 10,000 PE ruled out Patient did have pleural effusion on CT done 01/19. Chest x-ray:Increase confluent/density of infiltrates. Continue Lasix 40 IV daily.. #Acute hypoxic resp failure #Possible pneumonia #Concern for ARDS, clinically looks euvolemic, EF is preserved #Possible progression of lung cancer #Possible PCP PNA. No active signs of sepsis Covid PCR negative PE on recent CTA ruled out High D-dimer, patient has been on anticoagulating agent, Concern for worsening of cancerous lesions On 15 L heated high flow with non-rebreather Patient states that he wants to stay DNR/DNI, does not want to be transferred to [facility] for spine orthopedic evaluation Family and at the bedside PCP PCR, resp viral panel, pending. COVID test negative We will continue patient on Zosyn, doxycycline for now. No signs of spinal cord compression or epidural abscess, multiple mets of thoracic and lumbar area, Pulmonolog on board. Will place patient on prednisone 40 daily as per recommendations. At this point his hypoxia could be related to cancer progression versus PCP pneumonia. PCP PCR has been sent but result is pending. We will treat him empirically in the meantime. We will keep an eye on hyponatremia and hyperkalemia. Will de-escalate once test is negative. Continue IV Bactrim Will stop zosyn and escalate abx to vanco and primaxin Will resend procalcitonin, sputum culture, bacterial antigens today. Pulmonology on board. Appreciate recommendations. 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 He was recommended to be on aggressive stool softeners regimen. Abdominal x-ray was done 01/21 which showed large amount of stool in right colon with gas present in rectum. Patient has bowel sounds at this time. Continue MiraLAX twice daily, lactulose twice daily. If bowel sounds become absent will get evaluation from surgery. Tapwater enema was also discussed but will do softeners first and then enema if needed as well. Pt passing gas now. No BM yet. Will continue regimen. Will repeat abdominal xray today. #A. fib RVR On 01/19 Started amiodarone and phenylephrine but now they have stopped. Patient is no longer hypotensive. We will continue patient on Cardizem 30 every 6 hours. For afib episode today, gave lopressor 5 mg IV x1. Will start home toprol 25 daily. No active chest pain Continue xarelto #Metastatic lung cancer with mets to bone and liver: No sign of spinal cord compression, currently on gabapentin, opioids, continue patient on Decadron 6 mg daily. Patient has been on and off on 4 mg of dexamethasone outpatient with Dr. Munroe. 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 Patient also on bactrim which can be contributing to hyponatremia. Guarded prognosis Cardiac diet DVT prophylaxis currently on anticoagulating agent DNR/DNI will allow family members to come in Attestations Medical Necessity Statement*: Patient is acutely ill and requires inpatient stay. Time Spent in Patient Care: Greater than 35 minutes (>than 50% of time spent in counselling and/or direct pt care on unit). Coding Level of Care Code Acute Operative Supervisor for [place] Fwd Diagnoses Lesion of bone of lumbosacral spine M89.9 Lesion of bone of thoracic spine M89.9 Metastatic primary lung cancer C34.91 Laterality: right Liver mass R16.0 Dilated aortic root I77.810 CHF (congestive heart failure) I50.9 Fatigue R53.83 Atrial fibrillation with RVR I48.91 Numbness in left leg R20.0 Hyponatremia E87.1
[2021-01-22] MEDS: lactulose oral liq 20 gm/30 mL UDC PO (12:07)
[2021-01-22 13:10] LABS: Procalcitonin 4.67 ng/mL (0-0.5)
[2021-01-22] MEDS: ipratropium-albuterol 3 mL Neb INHALATION (15:44)
[2021-01-22] MEDS: vancomycin 1,250 MG/250 ML PIGGYBACK 250 MG IV (16:28)
[2021-01-22 16:33] LABS: Adenovirus Not Detected (Not Detected); Human Metapneumovirus Not Detected (Not Detected); Human Parainflu Virus 1 Not Detected (Not Detected); Human Parainflu Virus 2 Not Detected (Not Detected); Human Parainflu Virus 3 Not Detected (Not Detected); Human Rsv A Not Detected (Not Detected); Influenza A Not Detected (Not Detected); Influenza B Not Detected (Not Detected); Rhinovirus/Enterovirus Not Detected (Not Detected)
--- NOTE | 2021-01-22 17:16 | PM.EVENT ---
Event Note Event Note: , son, [id number] present at bedside. I was called by the nurse around 4:30 PM regarding patient's deteriorating status. Patient was in A. fib with RVR with rates of 1 50-1 70. Blood pressure was low 85/70. Decision was made to give an amiodarone bolus. While a bolus was being started discussion took place with the family in regards to patient's poor prognosis. Patient himself asked us to let him go and he would like to be comfortable at this time. After extensive discussion with the family and the patient it was decided to start comfort measures for this patient. At this point we will stop all drips and active treatment. Patient would also like to take his nonrebreather off but would like to keep the high flow nasal cannula for a little bit. I also offered the family BiPAP which he refused at this point. They do not want to get him intubated or resuscitated. Patient's nurse Caden present in the room during the entire discussion taking place. Patient was made comfort measures and all appropriate orders were placed. I would allow visitors at this time for this patient
[2021-01-22] MEDS: morphine 4 mg/mL SDV 1 mL IVP (17:21)
--- NOTE | 2021-01-23 01:53 | PC.NURSE ---
Patient off and on with waking up. Family members in room. Patient ramires emptied. Denies need for pain medication. Able to speak to family and this RN. Will continue to support patient wishes.
[2021-01-23 09:20] VITALS: PULSE 110; RESP 20; O2SAT 93
--- NOTE | 2021-01-23 12:33 | P.DS_ITS ---
Discharge Providers Date of Admission: 01/16/21 22:51 Date of Discharge: January 23, 2021 Attending Provider at Admission: Romana Garay MD Attending Provider at Discharge: Maggie Barney MD Primary Care Provider: Sam Chaudhari MD Diagnoses at Discharge Discharge Diagnosis (1) Lesion of bone of lumbosacral spine: Status: Acute (2) Lesion of bone of thoracic spine: Status: Acute (3) Metastatic primary lung cancer: Status: Acute Qualifiers: Laterality: right Qualified Code(s): C34.91 - Malignant neoplasm of unspecified part of right bronchus or lung (4) Liver mass: Status: Acute (5) Dilated aortic root: Status: Acute (6) CHF (congestive heart failure): Status: Acute (7) Fatigue: Status: Acute (8) Atrial fibrillation with RVR: Status: Acute (9) Numbness in left leg: Status: Acute (10) Hyponatremia: Status: Acute Reason for Visit Reason for Visit: FEVER Hospital Course Hospital Course Eugene Samayoa is a 85 year old male ith a past medical history significant for atrial fibrillation, hypertension, BPH, hyperlipidemia, coronary disease with history of CABG, metastatic lung cancer with extensive mets to liver/bone, on crizotinib 12/25-01/07 then placed on hold due to transaminitis, chronic hyponatermia, radiation included esophagitis recently discharged here on 01/14 after being treated for pneumonia, discharged with levaquin. Symptoms include fever x 1 week, no cough, expectoration, followed with oncology today where continued to report low grade fever 100F, generalized malaise and fatigue. Sent for admission to evaluate for infections priro to being placed back on chemotherapy. no abdominal pain, NVD, or dysuria. Recent sputum cx, MRSA PCR screen, UA, urine cx, blood cx were negative. He has no port or other indwelling iv access. Ct chest today with multifocal GGOs - pneumonia vs pulmonary edema. improvement in mediastinal LAD. Liver mets appear to be larger. Hospital course: Patient was admitted for pneumonia versus pneumonitis. COVID-19 negative. Blood cultures negative to date, bacterial antigens negative to date. He had worsening oxygen requirements. Broad-spectrum antibiotics were started and he was being treated for PCP pneumonia with IV Bactrim. Results are still pending for that. Patient was also seen by pulmonology. He did have episodes of A. fib with RVR where he required amiodarone. Patient continued to worsen despite all aggressive measures. On 01/22 he went back into A. fib with RVR with hypotension., son, [id number] present at bedside. I was called by the nurse around 4:30 PM regarding patient's deteriorating status. Patient was in A. fib with RVR with rates of 1 50-1 70. Blood pressure was low 85/70. Decision was made to give an amiodarone bolus. While a bolus was being started discussion took place with the family in regards to patient's poor prognosis. Patient himself asked us to let him go and he would like to be comfortable at this time. After extensive discussion with the family and the patient it was decided to start comfort measures for this patient. At this point we will stop all drips and active treatment. Patient would also like to take his nonrebreather off but would like to keep the high flow nasal cannula for a little bit. I also offered the family BiPAP which he refused at this point. They do not want to get him intubated or resuscitated. Patient's nurse Caden present in the room during the entire discussion taking place. Patient was made comfort measures and all appropriate orders were placed. I would allow visitors at this time for this patient. 01/23 family decided to take patient home with hospice. Hospice referral placed. All appropriate orders signed. Family in the room when decision was made. Patient will be discharged home with hospice. Physical Exam Narrative: EXAM NARRATIVE: Patient seen surrounded by family in room 111. He is still on high flow nasal cannula 15 L FiO2 100%. He does state that his arms are starting to swell up. Lasix was stopped yesterday. HEENT: Some skin breakdown present on cheeks due to oxygen tubing, normocephalic atraumatic, mouth appears moist at this time Lungs: Bilateral coarse breath sounds, diminished bilateral air entry lung exam worsened compared to prior days. Heart: Normal S1, S2, irregularly irregular rhythm, Abdomen: Soft, nontender, slightly distended. Bowel sounds present Extremities: Lower extremities no edema or cyanosis present, upper extremities 1 + edema noted. Urinary Catheter Management^: Major: Cath Placed During This Visit: yes Reason for Continuing Indwelling Catheter: Acute Urinary Retention or Obstruction Urinary Catheter Date of Insertion: 01/19/21 Urinary Catheter Time of Insertion: 12:00 Discharge Data Data Completed and Pending: Completed Studies During Hospitalization Category Date Time Status CT angio chest PE protcl [id number] Rout ine Cat Scan 01/19/21 12:[address] angio chest PE protcl [id number] Urge nt Cat Scan 01/16/21 17:32 Completed CXRP [XR chest 1V portable [id number]] S tat Exams 01/19/21 07:27 Completed XR abdomen 1V* 74 [id number] Routine Exams 01/22/21 11:14 Completed XR abdomen 1V* 74 018 Stat Exams 01/21/21 11:39 Completed XR chest 1V omer ble [id number] Stat Exams 01/16/21 17:31 Completed XR chest 1V omer ble [id number] Stat Exams 01/22/21 11:12 [place] [id number] Routin e Ultrasound 01/17/21 22:51 Completed CV. echo limited [id number] Routine Ultrasound 01/18/21 12:09 Completed Pending at discharge Category Date Time Status Pneumocystis jiro veci Qual PCR Rout ine Lab 01/17/21 07:56 Stop Req Labs from last 24 hours 01/22/21 01/18/21 03:14 10:55 Procalcitonin 4.67 H RSV Nasal Swab Not detected RSV Nasal Swab Int Cntl Not detected Adenovirus (PCR) Not detected Human Metapneumovi r PCR Not detected Influenza A (RT-PC R) Not detected Influenza A (H1) P CR Not detected Influenza A (H3) P CR Not detected Influenza B (RT-PC R) Not detected Parainfluenzae Typ e 1 Not detected Parainfluenzae Typ e 2 Not detected Parainfluenzae Typ e 3 Not detected RSV Ab Comment see note Rhinovirus (PCR) Not detected Vitals: Last Vital Signs Temp 97.7 F 01/22/21 08:00 Pulse 110 H 01/23/21 09:20 Resp 20 H 01/23/21 09:20 BP 85/61 01/22/21 20:00 Pulse Ox 93 01/23/21 09:20 Discharge Plan Discharge Patient Disposition: Hospice - Home Condition: Fair Prescriptions: Discontinued tamsulosin 0.4 mg capsule 0.4 mg PO BEDTIME RF: 0 Xarelto 20 mg tablet 20 mg PO QPM RF: 0 Hold Instructions: Resume on 11/05/20. Hold until you are told to resume by Dr Coleman or Pulmonology nitroglycerin [Nitrostat] 0.4 mg tablet, sublingual 0.4 mg SUBLINGUAL Q5M PRN (Reason: Chest Pain) RF: 0 famotidine [Pepcid] 20 mg Tablet 20 mg PO BID RF: 0 polyethylene glycol 3350 [Miralax] 17 gram/dose Powder 17 g PO DAILY PRN (Reason: Constipation) RF: 0 cholecalciferol (vitamin D3) [Vitamin D3] 50 mcg (2,000 unit) Tablet 50 mcg PO DAILY RF: 0 folic acid 1 mg tablet 1 mg PO QAM RF: 0 metoprolol succinate 50 mg tablet extended release 24 hr 25 mg PO BEDTIME RF: 0 levofloxacin 750 mg tablet 750 mg PO DAILY 7 Days Qty: 7 RF: 0 albuterol sulfate 90 mcg/actuation HFA aerosol inhaler 2 inh inhalation Q6H PRN (Reason: shortness of breath or wheezing) Qty: 6.7 RF: 0 sennosides [Senna Laxative] 8.6 mg tablet 8.6 mg PO DAILY Qty: 10 RF: 0 dexamethasone [Decadron] 4 mg tablet 2 mg PO DAILY Qty: 10 RF: 0 ondansetron HCl 8 mg tablet 4 mg PO Q6H PRN (Reason: Nausea And Vomiting) RF: 0 gabapentin 100 mg capsule 100 mg PO Q8H RF: 0 Discharge Orders: Discharge Order (Routine); Ordered 01/23/21 Ordered By: Maggie Barney Ref[facility]: [facility] ([facility]) [Outside] Sam Chaudhari MD [Primary Care Provider] - Discharge Diet: Regular Discharge Activity: Limit activity as instructed Activity Restrictions/Additional Instructions: All medications have been stopped. Hospice team will order medications as needed for comfort. Discharge Attestations Time Spent in Discharge Care*: greater than 30 min Specific Discharge Activities: educating patient, educating and/or supporting family/caregiver, discussing with case management associate/social workers/dc planners, documenting/other paperwork and evaluating patient/reviewing data Status at Discharge: Cognitive status at discharge: cognitively intact , Behavioral status at discharge: cooperative , Functional status at discharge: bed bound Overall status at discharge: patient is not back to baseline Quality Metrics Clinical Quality Measures During this hospital stay, did patient experience: None Coding Level of Care Code Acute Chg FW DC note Diagnoses Lesion of bone of lumbosacral spine M89.9 Lesion of bone of thoracic spine M89.9 Metastatic primary lung cancer C34.91 Laterality: right Liver mass R16.0 Dilated aortic root I77.810 CHF (congestive heart failure) I50.9 Fatigue R53.83 Atrial fibrillation with RVR I48.91 Numbness in left leg R20.0 Hyponatremia E87.1
[2021-01-23 17:18] LABS: P. Jirovecii DNA QL PCR DETECTED; P. Jirovecii DNA QL PCR Source induced sputum
[2021-01-23] MEDS: morphine 4 mg/mL SDV 1 mL IVP (17:30)
--- NOTE | 2021-01-23 18:14 | PC.NURSE ---
hospice is set up.equipment has been delivered to home.transportation ([facility] ambulance stretcher) is here.pt discharged at 1800
--- NOTE | 2021-01-24 13:25 | PC.SOCIAL ---
discharge follow up call, spoke with patients . hospice has been in to see the patient multiple times. she reports she has a good support group and that he isn't in any pain. voices no needs at this time.
== END 2021-01-23 18:00 | disposition hospice, home (50) | DRG 177 ==
LOC: ER 19:57 → CSU 20:43
PROVIDERS: Internal Medicine; Admitting Provider Student in an Organized Health Care Education/Training Program; Emergency Provider Emergency Medicine; PCP Family Medicine; Visit Provider Internal Medicine
DX: B59 Pneumocystosis (principal); I50.31 Acute diastolic (congestive) heart failure; J96.01 Acute respiratory failure with hypoxia; C34.91 Malignant neoplasm of unspecified part of right bronchus or lung; C78.7 Secondary malignant neoplasm of liver and intrahepatic bile duct; C79.51 Secondary malignant neoplasm of bone; E87.1 Hypo-osmolality and hyponatremia; Z87.01 Personal history of pneumonia (recurrent); Z79.899 Other long term (current) drug therapy; I25.10 Atherosclerotic heart disease of native coronary artery without angina pectoris; Z95.5 Presence of coronary angioplasty implant and graft; Z95.1 Presence of aortocoronary bypass graft; I48.91 Unspecified atrial fibrillation; I11.0 Hypertensive heart disease with heart failure; N40.0 Benign prostatic hyperplasia without lower urinary tract symptoms; J43.9 Emphysema, unspecified; E78.2 Mixed hyperlipidemia; Z86.73 Personal history of transient ischemic attack (TIA), and cerebral infarction without residual deficits; Z87.891 Personal history of nicotine dependence; G89.3 Neoplasm related pain (acute) (chronic); Z66 Do not resuscitate; I95.9 Hypotension, unspecified; Z51.5 Encounter for palliative care; K59.00 Constipation, unspecified
CPT/HCPCS: 36415; 36416; 36600; 51702; 71045; 71275; 74018; 80048; 80053; 81001; 82550; 82803; 82962; 83605; 83615; 83690; 83880; 84145; 84484; 85025; 85378; 86140; 87040; 87070; 87426; 87635; 87798; 87804; 93005; 93308; 93970; 94640; 96360; 96365; 96367; 96375; 99214; 99285; J0282; J0692; J0743; J1100; J1170; J1885; J1940; J2270; J2370; J2405; J2543; J2765; J2920; J3370; J3490; J7040; J7050; J7060; J7512; J7626; J8540; Q0144; Q9967